=== PATIENT | female | born 1950 | race Caucasian/White ===

== ENCOUNTER 2017-07-18 14:25 | Inpatient (IN) | payer OTHER ==
--- NOTE | 2017-07-18 14:35 | PDOC ---
Rapid Medical Evaluation Chief Complaint: Hematuria Time Seen by Provider: 07/18/17 14:35 Medical Evaluation: Allergies Allergy/AdvReac Type Severity Reaction Status Date / Time Penicillins Allergy Verified 01/15/14 23:05 07/18/17 14:35 I have performed a brief in-person evaluation of this patient. The patient presents with a chief complaint of: persistent hematuria despite multiple abx. Sent in for admission for IV abx. is Dr Banegas. PMD is Dr Lugo. H/o DM, CAD, Alzheimer, NH lymphoma, s/p chemo 2012, s/p stent in L ureter 05/10, urinary incontinence Pertinent physical exam findings:stable I have ordered the following:labs The patient will proceed to the ED for further evaluation.
[2017-07-18 14:54] LABS: BASO % 0.5 % (0-2.0); EOS % 1.9 % (0-4.5); HEMATOCRIT 34.6 % (32.4-45.2); HEMOGLOBIN 11.7 GM/dL (10.7-15.3); LYMPH % 27.1 % (8-40); MCH 27.6 pg (25.7-33.7); MCHC 33.7 g/dl (32.0-36.0); MONO % 7.9 % (3.8-10.2); NEUT % 62.6 % (42.8-82.8); PLATELET COUNT 163 K/MM3 (134-434); RBC 4.22 M/mm3 (3.60-5.2); RDW 15.2 % (11.6-15.6); WHITE BLOOD COUNT 5.4 K/mm3 (4.0-10.0)
[2017-07-18 15:23] LABS: ALBUMIN 3.6 g/dl (3.4-5.0); ALK PHOS 99 U/L (45-117); ANION GAP 12 (8-16); BILIRUBIN,TOTAL 0.5 mg/dL (0.2-1.0); BLOOD UREA NITROGEN 16 mg/dL (7-18); CALCIUM 8.8 mg/dL (8.5-10.1); CHLORIDE 101 mmol/L (98-107); CO2 26 mmol/L (21-32); CREATININE 0.8 mg/dL (0.55-1.02); GLUCOSE,RANDOM 269 mg/dL (74-106); SGOT/AST 15 U/L (15-37); SGPT/ALT 19 U/L (12-78); SODIUM 139 mmol/L (136-145); TOT PROT 7.3 g/dl (6.4-8.2)
--- NOTE | 2017-07-18 16:58 | PDOC ---
History of Present Illness - General History Source: Family, Old Records Exam Limitations: Dementia - History of Present Illness Initial Comments: 07/18/17 18:06 The patient is a 67 year old female presenting with her family, with a significant past medical history of DM, CAD s/p cardiac stents, hyperlipidemia, HTN (on metoprolol), alzhimers, non-hodgkins lymphoma s/p chemo 2012, s/p stent in L ureter 05/10, urinary incontinence, who presents to the emergency department complaining of persistent hematuria despite multiple outpatient oral antibiotics (Cipro and Avelox). The patient was sent for admission and IV antibiotics. Family notes that the patient had a low grade fever at 99.9 degree F, dry cough, rash on her groin (evaluated by PMD and prescribed steroid cream) and boil on her vagina. Allergies: Penicillin Past surgical history: Kidney Stent placed Social History: No alcohol, tobacco or drug use reported PMD: Dr. Lugo. Urologist: Dr. Chilel <Michael Zafar - Last Filed: 07/18/17 18:06> <Genesis Foster - Last Filed: 07/18/17 19:50> - General Chief Complaint: Hematuria Stated Complaint: PCP SENT/HEMATURIA HAS BLADDER STENT Time Seen by Provider: 07/18/17 14:35 Past History <Michael Zafar - Last Filed: 07/18/17 18:06> - Past Medical History Cancer: Yes (NON-HODGKINS) COPD: No Diabetes: Yes Hypercholesterolemia: Yes Other medical history: Alzheimer's disease - Surgical History Abdominal Surgery: (Kidney stent) - Suicide/Smoking/Psychosocial Hx Smoking History: Never smoked Have you smoked in the past 12 months: No Number of Cigarettes Smoked Daily: 0 Information on smoking cessation initiated: No Hx Alcohol Use: No Drug/Substance Use Hx: No Substance Use Type: None <Genesis Foster - Last Filed: 07/18/17 19:50> - Past Medical History Allergies/Adverse Reactions: Allergies Allergy/AdvReac Type Severity Reaction Status Date / Time Penicillins Allergy Verified 07/18/17 14:39 Home Medications: Ambulatory Orders Donepezil HCl [Aricept -] 5 mg PO DAILY 12/31/13 Clopidogrel Bisulfate [Plavix -] 75 mg PO DAILY 01/15/14 Metformin HCl 850 mg PO DAILY 01/15/14 Metoprolol Tartrate [Lopressor -] 25 mg PO DAILY 01/15/14 Review of Systems - Review of Systems Able to Perform ROS?: No Comments:: 07/18/17 18:09 ROS unavailable due to patient medical condition. <Michael Zafar - Last Filed: 07/18/17 18:06> *Physical Exam - Vital Signs Last Vital Signs Temp Pulse Resp BP Pulse Ox 98.9 F 76 19 118/70 99 07/18/17 14:35 07/18/17 14:35 07/18/17 14:35 07/18/17 14:35 07/18/17 14:35 - Physical Exam Comments: 07/18/17 18:10 GENERAL: Awake, alert, and fully oriented, in no acute distress HEAD: No signs of trauma, normocephalic, atraumatic EYES: PERRLA, EOMI, sclera anicteric, conjunctiva clear ENT: Auricles normal inspection, hearing grossly normal, nares patent, oropharynx clear without exudates. Moist mucosa NECK: Normal ROM, supple, no lymphadenopathy, JVD, or masses LUNGS: No distress, speaks full sentences, clear to auscultation bilaterally HEART: Regular rate and rhythm, normal S1 and S2, no murmurs, rubs or gallops, peripheral pulses normal and equal bilaterally. ABDOMEN: Soft, nontender, normoactive bowel sounds. No guarding, no rebound. No masses EXTREMITIES : Normal inspection, Normal range of motion, no edema. No clubbing or cyanosis. NEUROLOGICAL: Cranial nerves II through XII grossly intact. Normal speech, normal gait, no focal sensorimotor deficits SKIN: Warm, Dry, normal turgor, no rashes or lesions noted <Michael Zafar - Last Filed: 07/18/17 18:06> - Vital Signs Last Vital Signs Temp Pulse Resp BP Pulse Ox 98.9 F 76 19 118/70 99 07/18/17 14:35 07/18/17 14:35 07/18/17 14:35 07/18/17 14:35 07/18/17 14:35 <Genesis Foster - Last Filed: 07/18/17 19:50> Heart Score/ECG Review - ECG Intrepretation Comment:: 07/18/17 19:27 sinus at 74, L axis, nl interval, t wave inversions avl, poor r wave progression <Genesis Foster - Last Filed: 07/18/17 19:50> ED Treatment Course - LABORATORY CBC & Chemistry Diagram: 07/18/17 14:45 07/18/17 14:45 - ADDITIONAL ORDERS Additional order review: Laboratory Results 07/18/17 14:45 Sodium 139 Potassium 4.0 Chloride 101 Carbon Dioxide 26 Anion Gap 12 BUN 16 Creatinine 0.8 Creat Clearance w eGFR > 60 Random Glucose 269 H Calcium 8.8 Total Bilirubin 0.5 AST 15 ALT 19 Alkaline Phosphatase 99 Total Protein 7.3 Albumin 3.6 07/18/17 14:45 RBC 4.22 MCV 82.0 MCHC 33.7 RDW 15.2 D MPV 8.0 Neutrophils % 62.6 Lymphocytes % 27.1 D Monocytes % 7.9 Eosinophils % 1.9 D Basophils % 0.5 <Michael Zafar - Last Filed: 07/18/17 18:06> - LABORATORY CBC & Chemistry Diagram: 07/18/17 14:45 07/18/17 14:45 - ADDITIONAL ORDERS Additional order review: Laboratory Results 07/18/17 14:45 Sodium 139 Potassium 4.0 Chloride 101 Carbon Dioxide 26 Anion Gap 12 BUN 16 Creatinine 0.8 Creat Clearance w eGFR > 60 Random Glucose 269 H Calcium 8.8 Total Bilirubin 0.5 AST 15 ALT 19 Alkaline Phosphatase 99 Total Protein 7.3 Albumin 3.6 07/18/17 14:45 RBC 4.22 MCV 82.0 MCHC 33.7 RDW 15.2 D MPV 8.0 Neutrophils % 62.6 Lymphocytes % 27.1 D Monocytes % 7.9 Eosinophils % 1.9 D Basophils % 0.5 <Genesis Foster - Last Filed: 07/18/17 19:50> Medical Decision Making - Medical Decision Making 07/18/17 17:41 a/p: 67yo pleasantly demented female presents to the ED with her family for eval of persistent hematuria/uti that has failed 2 outpt abx treatments -has been seen by DR. Reji Edwards - finished avelox on sunday -also with cough since last night -no fevers -will check labs, ua, ucx, ekg, cxr -sent by PMD for admission -Dr. Medrano is urology -will discuss with ID and Urology pending labs -has a stent to ureter -hematuria since again after stopping hematuria for a week while on avelox 07/18/17 19:34 pt with yeast infection to groin area has been treating with topical nystatin will give fluconazole 07/18/17 19:35 pt with UTI on labs has been on outpt abx x 2 will discuss with ID and UROLOGY will be admitted to [facility] for IV abx case discussed with Dr. Ortiz who accepts pt to service 07/18/17 19:[address] Coe who recommends Merrem therapy IV for the UTI <Genesis Foster - Last Filed: 07/18/17 19:50> *DC/Admit/Observation/Transfer - Attestations Scribe Attestion: 07/18/17 18:10 Documentation prepared by Michael Zafar, acting as medical receptionist assistant for Genesis Foster DO <Michael Zafar - Last Filed: 07/18/17 18:06> - Discharge Dispostion Admit: Yes - Attestations Physician Attestion: 07/18/17 19:28 I, Dr. Genesis Foster DO, attest that this document has been prepared under my direction and personally reviewed by me in its entirety. I further attest, that it accurately reflects all work, treatment, procedures and medical decision -making performed by me. <Genesis Foster - Last Filed: 07/18/17 19:50> Diagnosis at time of Disposition: UTI (urinary tract infection) - Discharge Dispostion Condition at time of disposition: Fair - Referrals Referrals: Sally Lugo [Primary Care Provider] - - Patient Instructions - Post Discharge Activity
[2017-07-18 18:31] LABS: URINE APPEARANCE TURBID; URINE BILIRUBIN NEGATIVE (<2.0 mg/dL); URINE BLOOD 3+ (NEGATIVE); URINE COLOR YELLOW; URINE GLUCOSE (UA) NEGATIVE (NEGATIVE); URINE KETONE NEGATIVE (NEGATIVE); URINE NITRITE POSITIVE (NEGATIVE); URINE UROBILINOGEN NEGATIVE mg/dL (0.2-1.0)
[2017-07-18 18:39] LABS: URINE LEUK ESTERASE 3+ (NEGATIVE); URINE PROTEIN 2+ (NEGATIVE)
[2017-07-18 18:40] LABS: EPI CELLS RARE /HPF (FEW); URINE BACTERIA FEW /hpf (NONE SEEN); URINE MUCUS RARE
[2017-07-18] MEDS ORDERED: FLUCONAZOLE 50 MG TABLET PO ONE (19:26)
--- NOTE | 2017-07-18 19:35 | PN ---
Teaching Attending Note Name of Resident: Cindy Mir ATTENDING PHYSICIAN STATEMENT I saw and evaluated the patient. I reviewed the resident's note and discussed the case with the resident. I agree with the resident's findings and plan as documented. SUBJECTIVE: 67 yo F with pmhx. of DM, CAD s/p stents, hld, htn (on Metoprolol), htn, Alzheimers, Non-Hodgkins Lymphoma (s/p chemo 13'), L. Ureteral stent 05/10, urinary incontinence, who presents with hematouria. Family states she was on Cipro/Moxi prior. Pt. is non-verbal at baseline. As per family she has a groin rash and boil on labia. OBJECTIVE: Physical: Vs: Vital Signs Period Temp Pulse Resp BP Sys/Lopez Pulse Ox Last 24 Hr 98.9 F 76 19 118/70 99 GEN: NAD, Resting in bed, AA0X0 HEENT: NCAT, PERRL, Throat without erythema or exudates CARD: RRR S1, S2 RESP: CTAB ABD: Bsx4, NTD to palpation EXT: - C/C/E : Groin with erythmatous rash, boil difficult to examine, due to positioning. CBCD WBC 5.4 K/mm3 (4.0-10.0) D 07/18/17 14:45 RBC 4.22 M/mm3 (3.60-5.2) 07/18/17 14:45 Hgb 11.7 GM/dL (10.7-15.3) 07/18/17 14:45 Hct 34.6 % (32.4-45.2) 07/18/17 14:45 MCV 82.0 fl (80-96) 07/18/17 14:45 MCHC 33.7 g/dl (32.0-36.0) 07/18/17 14:45 RDW 15.2 % (11.6-15.6) D 07/18/17 14:45 Plt Count 163 K/MM3 (134-434) 07/18/17 14:45 MPV 8.0 fl (7.5-11.1) 07/18/17 14:45 CMP Sodium 139 mmol/L (136-145) 07/18/17 14:45 Potassium 4.0 mmol/L (3.5-5.1) 07/18/17 14:45 Chloride 101 mmol/L (98-107) 07/18/17 14:45 Carbon Dioxide 26 mmol/L (21-32) 07/18/17 14:45 Anion Gap 12 (8-16) 07/18/17 14:45 BUN 16 mg/dL (7-18) 07/18/17 14:45 Creatinine 0.8 mg/dL (0.55-1.02) 07/18/17 14:45 Creat Clearance w eGFR > 60 (>60) 07/18/17 14:45 Random Glucose 269 mg/dL (74-106) H 07/18/17 14:45 Calcium 8.8 mg/dL (8.5-10.1) 07/18/17 14:45 Total Bilirubin 0.5 mg/dL (0.2-1.0) 07/18/17 14:45 AST 15 U/L (15-37) 07/18/17 14:45 ALT 19 U/L (12-78) 07/18/17 14:45 Alkaline Phosphatase 99 U/L (45-117) 07/18/17 14:45 Total Protein 7.3 g/dl (6.4-8.2) 07/18/17 14:45 Albumin 3.6 g/dl (3.4-5.0) 07/18/17 14:45 Urine Test Results Urine Color Yellow 07/18/17 18:20 Urine Appearance Turbid 07/18/17 18:20 Urine pH 5.0 (5.0-8.0) 07/18/17 18:20 Ur Specific [place] 1.011 (1.001-1.035) 07/18/17 18:20 Urine Protein 2+ (NEGATIVE) H 07/18/17 18:20 Urine Glucose (UA) Negative (NEGATIVE) 07/18/17 18:20 Urine Ketones Negative (NEGATIVE) 07/18/17 18:20 Urine Blood 3+ (NEGATIVE) H 07/18/17 18:20 Urine Nitrite Positive (NEGATIVE) 07/18/17 18:20 Urine Bilirubin Negative (<2.0 mg/dL) 07/18/17 18:20 Ur Leukocyte Esterase 3+ (NEGATIVE) H 07/18/17 18:20 Ur Epithelial Cells Rare /HPF (FEW) 03/28/18 18:20 Urine Bacteria Few /hpf (NONE SEEN) 07/18/17 18:20 Urine Mucus Rare 07/18/17 18:20 Ambulatory Orders Donepezil HCl [Aricept -] 5 mg PO DAILY 12/31/13 Clopidogrel Bisulfate [Plavix -] 75 mg PO DAILY 01/15/14 Metformin HCl 850 mg PO DAILY 01/15/14 Metoprolol Tartrate [Lopressor -] 25 mg PO DAILY 01/15/14 ASSESSMENT AND PLAN: 67 yo F with pmhx. of DM, CAD s/p stents, hld, htn (on Metoprolol), htn, Alzheimers, Non-Hodgkins Lymphoma (s/p chemo 13'), L. Ureteral stent 05/10, urinary incontinence, who presents with hematouria, being admitted for UTI, not responsing to abx. 1.) UTI - UCx - IVF gentle - ID consult - Aztreonam 2.) Rash- More[place]/boil - Monitor boil- if draining or worsens decal decorator - Nystatin powder 3.) L. Utretral stent - US - Gu Consult 3.) DM - FS - RAISS - Hold Metformin 4.) CAD s/p Stents - Hold Plavix if procedure tomorrow 5.) Dementia - C/W Aricept 6.) Dvt Ppx - Scds Place in Meds sx
[2017-07-18] MEDS ORDERED: MEROPENEM 1,000 MG in DEXTROSE 5%-WATER - 100 ML IVPB ONE (19:49)
[2017-07-18] MEDS ORDERED: ZOLPIDEM TARTRATE 5 MG TABLET PO PRN (20:35)
--- NOTE | 2017-07-18 20:45 | HP ---
CHIEF COMPLAINT: worsening hematuria x 1 week PCP: Dr. Bryant HISTORY OF PRESENT ILLNESS: 67 y/o F with PMH HTN, HLD, DM, CAD s/p stent, Alzheimer's dz, NHL s/p chemo ( 2012; currently on no agents), recent sepsis 2/2 blocked L ureteral stent ( [facility]), s/p L ureteral stent placement (04/2017), urinary incontinence, who presents to the ED c/o worsening hematuria over the past week. As per daughter, in April, pt had a L ureteral stent placed. It was supposed to be removed in May. Ever since its placement, pt has had intermittent hematuria. She saw her urologist, Dr. Medrano and was subsequently found to have a positive urine cx, and was placed on PO cipro (1 wk course), and moxi (3 wk course) by Dr. Coe (ID). However, pt's hematuria continued, with its frequency increasing to daily this wk. Pt also with vague abdominal discomfort during urination during this time, as well as groin rash ( over the past two weeks), and labial boil (over the past 3 days). She has also had a productive cough, low grade temp (99.8F Tmax), rigors, and 15 pound weight loss over the last three months. Daughter denies appetite changes, night sweats, [place], SOB, or changes in bowel function. Pt is taken care of at home by family members. She does not have a health aid. ER course was notable for: (1) Meropenem IVPB 1 g x 1 (2) Diflucan 150mg x 1 (3) UA 3+ leuk esterase, 2203 WBCs (4) BG 269 Recent Travel: none PAST MEDICAL HISTORY: as above PAST SURGICAL HISTORY: s/p L ureteral stent placement (04/2017), CAD s/p stent, lung bx (NHL went to lung), breast bx Social History: retired; lives at home with family. Used to work for [employer] , [employer] Smoking: started at age 12. smoked for 40-50 yrs, 1-1.5 ppd. stopped 1 yr ago Alcohol: socially in past Drugs: denies Family History: father- leukemia, lung CA- sister, brothers- DM, mother- stroke Allergies Penicillins Allergy (Verified 07/18/17 14:39) - rash, hives HOME MEDICATIONS: Home Medications Medication Instructions Recorded Donepezil HCl [Aricept -] 5 mg PO DAILY 12/31/13 Clopidogrel Bisulfate [Plavix -] 75 mg PO DAILY 01/15/14 Metformin HCl 850 mg PO DAILY 01/15/14 Metoprolol Tartrate [Lopressor -] 25 mg PO DAILY 01/15/14 Pravastatin Sodium 10 mg PO DAILY 07/18/17 Trazodone HCl DAILY 07/18/17 REVIEW OF SYSTEMS CONSTITUTIONAL: +weight change Absent: fever, chills, diaphoresis, generalized weakness, malaise, loss of appetite HEENT: Absent: rhinorrhea, nasal congestion, throat pain, throat swelling, difficulty swallowing, mouth swelling, ear pain, eye pain, visual changes CARDIOVASCULAR: Absent: chest pain, syncope, palpitations, irregular heart rate, lightheadedness , peripheral edema RESPIRATORY: Absent: cough, shortness of breath, dyspnea with exertion, orthopnea, wheezing, stridor, hemoptysis GASTROINTESTINAL: Absent: abdominal pain, abdominal distension, nausea, vomiting, diarrhea, constipation, melena, hematochezia GENITOURINARY: +hematuria Absent: dysuria, frequency, urgency, hesitancy, flank pain, genital pain MUSCULOSKELETAL: Absent: myalgia, arthralgia, joint swelling, back pain, neck pain SKIN: +groin rash Absent: itching, pallor HEMATOLOGIC/IMMUNOLOGIC: Absent: easy bleeding, easy bruising, lymphadenopathy, frequent infections ENDOCRINE: Absent: unexplained weight gain, unexplained weight loss, heat intolerance, cold intolerance NEUROLOGIC: +dementia, urinary incontinence Absent: headache, focal weakness or paresthesias, dizziness, unsteady gait, seizure, mental status changes, bladder or bowel incontinence PSYCHIATRIC: Absent: anxiety, depression, suicidal or homicidal ideation, hallucinations. PHYSICAL EXAMINATION Vital Signs 07/18/17 14:35 Temperature 98.9 F Pulse Rate 76 Respiratory 19 Rate Blood Pressure 118/70 O2 Sat by Pulse 99 Oximetry (%) GENERAL: Sitting comfortably. With dementia, mostly non-verbal. AAO x 0. Cries out, however in no acute distress. HEAD: Normal with no signs of trauma. EYES: Pupils equal, round and reactive to light, extraocular movements intact, sclera anicteric, conjunctiva clear. EARS, NOSE, THROAT: Ears normal, nares patent, oropharynx clear without exudates. Moist mucous membranes. NECK: Normal range of motion, supple LUNGS: Breath sounds equal. No accessory muscle use. Unable to adequately assess as pt with poor inspiratory effort, or response to commands HEART: Regular rate and rhythm, normal S1 and S2 without murmur, rub or gallop. ABDOMEN: Soft, +mild TTP suprapubic area, not distended, normoactive bowel sounds, no guarding, no rebound, no masses. LOWER EXTREMITIES: 2+ posterior tibial pulses, warm, well-perfused. No calf tenderness. No peripheral edema. NEUROLOGICAL: Cranial nerves II-XII appear to be grossly intact. Unable to adequately respond to commands PSYCHIATRIC: with dementia Laboratory Results - last 24 hr 07/18/17 07/18/17 07/18/17 14:45 14:45 18:20 WBC 5.4 D RBC 4.22 Hgb 11.7 Hct 34.6 MCV 82.0 MCH 27.6 D MCHC 33.7 RDW 15.2 D Plt Count 163 MPV 8.0 Neutrophils % 62.6 Lymphocytes % 27.1 D Monocytes % 7.9 Eosinophils % 1.9 D Basophils % 0.5 Sodium 139 Potassium 4.0 Chloride 101 Carbon Dioxide 26 Anion Gap 12 BUN 16 Creatinine 0.8 Creat Clearance w eGFR > 60 Random Glucose 269 H Calcium 8.8 Total Bilirubin 0.5 AST 15 ALT 19 Alkaline Phosphatase 99 Total Protein 7.3 Albumin 3.6 Urine Color Yellow Urine Appearance Turbid Urine pH 5.0 Ur Specific [place] 1.011 Urine Protein 2+ H Urine Glucose (UA) Negative Urine Ketones Negative Urine Blood 3+ H Urine Nitrite Positive Urine Bilirubin Negative Urine Urobilinogen Negative Ur Leukocyte Esterase 3+ H Urine WBC (Auto) 2203 Urine RBC (Auto) 734 Ur Epithelial Cells Rare Urine Bacteria Few Urine Mucus Rare TESTS MICRO: Ucx - pending EKG: NSR, L axis deviation, TWI avL, poor R wave progression. Qtc 463ms CXR: without infiltrates, no pleural effusion ASSESSMENT/PLAN: 67 y/o F with PMH HTN, HLD, DM, CAD s/p stent, Alzheimer's dz, NHL s/p chemo ( 2012; currently on no agents), recent sepsis 2/2 blocked L ureteral stent ( [facility]), s/p L ureteral stent placement (04/2017), urinary incontinence, who presents to the ED c/o worsening hematuria over the past week. Pt admitted to med-surg for resistant UTI. #Resistant UTI, failed oral abx -Without sepsis criteria in ED, afebrile, without white count. However low grade temps at home -pt immunocompromised - with NHL, DM. increased risk infection -UA: 3+ blood, +nitrite, 3+ leuk esterase, 2203 WBCs -Increased frequency hematuria -Received meropenem IVPB 1g x 1 in ED -Will start on Azactam 1g IVPB q8h tomorrow. Pen allergic-rash -ID consult-Dr. Humphreys -Urology consult- Dr. Banegas -gentle IVF -F/u blood cx, urine cx #Hx L ureteral stent -Uro consult- Dr. Banegas -F/u renal sono- assess stent placement. As per ED staff, pt agitated with renal sono #Yeast infection in groin area -Received diflucan 150mg x 1 in ED -Continue nystatin powder use daily #R labial boil -Recommend locomotive firer f/u if does not heal or abnormal d/c #Hx 15 lb weight loss -without B sx, however sig weight loss -15 lbs over last 3 months -Recommend outpatient f/u -Also has smoking hx -?r/o bladder malignancy #CAD s/p stent -Hold plavix 75mg PO qd in case of procedure #HTN- controlled -Continue metoprolol succinate 50mg qd #HLD -Continue pravastatin 10mg PO qHS #DM -will hold home metformin -ISS ACHS -BGM #Alzheimer's dz -Continue aricept 10mg PO HS #Insomnia -Continue ambien 5mg PO qHS PRN #Depression/pseudodementia -Will hold Trazodone 50 PO qd -Qtc 463ms borderline elevated -Continue to monitor #F/E/N -gentle fluids IV NS 75 cc/hr -Continue to monitor electrolytes -NPO until speech&swallow- avoid aspiration d/t dementia #PPX DVT: SCD's, will avoid a/c d/t hematuria GI: on protonix at home, will continue #Dispo Monitoring on med-surg Visit type - Emergency Visit Emergency Visit: Yes ED Registration Date: 07/18/17 Care time: The patient presented to the Emergency Department on the above date and was hospitalized for further evaluation of their emergent condition. - New Patient This patient is new to me today: Yes Date on this admission: 07/19/17 - Critical Care Critical Care patient: No Hospitalist Screening - Colonoscopy Questionnaire Colonoscopy Questionnaire: Colonoscopy Questionnaire - Patient: 50 - 75 years old and never had a screening colonoscopy: Unknown History of colon or rectal polyps, or CA: Unknown History of IBD, Crohn's disease or UC: Unknown History of abdominal radiation therapy as a child: Unknown - Relative: 1 with colon or rectal CA, or polyps at age 60 or younger: Unknown Colon or rectal CA diagnosed at age 45 or younger: Unknown Multiple relatives with colon or rectal CA: Unknown - Outcome: Screening Result: Negative Screen
[2017-07-18] MEDS ORDERED: FLUCONAZOLE 100 MG TABLET (UD) ONE (21:31)
[2017-07-18] MEDS ORDERED: DONEPEZIL HCL 5 MG TABLET (FP) ONE (21:32)
[2017-07-18] MEDS: SODIUM CHLORIDE 1,000 ML IV SCH (21:46)
[2017-07-18] MEDS: DONEPEZIL HCL 10 MG TABLET (FP) PO SCH (21:46)
[2017-07-18] MEDS: NYSTATIN POWDER 100,000 UNITS/GM - 15 GM TOPICAL POWDER TP SCH (21:47)
[2017-07-18] MEDS: AZTREONAM 1 GM in DEXTROSE 5%-WATER - 50 ML IVPB SCH (21:47)
[2017-07-18] MEDS: ATORVASTATIN CA 10 MG TABLET (FP) PO SCH (23:07)
[2017-07-18] MEDS ORDERED: ZOLPIDEM TARTRATE 5 MG TABLET ONE (23:08)
[2017-07-18] MEDS: INSULIN SLIDING SCALE (NOVOLOG) 1 VIAL SQ SCH (23:20)
[2017-07-19] MEDS ORDERED: ZOLPIDEM TARTRATE 5 MG TABLET PO STA (01:42)
[2017-07-19] MEDS ORDERED: ZOLPIDEM TARTRATE 5 MG TABLET ONE (01:44)
[2017-07-19] MEDS: AZTREONAM 1 GM in DEXTROSE 5%-WATER - 50 ML IVPB SCH ×2 (05:09→20:01)
[2017-07-19] MEDS: SODIUM CHLORIDE 1,000 ML IV SCH ×3 (08:41→21:59)
[2017-07-19] MEDS: INSULIN SLIDING SCALE (NOVOLOG) 1 VIAL SQ SCH ×4 (08:41→21:59)
[2017-07-19 08:45] LABS: BASO % 0.5 % (0-2.0); EOS % 1.2 % (0-4.5); HEMATOCRIT 33.2 % (32.4-45.2); HEMOGLOBIN 11.4 GM/dL (10.7-15.3); LYMPH % 20.5 % (8-40); MCH 27.8 pg (25.7-33.7); MCHC 34.3 g/dl (32.0-36.0); MEAN CELL VOLUME 80.9 fl (80-96); MEAN PLT VOLUME 8.4 fl (7.5-11.1); MONO % 7.9 % (3.8-10.2); NEUT % 69.9 % (42.8-82.8); PLATELET COUNT 158 K/MM3 (134-434); RBC 4.11 M/mm3 (3.60-5.2); RDW 15.3 % (11.6-15.6); WHITE BLOOD COUNT 7.6 K/mm3 (4.0-10.0)
[2017-07-19 09:09] LABS: ANION GAP 14 (8-16); BLOOD UREA NITROGEN 13 mg/dL (7-18); CALCIUM 8.1 mg/dL (8.5-10.1); CHLORIDE 99 mmol/L (98-107); CO2 25 mmol/L (21-32); CREATININE 0.7 mg/dL (0.55-1.02); GLUCOSE,RANDOM 144 mg/dL (74-106); MAGNESIUM 1.8 mg/dL (1.8-2.4); POTASSIUM 3.6 mmol/L (3.5-5.1); SODIUM 138 mmol/L (136-145)
--- NOTE | 2017-07-19 09:54 | CONSULT ---
Admitting History and Physical - Primary Care Physician PCP: Ratna Lim - Admission History of Present Illness: 67 yo F with pmhx. of DM, CAD s/p stents, hld, htn (on Metoprolol), htn, Alzheimers, Non-Hodgkins Lymphoma (s/p chemo 13'), L. Ureteral stent 05/10, urinary incontinence, who presents with hematouria. Family states she was on Cipro/Moxi prior. Pt. is mostly non-verbal at baseline. She speaks occasionally. Pt is on a cut up, regular diet and thin liquid without difficulty. History Source: Family Member, Medical Record Limitations to Obtaining History: Clinical Condition, Dementia - Past Medical History Cardiovascular: Yes: HTN, Hyperlipdemia Heme/Onc: Yes: Other (Non-hodgkins lymphoma s/p chemo last 06/2013) - Smoking History Smoking history: Never smoked Have you smoked in the past 12 months: No Aproximately how many cigarettes per day: 0 - Alcohol/Substance Use Hx Alcohol Use: No History of Substance Use: reports: None - Social History ADL: Independent History of Recent Travel: No History - Admission Reason For Visit: UTI - Diagnostics X-ray: Report Reviewed - General Mental Status: Awake and Alert, Flat Affect Attention: Distractible, Moderate Impairment Ability to Follow Directions: Poor Speech Evaluation - Communication Primary Language: BAHRAINI Secondary Language: CYPRIOT Communication: Yes: Simple Responses (rare verbalizations "hello") - Speech Production Able to Make Needs Known: Yes: Severely Impaired Intelligibility: Yes: WNL - Speech Characteristics Voice Loudness: Normal Voice Pitch: Yes: Normal Voice Phonatory-based Quality: Yes: Normal Speech Clarity: < 100% Nasal Resonance: Normal Articulation: Yes: Precise - Language/Auditory Comprehension Observation: Able to respond to yes/no queries: No - Language/Verbal Expression Able to Respond to Simple Queries: Yes: Severely Impaired Able to Communicate Wants and Needs: Yes: Severely Impaired Functional Communication Status: Yes: Severely Impaired - Memory/Perception nursing home Memory: Yes: Severely Impaired Short Term Memory: Yes: Severely Impaired - Swallow Evaluation/Bedside Assessment Current Nutritional Intake: NPO Oral Secretions: Yes: WFL Dentition: Yes: Dental Appliance Upper, Dental Appliance Lower Facial Symmetry at Rest: Facial Droop Left Facial Symmetry on Retraction: Symmetrical Lingual Movement: Symmetric Lingual Speed of Movement: Normal Laryngeal Movement: Able to Palpate Labial Seal: WFL Chewing: WFL Oral Prep Time: WFL A-P Transit: WFL Pocketing: None Timing of Swallow: WFL Coughing/Throat Clear: No Change in Voice: No Recommendations - Speech Evaluation, Impression/Plan Impression: Rare verbalizations with normal intelligibility. Profound cognitive deficits. Swallowing overtly intact. - Disposition Discharge to: Home with Assist - Dysphagia Impressions/Plan Swallowing Skills: WFL *Silent aspiration: cannot be R/O at bedside - Recommendations Diet Consistency: Regular (cut up by family) Liquids: Thin Liquids
--- NOTE | 2017-07-19 10:37 | CON.ID ---
Consult Consult Specialty:: Infectious Diseases Reason for Consultation:: Persistent UTI - History of Present Illness Chief Complaint: Hematuria History of Present Illness: Ms. Platt is a 67 y/o F with PMH HTN, HLD, DM, CAD s/p stent, Alzheimer's dz, NHL s/p chemo (2012; currently on no agents), recent sepsis 2/2 blocked L ureteral stent ([facility]), s/p L ureteral stent placement (04/2017), urinary incontinence, who presents to the ED c/o worsening hematuria over the past week. As per daughter, in April, pt had a L ureteral stent placed. It was supposed to be removed in May. Ever since its placement, pt has had intermittent hematuria. She saw her urologist, Dr. Medrano and was subsequently found to have a positive urine cx with pyuria (Beta Strep)and was placed on PO Cipro for a week. However, she had persistence of her UTI with (+) c/s and a longer course of Rx with Moxifloxacin was given. I had spoken to Dr. Banegas regarding postponement of stent removal in lieu of persistent UTI. A few days ago, her daughter, reported increased hematuria and upon speaking with her PMD, Dr. Dumont, the decision was made to admit her. She has been having intermittent fever or chills. 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 Cardio/Vascular: Yes: HTN, Hyperlipdemia - Alcohol/Substance Use Hx Alcohol Use: No History of Substance Use: reports: None - Smoking History Smoking history: Never smoked Have you smoked in the past 12 months: No Aproximately how many cigarettes per day: 0 - Social History Usual Living Arrangement: With Child ADL: Independent History of Recent Travel: No Home Medications - Allergies Allergies/Adverse Reactions: Allergies Allergy/AdvReac Type Severity Reaction Status Date / Time Penicillins Allergy Verified 07/18/17 14:39 - Home Medications Home Medications: Ambulatory Orders Donepezil HCl [Aricept -] 5 mg PO DAILY 12/31/13 Clopidogrel Bisulfate [Plavix -] 75 mg PO DAILY 01/15/14 Metformin HCl 850 mg PO DAILY 01/15/14 Metoprolol Tartrate [Lopressor -] 25 mg PO DAILY 01/15/14 Pravastatin Sodium 10 mg PO DAILY 07/18/17 Trazodone HCl DAILY 07/18/17 Review of Systems Unable to obtain ROS, reason: Dementia Physical Exam Vital Signs: Vital Signs Temperature 98.2 F 07/19/17 08:55 Pulse Rate 74 07/19/17 08:55 Respiratory Rate 18 07/19/17 09:00 Blood Pressure 149/79 07/19/17 08:55 O2 Sat by Pulse Oximetry (%) 96 07/19/17 09:00 Constitutional: Yes: Well Nourished Eyes: Yes: Conjunctiva Clear Neck: Yes: Supple Cardiovascular: Yes: Regular Rate and Rhythm Respiratory: Yes: Regular Gastrointestinal: Yes: Normal Bowel Sounds Neurological: Yes: Alert, Confusion Labs: CBC, BMP 07/19/17 07:50 07/19/17 07:50 Imaging - Results Chest X-ray: Report Reviewed Assessment/Plan Pt with Hematuria, UTI PCN Allergy. Await final cultures Allergy evaluation for PCN allergy Continue Azacatam 2 gr q 8 Add Clinda 600 mg q 8
--- NOTE | 2017-07-19 11:05 | PN ---
<Angel Aguayo - Last Filed: 07/19/17 16:13> Physical Exam: SUBJECTIVE: Patient seen and examined No acute events overnight. Patient nonverbal. OBJECTIVE: Vital Signs Period Temp Pulse Resp BP Sys/Lopez Pulse Ox Last 24 Hr 98.2 F-98.9 F 72-79 18-19 118-169/70-95 96-99 GENERAL: Sitting comfortably. Non-verbal. AAO x 0. Cries out, however in no acute distress. HEAD: Normal with no signs of trauma. EYES: Pupils equal, round and reactive to light, extraocular movements intact, sclera anicteric, conjunctiva clear. EARS, NOSE, THROAT: Oropharynx clear without exudates. Dry mucous membranes NECK: Normal range of motion, supple LUNGS: Breath sounds equal. No accessory muscle use. Unable to adequately assess as pt with poor inspiratory effort, or response to commands HEART: Regular rate and rhythm, normal S1 and S2 without murmur, rub or gallop. ABDOMEN: Soft, nontender, not distended, normoactive bowel sounds, no guarding, no rebound, no masses. LOWER EXTREMITIES: 2+ posterior tibial pulses, warm, well-perfused. No calf tenderness. No peripheral edema. NEUROLOGICAL: Unable to adequately respond to commands PSYCHIATRIC: with dementia Laboratory Results - last 24 hr 07/18/17 07/18/17 07/18/17 14:45 14:45 18:20 WBC 5.4 D RBC 4.22 Hgb 11.7 Hct 34.6 MCV 82.0 MCH 27.6 D MCHC 33.7 RDW 15.2 D Plt Count 163 MPV 8.0 Neutrophils % 62.6 Lymphocytes % 27.1 D Monocytes % 7.9 Eosinophils % 1.9 D Basophils % 0.5 Sodium 139 Potassium 4.0 Chloride 101 Carbon Dioxide 26 Anion Gap 12 BUN 16 Creatinine 0.8 Creat Clearance w eGFR > 60 POC Glucometer Random Glucose 269 H Calcium 8.8 Phosphorus Magnesium Total Bilirubin 0.5 AST 15 ALT 19 Alkaline Phosphatase 99 Total Protein 7.3 Albumin 3.6 Urine Color Yellow Urine Appearance Turbid Urine pH 5.0 Ur Specific [place] 1.011 Urine Protein 2+ H Urine Glucose (UA) Negative Urine Ketones Negative Urine Blood 3+ H Urine Nitrite Positive Urine Bilirubin Negative Urine Urobilinogen Negative Ur Leukocyte Esterase 3+ H Urine WBC (Auto) 2203 Urine RBC (Auto) 734 Ur Epithelial Cells Rare Urine Bacteria Few Urine Mucus Rare 07/18/17 07/19/17 07/19/17 23:15 07:50 07:50 WBC 7.6 D RBC 4.11 Hgb 11.4 Hct 33.2 MCV 80.9 MCH 27.8 MCHC 34.3 RDW 15.3 Plt Count 158 MPV 8.4 Neutrophils % 69.9 Lymphocytes % 20.5 D Monocytes % 7.9 Eosinophils % 1.2 Basophils % 0.5 Sodium 138 Potassium 3.6 Chloride 99 Carbon Dioxide 25 Anion Gap 14 BUN 13 Creatinine 0.7 Creat Clearance w eGFR POC Glucometer [phone] Random Glucose 144 H Calcium 8.1 L Phosphorus 3.0 Magnesium 1.8 Total Bilirubin AST ALT Alkaline Phosphatase Total Protein Albumin Urine Color Urine Appearance Urine pH Ur Specific [place] Urine Protein Urine Glucose (UA) Urine Ketones Urine Blood Urine Nitrite Urine Bilirubin Urine Urobilinogen Ur Leukocyte Esterase Urine WBC (Auto) Urine RBC (Auto) Ur Epithelial Cells Urine Bacteria Urine Mucus 07/19/17 08:37 WBC RBC Hgb Hct MCV MCH MCHC RDW Plt Count MPV Neutrophils % Lymphocytes % Monocytes % Eosinophils % Basophils % Sodium Potassium Chloride Carbon Dioxide Anion Gap BUN Creatinine Creat Clearance w eGFR POC Glucometer 156 Random Glucose Calcium Phosphorus Magnesium Total Bilirubin AST ALT Alkaline Phosphatase Total Protein Albumin Urine Color Urine Appearance Urine pH Ur Specific [place] Urine Protein Urine Glucose (UA) Urine Ketones Urine Blood Urine Nitrite Urine Bilirubin Urine Urobilinogen Ur Leukocyte Esterase Urine WBC (Auto) Urine RBC (Auto) Ur Epithelial Cells Urine Bacteria Urine Mucus Active Medications Generic Name Dose Route Start Last Admin Trade Name Olga PRN Reason Stop Dose Admin Atorvastatin Calcium 10 mg 07/18/17 22:00 07/18/17 23:07 Lipitor - PO 10 mg HS GEORGINA Administration Donepezil HCl 10 mg 07/18/17 20:30 07/18/17 21:46 Aricept - PO 10 mg DAILY GEORGINA Administration Sodium Chloride 1,000 mls @ 75 mls/hr 07/18/17 20:30 07/19/17 08:41 Normal Saline - IV 75 mls/hr ASDIR GEORGINA Administration Aztreonam 1 gm/ Dextrose 50 mls @ 100 mls/hr 07/18/17 20:30 IVPB Q8H GEORGINA Protocol Clindamycin Phosphate 600 mg in 50 mls @ 100 mls/hr 07/19/17 11:00 Cleocin 600 Mg Premix Ivpb - IVPB Q8H-IV GEORGINA Insulin Aspart 1 vial 07/18/17 22:00 07/19/17 08:41 Novolog Vial Sliding Scale - SQ Not Given ACHS GEORGINA Protocol Metoprolol Succinate 50 mg 07/18/17 20:45 07/18/17 21:46 Toprol Xl - PO 50 mg DAILY GEORGINA Administration Nystatin 1 applic 07/18/17 20:45 07/18/17 21:47 Nystop Powder - TP 1 applic DAILY GEORGINA Administration Pantoprazole Sodium 40 mg 07/19/17 10:00 Protonix Iv IVPUSH DAILY GEORGINA Zolpidem Tartrate 5 mg 07/18/17 20:35 07/18/17 23:19 Ambien - PO 5 mg HS PRN Administration INSOMNIA ASSESSMENT/PLAN: 67 y.o. F with pmh HTN, HLD, DM, CAD s/p stent, Alzheimer's dz, NHL s/p chemo ( 2012; currently on no agents), recent sepsis 2/2 blocked L ureteral stent ( [facility]), s/p L ureteral stent placement (04/2017), urinary incontinence, who presented with worsening hematuria and resistant UTI #Resistant UTI, failed oral abx with hx of l ureteral stent -UA: 3+ blood, +nitrite, 3+ leuk esterase, 2203 WBCs -Increased frequency hematuria -Received meropenem IVPB 1g x 1 in ED -Continue Azactam, started on clindamycin -ID consult-Dr. Humphreys -Urology consult- Dr. Banegas -gentle IVF -F/u blood cx, urine cx #Yeast infection in groin area -Received diflucan 150mg x 1 in ED -Continue nystatin powder use daily #Hx 15 lb weight loss -without B sx, however sig weight loss -15 lbs over last 3 months -Recommend outpatient f/u #CAD s/p stent -Hold plavix 75mg PO qd in case of procedure #HTN- controlled -Continue metoprolol succinate 50mg qd #HLD -Continue pravastatin 10mg PO qHS #DM -will hold home metformin -ISS ACHS -BGM #Alzheimer's dz -Continue aricept 10mg PO HS #Insomnia -Continue ambien 5mg PO qHS PRN #Depression/pseudodementia -Will hold Trazodone 50 PO qd -Qtc 463ms borderline elevated -Continue to monitor #F/E/N -gentle fluids IV NS 75 cc/hr -Continue to monitor electrolytes -Diabetic/sodium diet #PPX DVT: SCD's, GI: Protonix #Dispo M/S Visit type - Emergency Visit Emergency Visit: Yes ED Registration Date: 07/18/17 Care time: The patient presented to the Emergency Department on the above date and was hospitalized for further evaluation of their emergent condition. - New Patient This patient is new to me today: Yes Date on this admission: 07/19/17 - Critical Care Critical Care patient: No <BryannormanailynRatna - Last Filed: 07/19/17 18:36> Physical Exam: Patient has seen and examined. Patient has 5 yr hx of Alzhemeir's Dementia. As per Patient's daughter, she takes care of her at home. Patient had the stent placement 2 months ago but continued to have infection and was placed on mcfp po antibiotics. Admitted for acute UTI on IV Azactam and clindamycin since patient is allergic to PCN. Vital Signs Temperature 98.2 F 07/19/17 13:41 Pulse Rate 74 07/19/17 13:41 Respiratory Rate 18 07/19/17 13:41 Blood Pressure 149/79 07/19/17 13:41 O2 Sat by Pulse Oximetry (%) 96 07/19/17 14:24 CBCD WBC 7.6 K/mm3 (4.0-10.0) D 07/19/17 07:50 RBC 4.11 M/mm3 (3.60-5.2) 07/19/17 07:50 Hgb 11.4 GM/dL (10.7-15.3) 07/19/17 07:50 Hct 33.2 % (32.4-45.2) 07/19/17 07:50 MCV 80.9 fl (80-96) 07/19/17 07:50 MCHC 34.3 g/dl (32.0-36.0) 07/19/17 07:50 RDW 15.3 % (11.6-15.6) 07/19/17 07:50 Plt Count 158 K/MM3 (134-434) 07/19/17 07:50 MPV 8.4 fl (7.5-11.1) 07/19/17 07:50 CMP Sodium 138 mmol/L (136-145) 07/19/17 07:50 Potassium 3.6 mmol/L (3.5-5.1) 07/19/17 07:50 Chloride 99 mmol/L (98-107) 07/19/17 07:50 Carbon Dioxide 25 mmol/L (21-32) 07/19/17 07:50 Anion Gap 14 (8-16) 07/19/17 07:50 BUN 13 mg/dL (7-18) 07/19/17 07:50 Creatinine 0.7 mg/dL (0.55-1.02) 07/19/17 07:50 Creat Clearance w eGFR > 60 (>60) 07/18/17 14:45 Random Glucose 144 mg/dL (74-106) H 07/19/17 07:50 Calcium 8.1 mg/dL (8.5-10.1) L 07/19/17 07:50 Total Bilirubin 0.5 mg/dL (0.2-1.0) 07/18/17 14:45 AST 15 U/L (15-37) 07/18/17 14:45 ALT 19 U/L (12-78) 07/18/17 14:45 Alkaline Phosphatase 99 U/L (45-117) 07/18/17 14:45 Total Protein 7.3 g/dl (6.4-8.2) 07/18/17 14:45 Albumin 3.6 g/dl (3.4-5.0) 07/18/17 14:45 Current Medications Generic Name Dose Route Start Last Admin Trade Name Freq PRN Reason Stop Dose Admin Atorvastatin Calcium 10 mg 07/18/17 22:00 07/18/17 23:07 Lipitor - PO 10 mg HS GEORGINA Administration Donepezil HCl 10 mg 07/18/17 20:30 07/19/17 15:44 Aricept - PO Not Given DAILY GEORGINA Sodium Chloride 1,000 mls @ 75 mls/hr 07/18/17 20:30 07/19/17 08:41 Normal Saline - IV 75 mls/hr ASDIR GEORGINA Administration Aztreonam 1 gm/ Dextrose 50 mls @ 100 mls/hr 07/18/17 20:30 IVPB Q8H GEORGINA Protocol Clindamycin Phosphate 600 mg in 50 mls @ 100 mls/hr 07/19/17 11:00 07/19/17 12:37 Cleocin 600 Mg Premix Ivpb - IVPB 100 mls/hr Q8H-IV GEORGINA Administration Insulin Aspart 1 vial 07/18/17 22:00 07/19/17 12:20 Novolog Vial Sliding Scale - SQ Not Given ACHS GEORGINA Protocol Metoprolol Succinate 50 mg 07/18/17 20:45 07/19/17 15:45 Toprol Xl - PO Not Given DAILY GEORGINA Nystatin 1 applic 07/18/17 20:45 07/19/17 12:38 Nystop Powder - TP 1 applic DAILY GEORGINA Administration Pantoprazole Sodium 40 mg 07/19/17 10:00 07/19/17 12:37 Protonix Iv IVPUSH 40 mg DAILY GEORGINA Administration Zolpidem Tartrate 5 mg 07/18/17 20:35 07/18/17 23:19 Ambien - PO 5 mg HS PRN Administration INSOMNIA Home Medications Medication Instructions Recorded Metformin HCl 1,000 mg PO BIDAC 01/15/14 Metoprolol Tartrate [Lopressor -] 50 mg PO DAILY 01/15/14 Pravastatin Sodium 10 mg PO HS 07/18/17 Trazodone HCl 50 mg PO HS 07/18/17 Amlodipine Besylate [Norvasc -] 5 mg PO DAILY 07/19/17 Donepezil HCl 10 mg PO HS 07/19/17 Insulin Glargine,Hum.rec.anlog 35 unit SQ DAILY 07/19/17 [Lantus Solostar] Pantoprazole Sodium [Protonix] 40 mg PO DAILY 07/19/17 Zolpidem Tartrate [Ambien] 10 mg PO HS 07/19/17
--- NOTE | 2017-07-19 11:39 | EKG ---
Test Reason : Blood Pressure : / mmHG Vent. Rate : 074 BPM Atrial Rate : 074 BPM P-R Int : 172 ms QRS Dur : 088 ms QT Int : 418 ms P-R-T Axes : 062 -35 089 degrees QTc Int : 463 ms POOR DATA QUALITY, INTERPRETATION MAY BE ADVERSELY AFFECTED NORMAL SINUS RHYTHM LEFT AXIS DEVIATION MODERATE VOLTAGE CRITERIA FOR LVH, MAY BE NORMAL VARIANT ABNORMAL ECG WHEN COMPARED WITH ECG OF 16-JAN-2014 06:07, NO SIGNIFICANT CHANGE WAS FOUND Confirmed by OPAL MOHAN MD ([id number]) on 07/19/2017 11:38:47 AM Referred By: Confirmed By:OPAL MOHAN MD
[2017-07-19] MEDS: CLINDAMYCIN 600MG PREMIX IVPB 600 MG/50 ML BAG IVPB SCH ×2 (12:37→18:28)
[2017-07-19] MEDS: PANTOPRAZOLE SODIUM 40 MG VIAL IVPUSH SCH (12:37)
[2017-07-19] MEDS: NYSTATIN POWDER 100,000 UNITS/GM - 15 GM TOPICAL POWDER TP SCH (12:38)
[2017-07-19 13:56] VITALS: BMI 21.9
[2017-07-19] MEDS: DONEPEZIL HCL 10 MG TABLET (FP) PO SCH (15:44)
[2017-07-19] MEDS ORDERED: ZOLPIDEM TARTRATE 5 MG TABLET PO PRN (19:55)
[2017-07-19] MEDS ORDERED: INSULIN (NOVOLOG) ASPART 100 UNITS/ML 10ML VIAL ONE (21:57)
[2017-07-19] MEDS: ATORVASTATIN CA 10 MG TABLET (FP) PO SCH (21:59)
[2017-07-20] MEDS: ZOLPIDEM TARTRATE 5 MG TABLET PO PRN (01:12)
[2017-07-20] MEDS: CLINDAMYCIN 600MG PREMIX IVPB 600 MG/50 ML BAG IVPB SCH ×3 (01:34→17:23)
[2017-07-20] MEDS: INSULIN SLIDING SCALE (NOVOLOG) 1 VIAL SQ SCH ×4 (06:35→21:19)
[2017-07-20 07:32] LABS: BASO % 0.6 % (0-2.0); EOS % 2.1 % (0-4.5); HEMOGLOBIN 11.4 GM/dL (10.7-15.3); LYMPH % 23.9 % (8-40); MCH 27.7 pg (25.7-33.7); MCHC 34.6 g/dl (32.0-36.0); MEAN CELL VOLUME 80.2 fl (80-96); MEAN PLT VOLUME 8.6 fl (7.5-11.1); MONO % 9.3 % (3.8-10.2); NEUT % 64.1 % (42.8-82.8); PLATELET COUNT 164 K/MM3 (134-434); RBC 4.11 M/mm3 (3.60-5.2); RDW 15.5 % (11.6-15.6); WHITE BLOOD COUNT 5.1 K/mm3 (4.0-10.0)
[2017-07-20 08:31] LABS: ANION GAP 13 (8-16); BLOOD UREA NITROGEN 10 mg/dL (7-18); CALCIUM 8.4 mg/dL (8.5-10.1); CHLORIDE 104 mmol/L (98-107); CO2 23 mmol/L (21-32); GLUCOSE,RANDOM 180 mg/dL (74-106); POTASSIUM 3.5 mmol/L (3.5-5.1); SODIUM 140 mmol/L (136-145)
[2017-07-20 08:32] LABS: CREATININE 0.7 mg/dL (0.55-1.02)
[2017-07-20] MEDS: PANTOPRAZOLE SODIUM 40 MG VIAL IVPUSH SCH (10:35)
[2017-07-20] MEDS: DONEPEZIL HCL 10 MG TABLET (FP) PO SCH (10:35)
[2017-07-20] MEDS: NYSTATIN POWDER 100,000 UNITS/GM - 15 GM TOPICAL POWDER TP SCH (10:36)
--- NOTE | 2017-07-20 10:45 | PN ---
<Angel Aguayo - Last Filed: 07/20/17 13:48> Physical Exam: SUBJECTIVE: Patient seen and examined No acute events overnight. Patient sleeping comfortably this AM. OBJECTIVE: Vital Signs Period Temp Pulse Resp BP Sys/Lopez Pulse Ox Last 24 Hr 98.1 F-98.2 F 74-82 18-18 149-163/79-93 96-96 GENERAL: Comfortable. Non-verbal. AAO x 0. Cries out, however in no acute distress. HEAD: Normal with no signs of trauma. EYES: Pupils equal, round and reactive to light, extraocular movements intact, sclera anicteric, conjunctiva clear. EARS, NOSE, THROAT: Oropharynx clear without exudates. Dry mucous membranes NECK: Normal range of motion, supple LUNGS: Breath sounds equal. No accessory muscle use. Unable to adequately assess as pt with poor inspiratory effort, or response to commands HEART: Regular rate and rhythm, normal S1 and S2 without murmur, rub or gallop. ABDOMEN: Soft, nontender, not distended, normoactive bowel sounds, no guarding, no rebound, no masses. LOWER EXTREMITIES: 2+ posterior tibial pulses, warm, well-perfused. No calf tenderness. No peripheral edema. NEUROLOGICAL: Unable to adequately respond to commands PSYCHIATRIC: with dementia Laboratory Results - last 24 hr 07/19/17 07/19/17 07/19/17 11:29 17:55 21:48 WBC RBC Hgb Hct MCV MCH MCHC RDW Plt Count MPV Neutrophils % Lymphocytes % Monocytes % Eosinophils % Basophils % Sodium Potassium Chloride Carbon Dioxide Anion Gap BUN Creatinine POC Glucometer 179 229 285 Random Glucose Calcium 07/20/17 07/20/17 07/20/17 06:05 07:00 07:00 WBC 5.1 D RBC 4.11 Hgb 11.4 Hct 33.0 MCV 80.2 MCH 27.7 MCHC 34.6 RDW 15.5 Plt Count 164 MPV 8.6 Neutrophils % 64.1 Lymphocytes % 23.9 Monocytes % 9.3 Eosinophils % 2.1 Basophils % 0.6 Sodium 140 Potassium 3.5 Chloride 104 Carbon Dioxide 23 Anion Gap 13 BUN 10 Creatinine 0.7 POC Glucometer 191 Random Glucose 180 H Calcium 8.4 L Active Medications Generic Name Dose Route Start Last Admin Trade Name Freq PRN Reason Stop Dose Admin Atorvastatin Calcium 10 mg 07/18/17 22:00 07/19/17 21:59 Lipitor - PO 10 mg HS GEORGINA Administration Donepezil HCl 10 mg 07/18/17 20:30 07/20/17 10:35 Aricept - PO 10 mg DAILY GEORGINA Administration Sodium Chloride 1,000 mls @ 75 mls/hr 07/18/17 20:30 07/19/17 21:59 Normal Saline - IV 75 mls/hr ASDIR GEORGINA Administration Clindamycin Phosphate 600 mg in 50 mls @ 100 mls/hr 07/19/17 11:00 07/20/17 10:36 Cleocin 600 Mg Premix Ivpb - IVPB 100 mls/hr Q8H-IV GEORGINA Administration Insulin Aspart 1 vial 07/18/17 22:00 07/20/17 06:35 Novolog Vial Sliding Scale - SQ 2 units ACHS GEORGINA Administration Protocol Metoprolol Succinate 50 mg 07/18/17 20:45 07/20/17 10:35 Toprol Xl - PO 50 mg DAILY GEORGINA Administration Nystatin 1 applic 07/18/17 20:45 07/20/17 10:36 Nystop Powder - TP 1 applic DAILY GEORGINA Administration Pantoprazole Sodium 40 mg 07/19/17 10:00 07/20/17 10:35 Protonix Iv IVPUSH 40 mg DAILY GEORGINA Administration Zolpidem Tartrate 5 mg 07/19/17 20:09 07/20/17 01:12 Ambien - PO 5 mg HS PRN Administration INSOMNIA ASSESSMENT/PLAN: 67 y.o. F with pmh HTN, HLD, DM, CAD s/p stent, Alzheimer's dz, NHL s/p chemo ( 2012; currently on no agents), recent sepsis 2/2 blocked L ureteral stent ( [facility]), s/p L ureteral stent placement (04/2017), urinary incontinence, who presented with worsening hematuria and resistant UTI #Resistant UTI, failed oral abx with hx of l ureteral stent -UA: 3+ blood, +nitrite, 3+ leuk esterase, 2203 WBCs -Increased frequency hematuria -Received meropenem IVPB 1g x 1 in ED -Continue Azactam and clindamycin, Patient has penicillin allergy -ID consult-Dr. Humphreys -Urology consult- Dr. Banegas, will proceed with elective removal of stent after culture is negative -gentle IVF @ 75 cc/hr -F/u blood cx, urine cx #Yeast infection in groin area -Received diflucan 150mg x 1 in ED -Continue nystatin powder use daily #Hx 15 lb weight loss -without B sx, however sig weight loss -15 lbs over last 3 months -Recommend outpatient f/u #CAD s/p stent -Hold plavix 75mg PO qd in case of procedure #HTN- controlled -Continue metoprolol succinate 50mg qd #HLD -Continue pravastatin 10mg PO qHS #DM -will hold home metformin -ISS ACHS -BGM ACHS #Alzheimer's dz -Continue aricept 10mg PO HS #Insomnia -Continue ambien 5mg PO qHS PRN #Depression/pseudodementia -Will hold Trazodone 50 PO qd -Qtc 463ms borderline elevated -Continue to monitor #F/E/N -gentle fluids IV NS 75 cc/hr -Continue to monitor electrolytes -Diabetic/sodium diet #PPX DVT: SCD's GI: Protonix #Dispo M/S Visit type - Emergency Visit Emergency Visit: Yes ED Registration Date: 07/18/17 Care time: The patient presented to the Emergency Department on the above date and was hospitalized for further evaluation of their emergent condition. - New Patient This patient is new to me today: No - Critical Care Critical Care patient: No <Ratna Lim - Last Filed: 07/20/17 18:51> Physical Exam: Patient has no fever or chills, daughter at bedside. Continue IV antibiotic for now. Urology on Board and ID on board.
--- NOTE | 2017-07-20 13:04 | CON.GU ---
Consult Consult Specialty:: Referred by:: medicine Reason for Consultation:: left hydronephrosis - History of Present Illness Chief Complaint: left hydronephrosis History of Present Illness: 67 year old female with a history of a left UPJ obstruction and recurrent UTIs. She reportedly had urosepsis at [facility] last year and a ureteral stent was placed. Attempts at cystoscopy and removal of the stent have been thwarted due to presistently positive urine culture. She is admitted to 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 Cardio/Vascular: Yes: HTN, Hyperlipdemia Renal/: Yes: UTI, Other (UPJ obstruction) - Alcohol/Substance Use Hx Alcohol Use: No History of Substance Use: reports: None - Smoking History Smoking history: Former smoker Have you smoked in the past 12 months: Yes Aproximately how many cigarettes per day: 0 If you are a former smoker, when did you quit?: 6 months ago - Social History Usual Living Arrangement: With Child ADL: Independent History of Recent Travel: No Home Medications - Allergies Allergies/Adverse Reactions: Allergies Allergy/AdvReac Type Severity Reaction Status Date / Time Penicillins Allergy Verified 07/18/17 14:39 - Home Medications Home Medications: Ambulatory Orders Metformin HCl 1,000 mg PO BIDAC 01/15/14 Metoprolol Tartrate [Lopressor -] 50 mg PO DAILY 01/15/14 Pravastatin Sodium 10 mg PO HS 07/18/17 Trazodone HCl 50 mg PO HS 07/18/17 Amlodipine Besylate [Norvasc -] 5 mg PO DAILY 07/19/17 Donepezil HCl 10 mg PO HS 07/19/17 Insulin Glargine,Hum.rec.anlog [Lantus Solostar] 35 unit SQ DAILY 07/19/17 Pantoprazole Sodium [Protonix] 40 mg PO DAILY 07/19/17 Zolpidem Tartrate [Ambien] 10 mg PO HS 07/19/17 Review of Systems Unable to obtain ROS, reason: dementia. non verbal, alh Physical Exam- Vital Signs: Vital Signs Temperature 98.1 F 07/19/17 18:56 Pulse Rate 82 07/19/17 18:56 Respiratory Rate 18 03/29/18 21:00 Blood Pressure 163/93 07/19/17 18:56 O2 Sat by Pulse Oximetry (%) 96 07/19/17 21:00 Renal/: No: CVA Tenderness - Left, CVA Tenderness - Right Labs: CBC, BMP 07/20/17 07:00 07/20/17 07:00 Problem List - Problems (1) UPJ obstruction, congenital Assessment/Plan: once patient has a negative urine culture, can proceed with elective removal of stent. Code(s): Q62.11 - CONGENITAL OCCLUSION OF URETEROPELVIC JUNCTION (2) UTI (urinary tract infection) Code(s): N39.0 - URINARY TRACT INFECTION, SITE NOT SPECIFIED
[2017-07-20] MEDS: guaiFENesin 200 MG/10 ML 10 ML UNIT-DOSE CUPS PO PRN (17:21)
[2017-07-20] MEDS: ATORVASTATIN CA 10 MG TABLET (FP) PO SCH (21:19)
[2017-07-21] MEDS ORDERED: ZOLPIDEM TARTRATE 5 MG TABLET PO ONE (00:03)
[2017-07-21] MEDS: ZOLPIDEM TARTRATE 5 MG TABLET PO PRN ×2 (00:11→23:18)
[2017-07-21] MEDS: CLINDAMYCIN 600MG PREMIX IVPB 600 MG/50 ML BAG IVPB SCH ×3 (01:35→18:16)
[2017-07-21] MEDS: INSULIN SLIDING SCALE (NOVOLOG) 1 VIAL SQ SCH ×4 (06:41→21:34)
[2017-07-21] MEDS ORDERED: INSULIN (NOVOLOG) ASPART 100 UNITS/ML 10ML VIAL ONE (06:51)
[2017-07-21 08:31] LABS: BASO % 0.5 % (0-2.0); EOS % 3.3 % (0-4.5); HEMATOCRIT 33.4 % (32.4-45.2); HEMOGLOBIN 11.4 GM/dL (10.7-15.3); LYMPH % 21.3 % (8-40); MCH 27.4 pg (25.7-33.7); MEAN CELL VOLUME 80.5 fl (80-96); MEAN PLT VOLUME 7.9 fl (7.5-11.1); MONO % 8.5 % (3.8-10.2); NEUT % 66.4 % (42.8-82.8); PLATELET COUNT 154 K/MM3 (134-434); RBC 4.15 M/mm3 (3.60-5.2); RDW 15.4 % (11.6-15.6); WHITE BLOOD COUNT 5.4 K/mm3 (4.0-10.0)
[2017-07-21 09:02] LABS: CHLORIDE 103 mmol/L (98-107); POTASSIUM 3.4 mmol/L (3.5-5.1); SODIUM 139 mmol/L (136-145)
[2017-07-21 09:40] LABS: BLOOD UREA NITROGEN 12 mg/dL (7-18); GLUCOSE,RANDOM 209 mg/dL (74-106)
[2017-07-21 09:49] LABS: ANION GAP 15 (8-16); CALCIUM 8.3 mg/dL (8.5-10.1); CO2 21 mmol/L (21-32); CREATININE 0.9 mg/dL (0.55-1.02)
[2017-07-21] MEDS ORDERED: PT OWN MED DRAWER 7, Y5N ONE (10:58)
[2017-07-21] MEDS: DONEPEZIL HCL 10 MG TABLET (FP) PO SCH (11:00)
[2017-07-21] MEDS: NYSTATIN POWDER 100,000 UNITS/GM - 15 GM TOPICAL POWDER TP SCH (11:06)
[2017-07-21] MEDS: PANTOPRAZOLE SODIUM 40 MG VIAL IVPUSH SCH (11:10)
--- NOTE | 2017-07-21 12:05 | PN ---
Progress Note, Physician Chief Complaint: Fever History of Present Illness: Ms. Platt is a 67 y/o F with PMH HTN, HLD, DM, CAD s/p stent, Alzheimer's dz, NHL s/p chemo (2012; currently on no agents), recent sepsis 2/2 blocked L ureteral stent ([facility]), s/p L ureteral stent placement (04/2017), urinary incontinence, who presents to the ED c/o worsening hematuria over the past week. As per daughter, in April, pt had a L ureteral stent placed. It was supposed to be removed in May. Ever since its placement, pt has had intermittent hematuria. She saw her urologist, Dr. Medrano and was subsequently found to have a positive urine cx with pyuria (Beta Strep)and was placed on PO Cipro for a week. However, she had persistence of her UTI with (+) c/s and a longer course of Rx with Moxifloxacin was given. Hospital course significant for (+) Strep in the urine ( same organism isolated as outpatient ) - Current Medication List Current Medications: Active Medications Atorvastatin Calcium (Lipitor -) 10 mg PO HS [facility] Last Admin: 07/20/17 21:19 Dose: 10 mg Donepezil HCl (Aricept -) 10 mg PO DAILY GEORGINA Last Admin: 07/21/17 11:00 Dose: 10 mg Guaifenesin (Robitussin -) 10 ml PO Q8H PRN PRN Reason: COUGH Last Admin: 07/20/17 17:21 Dose: 10 ml Clindamycin Phosphate (Cleocin 600 Mg Premix Ivpb -) 600 mg in 50 mls @ 100 mls /hr IVPB Q8H-IV GEORGINA Last Admin: 07/21/17 11:01 Dose: 100 mls/hr Insulin Aspart (Novolog Vial Sliding Scale -) 1 vial SQ ACHS GEORGINA PRN Reason: Protocol Last Admin: 07/21/17 06:41 Dose: 4 units Metoprolol Succinate (Toprol Xl -) 50 mg PO DAILY [facility] Last Admin: 07/21/17 11:00 Dose: 50 mg Nystatin (Nystop Powder -) 1 applic TP DAILY [facility] Last Admin: 07/21/17 11:06 Dose: 1 applic Pantoprazole Sodium (Protonix Iv) 40 mg IVPUSH DAILY [facility] Last Admin: 07/21/17 11:10 Dose: 40 mg Zolpidem Tartrate (Ambien -) 5 mg PO HS PRN PRN Reason: INSOMNIA Last Admin: 07/21/17 00:11 Dose: 5 mg - Objective Vital Signs: Vital Signs Temperature 98.7 F 07/21/17 09:45 Pulse Rate 66 07/21/17 09:45 Respiratory Rate 18 07/21/17 09:45 Blood Pressure 134/75 07/21/17 09:45 O2 Sat by Pulse Oximetry (%) 98 07/20/17 21:00 Constitutional: Yes: Well Nourished, Calm Cardiovascular: Yes: Regular Rate and Rhythm Respiratory: Yes: CTA Bilaterally Gastrointestinal: Yes: Normal Bowel Sounds, Soft Labs: CBC, BMP 07/21/17 07:00 07/21/17 07:00 Assessment/Plan Pt with Hematuria, UTI PCN Allergy. Continue Clinda DC Azactam Repeat UA and c/s tomorrow
[2017-07-21] MEDS: guaiFENesin 200 MG/10 ML 10 ML UNIT-DOSE CUPS PO PRN (16:11)
--- NOTE | 2017-07-21 19:28 | PN ---
Physical Exam: SUBJECTIVE: Patient seen and examined Patient is comfortable with no acute distress. as per daughter patient is on Ambien 10mg po qhs. OBJECTIVE: Vital Signs Temperature 97.7 F 07/21/17 18:23 Pulse Rate 71 07/21/17 18:23 Respiratory Rate 20 07/21/17 18:23 Blood Pressure 158/87 07/21/17 18:23 O2 Sat by Pulse Oximetry (%) 98 07/20/17 21:00 GENERAL: The patient is awake, but does not communicate just stares at you. HEAD: Normal with no signs of trauma. EYES: PERRL, extraocular movements intact, sclera anicteric, conjunctiva clear. No ptosis. ENT: Ears normal, nares patent, oropharynx clear without exudates, moist mucous membranes. NECK: Trachea midline, full range of motion, supple. LUNGS: Breath sounds equal, clear to auscultation bilaterally, no wheezes, no crackles, no accessory muscle use. HEART: Regular rate and rhythm, S1, S2 without murmur, rub or gallop. ABDOMEN: Soft, nontender, nondistended, normoactive bowel sounds, no guarding, no rebound, no hepatosplenomegaly, no masses. EXTREMITIES: 2+ pulses, warm, well-perfused, no edema. NEUROLOGICAL: Cranial nerves II through XII grossly intact. gait is stable with the help of the daughter . SKIN: Warm, dry, normal turgor, no rashes or lesions noted CBCD WBC 5.4 K/mm3 (4.0-10.0) 07/21/17 07:00 RBC 4.15 M/mm3 (3.60-5.2) 07/21/17 07:00 Hgb 11.4 GM/dL (10.7-15.3) 07/21/17 07:00 Hct 33.4 % (32.4-45.2) 07/21/17 07:00 MCV 80.5 fl (80-96) 07/21/17 07:00 MCHC 34.0 g/dl (32.0-36.0) 07/21/17 07:00 RDW 15.4 % (11.6-15.6) 07/21/17 07:00 Plt Count 154 K/MM3 (134-434) 07/21/17 07:00 MPV 7.9 fl (7.5-11.1) 07/21/17 07:00 CMP Sodium 139 mmol/L (136-145) 07/21/17 07:00 Potassium 3.4 mmol/L (3.5-5.1) L 07/21/17 07:00 Chloride 103 mmol/L (98-107) 07/21/17 07:00 Carbon Dioxide 21 mmol/L (21-32) 07/21/17 07:00 Anion Gap 15 (8-16) 07/21/17 07:00 BUN 12 mg/dL (7-18) 07/21/17 07:00 Creatinine 0.9 mg/dL (0.55-1.02) 07/21/17 07:00 Creat Clearance w eGFR > 60 (>60) 07/18/17 14:45 Random Glucose 209 mg/dL (74-106) H 07/21/17 07:00 Calcium 8.3 mg/dL (8.5-10.1) L 07/21/17 07:00 Total Bilirubin 0.5 mg/dL (0.2-1.0) 07/18/17 14:45 AST 15 U/L (15-37) 07/18/17 14:45 ALT 19 U/L (12-78) 07/18/17 14:45 Alkaline Phosphatase 99 U/L (45-117) 07/18/17 14:45 Total Protein 7.3 g/dl (6.4-8.2) 07/18/17 14:45 Albumin 3.6 g/dl (3.4-5.0) 07/18/17 14:45 Current Medications Generic Name Dose Route Start Last Admin Trade Name Freq PRN Reason Stop Dose Admin Atorvastatin Calcium 10 mg 07/18/17 22:00 07/20/17 21:19 Lipitor - PO 10 mg HS GEORGINA Administration Donepezil HCl 10 mg 07/18/17 20:30 07/21/17 11:00 Aricept - PO 10 mg DAILY GEORGINA Administration Guaifenesin 10 ml 07/20/17 12:15 07/21/17 16:11 Robitussin - PO 10 ml Q8H PRN Administration COUGH Clindamycin Phosphate 600 mg in 50 mls @ 100 mls/hr 07/19/17 11:00 07/21/17 18:16 Cleocin 600 Mg Premix Ivpb - IVPB 100 mls/hr Q8H-IV GEORGINA Administration Insulin Aspart 1 vial 07/18/17 22:00 07/21/17 18:16 Novolog Vial Sliding Scale - SQ 8 units ACHS GEORGINA Administration Protocol Metoprolol Succinate 50 mg 07/18/17 20:45 07/21/17 11:00 Toprol Xl - PO 50 mg DAILY GEORGINA Administration Nystatin 1 applic 07/18/17 20:45 07/21/17 11:06 Nystop Powder - TP 1 applic DAILY GEORGINA Administration Pantoprazole Sodium 40 mg 07/19/17 10:00 07/21/17 11:10 Protonix Iv IVPUSH 40 mg DAILY GEORGINA Administration Zolpidem Tartrate 10 mg 07/21/17 19:27 Ambien - PO HS PRN INSOMNIA Home Medications Medication Instructions Recorded Metformin HCl 1,000 mg PO BIDAC 01/15/14 Metoprolol Tartrate [Lopressor -] 50 mg PO DAILY 01/15/14 Pravastatin Sodium 10 mg PO HS 07/18/17 Trazodone HCl 50 mg PO HS 07/18/17 Amlodipine Besylate [Norvasc -] 5 mg PO DAILY 07/19/17 Donepezil HCl 10 mg PO HS 07/19/17 Insulin Glargine,Hum.rec.anlog 35 unit SQ DAILY 07/19/17 [Lantus Solostar] Pantoprazole Sodium [Protonix] 40 mg PO DAILY 07/19/17 Zolpidem Tartrate [Ambien] 10 mg PO HS 07/19/17 ASSESSMENT/PLAN: 67 y.o. F with pmh HTN, HLD, DM, CAD s/p stent, Alzheimer's dz, NHL s/p chemo ( 2012; currently on no agents), recent sepsis 2/2 blocked L ureteral stent ( [facility]), s/p L ureteral stent placement (04/2017), urinary incontinence, who presented with worsening hematuria and resistant UTI #Resistant UTI, failed oral abx with hx of l ureteral stent, on IV antibiotic continue as per ID. -Urology consult- Dr. Banegas, will proceed with elective removal of stent after culture is negative #Yeast infection in groin area s/p Received diflucan 150mg x 1 in ED, on nystatin powder use daily #CAD s/p stent , plavix is on hold, once the culture is negative, uretral stent will be removed . #HTN- controlled Continue metoprolol succinate 50mg qd #HLD Continue pravastatin 10mg PO qHS #DM will hold home metformin; ISS ACHS; BGM ACHS #Alzheimer's dz Continue aricept 10mg PO HS #Insomnia Continue ambien 5mg PO qHS PRN #Depression/pseudodementia Will hold Trazodone 50 PO qd, Qt 463ms borderline elevated , Continue to monitor #PPX DVT: SCD's GI: Protonix Visit type - Emergency Visit Emergency Visit: Yes ED Registration Date: 07/18/17 Care time: The patient presented to the Emergency Department on the above date and was hospitalized for further evaluation of their emergent condition. - New Patient This patient is new to me today: No - Critical Care Critical Care patient: No - Discharge Referral Referred to [facility] No
[2017-07-21] MEDS: ATORVASTATIN CA 10 MG TABLET (FP) PO SCH (21:34)
[2017-07-22] MEDS: CLINDAMYCIN 600MG PREMIX IVPB 600 MG/50 ML BAG IVPB SCH ×3 (01:51→19:05)
[2017-07-22] MEDS: INSULIN SLIDING SCALE (NOVOLOG) 1 VIAL SQ SCH ×4 (06:29→22:02)
[2017-07-22] MEDS: DONEPEZIL HCL 10 MG TABLET (FP) PO SCH (11:11)
[2017-07-22] MEDS: PANTOPRAZOLE SODIUM 40 MG VIAL IVPUSH SCH (11:12)
[2017-07-22] MEDS: NYSTATIN POWDER 100,000 UNITS/GM - 15 GM TOPICAL POWDER TP SCH (11:12)
[2017-07-22] MEDS ORDERED: INSULIN (NOVOLOG) ASPART 100 UNITS/ML 10ML VIAL ONE (11:21)
[2017-07-22] MEDS: guaiFENesin 200 MG/10 ML 10 ML UNIT-DOSE CUPS PO PRN (12:41)
--- NOTE | 2017-07-22 17:33 | PN ---
<Diamond Malone - Last Filed: 07/22/17 17:34> Physical Exam: SUBJECTIVE: Patient seen and examined, family at bedside. No complaints; OBJECTIVE: Vital Signs Period Temp Pulse Resp BP Sys/Lopez Pulse Ox Last 24 Hr 97.4 F-98.0 F 66-73 14-20 137-184/70-95 93-95 GENERAL: baseline dementia; did not speak today; LUNGS: Breath sounds equal, clear to auscultation bilaterally, no wheezes, no crackles, no accessory muscle use. HEART: Regular rate and rhythm, S1, S2 without murmur, rub or gallop. ABDOMEN: Soft, nontender, nondistended, normoactive bowel sounds, no guarding, no rebound, no hepatosplenomegaly, no masses. EXTREMITIES: 2+ pulses, warm, well-perfused, no edema. Laboratory Results - last 24 hr 07/21/17 07/21/17 07/22/17 17:25 21:31 06:26 POC Glucometer 328 282 229 07/22/17 11:20 POC Glucometer 358 Active Medications Generic Name Dose Route Start Last Admin Trade Name Freq PRN Reason Stop Dose Admin Atorvastatin Calcium 10 mg 07/18/17 22:00 07/21/17 21:34 Lipitor - PO 10 mg HS GEORGINA Administration Donepezil HCl 10 mg 07/18/17 20:30 07/22/17 11:11 Aricept - PO 10 mg DAILY GEORGINA Administration Guaifenesin 10 ml 07/20/17 12:15 07/22/17 12:41 Robitussin - PO 10 ml Q8H PRN Administration COUGH Clindamycin Phosphate 600 mg in 50 mls @ 100 mls/hr 07/19/17 11:00 07/22/17 11:11 Cleocin 600 Mg Premix Ivpb - IVPB 100 mls/hr Q8H-IV GEORGINA Administration Insulin Aspart 1 vial 07/18/17 22:00 07/22/17 17:24 Novolog Vial Sliding Scale - SQ 8 units ACHS GEORGINA Administration Protocol Metoprolol Succinate 50 mg 07/18/17 20:45 07/22/17 11:12 Toprol Xl - PO 50 mg DAILY GEORGINA Administration Nystatin 1 applic 07/18/17 20:45 07/22/17 11:12 Nystop Powder - TP 1 applic DAILY GEORGINA Administration Pantoprazole Sodium 40 mg 07/19/17 10:00 07/22/17 11:12 Protonix Iv IVPUSH 40 mg DAILY GEORGINA Administration Zolpidem Tartrate 5 mg 07/21/17 19:27 07/21/17 23:18 Ambien - PO 5 mg HS PRN Administration INSOMNIA ASSESSMENT/PLAN: This is a 67 year old female with a medical history alzheimer's, NHL s/p chemo, DM, HTN, HLD, CAD s/p stents, hx recurrent UTIs s/p renal stent, who presents with repeat urinary tract infection and hematuria. #complicated resistant UTI with hematuria: -currently on IV clindamycin -urine cx + for strep ag. -will repeat ua and urine culture; if negative plan for stent removal -appreciate ID and urology #yeast infection groin - nystatin powder qd #Hx 15 lb weight loss -without B sx, however sig weight loss -15 lbs over last 3 months -Recommend outpatient f/u #CAD s/p stent -plavix currently held for potential procedure #HTN- controlled -metoprolol succinate 50mg qd #HLD -pravastatin 10mg PO qHS #DM -bgm ACHS; insulin ss #Alzheimer's dz -aricept 10mg PO HS #Depression/pseudodementia -hold Trazodone 50 PO qd due to qtc borderline Disposition: pending urine culture and stent removal Visit type - Emergency Visit Emergency Visit: Yes ED Registration Date: 07/18/17 Care time: The patient presented to the Emergency Department on the above date and was hospitalized for further evaluation of their emergent condition. - New Patient This patient is new to me today: Yes Date on this admission: 07/22/17 - Critical Care Critical Care patient: No <Ratna Lim - Last Filed: 07/22/17 19:33> Physical Exam: Agree with the above.
[2017-07-22] MEDS ORDERED: PT OWN MED DRAWER 7, Y5N ONE (18:57)
[2017-07-22] MEDS: ATORVASTATIN CA 10 MG TABLET (FP) PO SCH (22:02)
[2017-07-22] MEDS: ZOLPIDEM TARTRATE 5 MG TABLET PO PRN (23:14)
[2017-07-23] MEDS: CLINDAMYCIN 600MG PREMIX IVPB 600 MG/50 ML BAG IVPB SCH ×3 (01:57→17:49)
[2017-07-23] MEDS: INSULIN SLIDING SCALE (NOVOLOG) 1 VIAL SQ SCH ×4 (06:40→22:20)
[2017-07-23 08:07] LABS: BASO % 0.5 % (0-2.0); EOS % 2.8 % (0-4.5); LYMPH % 31.8 % (8-40); MCH 27.5 pg (25.7-33.7); MCHC 34.3 g/dl (32.0-36.0); MEAN CELL VOLUME 80.1 fl (80-96); MEAN PLT VOLUME 7.7 fl (7.5-11.1); MONO % 7.9 % (3.8-10.2); PLATELET COUNT 188 K/MM3 (134-434); RBC 3.99 M/mm3 (3.60-5.2); RDW 15.3 % (11.6-15.6); WHITE BLOOD COUNT 5.3 K/mm3 (4.0-10.0)
[2017-07-23] MEDS ORDERED: PT OWN MED DRAWER 7, Y5N ONE (09:59)
[2017-07-23 10:00] LABS: ANION GAP 9 (8-16); BLOOD UREA NITROGEN 16 mg/dL (7-18); CALCIUM 8.6 mg/dL (8.5-10.1); CHLORIDE 104 mmol/L (98-107); CO2 25 mmol/L (21-32); CREATININE 0.8 mg/dL (0.55-1.02); GLUCOSE,RANDOM 273 mg/dL (74-106); POTASSIUM 3.6 mmol/L (3.5-5.1); SODIUM 138 mmol/L (136-145)
[2017-07-23] MEDS: DONEPEZIL HCL 10 MG TABLET (FP) PO SCH (10:25)
[2017-07-23] MEDS: NYSTATIN POWDER 100,000 UNITS/GM - 15 GM TOPICAL POWDER TP SCH (10:25)
[2017-07-23] MEDS: PANTOPRAZOLE SODIUM 40 MG VIAL IVPUSH SCH (10:26)
[2017-07-23] MEDS ORDERED: INSULIN (NOVOLOG) ASPART 100 UNITS/ML 10ML VIAL ONE (12:05)
[2017-07-23] MEDS: POLYETHYLENE GLYCOL 3350 119 GM BTL PO SCH ×2 (14:41→22:20)
--- NOTE | 2017-07-23 15:27 | PN ---
<Angel Aguayo - Last Filed: 07/23/17 15:37> Physical Exam: SUBJECTIVE: Patient seen and examined No acute events overnight. Patient not speaking. Family stating she has mild cough that is new. OBJECTIVE: Vital Signs Period Temp Pulse Resp BP Sys/Lopez Pulse Ox Last 24 Hr 97.7 F-98.2 F 63-68 15-18 146-184/78-98 GENERAL: baseline dementia; did not speak today; LUNGS: Breath sounds equal, clear to auscultation bilaterally, no wheezes, no crackles, no accessory muscle use. HEART: Regular rate and rhythm, S1, S2 without murmur, rub or gallop. ABDOMEN: Soft, nontender, nondistended, normoactive bowel sounds, no guarding, no rebound, no hepatosplenomegaly, no masses. EXTREMITIES: 2+ pulses, warm, well-perfused, no edema. Laboratory Results - last 24 hr 07/22/17 07/22/17 07/23/17 17:23 21:07 06:13 WBC RBC Hgb Hct MCV MCH MCHC RDW Plt Count MPV Neutrophils % Lymphocytes % Monocytes % Eosinophils % Basophils % Sodium Potassium Chloride Carbon Dioxide Anion Gap BUN Creatinine POC Glucometer 318 370 297 Random Glucose Calcium 07/23/17 07/23/17 07/23/17 07:46 07:46 11:55 WBC 5.3 RBC 3.99 Hgb 11.0 Hct 32.0 L MCV 80.1 MCH 27.5 MCHC 34.3 RDW 15.3 Plt Count 188 D MPV 7.7 Neutrophils % 57.0 Lymphocytes % 31.8 D Monocytes % 7.9 Eosinophils % 2.8 Basophils % 0.5 Sodium 138 Potassium 3.6 Chloride 104 Carbon Dioxide 25 Anion Gap 9 BUN 16 Creatinine 0.8 POC Glucometer 401 Random Glucose 273 H Calcium 8.6 Active Medications Generic Name Dose Route Start Last Admin Trade Name Freq PRN Reason Stop Dose Admin Atorvastatin Calcium 10 mg 07/18/17 22:00 07/22/17 22:02 Lipitor - PO 10 mg HS GEORGINA Administration Donepezil HCl 10 mg 07/18/17 20:30 07/23/17 10:25 Aricept - PO 10 mg DAILY GEORGINA Administration Guaifenesin 10 ml 07/20/17 12:15 07/22/17 12:41 Robitussin - PO 10 ml Q8H PRN Administration COUGH Clindamycin Phosphate 600 mg in 50 mls @ 100 mls/hr 07/19/17 11:00 07/23/17 10:25 Cleocin 600 Mg Premix Ivpb - IVPB 100 mls/hr Q8H-IV GEORGINA Administration Insulin Aspart 1 vial 07/18/17 22:00 07/23/17 12:28 Novolog Vial Sliding Scale - SQ 10 units ACHS GEORGINA Administration Protocol Insulin Detemir 20 units 07/23/17 22:00 Levemir Vial SQ HS GEORGINA Metoprolol Succinate 50 mg 07/18/17 20:45 07/23/17 10:25 Toprol Xl - PO 50 mg DAILY GEORGINA Administration Nystatin 1 applic 07/18/17 20:45 07/23/17 10:25 Nystop Powder - TP 1 applic DAILY GEORGINA Administration Pantoprazole Sodium 40 mg 07/19/17 10:00 07/23/17 10:26 Protonix Iv IVPUSH 40 mg DAILY GEORGINA Administration Polyethylene Glycol 17 gm 07/23/17 13:45 07/23/17 14:41 Miralax (For Daily Use) - PO Not Given BID GEORGINA Zolpidem Tartrate 5 mg 07/21/17 19:27 07/22/17 23:14 Ambien - PO 5 mg HS PRN Administration INSOMNIA ASSESSMENT/PLAN: This is a 67 year old female with a medical history alzheimer's, NHL s/p chemo, DM, HTN, HLD, CAD s/p stents, hx recurrent UTIs s/p renal stent, who presents with repeat urinary tract infection and hematuria. #complicated resistant UTI with hematuria: -currently on IV clindamycin 600 mg q8h -urine cx + for strep ag. -will repeat UCX +, call placed to urology regarding stent removal.. awaiting call back -appreciate ID and urology #New cough -CXR pending, will continue to monitor #yeast infection groin, improving - nystatin powder qd #Hx 15 lb weight loss -without B sx -15 lbs over last 3 months -Recommend outpatient f/u #CAD s/p stent -plavix currently held for potential procedure #HTN- controlled -metoprolol succinate 50mg qd #HLD -pravastatin 10mg PO qHS #DM -bgm ACHS; insulin ss #Alzheimer's dz -aricept 10mg PO HS #Depression/pseudodementia -hold Trazodone 50 PO qd due to qtc borderline Disposition: pending stent removal Visit type - Emergency Visit Emergency Visit: Yes ED Registration Date: 07/18/17 Care time: The patient presented to the Emergency Department on the above date and was hospitalized for further evaluation of their emergent condition. - New Patient This patient is new to me today: No - Critical Care Critical Care patient: No <Ratna Lim - Last Filed: 07/23/17 16:57> Physical Exam: Patient is comfortable, patient's family stating that the patient is coughing. No cough noted, will get CXr to r/o any infiltrate. Continue antibiotic as per iD, urology on the case . urinary stent removal in am/cysto. BP is elevated will add Norvasc 5mg to her regimen . Vital Signs Temperature 97.7 F 07/23/17 15:20 Pulse Rate 63 07/23/17 15:20 Respiratory Rate 18 07/23/17 15:20 Blood Pressure 184/83 07/23/17 15:20 O2 Sat by Pulse Oximetry (%) 93 L 07/22/17 09:00 CBCD WBC 5.3 K/mm3 (4.0-10.0) 07/23/17 07:46 RBC 3.99 M/mm3 (3.60-5.2) 07/23/17 07:46 Hgb 11.0 GM/dL (10.7-15.3) 07/23/17 07:46 Hct 32.0 % (32.4-45.2) L 07/23/17 07:46 MCV 80.1 fl (80-96) 07/23/17 07:46 MCHC 34.3 g/dl (32.0-36.0) 07/23/17 07:46 RDW 15.3 % (11.6-15.6) 07/23/17 07:46 Plt Count 188 K/MM3 (134-434) D 07/23/17 07:46 MPV 7.7 fl (7.5-11.1) 07/23/17 07:46 CMP Sodium 138 mmol/L (136-145) 07/23/17 07:46 Potassium 3.6 mmol/L (3.5-5.1) 07/23/17 07:46 Chloride 104 mmol/L (98-107) 07/23/17 07:46 Carbon Dioxide 25 mmol/L (21-32) 07/23/17 07:46 Anion Gap 9 (8-16) 07/23/17 07:46 BUN 16 mg/dL (7-18) 07/23/17 07:46 Creatinine 0.8 mg/dL (0.55-1.02) 07/23/17 07:46 Creat Clearance w eGFR > 60 (>60) 07/18/17 14:45 Random Glucose 273 mg/dL (74-106) H 07/23/17 07:46 Calcium 8.6 mg/dL (8.5-10.1) 07/23/17 07:46 Total Bilirubin 0.5 mg/dL (0.2-1.0) 07/18/17 14:45 AST 15 U/L (15-37) 07/18/17 14:45 ALT 19 U/L (12-78) 07/18/17 14:45 Alkaline Phosphatase 99 U/L (45-117) 07/18/17 14:45 Total Protein 7.3 g/dl (6.4-8.2) 07/18/17 14:45 Albumin 3.6 g/dl (3.4-5.0) 07/18/17 14:45 Current Medications Generic Name Dose Route Start Last Admin Trade Name Freq PRN Reason Stop Dose Admin Atorvastatin Calcium 10 mg 07/18/17 22:00 07/22/17 22:02 Lipitor - PO 10 mg HS GEORGINA Administration Donepezil HCl 10 mg 07/18/17 20:30 07/23/17 10:25 Aricept - PO 10 mg DAILY GEORGINA Administration Guaifenesin 10 ml 07/20/17 12:15 07/22/17 12:41 Robitussin - PO 10 ml Q8H PRN Administration COUGH Clindamycin Phosphate 600 mg in 50 mls @ 100 mls/hr 07/19/17 11:00 07/23/17 10:25 Cleocin 600 Mg Premix Ivpb - IVPB 100 mls/hr Q8H-IV GEORGINA Administration Insulin Aspart 1 vial 07/18/17 22:00 07/23/17 12:28 Novolog Vial Sliding Scale - SQ 10 units ACHS GEORGINA Administration Protocol Insulin Detemir 20 units 07/23/17 22:00 Levemir Vial SQ HS [facility] Metoprolol Succinate 50 mg 07/18/17 20:45 07/23/17 10:25 Toprol Xl - PO 50 mg DAILY GEORGINA Administration Nystatin 1 applic 07/18/17 20:45 07/23/17 10:25 Nystop Powder - TP 1 applic DAILY GEORGINA Administration Pantoprazole Sodium 40 mg 07/19/17 10:00 07/23/17 10:26 Protonix Iv IVPUSH 40 mg DAILY GEORGINA Administration Polyethylene Glycol 17 gm 07/23/17 13:45 07/23/17 14:41 Miralax (For Daily Use) - PO Not Given BID GEORGINA Zolpidem Tartrate 5 mg 07/21/17 19:27 07/22/17 23:14 Ambien - PO 5 mg HS PRN Administration INSOMNIA Home Medications Medication Instructions Recorded Metformin HCl 1,000 mg PO BIDAC 01/15/14 Metoprolol Tartrate [Lopressor -] 50 mg PO DAILY 01/15/14 Pravastatin Sodium 10 mg PO HS 07/18/17 Trazodone HCl 50 mg PO HS 07/18/17 Amlodipine Besylate [Norvasc -] 5 mg PO DAILY 07/19/17 Donepezil HCl 10 mg PO HS 07/19/17 Insulin Glargine,Hum.rec.anlog 35 unit SQ DAILY 07/19/17 [Lantus Solostar] Pantoprazole Sodium [Protonix] 40 mg PO DAILY 07/19/17 Zolpidem Tartrate [Ambien] 10 mg PO HS 07/19/17
--- NOTE | 2017-07-23 15:51 | PN ---
Progress Note (short form) - Note Progress Note: afebrile on abx for uti will plan for cysto/stent removal in am
[2017-07-23] MEDS ORDERED: amLODIPine BESYLATE 5 MG TABLET (FP) PO SCH (17:00)
--- NOTE | 2017-07-23 18:16 | PN ---
Progress Note, Physician History of Present Illness: Ms. Platt is a 67 y/o F with PMH HTN, HLD, DM, CAD s/p stent, Alzheimer's dz, NHL s/p chemo (2012; currently on no agents), recent sepsis 2/2 blocked L ureteral stent ([facility]), s/p L ureteral stent placement (04/2017), urinary incontinence, who presents to the ED c/o worsening hematuria over the past week. As per daughter, in April, pt had a L ureteral stent placed. It was supposed to be removed in May. Ever since its placement, pt has had intermittent hematuria. She saw her urologist, Dr. Medrano and was subsequently found to have a positive urine cx with pyuria (Beta Strep)and was placed on PO Cipro for a week. However, she had persistence of her UTI with (+) c/s and a longer course of Rx with Moxifloxacin was given. Hospital course significant for (+) Strep in the urine ( same organism isolated as outpatient ) . Repeat C/S - CoNS. - Current Medication List Current Medications: Active Medications Amlodipine Besylate (Norvasc -) 5 mg PO DAILY [facility] Last Admin: 07/23/17 17:49 Dose: 5 mg Atorvastatin Calcium (Lipitor -) 10 mg PO HS [facility] Last Admin: 07/22/17 22:02 Dose: 10 mg Donepezil HCl (Aricept -) 10 mg PO DAILY [facility] Last Admin: 07/23/17 10:25 Dose: 10 mg Guaifenesin (Robitussin -) 10 ml PO Q8H PRN PRN Reason: COUGH Last Admin: 07/22/17 12:41 Dose: 10 ml Clindamycin Phosphate (Cleocin 600 Mg Premix Ivpb -) 600 mg in 50 mls @ 100 mls /hr IVPB Q8H-IV GEORGINA Last Admin: 07/23/17 17:49 Dose: 100 mls/hr Insulin Aspart (Novolog Vial Sliding Scale -) 1 vial SQ ACHS [facility] PRN Reason: Protocol Last Admin: 07/23/17 17:49 Dose: 10 units Insulin Detemir (Levemir Vial) 20 units SQ HS [facility] Metoprolol Succinate (Toprol Xl -) 50 mg PO DAILY [facility] Last Admin: 07/23/17 10:25 Dose: 50 mg Nystatin (Nystop Powder -) 1 applic TP DAILY [facility] Last Admin: 07/23/17 10:25 Dose: 1 applic Pantoprazole Sodium (Protonix Iv) 40 mg IVPUSH DAILY [facility] Last Admin: 07/23/17 10:26 Dose: 40 mg Polyethylene Glycol (Miralax (For Daily Use) -) 17 gm PO BID [facility] Last Admin: 07/23/17 14:41 Dose: Not Given Zolpidem Tartrate (Ambien -) 5 mg PO HS PRN PRN Reason: INSOMNIA Last Admin: 07/22/17 23:14 Dose: 5 mg - Objective Vital Signs: Vital Signs Temperature 97.7 F 07/23/17 15:20 Pulse Rate 63 07/23/17 15:20 Respiratory Rate 18 07/23/17 15:20 Blood Pressure 184/83 07/23/17 15:20 O2 Sat by Pulse Oximetry (%) 94 L 07/23/17 09:00 Constitutional: Yes: No Distress Cardiovascular: Yes: Regular Rate and Rhythm Respiratory: Yes: CTA Bilaterally Gastrointestinal: Yes: Normal Bowel Sounds, Soft. No: Tenderness Labs: CBC, BMP 07/23/17 07:46 07/23/17 07:46 Assessment/Plan Pt with Hematuria, UTI PCN Allergy. Continue Clinda Repeat Urine c/s noted - CoNS likely contamination. Appears Strep has been cleared. OK for stent removal.
[2017-07-23] MEDS ORDERED: METOPROLOL TARTRATE 25 MG TABLET (FP) PO ONE (21:19)
[2017-07-23] MEDS ORDERED: INSULIN DETEMIR 100 UNITS/ML MDV SQ SCH (22:00)
[2017-07-23] MEDS: ATORVASTATIN CA 10 MG TABLET (FP) PO SCH (22:19)
[2017-07-23] MEDS: ZOLPIDEM TARTRATE 5 MG TABLET PO PRN (23:16)
[2017-07-24] MEDS: CLINDAMYCIN 600MG PREMIX IVPB 600 MG/50 ML BAG IVPB SCH ×3 (01:58→17:40)
[2017-07-24] MEDS: INSULIN SLIDING SCALE (NOVOLOG) 1 VIAL SQ SCH ×4 (06:47→21:29)
[2017-07-24] MEDS ORDERED: PROPOFOL 20 ML ONE (07:34)
[2017-07-24] MEDS ORDERED: MIDAZOLAM HCL 2 MG/2 ML SINGLE DOSE VIAL ONE (07:34)
[2017-07-24 07:45] LABS: BASO % 0.4 % (0-2.0); EOS % 2.1 % (0-4.5); HEMATOCRIT 33.8 % (32.4-45.2); HEMOGLOBIN 11.7 GM/dL (10.7-15.3); LYMPH % 26.4 % (8-40); MCH 27.4 pg (25.7-33.7); MCHC 34.5 g/dl (32.0-36.0); MEAN CELL VOLUME 79.4 fl (80-96); MEAN PLT VOLUME 7.6 fl (7.5-11.1); MONO % 7.8 % (3.8-10.2); NEUT % 63.3 % (42.8-82.8); PLATELET COUNT 208 K/MM3 (134-434); RBC 4.26 M/mm3 (3.60-5.2); RDW 15.3 % (11.6-15.6); WHITE BLOOD COUNT 7.1 K/mm3 (4.0-10.0)
[2017-07-24] MEDS ORDERED: LIDOCAINE HCL/PF 2% SDV 5ML VIAL ONE (07:55)
--- NOTE | 2017-07-24 08:08 | OP ---
Operative Note - Note: Operative Date: 07/24/17 Pre-Operative Diagnosis: left upj obstruction Operation: cysto/stent removal Post-Operative Diagnosis: Same as Pre-op Surgeon: Tong Banegas Anesthesia: General Specimens Removed: stent Estimated Blood Loss (mls): 0 Operative Report Dictated: Yes
[2017-07-24 08:14] LABS: ANION GAP 9 (8-16); BLOOD UREA NITROGEN 14 mg/dL (7-18); CHLORIDE 106 mmol/L (98-107); CO2 25 mmol/L (21-32); GLUCOSE,RANDOM 169 mg/dL (74-106); POTASSIUM 3.5 mmol/L (3.5-5.1); SODIUM 140 mmol/L (136-145)
[2017-07-24 08:19] LABS: CALCIUM 8.4 mg/dL (8.5-10.1); CREATININE 0.8 mg/dL (0.55-1.02)
[2017-07-24] MEDS ORDERED: ONDANSETRON 4 MG/2 ML VIAL IVPUSH PRN (08:22)
[2017-07-24] MEDS ORDERED: guaiFENesin 200 MG/10 ML 10 ML UNIT-DOSE CUPS PO PRN (08:28)
--- NOTE | 2017-07-24 09:11 | PN ---
Physical Exam: SUBJECTIVE: Patient seen and examined Patient to the OR today for stent removal. OBJECTIVE: Vital Signs Period Temp Pulse Resp BP Sys/Lopez Pulse Ox Last 24 Hr 97.0 F-97.7 F 62-76 14-18 115-184/58-91 95-98 GENERAL: baseline dementia; did not speak today; LUNGS: Breath sounds equal, clear to auscultation bilaterally, no wheezes, no crackles, no accessory muscle use. HEART: Regular rate and rhythm, S1, S2 without murmur, rub or gallop. ABDOMEN: Soft, nontender, nondistended, normoactive bowel sounds, no guarding, no rebound, no hepatosplenomegaly, no masses. EXTREMITIES: 2+ pulses, warm, well-perfused, no edema. Laboratory Results - last 24 hr 07/23/17 07/23/17 07/23/17 07:46 11:55 17:07 WBC RBC Hgb Hct MCV MCH MCHC RDW Plt Count MPV Neutrophils % Lymphocytes % Monocytes % Eosinophils % Basophils % Sodium 138 Potassium 3.6 Chloride 104 Carbon Dioxide 25 Anion Gap 9 BUN 16 Creatinine 0.8 POC Glucometer 401 373 Random Glucose 273 H Calcium 8.6 07/23/17 07/24/17 07/24/17 22:18 06:20 06:20 WBC 7.1 D RBC 4.26 Hgb 11.7 Hct 33.8 MCV 79.4 L MCH 27.4 MCHC 34.5 RDW 15.3 Plt Count 208 MPV 7.6 Neutrophils % 63.3 Lymphocytes % 26.4 Monocytes % 7.8 Eosinophils % 2.1 Basophils % 0.4 Sodium 140 Potassium 3.5 Chloride 106 Carbon Dioxide 25 Anion Gap 9 BUN 14 Creatinine 0.8 POC Glucometer 387 Random Glucose 169 H Calcium 8.4 L 07/24/17 06:47 WBC RBC Hgb Hct MCV MCH MCHC RDW Plt Count MPV Neutrophils % Lymphocytes % Monocytes % Eosinophils % Basophils % Sodium Potassium Chloride Carbon Dioxide Anion Gap BUN Creatinine POC Glucometer 172 Random Glucose Calcium Active Medications Generic Name Dose Route Start Last Admin Trade Name Freq PRN Reason Stop Dose Admin Amlodipine Besylate 5 mg 07/24/17 10:00 Norvasc - PO DAILY [facility]A Atorvastatin Calcium 10 mg 07/24/17 22:00 Lipitor - PO HS [facility]A Donepezil HCl 10 mg 07/24/17 10:00 Aricept - PO DAILY [facility] Guaifenesin 10 ml 07/24/17 08:28 Robitussin - PO Q8H PRN COUGH Lactated Ringer's 1,000 mls @ 75 mls/hr 07/24/17 08:30 Lactated Ringers Solution IV ASDIR [facility] Clindamycin Phosphate 600 mg in 50 mls @ 100 mls/hr 07/24/17 10:00 Cleocin 600 Mg Premix Ivpb - IVPB Q8H-IV [facility]GINA Insulin Aspart 1 vial 07/24/17 11:00 Novolog Vial Sliding Scale - SQ ACHS [facility]A Protocol Insulin Detemir 20 units 07/24/17 22:00 Levemir Vial SQ HS [facility] Metoprolol Succinate 50 mg 07/24/17 10:00 Toprol Xl - PO DAILY [facility] Nystatin 1 applic 07/24/17 10:00 Nystop Powder - TP DAILY [facility] Ondansetron HCl 4 mg 07/24/17 08:22 Zofran Injection IVPUSH Q6H PRN NAUSEA AND/OR VOMITING Pantoprazole Sodium 40 mg 07/24/17 10:00 Protonix Iv IVPUSH DAILY [facility] Polyethylene Glycol 17 gm 07/24/17 10:00 Miralax (For Daily Use) - PO BID [facility] Zolpidem Tartrate 5 mg 07/24/17 08:28 Ambien - PO HS PRN INSOMNIA ASSESSMENT/PLAN: This is a 67 year old female with a medical history alzheimer's, NHL s/p chemo, DM, HTN, HLD, CAD s/p stents, hx recurrent UTIs s/p renal stent, who presents with repeat urinary tract infection and hematuria. #complicated resistant UTI with hematuria: -currently on IV clindamycin 600 mg q8h -urine cx + for strep ag. -Stent removed today -appreciate ID and urology #yeast infection groin, improving - nystatin powder qd #Hx 15 lb weight loss -without B sx -15 lbs over last 3 months -Recommend outpatient f/u #CAD s/p stent -plavix on hold, will discuss restarting with urology #HTN- controlled -metoprolol succinate 50mg qd #HLD -pravastatin 10mg PO qHS #DM -bgm ACHS; insulin ss #Alzheimer's dz -aricept 10mg PO HS #Depression/pseudodementia -hold Trazodone 50 PO qd due to qtc borderline Visit type - Emergency Visit Emergency Visit: Yes ED Registration Date: 07/18/17 Care time: The patient presented to the Emergency Department on the above date and was hospitalized for further evaluation of their emergent condition. - New Patient This patient is new to me today: No - Critical Care Critical Care patient: No
--- NOTE | 2017-07-24 09:11 | OP ---
DATE OF OPERATION: 07/24/2017 PREOPERATIVE DIAGNOSIS: Left ureteropelvic junction obstruction. POSTOPERATIVE DIAGNOSIS: Left ureteropelvic junction obstruction. PROCEDURE: Cystoscopy, left ureteral stent removal. SURGEON: Snow Gallegos MD INDICATION: Patient is a 67-year-old female with a history of left UPJ obstruction status post ureteroscopy and dilation and stent placement in the past, had been scheduled for stent removal, but it was thwarted by persistent positive urine culture. She is now admitted for IV antibiotics and, during hospitalization, plan to remove stent. DESCRIPTION OF PROCEDURE: After informed consent was obtained from the , patient was brought to the OR and placed supine on the operating table. After cardiac monitoring administered, IV sedation was then given. The vagina was prepped and draped in standard surgical fashion. The rigid cystoscope was inserted into the urethra without difficulty. The bladder was visually normal. The stent was seen emanating from the left ureteral orifice. This was grasped with a grasper and taken out in its entirety and sent to Pathology for analysis. Patient was awoke from anesthesia and transferred to the recovery room in stable condition. There were no complications. Estimated blood loss was zero. SNOW GALLEGOS M.D. [id number]
[2017-07-24] MEDS: amLODIPine BESYLATE 5 MG TABLET (FP) PO SCH (09:44)
[2017-07-24] MEDS ORDERED: PT OWN MED DRAWER 7, Y5N ONE (10:15)
[2017-07-24] MEDS: POLYETHYLENE GLYCOL 3350 119 GM BTL PO SCH ×2 (10:26→21:34)
[2017-07-24] MEDS: LACTATED RINGERS SOLUTION 1,000 ML IV SCH ×2 (10:27→15:04)
[2017-07-24] MEDS: DONEPEZIL HCL 10 MG TABLET (FP) PO SCH (10:29)
[2017-07-24] MEDS: NYSTATIN POWDER 100,000 UNITS/GM - 15 GM TOPICAL POWDER TP SCH (11:34)
[2017-07-24] MEDS: PANTOPRAZOLE SODIUM 40 MG VIAL IVPUSH SCH (11:34)
[2017-07-24] MEDS ORDERED: INSULIN (NOVOLOG) ASPART 100 UNITS/ML 10ML VIAL ONE (11:36)
--- NOTE | 2017-07-24 11:39 | PN ---
Progress Note, DOCKING [employer]OT - Note Progress Note: Selected Entries 07/23/17 07/23/17 07/23/17 11:00 15:20 18:46 Breakfast 75% Lunch 50% Supper 75% Temperature 07/24/17 07/24/17 07/24/17 02:00 06:00 08:07 Breakfast Lunch Supper Temperature 97.0 F L 97.5 F L 97.6 F 07/24/17 09:05 Breakfast Lunch Supper Temperature 98.3 F Laboratory Tests 07/24/17 06:20 WBC 7.1 D CXR (-) Tolerating diet.
--- NOTE | 2017-07-24 12:07 | PN ---
Teaching Attending Note Name of Resident: Angel Aguayo ATTENDING PHYSICIAN STATEMENT I saw and evaluated the patient. I reviewed the resident's note and discussed the case with the resident. I agree with the resident's findings and plan as documented. SUBJECTIVE: Patient is comfortable s/p urethral stent removal. OBJECTIVE: Vital Signs Temperature 98.3 F 07/24/17 09:20 Pulse Rate 86 07/24/17 09:20 Respiratory Rate 18 07/24/17 09:20 Blood Pressure 160/80 07/24/17 09:20 O2 Sat by Pulse Oximetry (%) 96 07/24/17 09:05 GENERAL: The patient is awake, but does not communicate just stares at you. HEAD: Normal with no signs of trauma. EYES: PERRL, extraocular movements intact, sclera anicteric, conjunctiva clear. No ptosis. ENT: Ears normal, nares patent, oropharynx clear without exudates, moist mucous membranes. NECK: Trachea midline, full range of motion, supple. LUNGS: Breath sounds equal, clear to auscultation bilaterally, no wheezes, no crackles, no accessory muscle use. HEART: Regular rate and rhythm, S1, S2 without murmur, rub or gallop. ABDOMEN: Soft, nontender, nondistended, normoactive bowel sounds, no guarding, no rebound, no hepatosplenomegaly, no masses. EXTREMITIES: 2+ pulses, warm, well-perfused, no edema. NEUROLOGICAL: Cranial nerves II through XII grossly intact. gait is stable with the help of the daughter . SKIN: Warm, dry, normal turgor, no rashes or lesions noted CBCD WBC 7.1 K/mm3 (4.0-10.0) D 07/24/17 06:20 RBC 4.26 M/mm3 (3.60-5.2) 07/24/17 06:20 Hgb 11.7 GM/dL (10.7-15.3) 07/24/17 06:20 Hct 33.8 % (32.4-45.2) 07/24/17 06:20 MCV 79.4 fl (80-96) L 07/24/17 06:20 MCHC 34.5 g/dl (32.0-36.0) 07/24/17 06:20 RDW 15.3 % (11.6-15.6) 07/24/17 06:20 Plt Count 208 K/MM3 (134-434) 07/24/17 06:20 MPV 7.6 fl (7.5-11.1) 07/24/17 06:20 CMP Sodium 140 mmol/L (136-145) 07/24/17 06:20 Potassium 3.5 mmol/L (3.5-5.1) 07/24/17 06:20 Chloride 106 mmol/L (98-107) 07/24/17 06:20 Carbon Dioxide 25 mmol/L (21-32) 07/24/17 06:20 Anion Gap 9 (8-16) 07/24/17 06:20 BUN 14 mg/dL (7-18) 07/24/17 06:20 Creatinine 0.8 mg/dL (0.55-1.02) 07/24/17 06:20 Creat Clearance w eGFR > 60 (>60) 07/18/17 14:45 Random Glucose 169 mg/dL (74-106) H 07/24/17 06:20 Calcium 8.4 mg/dL (8.5-10.1) L 07/24/17 06:20 Total Bilirubin 0.5 mg/dL (0.2-1.0) 07/18/17 14:45 AST 15 U/L (15-37) 07/18/17 14:45 ALT 19 U/L (12-78) 07/18/17 14:45 Alkaline Phosphatase 99 U/L (45-117) 07/18/17 14:45 Total Protein 7.3 g/dl (6.4-8.2) 07/18/17 14:45 Albumin 3.6 g/dl (3.4-5.0) 07/18/17 14:45 Current Medications Generic Name Dose Route Start Last Admin Trade Name Freq PRN Reason Stop Dose Admin Amlodipine Besylate 5 mg 07/24/17 10:00 07/24/17 09:44 Norvasc - PO 5 mg DAILY [facility] Administration Atorvastatin Calcium 10 mg 07/24/17 22:00 Lipitor - PO HS [facility]A Donepezil HCl 10 mg 07/24/17 10:00 07/24/17 10:29 Aricept - PO 10 mg DAILY [facility] Administration Guaifenesin 10 ml 07/24/17 08:28 Robitussin - PO Q8H PRN COUGH Lactated Ringer's 1,000 mls @ 75 mls/hr 07/24/17 08:30 07/24/17 10:27 Lactated Ringers Solution IV Not Given ASDIR [facility] Clindamycin Phosphate 600 mg in 50 mls @ 100 mls/hr 07/24/17 10:00 07/24/17 09:44 Cleocin 600 Mg Premix Ivpb - IVPB 100 mls/hr Q8H-IV [facility] Administration Insulin Aspart 1 vial 07/24/17 11:00 07/24/17 11:37 Novolog Vial Sliding Scale - SQ 8 units ACHS [facility] Administration Protocol Insulin Detemir 20 units 07/24/17 22:00 Levemir Vial SQ HS [facility] Metoprolol Succinate 50 mg 07/24/17 10:00 07/24/17 09:44 Toprol Xl - PO 50 mg DAILY [facility] Administration Nystatin 1 applic 07/24/17 10:00 07/24/17 11:34 Nystop Powder - TP 1 applic DAILY [facility] Administration Ondansetron HCl 4 mg 07/24/17 08:22 Zofran Injection IVPUSH Q6H PRN NAUSEA AND/OR VOMITING Pantoprazole Sodium 40 mg 07/24/17 10:00 07/24/17 11:34 Protonix Iv IVPUSH 40 mg DAILY [facility] Administration Polyethylene Glycol 17 gm 07/24/17 10:00 07/24/17 10:26 Miralax (For Daily Use) - PO 17 gm BID [facility] Administration Zolpidem Tartrate 5 mg 07/24/17 08:28 Ambien - PO HS PRN INSOMNIA Home Medications Medication Instructions Recorded Metformin HCl 1,000 mg PO BIDAC 01/15/14 Metoprolol Tartrate [Lopressor -] 50 mg PO DAILY 01/15/14 Pravastatin Sodium 10 mg PO HS 07/18/17 Trazodone HCl 50 mg PO HS 07/18/17 Amlodipine Besylate [Norvasc -] 5 mg PO DAILY 07/19/17 Donepezil HCl 10 mg PO HS 07/19/17 Insulin Glargine,Hum.rec.anlog 35 unit SQ DAILY 07/19/17 [Lantus Solostar] Pantoprazole Sodium [Protonix] 40 mg PO DAILY 07/19/17 Zolpidem Tartrate [Ambien] 10 mg PO HS 07/19/17 Microbiology 07/18/17 09:25 Blood - Peripheral Venous Blood Culture - Final NO GROWTH AFTER 5 DAYS INCUBATION 07/18/17 09:25 Blood - Peripheral Venous Blood Culture - Final NO GROWTH AFTER 5 DAYS INCUBATION 07/22/17 12:30 Urine - Urine Clean Catch Urine Culture - Preliminary Staphylococcus Coagulase Neg ( Only 50-60K) 07/18/17 18:20 Urine - Urine Clean Catch Urine Culture - Final Strep Agalactiae Group B ASSESSMENT AND PLAN: 67 y.o. F with pmh HTN, HLD, DM, CAD s/p stent, Alzheimer's dz, NHL s/p chemo ( 2012; currently on no agents), recent sepsis 2/2 blocked L ureteral stent ( [facility]), s/p L ureteral stent placement (04/2017), urinary incontinence, who presented with worsening hematuria and resistant UTI # POD #0 urethral stent removal. on IV antibiotic continue as per ID # Strep Agalactiae Group B with hx of Resistant UTI, failed outpatient oral abx on IV antibiotic Clindamycin as per ID. Patient went to OR today (07/24/2017 ) for stent removal by Dr. Banegas. ID on the case. #Yeast infection in groin area continue nystatin powder use daily #CAD s/p stent , plavix is on hold, once the culture is negative, urethral stent will be removed , can start Plavix in am. #HTN- controlled Continue metoprolol succinate 50mg qd #HLD Continue pravastatin 10mg PO qHS #DM will hold home metformin; ISS ACHS; BGM ACHS #Alzheimer's dz Continue aricept 10mg PO HS #Insomnia Continue ambien 5mg PO qHS PRN #Depression/pseudodementia Will hold Trazodone 50 PO qd, Qt 463ms borderline elevated , Continue to monitor
[2017-07-24] MEDS ORDERED: ACETAMINOPHEN 325 MG TABLET (FP) PO PRN (15:19)
[2017-07-24] MEDS: INSULIN DETEMIR 100 UNITS/ML MDV SQ SCH (21:26)
[2017-07-24] MEDS: ATORVASTATIN CA 10 MG TABLET (FP) PO SCH (21:27)
[2017-07-24] MEDS: ZOLPIDEM TARTRATE 5 MG TABLET PO PRN (21:27)
[2017-07-25] MEDS: CLINDAMYCIN 600MG PREMIX IVPB 600 MG/50 ML BAG IVPB SCH ×3 (02:25→17:48)
[2017-07-25] MEDS: INSULIN SLIDING SCALE (NOVOLOG) 1 VIAL SQ SCH ×4 (06:29→21:22)
[2017-07-25 07:19] LABS: HEMATOCRIT 31.5 % (32.4-45.2); MCH 27.7 pg (25.7-33.7); MEAN CELL VOLUME 79.2 fl (80-96); RBC 3.98 M/mm3 (3.60-5.2); RDW 15.2 % (11.6-15.6); WHITE BLOOD COUNT 6.7 K/mm3 (4.0-10.0)
[2017-07-25 07:20] LABS: BASO % 0.5 % (0-2.0); EOS % 1.7 % (0-4.5); LYMPH % 27.3 % (8-40); MEAN PLT VOLUME 7.7 fl (7.5-11.1); NEUT % 63.5 % (42.8-82.8); PLATELET COUNT 196 K/MM3 (134-434)
[2017-07-25 07:34] LABS: ANION GAP 12 (8-16); BLOOD UREA NITROGEN 24 mg/dL (7-18); CALCIUM 8.7 mg/dL (8.5-10.1); CHLORIDE 99 mmol/L (98-107); CO2 27 mmol/L (21-32); CREATININE 1.2 mg/dL (0.55-1.02); GLUCOSE,RANDOM 198 mg/dL (74-106); POTASSIUM 3.7 mmol/L (3.5-5.1); SODIUM 138 mmol/L (136-145)
[2017-07-25] MEDS: NYSTATIN POWDER 100,000 UNITS/GM - 15 GM TOPICAL POWDER TP SCH (11:11)
[2017-07-25] MEDS ORDERED: INSULIN (NOVOLOG) ASPART 100 UNITS/ML 10ML VIAL ONE ×2 (11:19→21:07)
[2017-07-25] MEDS: POLYETHYLENE GLYCOL 3350 119 GM BTL PO SCH ×2 (11:34→21:12)
[2017-07-25] MEDS: DONEPEZIL HCL 10 MG TABLET (FP) PO SCH (11:37)
--- NOTE | 2017-07-25 12:08 | PN ---
Progress Note, NETWORKING [employer] - Note Progress Note: Selected Entries 07/24/17 07/24/17 07/24/17 02:00 06:00 08:07 Temperature 97.0 F L 97.5 F L 97.6 F 07/24/17 07/24/17 07/24/17 09:05 09:20 14:10 Temperature 98.3 F 98.3 F 97.4 F L 07/24/17 07/24/17 07/25/17 18:00 22:00 02:00 Temperature 97.6 F 98.5 F 98.7 F 07/25/17 06:00 Temperature 98.3 F Laboratory Tests 07/25/17 07:00 WBC 6.7 Meals are cut up and fed by family; d/w daughter- pt is eating well without difficulty Tolerating 50-100 % meals, No further f/u indicated at this time.
--- NOTE | 2017-07-25 12:27 | PATH ---
Surgical Pathology Report Patient Name: VICKEY FREY Med. Rec. #: [id number] /Age/Gender: 1950 (Age: 67) / F Account: [id number] Location: [address] [place] [address]/[facility] Taken: 07/24/2017 Received: 07/24/2017 Reported: 07/25/2017 Physicians: Tong Banegas M.D. Specimen(s) Received LEFT STENT Clinical History UTI Final Diagnosis [employer], LEFT URETER, REMOVAL: URETERAL STENT (GROSS ONLY). Electronically Signed Francisco Davis M.D. Gross Description Received fresh labeled "left stent," is a 38 cm in length yellow-green, coiled portion of tubing, consistent with a ureteral stent. No soft tissue is present. No sections are submitted, gross only. /07/24/201707/24/2017
[2017-07-25] MEDS: SODIUM CHLORIDE 1,000 ML IV SCH (12:33)
[2017-07-25] MEDS: amLODIPine BESYLATE 5 MG TABLET (FP) PO SCH (12:36)
--- NOTE | 2017-07-25 13:28 | PN ---
Physical Exam: SUBJECTIVE: Patient seen and examined No acute events overnight. Patient pod#1 from stent removal OBJECTIVE: Vital Signs Period Temp Pulse Resp BP Sys/Lopez Pulse Ox Last 24 Hr 97.3 F-98.7 F 54-85 18-22 126-168/52-87 98 GENERAL: baseline dementia; did not speak today; LUNGS: Breath sounds equal, clear to auscultation bilaterally, no wheezes, no crackles, no accessory muscle use. HEART: Regular rate and rhythm, S1, S2 without murmur, rub or gallop. ABDOMEN: Soft, nontender, nondistended, normoactive bowel sounds, no guarding, no rebound, no hepatosplenomegaly, no masses. EXTREMITIES: 2+ pulses, warm, well-perfused, no edema. Laboratory Results - last 24 hr 07/24/17 07/24/17 07/25/17 16:35 21:26 06:28 WBC RBC Hgb Hct MCV MCH MCHC RDW Plt Count MPV Neutrophils % Lymphocytes % Monocytes % Eosinophils % Basophils % Sodium Potassium Chloride Carbon Dioxide Anion Gap BUN Creatinine POC Glucometer 375 281 199 Random Glucose Calcium 07/25/17 07/25/17 07/25/17 07:00 07:00 11:28 WBC 6.7 RBC 3.98 Hgb 11.0 Hct 31.5 L MCV 79.2 L MCH 27.7 MCHC 35.0 RDW 15.2 Plt Count 196 MPV 7.7 Neutrophils % 63.5 Lymphocytes % 27.3 Monocytes % 7.0 Eosinophils % 1.7 Basophils % 0.5 Sodium 138 Potassium 3.7 Chloride 99 Carbon Dioxide 27 Anion Gap 12 BUN 24 H Creatinine 1.2 H POC Glucometer 113 Random Glucose 198 H Calcium 8.7 Active Medications Generic Name Dose Route Start Last Admin Trade Name Freq PRN Reason Stop Dose Admin Acetaminophen 650 mg 07/24/17 15:19 Tylenol - PO Q4H PRN PAIN Amlodipine Besylate 5 mg 07/24/17 10:00 07/25/17 12:36 Norvasc - PO 5 mg DAILY [facility] Administration Atorvastatin Calcium 10 mg 07/24/17 22:00 07/24/17 21:27 Lipitor - PO 10 mg HS [facility] Administration Donepezil HCl 10 mg 07/24/17 10:00 07/25/17 11:37 Aricept - PO 10 mg DAILY [facility] Administration Guaifenesin 10 ml 07/24/17 08:28 07/24/17 21:28 Robitussin - PO 10 ml Q8H PRN Administration COUGH Clindamycin Phosphate 600 mg in 50 mls @ 100 mls/hr 07/24/17 10:00 07/25/17 11:07 Cleocin 600 Mg Premix Ivpb - IVPB 100 mls/hr Q8H-IV [facility] Administration Sodium Chloride 1,000 mls @ 75 mls/hr 07/25/17 10:30 07/25/17 12:33 Normal Saline - IV 75 mls/hr ASDIR [facility]A Administration Insulin Aspart 1 vial 07/24/17 11:00 07/25/17 11:40 Novolog Vial Sliding Scale - SQ Not Given ACHS GE[facility]GINA Protocol Insulin Detemir 20 units 07/24/17 22:00 07/24/17 21:26 Levemir Vial SQ 20 units HS [facility] Administration Metoprolol Succinate 50 mg 07/24/17 10:00 07/25/17 12:36 Toprol Xl - PO 50 mg DAILY [facility] Administration Nystatin 1 applic 07/24/17 10:00 07/25/17 11:11 Nystop Powder - TP 1 applic DAILY [facility] Administration Ondansetron HCl 4 mg 07/24/17 08:22 Zofran Injection IVPUSH Q6H PRN NAUSEA AND/OR VOMITING Pantoprazole Sodium 40 mg 07/24/17 10:00 07/24/17 11:34 Protonix Iv IVPUSH 40 mg DAILY [facility] Administration Polyethylene Glycol 17 gm 07/24/17 10:00 07/25/17 11:34 Miralax (For Daily Use) - PO 17 gm BID [facility]A Administration Zolpidem Tartrate 5 mg 07/24/17 08:28 07/24/17 21:27 Ambien - PO 5 mg HS PRN Administration INSOMNIA ASSESSMENT/PLAN: This is a 67 year old female with a medical history alzheimer's, NHL s/p chemo, DM, HTN, HLD, CAD s/p stents, hx recurrent UTIs s/p renal stent, who presents with repeat urinary tract infection and hematuria. #POD 1 s/p stent removal -on IV clindamycin 600 mg q8h #complicated resistant UTI with hematuria: -currently on IV clindamycin 600 mg q8h , will determine length of abx per ID -urine cx + for strep ag. -Stent removed -appreciate ID and urology #yeast infection groin, improving - nystatin powder QD #Hx 15 lb weight loss -without B sx -15 lbs over last 3 months -Recommend outpatient f/u #CAD s/p stent -Will restart plavix #HTN- controlled -metoprolol succinate 50mg qd #HLD -pravastatin 10mg PO qHS #DM -bgm ACHS; insulin ss #Alzheimer's dz -aricept 10mg PO HS #Depression/pseudodementia -hold Trazodone 50 PO qd due to qtc borderline Visit type - Emergency Visit Emergency Visit: Yes ED Registration Date: 07/18/17 Care time: The patient presented to the Emergency Department on the above date and was hospitalized for further evaluation of their emergent condition. - New Patient This patient is new to me today: No - Critical Care Critical Care patient: No
[2017-07-25] MEDS: PANTOPRAZOLE SODIUM 40 MG VIAL IVPUSH SCH (13:39)
--- NOTE | 2017-07-25 13:50 | PN ---
Teaching Attending Note Name of Resident: Angel Aguayo ATTENDING PHYSICIAN STATEMENT I saw and evaluated the patient. I reviewed the resident's note and discussed the case with the resident. I agree with the resident's findings and plan as documented. SUBJECTIVE: Patient appears comfortable. OBJECTIVE: Vital Signs Period Temp Pulse Resp BP Sys/Lopez Pulse Ox Last 24 Hr 97.3 F-98.7 F 54-85 18-22 126-168/52-87 98 HEART: S1S2, RRR LUNGS: Clear ABDOMEN: Soft, non-distended, normal BS EXTREMITIES: No edema Laboratory Results - last 24 hr 07/24/17 07/24/17 07/25/17 16:35 21:26 06:28 WBC RBC Hgb Hct MCV MCH MCHC RDW Plt Count MPV Neutrophils % Lymphocytes % Monocytes % Eosinophils % Basophils % Sodium Potassium Chloride Carbon Dioxide Anion Gap BUN Creatinine POC Glucometer 375 281 199 Random Glucose Calcium 07/25/17 07/25/17 07/25/17 07:00 07:00 11:28 WBC 6.7 RBC 3.98 Hgb 11.0 Hct 31.5 L MCV 79.2 L MCH 27.7 MCHC 35.0 RDW 15.2 Plt Count 196 MPV 7.7 Neutrophils % 63.5 Lymphocytes % 27.3 Monocytes % 7.0 Eosinophils % 1.7 Basophils % 0.5 Sodium 138 Potassium 3.7 Chloride 99 Carbon Dioxide 27 Anion Gap 12 BUN 24 H Creatinine 1.2 H POC Glucometer 113 Random Glucose 198 H Calcium 8.7 Current Medications Generic Name Dose Route Start Last Admin Trade Name Freq PRN Reason Stop Dose Admin Acetaminophen 650 mg 07/24/17 15:19 Tylenol - PO Q4H PRN PAIN Amlodipine Besylate 5 mg 07/24/17 10:00 07/25/17 12:36 Norvasc - PO 5 mg DAILY [facility]A Administration Atorvastatin Calcium 10 mg 07/24/17 22:00 07/24/17 21:27 Lipitor - PO 10 mg HS [facility] Administration Donepezil HCl 10 mg 07/24/17 10:00 07/25/17 11:37 Aricept - PO 10 mg DAILY [facility] Administration Guaifenesin 10 ml 07/24/17 08:28 07/24/17 21:28 Robitussin - PO 10 ml Q8H PRN Administration COUGH Clindamycin Phosphate 600 mg in 50 mls @ 100 mls/hr 07/24/17 10:00 07/25/17 11:07 Cleocin 600 Mg Premix Ivpb - IVPB 100 mls/hr Q8H-IV [facility] Administration Sodium Chloride 1,000 mls @ 75 mls/hr 07/25/17 10:30 07/25/17 12:33 Normal Saline - IV 75 mls/hr ASDIR [facility] Administration Insulin Aspart 1 vial 07/24/17 11:00 07/25/17 11:40 Novolog Vial Sliding Scale - SQ Not Given ACHS [facility]A Protocol Insulin Detemir 20 units 07/24/17 22:00 07/24/17 21:26 Levemir Vial SQ 20 units HS [facility] Administration Metoprolol Succinate 50 mg 07/24/17 10:00 07/25/17 12:36 Toprol Xl - PO 50 mg DAILY [facility] Administration Nystatin 1 applic 07/24/17 10:00 07/25/17 11:11 Nystop Powder - TP 1 applic DAILY [facility] Administration Ondansetron HCl 4 mg 07/24/17 08:22 Zofran Injection IVPUSH Q6H PRN NAUSEA AND/OR VOMITING Pantoprazole Sodium 40 mg 07/24/17 10:00 07/25/17 13:39 Protonix Iv IVPUSH 40 mg DAILY [facility] Administration Polyethylene Glycol 17 gm 07/24/17 10:00 07/25/17 11:34 Miralax (For Daily Use) - PO 17 gm BID [facility] Administration Zolpidem Tartrate 5 mg 07/24/17 08:28 07/24/17 21:27 Ambien - PO 5 mg HS PRN Administration INSOMNIA ASSESSMENT AND PLAN: This is a 67 year old woman with a history of HTN, hyperlipidemia, type 2 DM, CAD, history of stent, Alzheimer dementia, NHL who presented to the ED with hematuria. 1. Left UPJ obstruction - s/p stent removal 07/24 2. Group B Strep UTI - Continue Clindamycin 3. CAD, history of stent - Continue Toprol XL, Lipitor - Plavix held for procedure - will restart 4. HTN - Continue Norvasc, Toprol XL 5. Hyperlipidemia - Continue Lipitor 6. Type 2 DM - Continue Levemir, Novolog sliding scale - Metformin held 7. Alzheimer dementia - Continue Aricept - Trazodone held secondary to borderline QTc
--- NOTE | 2017-07-25 14:01 | PN ---
Progress Note, Physician Chief Complaint: s/p removal ureteral stents, general anesthesia History of Present Illness: post op day one - Current Medication List Current Medications: Active Medications Acetaminophen (Tylenol -) 650 mg PO Q4H PRN PRN Reason: PAIN Amlodipine Besylate (Norvasc -) 5 mg PO DAILY [facility] Last Admin: 07/25/17 12:36 Dose: 5 mg Atorvastatin Calcium (Lipitor -) 10 mg PO HS [facility] Last Admin: 07/24/17 21:27 Dose: 10 mg Donepezil HCl (Aricept -) 10 mg PO DAILY [facility] Last Admin: 07/25/17 11:37 Dose: 10 mg Guaifenesin (Robitussin -) 10 ml PO Q8H PRN PRN Reason: COUGH Last Admin: 07/24/17 21:28 Dose: 10 ml Clindamycin Phosphate (Cleocin 600 Mg Premix Ivpb -) 600 mg in 50 mls @ 100 mls /hr IVPB Q8H-IV [facility] Last Admin: 07/25/17 11:07 Dose: 100 mls/hr Sodium Chloride (Normal Saline -) 1,000 mls @ 75 mls/hr IV ASDIR [facility] Last Admin: 07/25/17 12:33 Dose: 75 mls/hr Insulin Aspart (Novolog Vial Sliding Scale -) 1 vial SQ ACHS [facility] PRN Reason: Protocol Last Admin: 07/25/17 11:40 Dose: Not Given Insulin Detemir (Levemir Vial) 20 units SQ HS [facility] Last Admin: 07/24/17 21:26 Dose: 20 units Metoprolol Succinate (Toprol Xl -) 50 mg PO DAILY [facility] Last Admin: 07/25/17 12:36 Dose: 50 mg Nystatin (Nystop Powder -) 1 applic TP DAILY [facility] Last Admin: 07/25/17 11:11 Dose: 1 applic Ondansetron HCl (Zofran Injection) 4 mg IVPUSH Q6H PRN PRN Reason: NAUSEA AND/OR VOMITING Pantoprazole Sodium (Protonix Iv) 40 mg IVPUSH DAILY [facility] Last Admin: 07/25/17 13:39 Dose: 40 mg Polyethylene Glycol (Miralax (For Daily Use) -) 17 gm PO BID [facility] Last Admin: 07/25/17 11:34 Dose: 17 gm Zolpidem Tartrate (Ambien -) 5 mg PO HS PRN PRN Reason: INSOMNIA Last Admin: 07/24/17 21:27 Dose: 5 mg - Objective Vital Signs: Vital Signs Temperature 97.3 F L 07/25/17 10:00 Pulse Rate 72 07/25/17 12:44 Respiratory Rate 18 07/25/17 12:44 Blood Pressure 159/73 07/25/17 12:44 O2 Sat by Pulse Oximetry (%) 98 07/24/17 21:00 Constitutional: Yes: Well Nourished Cardiovascular: Yes: WNL Respiratory: Yes: WNL Gastrointestinal: Yes: WNL Labs: CBC, BMP 07/25/17 07:00 07/25/17 07:00 Assessment/Plan patient non verbal, no apparent complaint, no nausea or vomiting overnight. Dept of anesthesia will sign off care at this time
--- NOTE | 2017-07-25 15:17 | PN ---
Progress Note, Physician History of Present Illness: Admittyed with hematuria and persistent UTI - Streptococcus. She was started on IV Clindamycin with resultant clearing od Strep in the urine. The CoNS isolated is a contaminant. Her stents were successfully removed yesterday. - Current Medication List Current Medications: Active Medications Acetaminophen (Tylenol -) 650 mg PO Q4H PRN PRN Reason: PAIN Amlodipine Besylate (Norvasc -) 5 mg PO DAILY [facility] Last Admin: 07/25/17 12:36 Dose: 5 mg Atorvastatin Calcium (Lipitor -) 10 mg PO HS [facility] Last Admin: 07/24/17 21:27 Dose: 10 mg Donepezil HCl (Aricept -) 10 mg PO DAILY [facility] Last Admin: 07/25/17 11:37 Dose: 10 mg Guaifenesin (Robitussin -) 10 ml PO Q8H PRN PRN Reason: COUGH Last Admin: 07/24/17 21:28 Dose: 10 ml Clindamycin Phosphate (Cleocin 600 Mg Premix Ivpb -) 600 mg in 50 mls @ 100 mls /hr IVPB Q8H-IV [facility] Last Admin: 07/25/17 11:07 Dose: 100 mls/hr Sodium Chloride (Normal Saline -) 1,000 mls @ 75 mls/hr IV ASDIR [facility] Last Admin: 07/25/17 12:33 Dose: 75 mls/hr Insulin Aspart (Novolog Vial Sliding Scale -) 1 vial SQ ACHS [facility] PRN Reason: Protocol Last Admin: 07/25/17 11:40 Dose: Not Given Insulin Detemir (Levemir Vial) 20 units SQ HS [facility] Last Admin: 07/24/17 21:26 Dose: 20 units Metoprolol Succinate (Toprol Xl -) 50 mg PO DAILY [facility] Last Admin: 07/25/17 12:36 Dose: 50 mg Nystatin (Nystop Powder -) 1 applic TP DAILY [facility] Last Admin: 07/25/17 11:11 Dose: 1 applic Ondansetron HCl (Zofran Injection) 4 mg IVPUSH Q6H PRN PRN Reason: NAUSEA AND/OR VOMITING Pantoprazole Sodium (Protonix Iv) 40 mg IVPUSH DAILY [facility] Last Admin: 07/25/17 13:39 Dose: 40 mg Polyethylene Glycol (Miralax (For Daily Use) -) 17 gm PO BID [facility] Last Admin: 07/25/17 11:34 Dose: 17 gm Zolpidem Tartrate (Ambien -) 5 mg PO HS PRN PRN Reason: INSOMNIA Last Admin: 07/24/17 21:27 Dose: 5 mg - Objective Vital Signs: Vital Signs Temperature 97.3 F L 07/25/17 10:00 Pulse Rate 72 07/25/17 12:44 Respiratory Rate 18 07/25/17 12:44 Blood Pressure 159/73 07/25/17 12:44 O2 Sat by Pulse Oximetry (%) 98 07/25/17 09:00 Constitutional: Yes: Well Nourished Neck: Yes: Supple Cardiovascular: Yes: Regular Rate and Rhythm Respiratory: Yes: Regular, CTA Bilaterally Gastrointestinal: Yes: Normal Bowel Sounds, Soft. No: Tenderness Labs: CBC, BMP 07/25/17 07:00 07/25/17 07:00 Assessment/Plan Pt with Hematuria, UTI PCN Allergy. Can DC Clinda in AM. Repeat UA and c/s in one week.
[2017-07-25] MEDS: LACTATED RINGERS SOLUTION 1,000 ML IV SCH (17:49)
[2017-07-25] MEDS: INSULIN DETEMIR 100 UNITS/ML MDV SQ SCH (21:21)
[2017-07-25] MEDS: ATORVASTATIN CA 10 MG TABLET (FP) PO SCH (21:23)
[2017-07-25] MEDS: ZOLPIDEM TARTRATE 5 MG TABLET PO PRN (23:27)
[2017-07-26] MEDS: CLINDAMYCIN 600MG PREMIX IVPB 600 MG/50 ML BAG IVPB SCH (01:32)
[2017-07-26] MEDS: SODIUM CHLORIDE 1,000 ML IV SCH ×2 (01:32→11:22)
[2017-07-26] MEDS: INSULIN SLIDING SCALE (NOVOLOG) 1 VIAL SQ SCH ×2 (06:03→11:22)
[2017-07-26] MEDS: DONEPEZIL HCL 10 MG TABLET (FP) PO SCH (09:41)
[2017-07-26] MEDS: amLODIPine BESYLATE 5 MG TABLET (FP) PO SCH (09:41)
[2017-07-26] MEDS: NYSTATIN POWDER 100,000 UNITS/GM - 15 GM TOPICAL POWDER TP SCH (09:42)
[2017-07-26] MEDS: POLYETHYLENE GLYCOL 3350 119 GM BTL PO SCH (09:44)
[2017-07-26] MEDS: PANTOPRAZOLE SODIUM 40 MG VIAL IVPUSH SCH (09:45)
[2017-07-26 09:52] VITALS: BP 163/88; PULSE 70; TEMP 97.8
[2017-07-26 09:54] LABS: CHLORIDE 103 mmol/L (98-107); POTASSIUM 3.8 mmol/L (3.5-5.1); SODIUM 142 mmol/L (136-145)
[2017-07-26 10:07] LABS: ANION GAP 13 (8-16); BLOOD UREA NITROGEN 17 mg/dL (7-18); CALCIUM 8.4 mg/dL (8.5-10.1); CO2 26 mmol/L (21-32); CREATININE 0.9 mg/dL (0.55-1.02); GLUCOSE,RANDOM 121 mg/dL (74-106)
[2017-07-26] MEDS ORDERED: INSULIN (NOVOLOG) ASPART 100 UNITS/ML 10ML VIAL ONE (11:16)
--- NOTE | 2017-07-26 11:56 | DS ---
Physical Exam: Microbiology 07/18/17 09:25 Blood - Peripheral Venous Blood Culture - Preliminary NO GROWTH OBTAINED AFTER 96 HOURS, INCUBATION TO CONTINUE FOR 1 DAYS. Selected Entries 07/25/17 07/26/17 21:00 09:00 Temperature 97.8 F Pulse Rate 70 Respiratory 18 Rate Blood Pressure 163/88 O2 Sat by Pulse 98 Oximetry (%) Oxygen Delivery Room Air Method Laboratory Tests 07/18/17 07/24/17 07/25/17 18:20 06:20 07:00 WBC 6.7 Hgb 11.0 Hct 31.5 L Plt Count 196 Sodium Potassium Chloride Carbon Dioxide Anion Gap BUN 14 Creatinine 0.8 Random Glucose Urine Color Yellow Urine Appearance Turbid Urine pH 5.0 Ur Specific [place] 1.011 Urine Protein 2+ H Urine Glucose (UA) Negative Urine Ketones Negative Urine Blood 3+ H Urine Nitrite Positive Urine Bilirubin Negative Urine Urobilinogen Negative Ur Leukocyte Esterase 3+ H Urine WBC (Auto) 2203 Urine RBC (Auto) 734 Ur Epithelial Cells Rare Urine Bacteria Few Urine Mucus Rare 07/25/17 07/26/17 07:00 08:00 WBC Hgb Hct Plt Count Sodium 142 Potassium 3.8 Chloride 103 Carbon Dioxide 26 Anion Gap 13 BUN 24 H 17 Creatinine 1.2 H 0.9 Random Glucose 121 H Urine Color Urine Appearance Urine pH Ur Specific [place] Urine Protein Urine Glucose (UA) Urine Ketones Urine Blood Urine Nitrite Urine Bilirubin Urine Urobilinogen Ur Leukocyte Esterase Urine WBC (Auto) Urine RBC (Auto) Ur Epithelial Cells Urine Bacteria Urine Mucus Microbiology 07/22/17 12:30 Urine - Urine Clean Catch Urine Culture - Final Staphylococcus Coagulase Neg 07/18/17 18:20 Urine - Urine Clean Catch Urine Culture - Final Strep Agalactiae Group B 07/18/17 09:25 Blood - Peripheral Venous Blood Culture - Final NO GROWTH AFTER 5 DAYS INCUBATION 07/18/17 09:25 Blood - Peripheral Venous Blood Culture - Final NO GROWTH AFTER 5 DAYS INCUBATION CXR--no evidence of infiltrate/effusion Renal U/s- Mild left hydro, stent in place CXR-- no acute pathology HOSPITAL COURSE: Date of Admission:07/18/17 Date of Discharge: 07/26/17 67 y/o F with PMH HTN, HLD, DM, CAD s/p stent, Alzheimer's dz, NHL s/p chemo ( 2012; currently on no agents), recent sepsis 2/2 blocked L ureteral stent ( [facility]), s/p L ureteral stent placement (04/2017), urinary incontinence, who presented to the ED c/o worsening hematuria x 1 week. She had outpatient positive urine cx, and was placed on PO cipro (1 wk course), and moxi (3 wk course) by Dr. Coe (ID). However, pt's hematuria continued, with its frequency increased. Patient found to have GBS urine culture in patient. Patient treated with IV clindamycin x 1 week. Repeat bcx negative. Patient's trazadone held 2/2 to prolonged qtc. Will hold on d/c. Patient will be sent home with close f/u with urology and pcp. PATIENT WILL NEED REPEAT UA AND C/S IN 1 WEEK. Minutes to complete discharge: 45 Discharge Summary Reason For Visit: UTI Current Active Problems KRYS (acute kidney injury) (Acute) UPJ obstruction, congenital (Acute) UTI (urinary tract infection) (Acute) Yeast infection of the vagina (Acute) Alzheimer disease (Chronic) CAD (coronary artery disease) (Chronic) Diabetes mellitus (Chronic) HLD (hyperlipidemia) (Chronic) HTN (hypertension) (Chronic) Condition: Stable - Instructions Diet, Activity, Other Instructions: You were in the hospital for a urinary tract infection. You were treated with IV antibiotics and completed the course. You also had your stent removed. Please follow up with your primary care doctor and your urologist within 1 week. Continue your home medications. Do not take the trazadone. Call your neurologist and ask them about other options. If you have chest pain, shortness of breath, or any new/worsening symptoms please come back to the hospital immediately. Referrals: Sally Lugo [Primary Care Provider] - Tong Banegas MD [Staff Physician] - Disposition: VNS/HOME HEALTH CARE - Home Medications Comprehensive Discharge Medication List: Ambulatory Orders Metformin HCl 1,000 mg PO BIDAC 01/15/14 Metoprolol Tartrate [Lopressor -] 50 mg PO DAILY 01/15/14 Pravastatin Sodium 10 mg PO HS 07/18/17 Amlodipine Besylate [Norvasc -] 5 mg PO DAILY 07/19/17 Donepezil HCl 10 mg PO HS 07/19/17 Insulin Glargine,Hum.rec.anlog [Lantus Solostar] 35 unit SQ DAILY 07/19/17 Pantoprazole Sodium [Protonix] 40 mg PO DAILY 07/19/17 Zolpidem Tartrate [Ambien] 10 mg PO HS 07/19/17 This patient is new to me today: No Emergency Visit: Yes ED Registration Date: 07/18/17 Care time: The patient presented to the Emergency Department on the above date and was hospitalized for further evaluation of their emergent condition. Critical Care patient: No - Discharge Referral Referred to [facility] Med P.C.: No
--- NOTE | 2017-07-26 12:23 | PN ---
Teaching Attending Note Name of Resident: Angel Aguayo ATTENDING PHYSICIAN STATEMENT I saw and evaluated the patient. I reviewed the resident's note and discussed the case with the resident. I agree with the resident's findings and plan as documented. SUBJECTIVE: Patient appears comfortable. She is awake and alert but non-verbal. OBJECTIVE: Vital Signs Period Temp Pulse Resp BP Sys/Lopez Pulse Ox Last 24 Hr 97.1 F-97.9 F 54-79 18-20 112-163/55-88 98 HEART: S1S2, RRR LUNGS: Clear ABDOMEN: Soft, non-distended, normal BS EXTREMITIES: No edema Laboratory Results - last 24 hr 07/25/17 07/25/17 07/26/17 16:16 21:19 06:00 Sodium Potassium Chloride Carbon Dioxide Anion Gap BUN Creatinine POC Glucometer 336 357 169 Random Glucose Calcium 07/26/17 07/26/17 08:00 10:56 Sodium 142 Potassium 3.8 Chloride 103 Carbon Dioxide 26 Anion Gap 13 BUN 17 Creatinine 0.9 POC Glucometer 218 Random Glucose 121 H Calcium 8.4 L Current Medications Generic Name Dose Route Start Last Admin Trade Name Freq PRN Reason Stop Dose Admin Acetaminophen 650 mg 07/24/17 15:19 07/26/17 00:53 Tylenol - PO 650 mg Q4H PRN Administration PAIN Amlodipine Besylate 5 mg 07/24/17 10:00 07/26/17 09:41 Norvasc - PO 5 mg DAILY GEORGINA Administration Atorvastatin Calcium 10 mg 07/24/17 22:00 07/25/17 21:23 Lipitor - PO 10 mg HS GEORGINA Administration Donepezil HCl 10 mg 07/24/17 10:00 07/26/17 09:41 Aricept - PO 10 mg DAILY GEORGINA Administration Guaifenesin 10 ml 07/24/17 08:28 07/24/17 21:28 Robitussin - PO 10 ml Q8H PRN Administration COUGH Sodium Chloride 1,000 mls @ 75 mls/hr 07/25/17 10:30 07/26/17 11:22 Normal Saline - IV Not Given ASDIR GEORGINA Insulin Aspart 1 vial 07/24/17 11:00 07/26/17 11:22 Novolog Vial Sliding Scale - SQ 4 units ACHS GEORGINA Administration Protocol Insulin Detemir 20 units 07/24/17 22:00 07/25/17 21:21 Levemir Vial SQ 20 units HS GEORGINA Administration Metoprolol Succinate 50 mg 07/24/17 10:00 07/26/17 09:41 Toprol Xl - PO 50 mg DAILY GEORGINA Administration Nystatin 1 applic 07/24/17 10:00 07/26/17 09:42 Nystop Powder - TP 1 applic DAILY GEORGINA Administration Ondansetron HCl 4 mg 07/24/17 08:22 Zofran Injection IVPUSH Q6H PRN NAUSEA AND/OR VOMITING Pantoprazole Sodium 40 mg 07/24/17 10:00 07/26/17 09:45 Protonix Iv IVPUSH Not Given DAILY GEORGINA Polyethylene Glycol 17 gm 07/24/17 10:00 07/26/17 09:44 Miralax (For Daily Use) - PO Not Given BID GEORGINA Zolpidem Tartrate 5 mg 07/24/17 08:28 07/25/17 23:27 Ambien - PO 5 mg HS PRN Administration INSOMNIA ASSESSMENT AND PLAN: This is a 67 year old woman with a history of HTN, hyperlipidemia, type 2 DM, CAD, history of stent, Alzheimer dementia, NHL who presented to the ED with hematuria. 1. Left UPJ obstruction - s/p stent removal 07/24 2. Group B Strep UTI - Completed course of Clindamycin 3. Acute kidney injury - Improved with IV fluid 4. CAD, history of stent - Continue Toprol XL, Lipitor - Patient was no longer taking Plavix 5. HTN - Continue Norvasc, Toprol XL 6. Hyperlipidemia - Continue Lipitor 7. Type 2 DM - Continue Levemir, Novolog sliding scale - Metformin held 8. Alzheimer dementia - Continue Aricept - Trazodone held secondary to borderline QTc 9. Disposition - Discharge home today
--- NOTE | 2017-07-26 13:23 | EKG ---
Test Reason : Blood Pressure : / mmHG Vent. Rate : 065 BPM Atrial Rate : 065 BPM P-R Int : 182 ms QRS Dur : 090 ms QT Int : 472 ms P-R-T Axes : 047 -49 094 degrees QTc Int : 490 ms NORMAL SINUS RHYTHM LEFT AXIS DEVIATION MODERATE VOLTAGE CRITERIA FOR LVH, MAY BE NORMAL VARIANT CANNOT RULE OUT SEPTAL INFARCT , AGE UNDETERMINED T WAVE ABNORMALITY, CONSIDER LATERAL ISCHEMIA ABNORMAL ECG WHEN COMPARED WITH ECG OF 18-JUL-2017 19:18, MINIMAL CRITERIA FOR SEPTAL INFARCT ARE NOW PRESENT T WAVE INVERSION MORE EVIDENT IN LATERAL LEADS Confirmed by OPAL MOHAN MD ([id number]) on 07/26/2017 1:23:09 PM Referred By: Confirmed By:OPAL MOHAN MD
== END 2017-07-26 13:40 | disposition home health service (06) | DRG 690 ==
LOC: JER 14:25 → JERBED 19:34 → J5S 07-19 08:42
PROVIDERS: ADMIT Internal Medicine; ATTEND Internal Medicine
PROC: 0TP98DZ Removal of Intraluminal Device from Ureter, Via Natural or Artificial Opening Endoscopic (ICD-10-PCS; principal; 2017-07-24 07:30)
DX: N39.0 Urinary tract infection, site not specified (principal); Q62.11 Congenital occlusion of ureteropelvic junction; N17.9 Acute kidney failure, unspecified; N13.5 Crossing vessel and stricture of ureter without hydronephrosis; I25.10 Atherosclerotic heart disease of native coronary artery without angina pectoris; G30.9 Alzheimer's disease, unspecified; F02.80 Dementia in other diseases classified elsewhere, unspecified severity, without behavioral disturbance, psychotic disturbance, mood disturbance, and anxiety; E11.9 Type 2 diabetes mellitus without complications; E78.5 Hyperlipidemia, unspecified; B95.1 Streptococcus, group B, as the cause of diseases classified elsewhere; R21 Rash and other nonspecific skin eruption; F32.9 Major depressive disorder, single episode, unspecified; E86.0 Dehydration; I10 Essential (primary) hypertension; L02.224 Furuncle of groin; G47.00 Insomnia, unspecified; R63.4 Abnormal weight loss; Z68.21 Body mass index [BMI] 21.0-21.9, adult; Z88.0 Allergy status to penicillin; Z85.72 Personal history of non-Hodgkin lymphomas; Z95.5 Presence of coronary angioplasty implant and graft; Z87.891 Personal history of nicotine dependence
CPT/HCPCS: 36415; 71045-TC-FY; 76775-TC; 80048; 80053; 81003; 81015; 82962; 83735; 84100; 85025; 87040; 87086; 87186; 88300-TC; 93005; 93010; 94760; 97116-GP; 97161-GP; 99283-25; J7030

== ENCOUNTER 2017-08-19 18:28 | Inpatient (IN) | payer OTHER ==
[2017-08-19] MEDS ORDERED: SODIUM CHLORIDE 1,000 ML IV STA (19:05)
[2017-08-19 19:14] LABS: BASO % 0.3 % (0-2.0); HEMATOCRIT 34.4 % (32.4-45.2); LYMPH % 6.6 % (8-40); MCH 28.3 pg (25.7-33.7); MEAN CELL VOLUME 80.9 fl (80-96); MEAN PLT VOLUME 8.2 fl (7.5-11.1); MONO % 6.3 % (3.8-10.2); NEUT % 86.8 % (42.8-82.8); PLATELET COUNT 169 K/MM3 (134-434); RBC 4.25 M/mm3 (3.60-5.2); WHITE BLOOD COUNT 17.3 K/mm3 (4.0-10.0)
--- NOTE | 2017-08-19 19:14 | PDOC ---
History of Present Illness - General History Source: Family Exam Limitations: Dementia <Lois Modi - Last Filed: 08/19/17 19:11> - History of Present Illness Initial Comments: 08/19/17 19:17 67 y/o F with PMH HTN, HLD, DM, CAD s/p stent, Alzheimer's dz, NHL s/p chemo ( 2012; currently on no agents), recent sepsis 2/2 blocked L ureteral stent ( [facility]), s/p L ureteral stent placement (04/2017), urinary incontinence who presents today for possible sepsis. Patients daughter states that she took her mothers temp rectally today with a temp of 103.6. She states that the last time her mother had a high temperature in , she was admitted for sepsis. Her urologist prescribed patient Bactrim since Sunday (2x/day) since something in her urine came back positive. Patients brother in law was admitted yesterday with Influenza A. History was provided by patients son/ daughter. Patient is nonverbal at baseline. No nausea, vomit, no complaints of pain Urologist: Dr. Chilel <Bety De Luna - Last Filed: 08/19/17 19:17> <Nathalie Alanis - Last Filed: 08/20/17 04:21> - General Chief Complaint: SIRS, Suspected/Possible Stated Complaint: HIGH BLOOD SUGAR,ALTERED MENTAL STATUS Past History - Past Medical History Cancer: Yes (NON-HODGKINS) COPD: No Dementia: Yes Diabetes: Yes Hypercholesterolemia: Yes - Surgical History Abdominal Surgery: Yes (Kidney stent) - Suicide/Smoking/Psychosocial Hx Smoking History: Former smoker Have you smoked in the past 12 months: Yes Number of Cigarettes Smoked Daily: 0 If you are a former smoker, when did you quit?: 6 months ago Information on smoking cessation initiated: No 'Breaking Loose' booklet given: 07/19/17 Hx Alcohol Use: No Drug/Substance Use Hx: No Substance Use Type: None <Lois Modi - Last Filed: 08/19/17 19:11> <Bety De Luna - Last Filed: 08/19/17 19:17> <Nathalie Alanis - Last Filed: 08/20/17 04:21> - Past Medical History Allergies/Adverse Reactions: Allergies Allergy/AdvReac Type Severity Reaction Status Date / Time Penicillins Allergy Verified 08/19/17 18:50 Home Medications: Ambulatory Orders Metformin HCl 1,000 mg PO BIDAC 01/15/14 Metoprolol Tartrate [Lopressor -] 50 mg PO DAILY 01/15/14 Pravastatin Sodium 10 mg PO HS 07/18/17 Amlodipine Besylate [Norvasc -] 5 mg PO DAILY 07/19/17 Donepezil HCl 10 mg PO HS 07/19/17 Insulin Glargine,Hum.rec.anlog [Lantus Solostar] 35 unit SQ DAILY 07/19/17 Pantoprazole Sodium [Protonix] 40 mg PO DAILY 07/19/17 Zolpidem Tartrate [Ambien] 10 mg PO HS 07/19/17 Review of Systems - Review of Systems Able to Perform ROS?: No (advanced Alzheimer's) <Bety De Luna - Last Filed: 08/19/17 19:17> *Physical Exam - Vital Signs Last Vital Signs Temp Pulse Resp BP Pulse Ox 103.6 F H 113 H 14 180/79 97 08/19/17 18:30 08/19/17 18:30 08/19/17 18:30 08/19/17 18:30 08/19/17 18:30 <Lois Modi - Last Filed: 08/19/17 19:11> - Vital Signs Last Vital Signs Temp Pulse Resp BP Pulse Ox 103.6 F H 113 H 14 180/79 97 08/19/17 18:30 08/19/17 18:30 08/19/17 18:30 08/19/17 18:30 08/19/17 18:30 <Bety De Luna - Last Filed: 08/19/17 19:17> - Vital Signs Last Vital Signs Temp Pulse Resp BP Pulse Ox 101.1 F H 88 18 128/58 96 08/20/17 03:11 08/20/17 03:11 08/20/17 03:11 08/20/17 03:11 08/20/17 03:00 <Nathalie Alanis - Last Filed: 08/20/17 04:21> ED Treatment Course - LABORATORY CBC & Chemistry Diagram: 08/19/17 19:00 08/19/17 19:00 - RADIOLOGY Radiology Studies Ordered: Category Date Time Status CHEST X-RAY PORTABLE* [RAD] Stat Radiology 08/19/17 19:05 Ordered <Lois Modi - Last Filed: 08/19/17 19:11> - LABORATORY CBC & Chemistry Diagram: 08/19/17 19:00 08/19/17 19:00 - ADDITIONAL ORDERS Additional order review: 08/19/17 19:00 RBC 4.25 MCV 80.9 MCHC 35.0 RDW 16.0 H MPV 8.2 Neutrophils % 86.8 H D Lymphocytes % 6.6 L D Monocytes % 6.3 Eosinophils % 0.0 D Basophils % 0.3 <AnnamarieBety - Last Filed: 08/19/17 19:17> - LABORATORY CBC & Chemistry Diagram: 08/19/17 19:00 08/19/17 19:00 - ADDITIONAL ORDERS Additional order review: Laboratory Results 08/19/17 08/19/17 08/19/17 21:42 19:15 19:00 PT with INR INR PTT (Actin FS) Sodium 132 L Potassium 4.3 Chloride 102 Carbon Dioxide 21 Anion Gap 9 BUN 26 H Creatinine 0.9 Creat Clearance w eGFR > 60 Random Glucose 282 H Lactic Acid 1.7 Calcium 8.6 Total Bilirubin 0.6 AST 18 ALT 19 Alkaline Phosphatase 80 Troponin I Total Protein 7.3 Albumin 3.6 Urine Color Ltyellow Urine Appearance Slcloudy Urine pH 5.0 Ur Specific [place] 1.014 Urine Protein 2+ H Urine Glucose (UA) 3+ H Urine Ketones Trace H Urine Blood Negative Urine Nitrite Negative Urine Bilirubin Negative Urine Urobilinogen Negative Ur Leukocyte Esterase Negative Urine WBC (Auto) 10 Urine RBC (Auto) 1 Ur Epithelial Cells Rare Urine Bacteria Moderate Hyaline Casts 10 Urine Mucus Rare 08/19/17 08/19/17 08/19/17 19:00 19:00 19:00 PT with INR 11.40 INR 1.01 PTT (Actin FS) 30.1 Sodium Potassium Chloride Carbon Dioxide Anion Gap BUN Creatinine Creat Clearance w eGFR Random Glucose Lactic Acid 1.9 Calcium Total Bilirubin AST ALT Alkaline Phosphatase Troponin I < 0.02 Total Protein Albumin Urine Color Urine Appearance Urine pH Ur Specific [place] Urine Protein Urine Glucose (UA) Urine Ketones Urine Blood Urine Nitrite Urine Bilirubin Urine Urobilinogen Ur Leukocyte Esterase Urine WBC (Auto) Urine RBC (Auto) Ur Epithelial Cells Urine Bacteria Hyaline Casts Urine Mucus 08/19/17 19:00 PT with INR INR PTT (Actin FS) Sodium Cancelled Potassium Cancelled Chloride Cancelled Carbon Dioxide Cancelled Anion Gap Cancelled BUN Cancelled Creatinine Cancelled Creat Clearance w eGFR Cancelled Random Glucose Cancelled Lactic Acid Calcium Cancelled Total Bilirubin Cancelled AST Cancelled ALT Cancelled Alkaline Phosphatase Cancelled Troponin I Total Protein Cancelled Albumin Cancelled Urine Color Urine Appearance Urine pH Ur Specific [place] Urine Protein Urine Glucose (UA) Urine Ketones Urine Blood Urine Nitrite Urine Bilirubin Urine Urobilinogen Ur Leukocyte Esterase Urine WBC (Auto) Urine RBC (Auto) Ur Epithelial Cells Urine Bacteria Hyaline Casts Urine Mucus 08/19/17 19:00 RBC 4.25 MCV 80.9 MCHC 35.0 RDW 16.0 H MPV 8.2 Neutrophils % 86.8 H D Lymphocytes % 6.6 L D Monocytes % 6.3 Eosinophils % 0.0 D Basophils % 0.3 - Medications Given in the ED: ED Medications Discontinued Medications Generic Name Dose Route Start Last Admin Trade Name Freq PRN Reason Stop Dose Admin Acetaminophen 1,000 mg 08/20/17 01:22 08/20/17 01:31 Ofirmev Injection - IVPB 08/20/17 01:23 1,000 mg ONCE ONE Administration Sodium Chloride 1,000 mls @ 1,000 mls/hr 08/19/17 19:05 08/19/17 19:26 Normal Saline - IV 08/19/17 20:04 1,000 mls/hr ASDIR STA Administration Gentamicin Sulfate 80 mg/ 252 mls @ 250 mls/hr 08/19/17 21:30 08/19/17 21:41 Dextrose IVPB 250 mls/hr ONCE GEORGINA Administration Vancomycin HCl 1 mg/ Dextrose 250 mls @ 166.667 mls/hr 08/19/17 22:45 22:55 IVPB 08/20/17 00:14 166.667 mls/hr ONCE ONE Administration Gentamicin Sulfate 80 mg/ 252 mls @ 250 mls/hr 08/19/17 22:29 08/19/17 23:44 Dextrose IVPB 08/19/17 22:30 Not Given ONCE ONE Trazodone HCl 50 mg 08/20/17 01:21 08/20/17 01:31 Desyrel - PO 08/20/17 01:22 50 mg ONCE ONE Administration <Nathalie Alanis - Last Filed: 08/20/17 04:21> Medical Decision Making - Medical Decision Making 08/19/17 19:11 67 yo F with h/o dementia ( advanced alhzheimers nonverbal) ureteral stent forobstruction ( removed ) , sepsis, cad htn dm here with family for fever and shaking. started today 103. no n/v. no change to urine no change to stool. history provided by family at bedside. brother in law admitted with influenza B. differential sepsis from uti, flu, pna, other intrabdominal infection. plan labs ua sepsis workup. flu swab. <Lois Modi - Last Filed: 08/19/17 19:11> - Medical Decision Making 08/20/17 04:19 Pt seen by the PA. Pt worked up, influenza negative; fever; lactic acid normal. She will be admitted for fever and UTI, despite cureent TMP-SMX therapy.. Admit to medicine obs for IV gentamycin and eval by urology and ID. <Nathalie Alanis - Last Filed: 08/20/17 04:21> *DC/Admit/Observation/Transfer <Lois Modi - Last Filed: 08/19/17 19:11> <Bety De Luna - Last Filed: 08/19/17 19:17> <Nathalie Alanis - Last Filed: 08/20/17 04:21> Diagnosis at time of Disposition: Systemic inflammatory response syndrome (SIRS), UTI (urinary tract infection)
[2017-08-19] MEDS ORDERED: ACETAMINOPHEN INJECTION 100 ML IVPB ONE (19:16)
[2017-08-19 19:20] LABS: VENOUS PC02 35.4 mmHg (38-52); VENOUS PH 7.41 (7.32-7.42); VENOUS PO2 20.7 mmHg (28-48)
[2017-08-19 19:40] LABS: INR 1.01 (0.82-1.09); PROTHROMBIN TIME (PATIENT) 11.4 SEC (9.7-13.0)
[2017-08-19 19:42] LABS: ACTIVATED PTT 30.1 SECONDS (26.9-34.4)
--- NOTE | 2017-08-19 19:54 | PDOC ---
History of Present Illness - General Stated Complaint: HIGH BLOOD SUGAR,ALTERED MENTAL STATUS Time Seen by Provider: 08/19/17 19:12 History Source: Family Exam Limitations: Dementia - History of Present Illness Initial Comments: 08/19/17 19:54 Patient is a 67 year old female with PMHx HTN, HLD, DM, CAD s/p stent, Alzheimer 's dz, NHL s/p chemo (2012; currently on no agents), recent sepsis 2/2 blocked L ureteral stent ([facility]), s/p L ureteral stent placement (04/2017), urinary incontinence brought by daughter for symptoms of possible sepsis. Patient's daughter states that mother was shaking and unable to stand, she took her temp rectally and was 103.6. She was concerned because the last time her mother had a high temperature in , she was admitted for sepsis. Her urologist prescribed patient Bactrim since Sunday (2x/day) since something in her urine came back positive. Incidentally, brother in law was admitted yesterday with Influenza A and mother was exposed to him. History was provided by patients son/daughter. Patient is nonverbal at baseline. No nausea, vomit, no complaints of pain PMD: Dr. Lugo Urologist: Dr. Chilel ROS limited due to health status GENERAL/CONSTITUTIONAL: (+)fever or chills. (+) weakness. No weight change.] HEAD, EYES, EARS, NOSE AND THROAT: [No change in vision. No ear pain or discharge. No sore throat.] CARDIOVASCULAR: (-) shortness of breath.] RESPIRATORY: [No cough, wheezing, or hemoptysis.] GASTROINTESTINAL: [No nausea, vomiting, diarrhea or constipation. No rectal bleeding.] GENITOURINARY: (+) UTI MUSCULOSKELETAL: [No joint or muscle swelling or pain. No neck or back pain.] SKIN AND BREASTS: (+) rash (-) easy bruising.] NEUROLOGIC: (+) dementia PSYCHIATRIC: [No depression or anxiety.] ENDOCRINE: [No increased thirst. No abnormal weight change.] HEMATOLOGIC/LYMPHATIC: [No anemia, easy bleeding, or history of blood clots.] ALLERGIC/IMMUNOLOGIC: [No hives or skin allergy. No latex allergy.] GENERAL: [The patient is awake, alert, oriented x1, in no acute distress.] HEAD: [Normal with no signs of trauma.] EYES: [Pupils equal, round and reactive to light, extraocular movements intact, sclera anicteric, conjunctiva clear.] ENT: [Ears normal, nares patent, Moist mucous membranes.] NECK: [Normal range of motion, supple without lymphadenopathy, JVD, or masses.] LUNGS: [Breath sounds equal, clear to auscultation bilaterally. No wheezes, and no crackles.] HEART: [Regular rate and rhythm, normal S1 and S2 without murmur, rub.] ABDOMEN: [Soft, nontender, normoactive bowel sounds. No guarding, no rebound. No masses.] EXTREMITIES: [Normal range of motion, no edema. No clubbing or cyanosis. No cords, erythema, or tenderness.] NEUROLOGICAL: [Cranial nerves II through XII grossly intact. nonverbal, gait not tested.] PSYCH: [Normal mood, normal affect.] SKIN: (+) Warmth, Dry, normal turgor, (+) macular irregular shaped rashes under left breast, Past History - Past Medical History Allergies/Adverse Reactions: Allergies Allergy/AdvReac Type Severity Reaction Status Date / Time Penicillins Allergy Verified 08/19/17 18:50 Home Medications: Ambulatory Orders Metformin HCl 1,000 mg PO BIDAC 01/15/14 Metoprolol Tartrate [Lopressor -] 50 mg PO DAILY 01/15/14 Pravastatin Sodium 10 mg PO HS 07/18/17 Amlodipine Besylate [Norvasc -] 5 mg PO DAILY 07/19/17 Donepezil HCl 10 mg PO HS 07/19/17 Insulin Glargine,Hum.rec.anlog [Lantus Solostar] 35 unit SQ DAILY 07/19/17 Pantoprazole Sodium [Protonix] 40 mg PO DAILY 07/19/17 Zolpidem Tartrate [Ambien] 10 mg PO HS 07/19/17 Cancer: Yes (NON-HODGKINS) COPD: No Dementia: Yes Diabetes: Yes Hypercholesterolemia: Yes - Surgical History Abdominal Surgery: Yes (Kidney stent) - Suicide/Smoking/Psychosocial Hx Smoking History: Former smoker Have you smoked in the past 12 months: Yes Number of Cigarettes Smoked Daily: 0 If you are a former smoker, when did you quit?: 6 months ago Information on smoking cessation initiated: No 'Breaking Loose' booklet given: 07/19/17 Hx Alcohol Use: No Drug/Substance Use Hx: No Substance Use Type: None *Physical Exam - Vital Signs Last Vital Signs Temp Pulse Resp BP Pulse Ox 103.6 F H 113 H 14 180/79 97 08/19/17 18:30 08/19/17 18:30 08/19/17 18:30 08/19/17 18:30 08/19/17 18:30 ED Treatment Course - LABORATORY CBC & Chemistry Diagram: 08/19/17 19:00 08/19/17 19:00 - ADDITIONAL ORDERS Additional order review: Laboratory Results 08/19/17 08/19/17 Unknown 19:00 VBG pH 7.41 POC VBG pCO2 35.4 L POC VBG pO2 20.7 L Mixed VBG HCO3 21.8 Sodium Cancelled Potassium Cancelled Chloride Cancelled Carbon Dioxide Cancelled Anion Gap Cancelled BUN Cancelled Creatinine Cancelled Creat Clearance w eGFR Cancelled Random Glucose Cancelled Calcium Cancelled Total Bilirubin Cancelled AST Cancelled ALT Cancelled Alkaline Phosphatase Cancelled Total Protein Cancelled Albumin Cancelled 08/19/17 19:00 RBC 4.25 MCV 80.9 MCHC 35.0 RDW 16.0 H MPV 8.2 Neutrophils % 86.8 H D Lymphocytes % 6.6 L D Monocytes % 6.3 Eosinophils % 0.0 D Basophils % 0.3 Medical Decision Making - Medical Decision Making 08/19/17 19:26 Patient is a 67 year old female with PMHx HTN, HLD, DM, CAD s/p stent, Alzheimer 's dz, NHL s/p chemo (2012; currently on no agents), recent sepsis 2/2 blocked L ureteral stent ([facility]), s/p L ureteral stent placement (04/2017), urinary incontinence brought by daughter for symptoms of possible sepsis. Sepsis workup initiated, labs, cultures and IVF Patient has received Tylenol for fever 08/19/17 20:27 Labs reviewed noted to have a wbc 17 but lactic 1.9 08/19/17 20:31 EKG: Sinus tach 118, LAD, left ant fascicular block, LVH. Chest x-ray: A rotated unable to comment on the left costophrenic angle, otherwise no acute infiltrate. 08/19/17 20:36 Selected Entries 08/19/17 20:25 Pulse Rate [ 95 H Apical] Blood Pressure 140/86 [Left Arm] 08/19/17 21:32 UA cloudy with wbc 10 Will give Gentamycin 80mg IV D/W dr. Ortiz will admit to OBS consult placed to Dr Serrano (ID), Dr. Banegas (Uro) *DC/Admit/Observation/Transfer Diagnosis at time of Disposition: Systemic inflammatory response syndrome (SIRS) UTI (urinary tract infection) Qualifiers: Urinary tract infection type: site unspecified Hematuria presence: without hematuria Qualified Code(s): N39.0 - Urinary tract infection, site not specified - Discharge Dispostion Admit: Yes - Referrals - Patient Instructions - Post Discharge Activity
[2017-08-19 19:57] LABS: ALBUMIN 3.6 g/dl (3.4-5.0); ALK PHOS 80 U/L (45-117); ANION GAP 9 (8-16); BILIRUBIN,TOTAL 0.6 mg/dL (0.2-1.0); BLOOD UREA NITROGEN 26 mg/dL (7-18); CALCIUM 8.6 mg/dL (8.5-10.1); CHLORIDE 102 mmol/L (98-107); CO2 21 mmol/L (21-32); CREATININE 0.9 mg/dL (0.55-1.02); GLUCOSE,RANDOM 282 mg/dL (74-106); SGPT/ALT 19 U/L (12-78); SODIUM 132 mmol/L (136-145); TOT PROT 7.3 g/dl (6.4-8.2)
[2017-08-19 20:00] LABS: POTASSIUM 4.3 mmol/L (3.5-5.1); SGOT/AST 18 U/L (15-37)
[2017-08-19 20:16] LABS: URINE APPEARANCE SLCLOUDY; URINE BILIRUBIN NEGATIVE (<2.0 mg/dL); URINE COLOR LTYELLOW; URINE GLUCOSE (UA) 3+ (NEGATIVE); URINE KETONE TRACE (NEGATIVE); URINE LEUK ESTERASE NEGATIVE (NEGATIVE); URINE NITRITE NEGATIVE (NEGATIVE); URINE UROBILINOGEN NEGATIVE mg/dL (0.2-1.0)
[2017-08-19 20:20] LABS: URINE PROTEIN 2+ (NEGATIVE)
[2017-08-19 20:21] LABS: EPI CELLS RARE /HPF (FEW); URINE BACTERIA MODERATE /hpf (NONE SEEN); URINE HYALINE CAST 10 /lpf; URINE MUCUS RARE
[2017-08-19] MEDS ORDERED: GENTAMICIN INJECTION 80 MG in DEXTROSE 5%-WATER - 250 ML IVPB SCH (21:30)
[2017-08-19] MEDS ORDERED: GENTAMICIN 80 MG PREMIXED IVPB 80 MG/100 ML BAG IVPB ONE (21:34)
--- NOTE | 2017-08-19 21:43 | PN ---
Teaching Attending Note Name of Resident: Garfield Rojas ATTENDING PHYSICIAN STATEMENT I saw and evaluated the patient. I reviewed the resident's note and discussed the case with the resident. I agree with the resident's findings and plan as documented. SUBJECTIVE: 67 F with pmhx. of HTN, HLD, DM, CAD s/p Stent, Alzheimer's dz, NHL s/p chemo, prior Sepsis due to blocked L. ureteral stent (05/10), urinary incontinance. Brought in by her daughter who took her temperature and noticed it was 103.6. States she was recently rx'd Bactrim by her urologist. Also, notes recent exposure to flu. Pt. is non-verbal at baseline, but family members have noticed decreased po intake and fevers. No N,V,D. No cough, chest pain or pressure. No shortness of breath OBJECTIVE: Physical: VS: Vital Signs Period Temp Pulse Resp BP Sys/Lopez Pulse Ox Last 24 Hr 101.1 F-103.6 F 95-113 14 140-180/79-86 97 GEN: NAD, Resting in bed, AA0x3 HEENT: NCAT, PERRL, Throat without exudates CARD: RRR S1, S2 RESP: CTAB ABD: BSx4, NTD to palpation EXT: - C/C/E CBCD WBC 17.3 K/mm3 (4.0-10.0) H D 08/19/17 19:00 RBC 4.25 M/mm3 (3.60-5.2) 08/19/17 19:00 Hgb 12.0 GM/dL (10.7-15.3) 08/19/17 19:00 Hct 34.4 % (32.4-45.2) 08/19/17 19:00 MCV 80.9 fl (80-96) 08/19/17 19:00 MCHC 35.0 g/dl (32.0-36.0) 08/19/17 19:00 RDW 16.0 % (11.6-15.6) H 08/19/17 19:00 Plt Count 169 K/MM3 (134-434) 08/19/17 19:00 MPV 8.2 fl (7.5-11.1) 08/19/17 19:00 CMP Sodium 132 mmol/L (136-145) L 08/19/17 19:00 Potassium 4.3 mmol/L (3.5-5.1) 08/19/17 19:00 Chloride 102 mmol/L (98-107) 08/19/17 19:00 Carbon Dioxide 21 mmol/L (21-32) 08/19/17 19:00 Anion Gap 9 (8-16) 08/19/17 19:00 BUN 26 mg/dL (7-18) H 08/19/17 19:00 Creatinine 0.9 mg/dL (0.55-1.02) 08/19/17 19:00 Creat Clearance w eGFR > 60 (>60) 08/19/17 19:00 Random Glucose 282 mg/dL (74-106) H 08/19/17 19:00 Calcium 8.6 mg/dL (8.5-10.1) 08/19/17 19:00 Total Bilirubin 0.6 mg/dL (0.2-1.0) 08/19/17 19:00 AST 18 U/L (15-37) 08/19/17 19:00 ALT 19 U/L (12-78) 08/19/17 19:00 Alkaline Phosphatase 80 U/L (45-117) 08/19/17 19:00 Total Protein 7.3 g/dl (6.4-8.2) 08/19/17 19:00 Albumin 3.6 g/dl (3.4-5.0) 08/19/17 19:00 CARDIAC ENZYMES Troponin I < 0.02 ng/ml (0.00-0.05) 08/19/17 19:00 Urine Test Results Urine Color Ltyellow 08/19/17 19:15 Urine Appearance Slcloudy 08/19/17 19:15 Urine pH 5.0 (5.0-8.0) 08/19/17 19:15 Ur Specific [place] 1.014 (1.001-1.035) 08/19/17 19:15 Urine Protein 2+ (NEGATIVE) H 08/19/17 19:15 Urine Glucose (UA) 3+ (NEGATIVE) H 08/19/17 19:15 Urine Ketones Trace (NEGATIVE) H 08/19/17 19:15 Urine Blood Negative (NEGATIVE) 08/19/17 19:15 Urine Nitrite Negative (NEGATIVE) 08/19/17 19:15 Urine Bilirubin Negative (<2.0 mg/dL) 08/19/17 19:15 Ur Leukocyte Esterase Negative (NEGATIVE) 08/19/17 19:15 Ur Epithelial Cells Rare /HPF (FEW) 08/19/17 19:15 Urine Bacteria Moderate /hpf (NONE SEEN) 08/19/17 19:15 Urine Mucus Rare 08/19/17 19:15 CXR: No acute proces- pre-tomlinson read, ? left base, but rotated EKG: NSR, QtC 465 Home Medications Medication Instructions Recorded Metformin HCl 1,000 mg PO BIDAC 01/15/14 Metoprolol Tartrate [Lopressor -] 50 mg PO DAILY 01/15/14 Pravastatin Sodium 10 mg PO HS 07/18/17 Amlodipine Besylate [Norvasc -] 5 mg PO DAILY 07/19/17 Donepezil HCl 10 mg PO HS 07/19/17 Insulin Glargine,Hum.rec.anlog 35 unit SQ DAILY 07/19/17 [Lantus Solostar] Pantoprazole Sodium [Protonix] 40 mg PO DAILY 07/19/17 Zolpidem Tartrate [Ambien] 10 mg PO HS 07/19/17 ASSESSMENT AND PLAN: 67 F with pmhx. of HTN, HLD, DM, CAD s/p Stent, Alzheimer's dz, NHL s/p chemo, who presents with sepsis 1.) Sepsis - ? Flu Vs. UTI - Taya-Flu - Flu PCR - U Cx, Blood Cx - Repeat LA - IVF - S/P Gentamycin in ED, wuld add Vanc - ID consult, very mild UTI here 2.) DM - FS - RAISS - DM Diet - Levemir- Poor Po intake, hold dose 3.) CAD - Lopressor - Unknown Why pt. is not on ASA, Restart - Statin - Restart BONI/ARB in am 4.) HLD - C/W Statin 5.) Alzheimer's Dementia - C/W Donezpil 5.) Dvt PPx - Heparin 5000 q8 Med-Sx
[2017-08-19] MEDS ORDERED: GENTAMICIN INJECTION 80 MG in DEXTROSE 5%-WATER - 250 ML IVPB ONE (22:29)
[2017-08-19] MEDS ORDERED: VANCOMYCIN 1 MG in DEXTROSE 5%-WATER - 250 ML IVPB ONE (22:45)
[2017-08-19] MEDS ORDERED: VANCOMYCIN 1 GRAM (PRE-DOCKED) 1,000 MG/250 ML BAG IVPB ONE (22:46)
--- NOTE | 2017-08-19 22:51 | HP ---
CHIEF COMPLAINT: Fevers PCP: Dr Bryant HISTORY OF PRESENT ILLNESS: 67yo F with PMHx of recurrent UTIs, Incontinence (urine/stool), Alzheimers Dementia (nonverbal) presented to the ER with fevers and chills today. Daughter checked rectal temp, noted high temp. Brought to ER due to complicated UTI hx. Of note, she also had direct contact w/ family member w/ +Influenza A, though rapid flu in ER was negative. Has complicated hx recurrent UTIs. Treated at [facility] 4 months ago for urosepsis, found to have significant L ureteral dilation, stent was placed. Subsequent routine UCx remained + for GBS, failing PO regimens such as cipro and moxi. She was recently admitted in [facility] in June, continued to have +GBS in urine. she was treated w/ IV Azactam/Clinda and L ureteral stent was removed. Ucx at discharge showed clearance of GBS, minor contaminant Coag neg Staph. A week ago, daughter received call saying her routine outpatient urine check revealed +UCx with different organism (?name). Dr Banegas sent prescription for Bactrim BID, she is currently on day 6 when the fevers/chills started. In the ER, she was febrile Tm 103.6, tachy to 110s. Sepsis protocol was initiated, patient has significant WBC without LA. She was given Gentamicin and IV Tylenol which brought down her fever and HR. UA showed moderate bacteria w/o LE, nitrite. UCx sent. Recent Travel: Denies PAST MEDICAL HISTORY: HTN, HLD, IDDM, CAD (s/p cardiac stent), Alzheimer's Dementia, NHL (s/p chemo in 2012, currently in remission) PAST SURGICAL HISTORY: L ureteral stent placement and removal, cardiac stent, lung biopsy, breast biopsy Social History: Smoking: Past +50 pack year smoker, not current Alcohol: Denies Drugs: Denies Allergies: Penicillins Allergy (Verified 08/19/17 18:50) HOME MEDICATIONS: Home Medications Medication Instructions Recorded Metformin HCl 1,000 mg PO BIDAC 01/15/14 Metoprolol Tartrate [Lopressor -] 50 mg PO DAILY 01/15/14 Pravastatin Sodium 10 mg PO HS 07/18/17 Amlodipine Besylate [Norvasc -] 5 mg PO DAILY 07/19/17 Donepezil HCl 10 mg PO HS 07/19/17 Insulin Glargine,Hum.rec.anlog 35 unit SQ DAILY 07/19/17 [Lantus Solostar] Pantoprazole Sodium [Protonix] 40 mg PO DAILY 07/19/17 Zolpidem Tartrate [Ambien] 10 mg PO HS 07/19/17 REVIEW OF SYSTEMS Unable to obtain 2/2 dementia PHYSICAL EXAMINATION Vital Signs Period Temp Pulse Resp BP Sys/Lopez Pulse Ox Last 24 Hr 101.1 F-103.6 F 95-113 14 140-180/79-86 97 GEN: Awake, alert, nonverbal HEENT: PERRLA, extraoccular motions are symmetric, no JVD CV: S1, S2, RRR LUNG: Grossly clear, difficult to obtain due to patient cooperation ABD: Soft, NT, ND MSK: No edema, no erythema, no flank tenderness NEURO: Difficult to perform. Movements are symmetric, no facial droop ASSESSMENT/PLAN: 67yo F with PMHx of recurrent UTIs, Incontinence (urine/stool), Alzheimers Dementia (nonverbal) presented to the ER with fevers and chills today, found to be septic. # Sepsis -- Likely secondary to UTI in light of history. Await UCx. BCx. Received a dose of Gent/Vanco. Discussed w/ night attending, will hold off on scheduled abx for now. ID and Uro consult for abx reccs. Cannot r/o flu even w/ negative flu swab since patient had direct exposure, will empirically treat w/ Tamiflu 75BID x 5 days. PRN tylenol. # Alzheimers Dementia -- Continue Aricept and Trazodone # IDDM -- Resume Lantus tmrw due to poor PO intake today. BGM and ISS ACHS. Diabetic soft diet. 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 - New Patient This patient is new to me today: Yes Date on this admission: 08/20/17 - Critical Care Critical Care patient: No Hospitalist Screening - Colonoscopy Questionnaire Colonoscopy Questionnaire: Colonoscopy Questionnaire - Patient: 50 - 75 years old and never had a screening colonoscopy: Unknown History of colon or rectal polyps, or CA: Unknown History of IBD, Crohn's disease or UC: Unknown History of abdominal radiation therapy as a child: Unknown - Relative: 1 with colon or rectal CA, or polyps at age 60 or younger: Unknown Colon or rectal CA diagnosed at age 45 or younger: Unknown Multiple relatives with colon or rectal CA: Unknown - Outcome: Screening Result: Negative Screen
[2017-08-19] MEDS: OSELTAMIVIR PHOSPHATE 75 MG CAPSULE PO SCH (22:55)
[2017-08-19] MEDS ORDERED: ACETAMINOPHEN 325 MG TABLET (FP) PO PRN (23:15)
[2017-08-19] MEDS ORDERED: SODIUM CHLORIDE IVPB ONE (23:30)
[2017-08-19] MEDS ORDERED: GENTAMICIN IVPB ONE (23:30)
[2017-08-20] MEDS ORDERED: traZODone HCL 50 MG TABLET (FP) PO ONE (01:21)
[2017-08-20] MEDS ORDERED: ACETAMINOPHEN 1000 MG/100 ML VIAL (NON FORMULARY) IVPB ONE (01:22)
[2017-08-20] MEDS ORDERED: ACETAMINOPHEN INJECTION 100 ML IVPB ONE (01:24)
[2017-08-20 03:22] VITALS: BMI 23.7
[2017-08-20] MEDS: INSULIN SLIDING SCALE (NOVOLOG) 1 VIAL SQ SCH ×4 (06:11→22:08)
[2017-08-20] MEDS: HEPARIN NA (PORCINE) 5,000 UNITS/ML 1ML VIAL SQ SCH ×3 (06:12→22:03)
[2017-08-20 07:55] LABS: BASO % 0.2 % (0-2.0); EOS % 0.1 % (0-4.5); HEMATOCRIT 33.8 % (32.4-45.2); HEMOGLOBIN 11.4 GM/dL (10.7-15.3); LYMPH % 8.4 % (8-40); MCH 27.3 pg (25.7-33.7); MCHC 33.6 g/dl (32.0-36.0); MEAN CELL VOLUME 81.2 fl (80-96); MONO % 6.8 % (3.8-10.2); NEUT % 84.5 % (42.8-82.8); PLATELET COUNT 147 K/MM3 (134-434); RBC 4.17 M/mm3 (3.60-5.2); RDW 16.3 % (11.6-15.6); WHITE BLOOD COUNT 12.9 K/mm3 (4.0-10.0)
[2017-08-20 08:09] LABS: ALBUMIN 3.2 g/dl (3.4-5.0); ANION GAP 8 (8-16); BILIRUBIN,TOTAL 0.9 mg/dL (0.2-1.0); BLOOD UREA NITROGEN 16 mg/dL (7-18); CALCIUM 8.7 mg/dL (8.5-10.1); CHLORIDE 105 mmol/L (98-107); CO2 24 mmol/L (21-32); CREATININE 0.8 mg/dL (0.55-1.02); GLUCOSE,RANDOM 268 mg/dL (74-106); SGOT/AST 9 U/L (15-37); SGPT/ALT 17 U/L (12-78); SODIUM 137 mmol/L (136-145)
[2017-08-20 08:11] LABS: ALK PHOS 73 U/L (45-117); TOT PROT 6.5 g/dl (6.4-8.2)
[2017-08-20] MEDS ORDERED: SODIUM CHLORIDE IVPB SCH (10:00)
[2017-08-20] MEDS ORDERED: ASPIRIN 81 MG CHEWABLE TABLETS PO SCH (10:00)
[2017-08-20] MEDS ORDERED: GENTAMICIN IVPB SCH (10:00)
[2017-08-20] MEDS: OSELTAMIVIR PHOSPHATE 75 MG CAPSULE PO SCH (10:28)
[2017-08-20] MEDS: PANTOPRAZOLE 40 MG TABLET (FP) PO SCH (10:29)
[2017-08-20] MEDS: METOPROLOL TARTRATE 50 MG TABLET (FP) PO SCH (10:29)
[2017-08-20] MEDS: amLODIPine BESYLATE 5 MG TABLET (FP) PO SCH (10:29)
[2017-08-20] MEDS ORDERED: VANCOMYCIN 1 GM PREMIX - 1 GM/200 ML BAG IVPB ONE (11:00)
[2017-08-20] MEDS: ACETAMINOPHEN 325 MG TABLET (FP) PO PRN ×2 (11:01→20:27)
--- NOTE | 2017-08-20 12:22 | EKG ---
Test Reason : Blood Pressure : / mmHG Vent. Rate : 118 BPM Atrial Rate : 118 BPM P-R Int : 166 ms QRS Dur : 100 ms QT Int : 332 ms P-R-T Axes : 072 -50 085 degrees QTc Int : 465 ms SINUS TACHYCARDIA POSSIBLE LEFT ATRIAL ENLARGEMENT LEFT ANTERIOR FASCICULAR BLOCK LEFT VENTRICULAR HYPERTROPHY WITH REPOLARIZATION ABNORMALITY ABNORMAL ECG WHEN COMPARED WITH ECG OF 26-JUL-2017 11:25, VENT. RATE HAS INCREASED BY 53 BPM MINIMAL CRITERIA FOR SEPTAL INFARCT ARE NO LONGER PRESENT T WAVE INVERSION LESS EVIDENT IN LATERAL LEADS Confirmed by JACINTA OTT MD ([id number]) on 08/20/2017 12:22:20 PM Referred By: Confirmed By:JACINTA OTT MD
--- NOTE | 2017-08-20 12:41 | PN ---
Physical Exam: SUBJECTIVE: Patient seen and examined at bedside. Several adult children present , patient being fed by her son. OBJECTIVE: Vital Signs Period Temp Pulse Resp BP Sys/Lopez Pulse Ox Last 24 Hr 98.3 F-103.6 F 74-113 14-20 115-180/58-93 96-97 GENERAL: The patient is awake, alert, non-verbal at baseline. Makes eye contact. LUNGS: Breath sounds equal, clear to auscultation bilaterally HEART: Regular rate and rhythm, S1, S2 ABDOMEN: Soft, nontender, nondistended, normoactive bowel sounds EXTREMITIES: 2+ pulses, warm, well-perfused, no edema. Laboratory Results - last 24 hr 08/19/17 08/19/17 08/19/17 19:00 19:00 19:00 WBC 17.3 H D RBC 4.25 Hgb 12.0 Hct 34.4 MCV 80.9 MCH 28.3 MCHC 35.0 RDW 16.0 H Plt Count 169 MPV 8.2 Neutrophils % 86.8 H D Lymphocytes % 6.6 L D Monocytes % 6.3 Eosinophils % 0.0 D Basophils % 0.3 PT with INR 11.40 INR 1.01 PTT (Actin FS) 30.1 VBG pH POC VBG pCO2 POC VBG pO2 Mixed VBG HCO3 Sodium Cancelled Potassium Cancelled Chloride Cancelled Carbon Dioxide Cancelled Anion Gap Cancelled BUN Cancelled Creatinine Cancelled Creat Clearance w eGFR Cancelled POC Glucometer Random Glucose Cancelled Hemoglobin A1c % Lactic Acid Calcium Cancelled Total Bilirubin Cancelled AST Cancelled ALT Cancelled Alkaline Phosphatase Cancelled Troponin I Total Protein Cancelled Albumin Cancelled Urine Color Urine Appearance Urine pH Ur Specific [place] Urine Protein Urine Glucose (UA) Urine Ketones Urine Blood Urine Nitrite Urine Bilirubin Urine Urobilinogen Ur Leukocyte Esterase Urine WBC (Auto) Urine RBC (Auto) Ur Epithelial Cells Urine Bacteria Hyaline Casts Urine Mucus 08/19/17 08/19/17 08/19/17 19:00 19:00 19:00 WBC RBC Hgb Hct MCV MCH MCHC RDW Plt Count MPV Neutrophils % Lymphocytes % Monocytes % Eosinophils % Basophils % PT with INR INR PTT (Actin FS) VBG pH POC VBG pCO2 POC VBG pO2 Mixed VBG HCO3 Sodium 132 L Potassium 4.3 Chloride 102 Carbon Dioxide 21 Anion Gap 9 BUN 26 H Creatinine 0.9 Creat Clearance w eGFR > 60 POC Glucometer Random Glucose 282 H Hemoglobin A1c % Lactic Acid 1.9 Calcium 8.6 Total Bilirubin 0.6 AST 18 ALT 19 Alkaline Phosphatase 80 Troponin I < 0.02 Total Protein 7.3 Albumin 3.6 Urine Color Urine Appearance Urine pH Ur Specific [place] Urine Protein Urine Glucose (UA) Urine Ketones Urine Blood Urine Nitrite Urine Bilirubin Urine Urobilinogen Ur Leukocyte Esterase Urine WBC (Auto) Urine RBC (Auto) Ur Epithelial Cells Urine Bacteria Hyaline Casts Urine Mucus 08/19/17 08/19/17 08/19/17 19:15 21:42 23:06 WBC RBC Hgb Hct MCV MCH MCHC RDW Plt Count MPV Neutrophils % Lymphocytes % Monocytes % Eosinophils % Basophils % PT with INR INR PTT (Actin FS) VBG pH POC VBG pCO2 POC VBG pO2 Mixed VBG HCO3 Sodium Potassium Chloride Carbon Dioxide Anion Gap BUN Creatinine Creat Clearance w eGFR POC Glucometer 132.11202 Random Glucose Hemoglobin A1c % Lactic Acid 1.7 Calcium Total Bilirubin AST ALT Alkaline Phosphatase Troponin I Total Protein Albumin Urine Color Ltyellow Urine Appearance Slcloudy Urine pH 5.0 Ur Specific [place] 1.014 Urine Protein 2+ H Urine Glucose (UA) 3+ H Urine Ketones Trace H Urine Blood Negative Urine Nitrite Negative Urine Bilirubin Negative Urine Urobilinogen Negative Ur Leukocyte Esterase Negative Urine WBC (Auto) 10 Urine RBC (Auto) 1 Ur Epithelial Cells Rare Urine Bacteria Moderate Hyaline Casts 10 Urine Mucus Rare 08/19/17 08/20/17 08/20/17 Unknown 06:10 06:35 WBC 12.9 H RBC 4.17 Hgb 11.4 Hct 33.8 MCV 81.2 MCH 27.3 MCHC 33.6 RDW 16.3 H Plt Count 147 MPV 8.0 Neutrophils % 84.5 H Lymphocytes % 8.4 D Monocytes % 6.8 Eosinophils % 0.1 D Basophils % 0.2 PT with INR INR PTT (Actin FS) VBG pH 7.41 POC VBG pCO2 35.4 L POC VBG pO2 20.7 L Mixed VBG HCO3 21.8 Sodium Potassium Chloride Carbon Dioxide Anion Gap BUN Creatinine Creat Clearance w eGFR POC Glucometer 264 Random Glucose Hemoglobin A1c % Lactic Acid Calcium Total Bilirubin AST ALT Alkaline Phosphatase Troponin I Total Protein Albumin Urine Color Urine Appearance Urine pH Ur Specific [place] Urine Protein Urine Glucose (UA) Urine Ketones Urine Blood Urine Nitrite Urine Bilirubin Urine Urobilinogen Ur Leukocyte Esterase Urine WBC (Auto) Urine RBC (Auto) Ur Epithelial Cells Urine Bacteria Hyaline Casts Urine Mucus 08/20/17 08/20/17 06:35 06:35 WBC RBC Hgb Hct MCV MCH MCHC RDW Plt Count MPV Neutrophils % Lymphocytes % Monocytes % Eosinophils % Basophils % PT with INR INR PTT (Actin FS) VBG pH POC VBG pCO2 POC VBG pO2 Mixed VBG HCO3 Sodium 137 Potassium 4.0 Chloride 105 Carbon Dioxide 24 Anion Gap 8 BUN 16 Creatinine 0.8 Creat Clearance w eGFR > 60 POC Glucometer Random Glucose 268 H Hemoglobin A1c % 8.9 H Lactic Acid Calcium 8.7 Total Bilirubin 0.9 D AST 9 L ALT 17 Alkaline Phosphatase 73 Troponin I Total Protein 6.5 Albumin 3.2 L Urine Color Urine Appearance Urine pH Ur Specific [place] Urine Protein Urine Glucose (UA) Urine Ketones Urine Blood Urine Nitrite Urine Bilirubin Urine Urobilinogen Ur Leukocyte Esterase Urine WBC (Auto) Urine RBC (Auto) Ur Epithelial Cells Urine Bacteria Hyaline Casts Urine Mucus Active Medications Generic Name Dose Route Start Last Admin Trade Name Freq PRN Reason Stop Dose Admin Acetaminophen 650 mg 08/20/17 03:37 08/20/17 11:01 Tylenol - PO 650 mg Q4H PRN Administration FEVER Amlodipine Besylate 5 mg 08/20/17 10:00 08/20/17 10:29 Norvasc - PO 5 mg DAILY GEORGINA Administration Atorvastatin Calcium 10 mg 08/20/17 22:00 Lipitor - PO HS GEORGINA Donepezil HCl 10 mg 08/20/17 22:00 Aricept - PO HS ON LICENSE OF [facility] Heparin Sodium (Porcine) 5,000 unit 08/20/17 06:00 08/20/17 06:12 Heparin - SQ 5,000 unit TID GEORGINA Administration Vancomycin HCl 1 gm in 200 mls @ 133.333 mls/hr 08/20/17 23:00 Vancomycin 1 Gm Premix - IVPB Q12H ON LICENSE OF [facility] Protocol Insulin Aspart 1 vial 08/20/17 07:00 08/20/17 12:29 Novolog Vial Sliding Scale - SQ 10 units ACHS ON LICENSE OF [facility] Administration Protocol Insulin Detemir 35 units 08/20/17 22:00 Levemir Vial SQ HS ON LICENSE OF [facility] Metoprolol Tartrate 50 mg 08/20/17 10:00 08/20/17 10:29 Lopressor - PO 50 mg DAILY GEORGINA Administration Oseltamivir Phosphate 75 mg 08/19/17 23:00 08/20/17 10:28 Tamiflu - PO 08/24/17 22:59 75 mg BID GEORGINA Administration Pantoprazole Sodium 40 mg 08/20/17 10:00 08/20/17 10:29 Protonix - PO 40 mg DAILY GEORGINA Administration Trazodone HCl 50 mg 08/20/17 22:00 Desyrel - PO HS ON LICENSE OF [facility] ASSESSMENT/PLAN 67 year-old female with a PMH of HTN, HLD, CAD s/p stent, non-Hodgkins lymphoma (2011 in remission), dementia (nonverbal), left UPJ obstruction s/p stent and stent removal, with recurrent UTIs on Bactrim for the past week. Sepsis secondary to UTI --T 103.6, p 113, WBC 17.3 on admission with pyuria --recent urine cultures on 07/18 and 07/22 grew Strep B and Staph coag neg --start Vanc --Dr. oCe following for ID Left UPJ obstruction s/p stent placement 2016 (Rishi) s/p stent removal (MARTHA) --US kidneys, ureters, bladder pending Influenza exposure --close relative hospitalized for influenza A --treat with full course Tamiflu Hypertension --BP stable --continue metoprolol, amlodipine Hyperlipidemia --continue Lipitor Coronary artery disease --continue lopressor, amlodipine, Lipitor Non-Hodgkins lymphoma --stable Dementia --at baseline per family FEN Fluids: NS @ 83mL/hr Electrolytes: replete as indicated Nutrition: soft, diabetic diet DVT prophylaxis: subq heparin Physical therapy Dispo: continues to require inpatient care. Full code. Visit type - Emergency Visit Emergency Visit: Yes ED Registration Date: 08/19/17 Care time: The patient presented to the Emergency Department on the above date and was hospitalized for further evaluation of their emergent condition. - New Patient This patient is new to me today: Yes Date on this admission: 08/20/17 - Critical Care Critical Care patient: No
[2017-08-20] MEDS: SODIUM CHLORIDE 1,000 ML IV SCH (20:10)
--- NOTE | 2017-08-20 20:55 | CON.ID ---
Consult Consult Specialty:: Infectious Diseases Reason for Consultation:: Fever - History of Present Illness Chief Complaint: Fever History of Present Illness: The patient is a 67 yr old female with Hx dementia who was found to have fever yesterday. Her daughter noted intermittent chills and took her T which was 103.0 She was brought doni the ED, where w/up (+) leukocytosis. She received VAnco, Gent and was empirically started on Tamiflu. - History Source History Provided By: Family Member Limitations to Obtaining History: Dementia - Past Medical History MANAGER ENGAGEMENT: Yes: Dementia Cardio/Vascular: Yes: HTN, Hyperlipdemia Renal/: Yes: UTI, Other (UPJ obstruction) - Alcohol/Substance Use Hx Alcohol Use: No History of Substance Use: reports: None - Smoking History Smoking history: Former smoker Have you smoked in the past 12 months: Yes Aproximately how many cigarettes per day: 0 If you are a former smoker, when did you quit?: 6 months ago - Social History Usual Living Arrangement: With Child ADL: Independent History of Recent Travel: No Home Medications - Allergies Allergies/Adverse Reactions: Allergies Allergy/AdvReac Type Severity Reaction Status Date / Time Penicillins Allergy Verified 08/19/17 18:50 - Home Medications Home Medications: Ambulatory Orders Metformin HCl 1,000 mg PO BIDAC 01/15/14 Metoprolol Tartrate [Lopressor -] 50 mg PO DAILY 01/15/14 Pravastatin Sodium 10 mg PO HS 07/18/17 Amlodipine Besylate [Norvasc -] 5 mg PO DAILY 07/19/17 Donepezil HCl 10 mg PO HS 07/19/17 Insulin Glargine,Hum.rec.anlog [Lantus Solostar] 35 unit SQ DAILY 07/19/17 Pantoprazole Sodium [Protonix] 40 mg PO DAILY 07/19/17 Zolpidem Tartrate [Ambien] 10 mg PO HS 07/19/17 Family Disease History - Family Disease History Family History: Unable to Obtain Review of Systems - Review of Systems Constitutional: reports: Chills, Fever HENT: denies: Nasal Congestion Cardiovascular: denies: Chest Pain Respiratory: denies: Cough Gastrointestinal: reports: No Symptoms Physical Exam Vital Signs: Vital Signs Temperature 103 F H 08/20/17 20:38 Pulse Rate 98 H 08/20/17 09:00 Respiratory Rate 18 08/20/17 13:30 Blood Pressure 118/51 08/20/17 13:30 O2 Sat by Pulse Oximetry (%) 96 08/20/17 09:00 Constitutional: Yes: Well Nourished, No Distress, Calm Eyes: Yes: Conjunctiva Clear Neck: Yes: Trachea Midline Cardiovascular: Yes: Regular Rate and Rhythm Respiratory: Yes: CTA Bilaterally Gastrointestinal: Yes: Normal Bowel Sounds, Soft. No: Tenderness, Epigastrium, Tenderness, Rebound Labs: CBC, BMP 08/20/17 06:35 08/20/17 06:35 Imaging - Results Chest X-ray: Report Reviewed, Image Reviewed Assessment/Plan Patient with fever, leukocytosis Hx Strep UTI, infected stent. [place] c/s DC TAmiflu - No URI symptoms Add Aztreonam 1 gr q 8 Await c/s IF fevers persist, consider CT C/A/P
[2017-08-20] MEDS: AZTREONAM 1 GM in DEXTROSE 5%-WATER - 50 ML IVPB SCH (21:53)
[2017-08-20] MEDS: DONEPEZIL HCL 10 MG TABLET (FP) PO SCH (22:03)
[2017-08-20] MEDS: ATORVASTATIN CA 10 MG TABLET (FP) PO SCH (22:03)
[2017-08-20] MEDS: traZODone HCL 50 MG TABLET (FP) PO SCH (22:03)
[2017-08-20] MEDS: INSULIN (LEVEMIR) 100 UNITS/ML UNITS SQ SCH (22:04)
[2017-08-21] MEDS: AZTREONAM 1 GM in DEXTROSE 5%-WATER - 50 ML IVPB SCH ×3 (01:32→17:29)
[2017-08-21] MEDS: INSULIN SLIDING SCALE (NOVOLOG) 1 VIAL SQ SCH ×4 (06:27→21:20)
[2017-08-21] MEDS: HEPARIN NA (PORCINE) 5,000 UNITS/ML 1ML VIAL SQ SCH ×3 (06:27→21:20)
[2017-08-21] MEDS ORDERED: PT OWN MED DRAWER 7, Y5N ONE ×2 (07:57→17:15)
[2017-08-21] MEDS ORDERED: INSULIN (NOVOLOG) ASPART 100 UNITS/ML 10ML VIAL ONE ×2 (07:58→20:49)
[2017-08-21] MEDS ORDERED: INSULIN (LEVEMIR) 100 UNITS/ML UNITS SQ ONE (07:58)
--- NOTE | 2017-08-21 07:58 | PN ---
Physical Exam: SUBJECTIVE: Patient seen and examined in sunroom. Ambulating with two adult children and physical therapist. OBJECTIVE: Vital Signs Period Temp Pulse Resp BP Sys/Lopez Pulse Ox Last 24 Hr 98.9 F-103 F 83-98 18-18 118-147/51-75 96-96 GENERAL: The patient is awake, non-verbal at baseline. Withdraws from physical exam, does not like to be touched, holds on to children. LUNGS: Breath sounds CTA HEART: Regular rate and rhythm, S1, S2 EXTREMITIES: 2+ pulses, warm, well-perfused, no edema. NEUROLOGICAL: Cranial nerves II through XII grossly intact Laboratory Results - last 24 hr 08/20/17 08/20/17 08/20/17 06:35 06:35 06:35 WBC 12.9 H RBC 4.17 Hgb 11.4 Hct 33.8 MCV 81.2 MCH 27.3 MCHC 33.6 RDW 16.3 H Plt Count 147 MPV 8.0 Neutrophils % 84.5 H Lymphocytes % 8.4 D Monocytes % 6.8 Eosinophils % 0.1 D Basophils % 0.2 Sodium 137 Potassium 4.0 Chloride 105 Carbon Dioxide 24 Anion Gap 8 BUN 16 Creatinine 0.8 Creat Clearance w eGFR > 60 POC Glucometer Random Glucose 268 H Hemoglobin A1c % 8.9 H Calcium 8.7 Total Bilirubin 0.9 D AST 9 L ALT 17 Alkaline Phosphatase 73 Total Protein 6.5 Albumin 3.2 L 08/20/17 08/20/17 08/20/17 12:28 17:18 22:08 WBC RBC Hgb Hct MCV MCH MCHC RDW Plt Count MPV Neutrophils % Lymphocytes % Monocytes % Eosinophils % Basophils % Sodium Potassium Chloride Carbon Dioxide Anion Gap BUN Creatinine Creat Clearance w eGFR POC Glucometer 376 187 305 Random Glucose Hemoglobin A1c % Calcium Total Bilirubin AST ALT Alkaline Phosphatase Total Protein Albumin 08/21/17 05:45 WBC RBC Hgb Hct MCV MCH MCHC RDW Plt Count MPV Neutrophils % Lymphocytes % Monocytes % Eosinophils % Basophils % Sodium Potassium Chloride Carbon Dioxide Anion Gap BUN Creatinine Creat Clearance w eGFR POC Glucometer 105 Random Glucose Hemoglobin A1c % Calcium Total Bilirubin AST ALT Alkaline Phosphatase Total Protein Albumin Active Medications Generic Name Dose Route Start Last Admin Trade Name Freq PRN Reason Stop Dose Admin Acetaminophen 650 mg 08/20/17 03:37 08/20/17 20:27 Tylenol - PO 650 mg Q4H PRN Administration FEVER Amlodipine Besylate 5 mg 08/20/17 10:00 08/20/17 10:29 Norvasc - PO 5 mg DAILY [facility]GINA Administration Atorvastatin Calcium 10 mg 08/20/17 22:00 08/20/17 22:03 Lipitor - PO 10 mg HS GE[facility]GINA Administration Donepezil HCl 10 mg 08/20/17 22:00 08/20/17 22:03 Aricept - PO 10 mg HS GE[facility]GINA Administration Heparin Sodium (Porcine) 5,000 unit 08/20/17 06:00 08/21/17 06:27 Heparin - SQ 5,000 unit TID GE[facility]GINA Administration Vancomycin HCl 1 gm in 200 mls @ 133.333 mls/hr 08/20/17 23:00 Vancomycin 1 Gm Premix - IVPB Q12H [facility] Protocol Sodium Chloride 1,000 mls @ 83 mls/hr 08/20/17 18:30 08/20/17 20:10 Normal Saline - IV 83 mls/hr ASDIR [facility] Administration Aztreonam 1 gm/ Dextrose 50 mls @ 100 mls/hr 08/20/17 21:00 08/21/17 01:32 IVPB 08/21/17 23:59 100 mls/hr Q8H-IV GE[facility]GIN[facility] Administration Protocol Insulin Aspart 1 vial 08/20/17 07:00 08/21/17 06:27 Novolog Vial Sliding Scale - SQ Not Given ACHS [facility] Protocol Insulin Detemir 35 units 08/20/17 22:00 08/20/17 22:04 Levemir Vial SQ 35 unit HS [facility]GINA Administration Metoprolol Tartrate 50 mg 08/20/17 10:00 08/20/17 10:29 Lopressor - PO 50 mg DAILY [facility]GIN[facility] Administration Pantoprazole Sodium 40 mg 08/20/17 10:00 08/20/17 10:29 Protonix - PO 40 mg DAILY GE[facility]GIN[facility] Administration Trazodone HCl 50 mg 08/20/17 22:00 08/20/17 22:03 Desyrel - PO 50 mg HS GE[facility]GINA Administration ASSESSMENT/PLAN 67 year-old female with a PMH of HTN, HLD, CAD s/p stent, non-Hodgkins lymphoma (2012 in remission), dementia (nonverbal), left UPJ obstruction s/p stent and stent removal, with recurrent UTIs on Bactrim for the past week. Sepsis secondary to LFGNB UTI --Tm 103 Tc 98.9, WBC trending down --08/19 Urine culture: LFGNB --urine cultures on 07/18 and 07/22 grew Strep B and Staph coag neg --continue aztreonam (day #2) and Vanc (day #2) --ID Dr. Coe following Left UPJ obstruction s/p stent placement 2016 (Rishi) s/p stent removal (MARTHA) --08/20 kidneys, bladder: interval removal of left stent, interval resolution of left hydro, no right hydro Influenza exposure --no upper respiratory symptoms --stop Tamiflu per ID Hypertension --BP stable --continue metoprolol, amlodipine Hyperlipidemia --continue Lipitor Coronary artery disease --continue lopressor, amlodipine, Lipitor Non-Hodgkins lymphoma --stable Dementia --at baseline per family FEN Fluids: NS@83mL/hr Electrolytes: replete as indicated Nutrition: soft, diabetic diet DVT prophylaxis: subq heparin Physical therapy Dispo: continues to require inpatient care. Full code. Visit type - Emergency Visit Emergency Visit: Yes ED Registration Date: 08/19/17 Care time: The patient presented to the Emergency Department on the above date and was hospitalized for further evaluation of their emergent condition. - New Patient This patient is new to me today: No - Critical Care Critical Care patient: No
[2017-08-21 09:37] LABS: HEMATOCRIT 32.7 % (32.4-45.2); HEMOGLOBIN 11.2 GM/dL (10.7-15.3); MCH 27.5 pg (25.7-33.7); MCHC 34.2 g/dl (32.0-36.0); MEAN CELL VOLUME 80.5 fl (80-96); MEAN PLT VOLUME 8.1 fl (7.5-11.1); RBC 4.06 M/mm3 (3.60-5.2); RDW 16.4 % (11.6-15.6)
[2017-08-21 09:40] LABS: WHITE BLOOD COUNT 11.3 K/mm3 (4.0-10.0)
[2017-08-21 09:59] LABS: ALBUMIN 2.7 g/dl (3.4-5.0); ANION GAP 5 (8-16); BILIRUBIN,TOTAL 0.5 mg/dL (0.2-1.0); BLOOD UREA NITROGEN 9 mg/dL (7-18); CHLORIDE 111 mmol/L (98-107); CO2 25 mmol/L (21-32); CREATININE 0.6 mg/dL (0.55-1.02); GLUCOSE,RANDOM 71 mg/dL (74-106); MAGNESIUM 1.7 mg/dL (1.8-2.4); POTASSIUM 3.3 mmol/L (3.5-5.1); SGOT/AST 12 U/L (15-37); SGPT/ALT 15 U/L (12-78); SODIUM 141 mmol/L (136-145); TOT PROT 6.2 g/dl (6.4-8.2)
[2017-08-21 10:00] LABS: ALK PHOS 68 U/L (45-117)
[2017-08-21] MEDS: METOPROLOL TARTRATE 50 MG TABLET (FP) PO SCH (10:12)
[2017-08-21] MEDS: PANTOPRAZOLE 40 MG TABLET (FP) PO SCH (10:12)
[2017-08-21] MEDS: amLODIPine BESYLATE 5 MG TABLET (FP) PO SCH (10:13)
[2017-08-21] MEDS ORDERED: VANCOMYCIN 1 GM PREMIX - 1 GM/200 ML BAG IVPB SCH (12:00)
[2017-08-21 12:23] LABS: PLATELET ESTIMATE ADEQUATE
[2017-08-21] MEDS: POTASSIUM CHLORIDE TABS 20 MEQ TABLET.ER (FP) PO SCH ×2 (12:58→17:30)
[2017-08-21] MEDS: MAGNESIUM 1GM/D5W 100ML - 100 ML IVPB IVPB SCH ×2 (12:58→14:29)
[2017-08-21] MEDS: SODIUM CHLORIDE 1,000 ML IV SCH (13:21)
[2017-08-21] MEDS: VANCOMYCIN 1 GM PREMIX - 1 GM/200 ML BAG IVPB SCH (17:46)
--- NOTE | 2017-08-21 18:38 | CON.GU ---
Consult - History of Present Illness History of Present Illness: 67 yo female with recurrent uti. Had cysto/stent placement for left upj obstruction. stent removed a few weeks ago. Recent urine culture pos for Klebsiella and placed on Bactrim. now admitted with fever, confusion. renal sono with resolution of left hydronephrosis, urine culture prelim positive - Past Medical History [employer]: Yes: Dementia Cardio/Vascular: Yes: HTN, Hyperlipdemia Renal/: Yes: UTI, Other (UPJ obstruction) - Alcohol/Substance Use Hx Alcohol Use: No History of Substance Use: reports: None - Smoking History Smoking history: Former smoker Have you smoked in the past 12 months: Yes Aproximately how many cigarettes per day: 0 If you are a former smoker, when did you quit?: 6 months ago - Social History Usual Living Arrangement: With Child ADL: Independent History of Recent Travel: No Home Medications - Allergies Allergies/Adverse Reactions: Allergies Allergy/AdvReac Type Severity Reaction Status Date / Time Penicillins Allergy Verified 08/19/17 18:50 - Home Medications Home Medications: Ambulatory Orders Metformin HCl 1,000 mg PO BIDAC 01/15/14 Metoprolol Tartrate [Lopressor -] 50 mg PO DAILY 01/15/14 Pravastatin Sodium 10 mg PO HS 07/18/17 Amlodipine Besylate [Norvasc -] 5 mg PO DAILY 07/19/17 Donepezil HCl 10 mg PO HS 07/19/17 Insulin Glargine,Hum.rec.anlog [Lantus Solostar] 35 unit SQ DAILY 07/19/17 Pantoprazole Sodium [Protonix] 40 mg PO DAILY 07/19/17 Zolpidem Tartrate [Ambien] 10 mg PO HS 07/19/17 Physical Exam- Vital Signs: Vital Signs Temperature 97.4 F L 08/21/17 18:00 Pulse Rate 80 08/21/17 18:00 Respiratory Rate 19 08/21/17 18:00 Blood Pressure 150/88 08/21/17 18:00 O2 Sat by Pulse Oximetry (%) 96 08/21/17 09:00 Labs: CBC, BMP 08/21/17 09:20 08/21/17 09:20 Problem List - Problems (1) UTI (urinary tract infection) Assessment/Plan: antibiotics per ID, will obtain CT Code(s): N39.0 - URINARY TRACT INFECTION, SITE NOT SPECIFIED Qualifiers: Urinary tract infection type: site unspecified Hematuria presence: without hematuria Qualified Code(s): N39.0 - Urinary tract infection, site not specified
[2017-08-21] MEDS: INSULIN (LEVEMIR) 100 UNITS/ML UNITS SQ SCH (21:20)
[2017-08-21] MEDS: traZODone HCL 50 MG TABLET (FP) PO SCH (21:20)
[2017-08-21] MEDS: ATORVASTATIN CA 10 MG TABLET (FP) PO SCH (21:20)
[2017-08-21] MEDS: DONEPEZIL HCL 10 MG TABLET (FP) PO SCH (21:20)
[2017-08-22] MEDS: VANCOMYCIN 1 GM PREMIX - 1 GM/200 ML BAG IVPB SCH (05:08)
[2017-08-22] MEDS: HEPARIN NA (PORCINE) 5,000 UNITS/ML 1ML VIAL SQ SCH ×3 (06:53→21:17)
[2017-08-22] MEDS: INSULIN SLIDING SCALE (NOVOLOG) 1 VIAL SQ SCH ×4 (06:53→21:16)
[2017-08-22] MEDS: PANTOPRAZOLE 40 MG TABLET (FP) PO SCH (09:48)
[2017-08-22] MEDS: METOPROLOL TARTRATE 50 MG TABLET (FP) PO SCH (09:48)
[2017-08-22] MEDS: amLODIPine BESYLATE 5 MG TABLET (FP) PO SCH (09:48)
[2017-08-22] MEDS: SODIUM CHLORIDE 1,000 ML IV SCH (09:48)
--- NOTE | 2017-08-22 11:47 | PN ---
Progress Note, Physician History of Present Illness: The patient is a 67 yr old female with Hx dementia who was found to have fever yesterday. Her daughter noted intermittent chills and took her T which was 103.0 She was brought doni the ED, where w/up (+) leukocytosis. She received VAnco, Gent and was empirically started on Tamiflu. Hospital course significant for Dx UTI, C/S (+) GNR to be identified. Her CT Scan hsows perinephric stranding suggestive of pyelonephritis. - Current Medication List Current Medications: Active Medications Acetaminophen (Tylenol -) 650 mg PO Q4H PRN PRN Reason: FEVER Last Admin: 08/20/17 20:27 Dose: 650 mg Amlodipine Besylate (Norvasc -) 5 mg PO DAILY [facility] Last Admin: 08/22/17 09:48 Dose: 5 mg Atorvastatin Calcium (Lipitor -) 10 mg PO HS [facility] Last Admin: 08/21/17 21:20 Dose: 10 mg Donepezil HCl (Aricept -) 10 mg PO HS [facility] Last Admin: 08/21/17 21:20 Dose: 10 mg Heparin Sodium (Porcine) (Heparin -) 5,000 unit SQ TID [facility] Last Admin: 08/22/17 06:53 Dose: 5,000 unit Sodium Chloride (Normal Saline -) 1,000 mls @ 83 mls/hr IV ASDIR [facility] Last Admin: 08/22/17 09:48 Dose: Not Given Aztreonam 1 gm/ Dextrose 50 mls @ 100 mls/hr IVPB Q8H-IV [facility] PRN Reason: Protocol Stop: 08/28/17 23:59 Insulin Aspart (Novolog Vial Sliding Scale -) 1 vial SQ ACHS [facility] PRN Reason: Protocol Last Admin: 08/22/17 06:53 Dose: Not Given Insulin Detemir (Levemir Vial) 35 units SQ HS [facility] Last Admin: 08/21/17 21:20 Dose: 35 unit Metoprolol Tartrate (Lopressor -) 50 mg PO DAILY [facility] Last Admin: 08/22/17 09:48 Dose: 50 mg Pantoprazole Sodium (Protonix -) 40 mg PO DAILY [facility] Last Admin: 08/22/17 09:48 Dose: 40 mg Trazodone HCl (Desyrel -) 50 mg PO HS [facility] Last Admin: 08/21/17 21:20 Dose: 50 mg - Objective Vital Signs: Vital Signs Temperature 98.9 F 08/22/17 09:00 Pulse Rate 83 08/22/17 09:00 Respiratory Rate 16 08/22/17 09:00 Blood Pressure 164/80 08/22/17 09:00 O2 Sat by Pulse Oximetry (%) 98 08/22/17 09:00 Constitutional: Yes: Well Nourished Cardiovascular: Yes: Regular Rate and Rhythm Respiratory: Yes: CTA Bilaterally Gastrointestinal: Yes: Normal Bowel Sounds, Soft Labs: CBC, BMP 08/21/17 09:20 08/21/17 09:20 INR, PTT INR 1.01 (0.82-1.09) 08/19/17 19:00 Assessment/Plan Patient with fever, leukocytosis Hx Strep UTI, infected stent. GNR UTI, Pyelonephritis Rx Azactam SURI Vanco Await final ID organism
--- NOTE | 2017-08-22 12:39 | PN ---
Physical Exam: SUBJECTIVE: Patient seen and examined oob to chair. Son and daughter present. Patient cries when examined but did allow exam. OBJECTIVE: Vital Signs Period Temp Pulse Resp BP Sys/Lopez Pulse Ox Last 24 Hr 97.4 F-101.0 F 72-83 16-20 125-164/64-88 96-98 GENERAL: The patient is awake, non-verbal at baseline. LUNGS: Breath sounds CTA HEART: Regular rate and rhythm, S1, S2 EXTREMITIES: 2+ pulses, warm, well-perfused, no edema. NEUROLOGICAL: Cranial nerves II through XII grossly intact CBCD WBC 11.3 K/mm3 (4.0-10.0) H 08/21/17 09:20 RBC 4.06 M/mm3 (3.60-5.2) 08/21/17 09:20 Hgb 11.2 GM/dL (10.7-15.3) 08/21/17 09:20 Hct 32.7 % (32.4-45.2) 08/21/17 09:20 MCV 80.5 fl (80-96) 08/21/17 09:20 MCHC 34.2 g/dl (32.0-36.0) 08/21/17 09:20 RDW 16.4 % (11.6-15.6) H 08/21/17 09:20 Plt Count Family Services Specialist 08/21/17 09:20 MPV 8.1 fl (7.5-11.1) 08/21/17 09:20 CMP Sodium 141 mmol/L (136-145) 08/21/17 09:20 Potassium 3.3 mmol/L (3.5-5.1) L 08/21/17 09:20 Chloride 111 mmol/L (98-107) H 08/21/17 09:20 Carbon Dioxide 25 mmol/L (21-32) 08/21/17 09:20 Anion Gap 5 (8-16) L 08/21/17 09:20 BUN 9 mg/dL (7-18) 08/21/17 09:20 Creatinine 0.6 mg/dL (0.55-1.02) 08/21/17 09:20 Creat Clearance w eGFR > 60 (>60) 08/21/17 09:20 Calcium 8.0 mg/dL (8.5-10.1) L 08/21/17 09:20 Total Bilirubin 0.5 mg/dL (0.2-1.0) D 08/21/17 09:20 AST 12 U/L (15-37) L 08/21/17 09:20 ALT 15 U/L (12-78) 08/21/17 09:20 Alkaline Phosphatase 68 U/L (45-117) 08/21/17 09:20 Total Protein 6.2 g/dl (6.4-8.2) L 08/21/17 09:20 Albumin 2.7 g/dl (3.4-5.0) L 08/21/17 09:20 Active Medications Generic Name Dose Route Start Last Admin Trade Name Freq PRN Reason Stop Dose Admin Acetaminophen 650 mg 08/20/17 03:37 08/20/17 20:27 Tylenol - PO 650 mg Q4H PRN Administration FEVER Amlodipine Besylate 5 mg 08/20/17 10:00 08/22/17 09:48 Norvasc - PO 5 mg DAILY [facility] Administration Atorvastatin Calcium 10 mg 08/20/17 22:00 08/21/17 21:20 Lipitor - PO 10 mg HS [facility] Administration Donepezil HCl 10 mg 08/20/17 22:00 08/21/17 21:20 Aricept - PO 10 mg HS [facility] Administration Heparin Sodium (Porcine) 5,000 unit 08/20/17 06:00 08/22/17 06:53 Heparin - SQ 5,000 unit TID [facility] Administration Sodium Chloride 1,000 mls @ 83 mls/hr 08/20/17 18:30 08/22/17 09:48 Normal Saline - IV Not Given ASDIR [facility] Aztreonam 1 gm/ Dextrose 50 mls @ 100 mls/hr 08/22/17 14:00 IVPB 08/28/17 23:59 Q8H-IV [facility] Protocol Insulin Aspart 1 vial 08/20/17 07:00 08/22/17 06:53 Novolog Vial Sliding Scale - SQ Not Given ACHS [facility] Protocol Insulin Detemir 35 units 08/20/17 22:00 08/21/17 21:20 Levemir Vial SQ 35 unit HS [facility] Administration Metoprolol Tartrate 50 mg 08/20/17 10:00 08/22/17 09:48 Lopressor - PO 50 mg DAILY [facility] Administration Pantoprazole Sodium 40 mg 08/20/17 10:00 08/22/17 09:48 Protonix - PO 40 mg DAILY [facility] Administration Trazodone HCl 50 mg 08/20/17 22:00 08/21/17 21:20 Desyrel - PO 50 mg HS [facility]A Administration ASSESSMENT/PLAN 67 year-old female with a PMH of HTN, HLD, CAD s/p stent, non-Hodgkins lymphoma (2011 in remission), dementia (nonverbal), 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 Sepsis secondary to Klebsiella ESBL UTI --Tm 101 Tc 98.9, WBC trending down --08/19 Urine culture: Klebsiella ESBL --start ertapenem (day #1); d/c aztreonam, Vanc --ID Dr. Coe following Left UPJ obstruction s/p stent placement 2016 (Rishi) s/p stent removal ([facility]) --08/20 kidneys, bladder: interval removal of left stent, interval resolution of left hydro, no right hydro Influenza exposure --no upper respiratory symptoms --d/c'd Tamiflu per ID Hypertension --BP stable --continue metoprolol, amlodipine Hyperlipidemia --continue Lipitor Coronary artery disease --continue lopressor, amlodipine, Lipitor Non-Hodgkins lymphoma --stable Dementia --at baseline per family FEN Fluids: PO intake adequate Electrolytes: replete as indicated Nutrition: soft, diabetic diet DVT prophylaxis: subq heparin Physical therapy Dispo: continues to require inpatient care. Full code. Visit type - Emergency Visit Emergency Visit: Yes ED Registration Date: 08/19/17 Care time: The patient presented to the Emergency Department on the above date and was hospitalized for further evaluation of their emergent condition. - New Patient This patient is new to me today: No - Critical Care Critical Care patient: No
[2017-08-22] MEDS ORDERED: AZTREONAM 1 GM in DEXTROSE 5%-WATER - 50 ML IVPB SCH (14:00)
[2017-08-22] MEDS: ERTAPENEM SODIUM 1 GM in SODIUM CHLORIDE 50 ML IVPB SCH (14:13)
[2017-08-22] MEDS: INSULIN (LEVEMIR) 100 UNITS/ML UNITS SQ SCH (21:16)
[2017-08-22] MEDS: DONEPEZIL HCL 10 MG TABLET (FP) PO SCH (21:17)
[2017-08-22] MEDS: traZODone HCL 50 MG TABLET (FP) PO SCH (21:17)
[2017-08-22] MEDS: ATORVASTATIN CA 10 MG TABLET (FP) PO SCH (21:17)
[2017-08-23] MEDS: INSULIN SLIDING SCALE (NOVOLOG) 1 VIAL SQ SCH ×4 (06:00→22:34)
[2017-08-23] MEDS: HEPARIN NA (PORCINE) 5,000 UNITS/ML 1ML VIAL SQ SCH ×3 (06:00→21:48)
[2017-08-23] MEDS: ACETAMINOPHEN 325 MG TABLET (FP) PO PRN (06:55)
--- NOTE | 2017-08-23 08:29 | PN ---
Physical Exam: SUBJECTIVE: Patient seen and examined. Arousable, no issues overnight. Low grade fever this morning. Son a bedside. OBJECTIVE: Vital Signs Period Temp Pulse Resp BP Sys/Lopez Pulse Ox Last 24 Hr 98.1 F-100.4 F 72-99 16-18 124-164/70-80 98-98 PE Neuro: nad, cn 2-12intact HEENT: poor dentition Pulm: CTA anteriorly CV: s1 s2 rrr no mrg Abd: s nt nd + bs Ext: warm, no le edema Laboratory Results - last 24 hr 08/22/17 08/22/17 08/22/17 12:03 17:40 21:06 POC Glucometer 292 254 276 08/23/17 05:53 POC Glucometer 105 Active Medications Generic Name Dose Route Start Last Admin Trade Name Freq PRN Reason Stop Dose Admin Acetaminophen 650 mg 08/20/17 03:37 08/23/17 06:55 Tylenol - PO 650 mg Q4H PRN Administration FEVER Amlodipine Besylate 5 mg 08/20/17 10:00 08/22/17 09:48 Norvasc - PO 5 mg DAILY [facility] Administration Atorvastatin Calcium 10 mg 08/20/17 22:00 08/22/17 21:17 Lipitor - PO 10 mg HS [facility] Administration Donepezil HCl 10 mg 08/20/17 22:00 08/22/17 21:17 Aricept - PO 10 mg HS [facility] Administration Heparin Sodium (Porcine) 5,000 unit 08/20/17 06:00 08/23/17 06:00 Heparin - SQ 5,000 unit TID [facility] Administration Ertapenem 1 gm/ Sodium 50 mls @ 100 mls/hr 08/22/17 13:00 08/22/17 14:13 Chloride IVPB 100 mls/hr DAILY [facility] Administration Protocol Insulin Aspart 1 vial 08/20/17 07:00 08/23/17 06:00 Novolog Vial Sliding Scale - SQ Not Given ACHS [facility] Protocol Insulin Detemir 35 units 08/20/17 22:00 08/22/17 21:16 Levemir Vial SQ 35 unit HS [facility] Administration Metoprolol Tartrate 50 mg 08/20/17 10:00 08/22/17 09:48 Lopressor - PO 50 mg DAILY [facility] Administration Pantoprazole Sodium 40 mg 08/20/17 10:00 08/22/17 09:48 Protonix - PO 40 mg DAILY [facility] Administration Trazodone HCl 50 mg 08/20/17 22:00 08/22/17 21:17 Desyrel - PO 50 mg HS [facility] Administration Microbiology 08/19/17 19:00 Blood - Peripheral Venous Blood Culture - Preliminary NO GROWTH OBTAINED AFTER 72 HOURS, INCUBATION TO CONTINUE FOR 2 DAYS. 08/19/17 19:00 Blood - Peripheral Venous Blood Culture - Preliminary NO GROWTH OBTAINED AFTER 72 HOURS, INCUBATION TO CONTINUE FOR 2 DAYS. 08/19/17 19:15 Urine - Urine Clean Catch Urine Culture - Final Klebsiella Pneumoniae - Esbl 08/19/17 Unknown Nasopharyngeal Swab Influenza Types A,B Antigen ([facility]O) - Final 08/19/17 Unknown Nasopharyngeal Swab - Final Assessment: 67 year old female with a PMH of HTN, HLD, CAD s/p stent, non- Hodgkins lymphoma (2011 in remission), dementia (nonverbal), 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 Plan: 1. Sepsis secondary to Klebsiella ESBL UTI - Continue Ertapenem (day 2) - ID seeing 2. Left UPJ obstruction s/p stent placement 2016 (Rishi) s/p stent removal 07/24/17 ([facility]) - 08/20 US kidneys, bladder: interval removal of left stent, interval resolution of left hydro, no right hydro 3. Influenza exposure - Flu negative, tamiflu stopped 4. HTN - Continue metoprolol, amlodipine 5. HLD - Continue Lipitor 6. CAD - Continue lopressor, Lipitor - Unclear why pt is not on ASA, will d/w son 7. Non-Hodgkins lymphoma - Stable 8. Dementia - At baseline per family 9. Electrolytes Hypomagnesemia: re check am level Hypokalemia: check bmp 10. DVT prophylaxis: subq heparin Dispo: - Pending resolution of fevers, place picc line for total of 10 day abx course with dc home and infusion center Visit type - Emergency Visit Emergency Visit: Yes ED Registration Date: 08/19/17 Care time: The patient presented to the Emergency Department on the above date and was hospitalized for further evaluation of their emergent condition. - New Patient This patient is new to me today: Yes Date on this admission: 09/07/17 - Critical Care Critical Care patient: No
--- NOTE | 2017-08-23 09:46 | PN ---
Progress Note, Physician History of Present Illness: The patient is a 67 yr old female with Hx dementia who was found to have fever yesterday. Her daughter noted intermittent chills and took her T which was 103.0 She was brought doni the ED, where w/up (+) leukocytosis. She received VAnco, Gent and was empirically started on Tamiflu. Hospital course significant for Dx UTI/Pyelonephritis. Her CT Scan hsows perinephric stranding suggestive of pyelonephritis. Urine c/s (+) ESBL Klebsiella. Now on Invanz. - Current Medication List Current Medications: Active Medications Acetaminophen (Tylenol -) 650 mg PO Q4H PRN PRN Reason: FEVER Last Admin: 08/23/17 06:55 Dose: 650 mg Amlodipine Besylate (Norvasc -) 5 mg PO DAILY [facility] Last Admin: 08/22/17 09:48 Dose: 5 mg Atorvastatin Calcium (Lipitor -) 10 mg PO HS [facility] Last Admin: 08/22/17 21:17 Dose: 10 mg Donepezil HCl (Aricept -) 10 mg PO HS [facility] Last Admin: 08/22/17 21:17 Dose: 10 mg Heparin Sodium (Porcine) (Heparin -) 5,000 unit SQ TID [facility] Last Admin: 08/23/17 06:00 Dose: 5,000 unit Ertapenem 1 gm/ Sodium (Chloride) 50 mls @ 100 mls/hr IVPB DAILY [facility] PRN Reason: Protocol Last Admin: 08/22/17 14:13 Dose: 100 mls/hr Insulin Aspart (Novolog Vial Sliding Scale -) 1 vial SQ ACHS [facility] PRN Reason: Protocol Last Admin: 08/23/17 06:00 Dose: Not Given Insulin Detemir (Levemir Vial) 35 units SQ HS [facility] Last Admin: 08/22/17 21:16 Dose: 35 unit Metoprolol Tartrate (Lopressor -) 50 mg PO DAILY [facility] Last Admin: 08/22/17 09:48 Dose: 50 mg Pantoprazole Sodium (Protonix -) 40 mg PO DAILY [facility] Last Admin: 08/22/17 09:48 Dose: 40 mg Trazodone HCl (Desyrel -) 50 mg PO HS [facility] Last Admin: 08/22/17 21:17 Dose: 50 mg - Objective Vital Signs: Vital Signs Temperature 100.4 F H 08/23/17 06:00 Pulse Rate 79 08/23/17 06:00 Respiratory Rate 18 08/23/17 06:00 Blood Pressure 154/77 08/23/17 06:00 O2 Sat by Pulse Oximetry (%) 98 08/22/17 21:00 Constitutional: Yes: Calm Cardiovascular: Yes: Regular Rate and Rhythm Respiratory: Yes: CTA Bilaterally Gastrointestinal: Yes: Normal Bowel Sounds Labs: INR, PTT INR 1.01 (0.82-1.09) 08/19/17 19:00 Assessment/Plan Patient with fever, leukocytosis Hx Strep UTI, infected stent. UTI, Pyelonephritis with Klebsiella ESBL (+) Agree Invanz 1 gr q 24 Would need at least 3 weeks Rx for Pyelonephritis. Contact Isolation.
[2017-08-23 09:52] LABS: BASO % 0.6 % (0-2.0); EOS % 0.8 % (0-4.5); HEMATOCRIT 30.5 % (32.4-45.2); HEMOGLOBIN 10.5 GM/dL (10.7-15.3); LYMPH % 22.6 % (8-40); MCH 27.5 pg (25.7-33.7); MCHC 34.3 g/dl (32.0-36.0); MEAN CELL VOLUME 80.2 fl (80-96); MEAN PLT VOLUME 7.8 fl (7.5-11.1); MONO % 6.9 % (3.8-10.2); NEUT % 69.1 % (42.8-82.8); PLATELET COUNT 207 K/MM3 (134-434); RBC 3.81 M/mm3 (3.60-5.2); RDW 15.9 % (11.6-15.6); WHITE BLOOD COUNT 5.1 K/mm3 (4.0-10.0)
[2017-08-23 10:05] LABS: ANION GAP 7 (8-16); BLOOD UREA NITROGEN 11 mg/dL (7-18); CHLORIDE 110 mmol/L (98-107); CO2 25 mmol/L (21-32); CREATININE 0.6 mg/dL (0.55-1.02); GLUCOSE,RANDOM 84 mg/dL (74-106); POTASSIUM 3.9 mmol/L (3.5-5.1); SODIUM 142 mmol/L (136-145)
[2017-08-23] MEDS: METOPROLOL TARTRATE 50 MG TABLET (FP) PO SCH (11:11)
[2017-08-23] MEDS: amLODIPine BESYLATE 5 MG TABLET (FP) PO SCH (11:11)
[2017-08-23] MEDS: PANTOPRAZOLE 40 MG TABLET (FP) PO SCH (11:11)
[2017-08-23] MEDS: ERTAPENEM SODIUM 1 GM in SODIUM CHLORIDE 50 ML IVPB SCH (11:11)
--- NOTE | 2017-08-23 19:08 | PN ---
Progress Note (short form) - Note Progress Note: fever curve improving CT with left pyelonephritis abx management as per ID Problem List - Problems (1) UTI (urinary tract infection) Code(s): N39.0 - URINARY TRACT INFECTION, SITE NOT SPECIFIED Qualifiers: Urinary tract infection type: site unspecified Hematuria presence: without hematuria Qualified Code(s): N39.0 - Urinary tract infection, site not specified
[2017-08-23] MEDS: traZODone HCL 50 MG TABLET (FP) PO SCH (21:48)
[2017-08-23] MEDS: ATORVASTATIN CA 10 MG TABLET (FP) PO SCH (21:48)
[2017-08-23] MEDS: DONEPEZIL HCL 10 MG TABLET (FP) PO SCH (21:49)
[2017-08-23] MEDS: INSULIN (LEVEMIR) 100 UNITS/ML UNITS SQ SCH (22:34)
[2017-08-24] MEDS: HEPARIN NA (PORCINE) 5,000 UNITS/ML 1ML VIAL SQ SCH ×2 (06:26→14:22)
[2017-08-24] MEDS: INSULIN SLIDING SCALE (NOVOLOG) 1 VIAL SQ SCH ×3 (06:26→17:48)
[2017-08-24 07:25] LABS: BASO % 0.6 % (0-2.0); EOS % 1.1 % (0-4.5); HEMATOCRIT 30.8 % (32.4-45.2); HEMOGLOBIN 10.6 GM/dL (10.7-15.3); LYMPH % 26.9 % (8-40); MCH 27.6 pg (25.7-33.7); MCHC 34.5 g/dl (32.0-36.0); MEAN CELL VOLUME 79.9 fl (80-96); MEAN PLT VOLUME 7.9 fl (7.5-11.1); MONO % 8.8 % (3.8-10.2); NEUT % 62.6 % (42.8-82.8); PLATELET COUNT 229 K/MM3 (134-434); RBC 3.86 M/mm3 (3.60-5.2); RDW 16.1 % (11.6-15.6); WHITE BLOOD COUNT 5.7 K/mm3 (4.0-10.0)
[2017-08-24 07:39] LABS: CHLORIDE 107 mmol/L (98-107); POTASSIUM 3.9 mmol/L (3.5-5.1); SODIUM 141 mmol/L (136-145)
[2017-08-24 07:47] LABS: ANION GAP 10 (8-16); BLOOD UREA NITROGEN 14 mg/dL (7-18); CALCIUM 8.5 mg/dL (8.5-10.1); CO2 24 mmol/L (21-32); CREATININE 0.7 mg/dL (0.55-1.02); GLUCOSE,RANDOM 133 mg/dL (74-106); MAGNESIUM 2.1 mg/dL (1.8-2.4)
[2017-08-24] MEDS ORDERED: PT OWN MED DRAWER 7, Y5N ONE ×2 (09:43→16:47)
[2017-08-24] MEDS: ERTAPENEM SODIUM 1 GM in SODIUM CHLORIDE 50 ML IVPB SCH (09:52)
[2017-08-24] MEDS: amLODIPine BESYLATE 5 MG TABLET (FP) PO SCH (10:48)
[2017-08-24] MEDS: METOPROLOL TARTRATE 50 MG TABLET (FP) PO SCH (10:48)
[2017-08-24] MEDS: PANTOPRAZOLE 40 MG TABLET (FP) PO SCH (10:48)
[2017-08-24] MEDS ORDERED: PICC LINE 8 ML FLUSH PROTOCOL IVPUSH PRN (12:30)
--- NOTE | 2017-08-24 12:30 | DS ---
Physical Exam: SUBJECTIVE: Patient seen and examined at the bedside. and daughter asking that patient be premedicated prior to PICC line. OBJECTIVE: For discharge today for initiation of home services Ertapenem 1gram x 3 weeks Vital Signs Period Temp Pulse Resp BP Sys/Lopez Pulse Ox Last 24 Hr 97.2 F-98.2 F 61-78 18-20 137-154/69-90 98 PHYSICAL EXAM GENERAL: The patient is awake, alert, and fully oriented, in no acute distress. HEAD: Normal with no signs of trauma. EYES: PERRL, extraocular movements intact, sclera anicteric, conjunctiva clear. ENT: Ears normal, nares patent, oropharynx clear without exudates, moist mucous membranes. NECK: Trachea midline, full range of motion, supple. LUNGS: Breath sounds equal, clear to auscultation bilaterally, no wheezes, no crackles, no accessory muscle use. HEART: Regular rate and rhythm, S1, S2 without murmur, rub or gallop. ABDOMEN: Soft, nontender, nondistended, normoactive bowel sounds, no guarding, no rebound, no hepatosplenomegaly, no masses. EXTREMITIES: 2+ pulses, warm, well-perfused, no edema. NEUROLOGICAL: Cranial nerves II through XII grossly intact. Normal speech, gait not observed. PSYCH: Normal mood, normal affect. SKIN: Warm, dry, normal turgor, no rashes or lesions noted. LABS Laboratory Results - last 24 hr 08/23/17 08/23/17 08/23/17 12:20 17:31 22:32 WBC RBC Hgb Hct MCV MCH MCHC RDW Plt Count MPV Neutrophils % Lymphocytes % Monocytes % Eosinophils % Basophils % Sodium Potassium Chloride Carbon Dioxide Anion Gap BUN Creatinine POC Glucometer 230 280 270 Random Glucose Calcium Magnesium 08/24/17 08/24/17 08/24/17 05:35 05:35 06:20 WBC 5.7 RBC 3.86 Hgb 10.6 L Hct 30.8 L MCV 79.9 L MCH 27.6 MCHC 34.5 RDW 16.1 H Plt Count 229 MPV 7.9 Neutrophils % 62.6 Lymphocytes % 26.9 Monocytes % 8.8 Eosinophils % 1.1 Basophils % 0.6 Sodium 141 Potassium 3.9 Chloride 107 Carbon Dioxide 24 Anion Gap 10 BUN 14 Creatinine 0.7 POC Glucometer 139 Random Glucose 133 H Calcium 8.5 Magnesium 2.1 08/24/17 12:03 WBC RBC Hgb Hct MCV MCH MCHC RDW Plt Count MPV Neutrophils % Lymphocytes % Monocytes % Eosinophils % Basophils % Sodium Potassium Chloride Carbon Dioxide Anion Gap BUN Creatinine POC Glucometer 252 Random Glucose Calcium Magnesium HOSPITAL COURSE: Date of Admission:08/19/17 Date of Discharge: 08/24/17 Patient is a 67 year old female with a significant past medical history of hypertension, hyperlipidemia, CAD s/p stent, non-Hodgkins lymphoma (remission), alzheimers dementia, 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 ID: Sepsis secondary Pyelonephritis with Klebsiella ESBL (+), continue outpatient IV antibiotics x 3 weeks Fever and Leukocytosis resolved Strep UTI, infected stent. As per ID, patient is to continue 3 more weeks of Ertapenem 1 gram via PICC line Patient to receive home services Monitor CBC, CMP, ESR, CRP weekly and results should be sent to Dr. Coe Negative for flu, tamiflu discontinued Urology: Left UPJ obstruction s/p stent placement 2016 ([facility]) s/p stent removal ([facility]) 08/20 kidneys, bladder: interval removal of left stent, interval resolution of left hydro, no right hydro Card: Hypertension, chronic On Metoprolol, Amlodipine HLD, chronic On Lipitor CAD s/p stents On Lopressor, Lipitor Neuro: Alzheimers dementia At baseline per family Non verbal Electrolytes Hypomagnesemia, resolved Hypokalemia, resolved Disposition: Discharge home with home care services. Patient is to received Ertapenem 1 gram via PICC line daily for 3 weeks as per ID . Minutes to complete discharge: 60 Discharge Summary Reason For Visit: SIRS,UTI Current Active Problems Systemic inflammatory response syndrome (SIRS) (Acute) UTI (urinary tract infection) (Acute) Condition: Stable - Instructions Diet, Activity, Other Instructions: Discharge home with continuation of Ertapenem 1 gram via PICC line for 3 more weeks. Care at home to be resumed by Kevyn. Please call me with any questions you may have GABRIELLA Crowder @ [facility] [phone] Referrals: Sally Lugo [Primary Care Provider] - Disposition: VNS/HOME HEALTH CARE - Home Medications Comprehensive Discharge Medication List: Ambulatory Orders Metformin HCl 1,000 mg PO BIDAC 01/15/14 Metoprolol Tartrate [Lopressor -] 50 mg PO DAILY 01/15/14 Pravastatin Sodium 10 mg PO HS 07/18/17 Amlodipine Besylate [Norvasc -] 5 mg PO DAILY 07/19/17 Donepezil HCl 10 mg PO HS 07/19/17 Insulin Glargine,Hum.rec.anlog [Lantus Solostar] 35 unit SQ DAILY 07/19/17 Pantoprazole Sodium [Protonix] 40 mg PO DAILY 07/19/17 Zolpidem Tartrate [Ambien] 10 mg PO HS 07/19/17 This patient is new to me today: Yes Date on this admission: 08/24/17 Emergency Visit: No Critical Care patient: No - Discharge Referral Referred to [facility] Med [facility].: No
[2017-08-24 16:27] VITALS: BP 158/86; PULSE 76; TEMP 97.9
== END 2017-08-24 18:09 | disposition home health service (06) | DRG 872 ==
LOC: JER 18:28 → JERBED 21:35 → OBSVTOIN 22:24 → J8W 08-20 02:29
PROVIDERS: ADMIT Internal Medicine; ATTEND Nurse Practitioner Family
PROC: 05HM33Z Insertion of Infusion Device into Right Internal Jugular Vein, Percutaneous Approach (ICD-10-PCS; principal; 2017-08-24)
PROC: B513ZZA Fluoroscopy of Right Jugular Veins, Guidance (ICD-10-PCS; 2017-08-24)
DX: A41.9 Sepsis, unspecified organism (principal); N10 Acute pyelonephritis; N39.0 Urinary tract infection, site not specified; E11.9 Type 2 diabetes mellitus without complications; I10 Essential (primary) hypertension; I25.10 Atherosclerotic heart disease of native coronary artery without angina pectoris; Z95.5 Presence of coronary angioplasty implant and graft; E78.5 Hyperlipidemia, unspecified; G30.9 Alzheimer's disease, unspecified; F02.80 Dementia in other diseases classified elsewhere, unspecified severity, without behavioral disturbance, psychotic disturbance, mood disturbance, and anxiety; Z85.72 Personal history of non-Hodgkin lymphomas; R32 Unspecified urinary incontinence; Z87.891 Personal history of nicotine dependence; Z79.84 Long term (current) use of oral hypoglycemic drugs; Z79.4 Long term (current) use of insulin; I44.4 Left anterior fascicular block; B96.1 Klebsiella pneumoniae [K. pneumoniae] as the cause of diseases classified elsewhere; Z16.12 Extended spectrum beta lactamase (ESBL) resistance; E83.42 Hypomagnesemia; E87.6 Hypokalemia
CPT/HCPCS: 36415; 36569; 71045-TC-FY; 74178-TC; 76775-TC; 76856-TC; 77001-TC-FY; 80048; 80053; 81003; 81015; 82803; 82962; 83036; 83605; 83735; 84484; 85025; 85610; 85730; 87040; 87086; 87186; 87804; 93005; 93010; 97116-GP; 99284-25; C1751; G0378; J0131; J1644; J7030

== ENCOUNTER 2017-10-18 19:17 | Inpatient (IN) | payer OTHER ==
[2017-10-18] MEDS ORDERED: SODIUM CHLORIDE 0.9% 1000 ML INFUS.BAG IV STA (20:12)
[2017-10-18 20:36] LABS: BASO % 0.3 % (0-2.0); EOS % 0.4 % (0-4.5); HEMATOCRIT 37.1 % (32.4-45.2); HEMOGLOBIN 12.3 GM/dL (10.7-15.3); MCH 27.1 pg (25.7-33.7); MCHC 33.1 g/dl (32.0-36.0); MEAN CELL VOLUME 81.8 fl (80-96); MEAN PLT VOLUME 8.7 fl (7.5-11.1); MONO % 5.8 % (3.8-10.2); NEUT % 85.5 % (42.8-82.8); PLATELET COUNT 216 K/MM3 (134-434); RBC 4.53 M/mm3 (3.60-5.2); RDW 14.8 % (11.6-15.6); WHITE BLOOD COUNT 13.9 K/mm3 (4.0-10.0)
--- NOTE | 2017-10-18 20:42 | PDOC ---
History of Present Illness - General Stated Complaint: POSSIBLE SEIZURE Time Seen by Provider: 10/18/17 19:37 History Source: Family Exam Limitations: Dementia - History of Present Illness Initial Comments: 10/18/17 20:31 This is a 67 YOF with h/o recently diagnosed C. difficile diarrhea concurrent with Klebsiella UTI (dx within the past couple of weeks and now on PO vancomycin and Bactrim), seizures in the setting of infection (started on Keppra 2 wks ago after seizure x2), severe dementia (nonverbal at baseline), IDDM, CAD, HLD, and HTN who p/w increased tremors/rigors, malaise, and fever up to 100.7 at home. She additionally has been holding her lower abdomen and crouching forward throughout the day, seeming to be in pain. The family note that the patient continues to take all her medications as prescribed, and the last time she saw one of her providers was at the end of last week. She is followed by Drs. Lugo, Ashely, and Saravanan. Past History - Past Medical History Allergies/Adverse Reactions: Allergies Allergy/AdvReac Type Severity Reaction Status Date / Time Penicillins Allergy Verified 08/19/17 18:50 Home Medications: Ambulatory Orders Metformin HCl 1,000 mg PO BIDAC 01/15/14 Metoprolol Tartrate [Lopressor -] 50 mg PO DAILY 01/15/14 Pravastatin Sodium 10 mg PO HS 07/18/17 Amlodipine Besylate [Norvasc -] 5 mg PO DAILY 07/19/17 Donepezil HCl 10 mg PO HS 07/19/17 Insulin Glargine,Hum.rec.anlog [Lantus Solostar] 35 unit SQ DAILY 07/19/17 Pantoprazole Sodium [Protonix] 40 mg PO DAILY 07/19/17 Zolpidem Tartrate [Ambien] 10 mg PO HS 07/19/17 Ertapenem Sodium - 1 Gram [Invanz (Pre-Docked)] 1 gm IVPB ONCE #21 bag 08/24/17 Picc Line Flush [Picc Line Flush -] 8 ml IVPUSH PRN PRN ml 08/24/17 traZODone HCL [Desyrel -] 50 mg PO HS tablet 08/24/17 Cancer: Yes (NON-HODGKINS) Cardiac Disorders: Yes (CAD) Dementia: Yes Diabetes: Yes HTN: Yes Hypercholesterolemia: Yes - Surgical History Abdominal Surgery: Yes (Kidney stent) - Suicide/Smoking/Psychosocial Hx Smoking History: Never smoked Have you smoked in the past 12 months: No Number of Cigarettes Smoked Daily: 0 If you are a former smoker, when did you quit?: 6 months ago Information on smoking cessation initiated: No 'Breaking Loose' booklet given: 07/19/17 Hx Alcohol Use: No Drug/Substance Use Hx: No Substance Use Type: None Review of Systems - Review of Systems Able to Perform ROS?: No (dementia) *Physical Exam - Vital Signs Last Vital Signs Temp Pulse Resp BP Pulse Ox 102.0 F H 81 18 150/73 100 10/18/17 20:00 10/18/17 20:00 10/18/17 20:00 10/18/17 20:00 10/18/17 20:00 - Physical Exam General Appearance: Yes: Nourished, Appropriately Dressed, Mild Distress ( intermittent mild distress), Other HEENT: positive: EOMI, Normal Voice, Hearing Grossly Normal. negative: Scleral Icterus (R), Scleral Icterus (L), Nasal Congestion Neck: positive: Trachea midline, Supple. negative: Tender, Rigid Respiratory/Chest: positive: Lungs Clear, Normal Breath Sounds. negative: Respiratory Distress, Crackles, Rhonchi, Stridor, Wheezing Cardiovascular: positive: Regular Rhythm, Regular Rate, S1, S2. negative: Edema , JVD, Murmur Gastrointestinal/Abdominal: positive: Normal Bowel Sounds, Soft. negative: Tender, Organomegaly, Pulsatile Mass, Guarding Musculoskeletal: positive: Normal Inspection. negative: Decreased Range of Motion, Vertebral Tenderness Extremity: positive: Normal Capillary Refill, Normal Inspection, Normal Range of Motion. negative: Tender, Cyanosis Integumentary: positive: Normal Color, Dry, Warm. 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 intact, Fully Oriented, Alert, Normal Mood/ Affect, Normal Response, Motor Strength 5/5 Heart Score/ECG Review #1 10/18/17 21:47 NSR rate 82 with left axis deviation, QTc-462, no ischemic changes ED Treatment Course - LABORATORY CBC & Chemistry Diagram: 10/18/17 20:23 10/18/17 20:23 - RADIOLOGY Radiology Studies Ordered: Category Date Time Status CHEST X-RAY PORTABLE* [RAD] Stat Radiology 10/18/17 20:12 Ordered - Medications Given in the ED: ED Medications Discontinued Medications Generic Name Dose Route Start Last Admin Trade Name Freq PRN Reason Stop Dose Admin Sodium Chloride 2,000 ml 10/18/17 20:12 10/18/17 20:19 Normal Saline - IV 10/18/17 20:13 2,000 ml ONCE STA Administration Medical Decision Making - Medical Decision Making 10/18/17 21:48 Older adult female Pt currently being tx for C. diff diarrhea and Klebsiella UTI p/w sepsis. Initial Vital Signs Temp Pulse Resp BP Pulse Ox 102.0 F H 81 18 150/73 100 10/18/17 20:00 10/18/17 20:00 10/18/17 20:00 10/18/17 20:00 10/18/17 20:00 Exam: nonverbal but makes eye contact and somewhat interactive, laughs inappropriately per baseline, occasionally grabbing lower abdomen and wincing in pain, but normal heart and lung exams, no ttp abdomen. DDX IBNLT: pseudomembranous colitis, UTI/Pyelonephritis, SBO (complete vs/ partial) W/U ordered: Septic order set. TX ordered: IVF, Ofirmev, PO Vancomycin, IV Flagyl, IV Zosyn after IV Benadryl ( abx per ID recs). EKG: Reviewed; results as noted in ECG Review section. CXR: NADP. CT A/P W/ IV and PO: No e/o colitis or diverticulitis, hydroureteronephrosis with possible tiny obstructing stone, para-aortic lymphadenopathy. Laboratory Tests 10/18/17 10/18/17 10/18/17 20:12 20:12 20:23 WBC 13.9 H RBC 4.53 Hgb 12.3 Hct 37.1 D MCV 81.8 MCH 27.1 MCHC 33.1 RDW 14.8 Plt Count 216 MPV 8.7 D Absolute Neuts (auto) 11.8 Neutrophils % 85.5 H D Lymphocytes % 8.0 D Monocytes % 5.8 Eosinophils % 0.4 Basophils % 0.3 Nucleated RBC % 0 PT with INR INR PTT (Actin FS) VBG pH 7.42 POC VBG pCO2 29.7 L POC VBG pO2 168.0 H* D Mixed VBG HCO3 18.8 L Sodium Potassium Chloride Carbon Dioxide Anion Gap BUN Creatinine Creat Clearance w eGFR Random Glucose Lactic Acid 3.0 H* Calcium Total Bilirubin AST ALT Alkaline Phosphatase Creatine Kinase CK-MB (CK-2) Troponin I Total Protein Albumin Blood Type Antibody Screen 10/18/17 10/18/17 10/18/17 20:23 20:23 20:23 WBC RBC Hgb Hct MCV MCH MCHC RDW Plt Count MPV Absolute Neuts (auto) Neutrophils % Lymphocytes % Monocytes % Eosinophils % Basophils % Nucleated RBC % PT with INR 10.80 INR 0.96 PTT (Actin FS) 26.4 VBG pH POC VBG pCO2 POC VBG pO2 Mixed VBG HCO3 Sodium 134 L Potassium 4.8 Chloride 100 Carbon Dioxide 23 Anion Gap 11 BUN 24 H Creatinine 0.9 Creat Clearance w eGFR > 60 Random Glucose 147 H Lactic Acid Calcium 8.9 Total Bilirubin 0.3 AST 14 L ALT 28 Alkaline Phosphatase 105 Creatine Kinase 62 CK-MB (CK-2) 1.92 Troponin I Total Protein 7.9 Albumin 3.9 Blood Type Cancelled Antibody Screen Cancelled 10/18/17 20:23 WBC RBC Hgb Hct MCV MCH MCHC RDW Plt Count MPV Absolute Neuts (auto) Neutrophils % Lymphocytes % Monocytes % Eosinophils % Basophils % Nucleated RBC % PT with INR INR PTT (Actin FS) VBG pH POC VBG pCO2 POC VBG pO2 Mixed VBG HCO3 Sodium Potassium Chloride Carbon Dioxide Anion Gap BUN Creatinine Creat Clearance w eGFR Random Glucose Lactic Acid Calcium Total Bilirubin AST ALT Alkaline Phosphatase Creatine Kinase CK-MB (CK-2) Troponin I < 0.02 Total Protein Albumin Blood Type Antibody Screen ADMIT The Pt is unsafe for discharge at this time. They require further hospital observation, workup, and treatment. Consult order placed to Dr. Lynn. Microblog sent to [facility] for admission. Spoke with [place], in agreement Pt to be admitted to IP Med/Surg. Decision to Admit order placed to covering attending Dr. Ashraf. *DC/Admit/Observation/Transfer Diagnosis at time of Disposition: C. difficile diarrhea, Hydroureteronephrosis UTI (urinary tract infection) Qualifiers: Urinary tract infection type: site unspecified Hematuria presence: without hematuria Qualified Code(s): N39.0 - Urinary tract infection, site not specified Sepsis Qualifiers: Sepsis type: sepsis due to unspecified organism Qualified Code(s): A41.9 - Sepsis, unspecified organism - Discharge Dispostion Condition at time of disposition: Guarded Decision to Admit order: Yes - Referrals - Patient Instructions - Post Discharge Activity
--- NOTE | 2017-10-18 20:44 | PDOC ---
Attending Attestation - HPI HPI: 10/18/17 21:55 The patient is a 67 year old female, with a significant PMH of recently diagnosed C. Difficile concurrent with Klebsiella UTI (on prescribed PO Vancomycin and Bactrim), seizures in the setting of recent infection (started on Keppra 2 weeks ago), severe dementia (non verbal at baseline), IDDM, coronary artery disease, hyperlipidemia, and hypertension who presents to the emergency department with increased tremors, generalized malaise and measured fever of 100.7 earlier today. As per patients family at bedside, the patient has been taking all of her medications as prescribed. Allergies: penicillins - Physicial Exam PE: 10/18/17 21:56 GENERAL: (+) Mild distress. (+) Febrile. Well-appearing, well-nourished. HEENT: Normocephalic, atraumatic. PERRL, EOM intact. CARDIOVASCULAR: Normal S1, S2. Regular rate and rhythm. No JVD, edema, murmur. PULMONARY: Clear to auscultation bilaterally. No rales, rhonchi, stridor, wheezing. ABDOMEN: Soft, non-distended, non-tender. No rebound or guarding. EXTREMITIES: Normal ROM in all four extremities. No gross deformities. SKIN: Warm, dry. No rash NEUROLOGICAL: No focal neurological deficits. <Maldonado Mcfarlane - Last Filed: 10/18/17 21:55> - Resident Resident Name: AvtarMariel - ED Attending Attestation I have performed the following: I have examined & evaluated the patient, The case was reviewed & discussed with the resident, I agree w/resident's findings & plan, Exceptions are as noted - Medical Decision Making 10/22/17 19:59 Pt admitted [address] [facility] <Michael Murdock - Last Filed: 10/22/17 20:00> Attestations - Attestations 10/18/17 21:59 Documentation prepared by Maldonado Mcfarlane, acting as medical support assistant for Michael Murdock DO. <Maldonado Mcfarlane - Last Filed: 10/18/17 21:55>
[2017-10-18 20:55] LABS: VENOUS PH 7.42 (7.32-7.42)
[2017-10-18 20:57] LABS: VENOUS PC02 29.7 mmHg (38-52)
[2017-10-18 20:59] LABS: INR 0.96 (0.82-1.09); PROTHROMBIN TIME (PATIENT) 10.8 SEC (9.7-13.0)
[2017-10-18 21:01] LABS: ACTIVATED PTT 26.4 SECONDS (25.2-36.5)
[2017-10-18] MEDS ORDERED: PIPERACILLIN/TAZOB 4.5 GM 4.5 GM in DEXTROSE 5%-WATER 100 ML IVPB ONE (21:36)
[2017-10-18] MEDS ORDERED: ACETAMINOPHEN 1000 MG/100 ML VIAL (NON FORMULARY) IVPB ONE (21:40)
[2017-10-18 21:45] LABS: ALBUMIN 3.9 g/dl (3.4-5.0); ANION GAP 11 (8-16); BILIRUBIN,TOTAL 0.3 mg/dL (0.2-1.0); BLOOD UREA NITROGEN 24 mg/dL (7-18); CALCIUM 8.9 mg/dL (8.5-10.1); CHLORIDE 100 mmol/L (98-107); CO2 23 mmol/L (21-32); CREATININE 0.9 mg/dL (0.55-1.02); GLUCOSE,RANDOM 147 mg/dL (74-106); POTASSIUM 4.8 mmol/L (3.5-5.1); SGOT/AST 14 U/L (15-37); SGPT/ALT 28 U/L (12-78); SODIUM 134 mmol/L (136-145); TOT PROT 7.9 g/dl (6.4-8.2)
[2017-10-18 21:48] LABS: ALK PHOS 105 U/L (45-117)
[2017-10-18] MEDS ORDERED: PIPERACILLIN/TAZOB 4.5 GM 4.5 GM/100 ML BAG IVPB ONE (22:19)
[2017-10-18] MEDS ORDERED: ACETAMINOPHEN INJECTION 100 ML IVPB ONE (22:19)
[2017-10-18 23:05] LABS: URINE APPEARANCE CLEAR; URINE BILIRUBIN NEGATIVE (<2.0 mg/dL); URINE COLOR STRAW; URINE GLUCOSE (UA) NEGATIVE (NEGATIVE); URINE KETONE NEGATIVE (NEGATIVE); URINE NITRITE NEGATIVE (NEGATIVE); URINE PROTEIN NEGATIVE (NEGATIVE); URINE UROBILINOGEN NEGATIVE mg/dL (0.2-1.0)
[2017-10-18 23:06] LABS: URINE LEUK ESTERASE 1+ (NEGATIVE)
[2017-10-18 23:07] LABS: EPI CELLS RARE /HPF (FEW); URINE BACTERIA RARE /hpf (NONE SEEN); URINE MUCUS RARE
[2017-10-19] MEDS: VANCOMYCIN 250 MG/5 ML ORAL SOLUTION PO SCH ×4 (01:17→18:10)
[2017-10-19] MEDS ORDERED: diphenhydrAMINE HCL 25 MG CAPSULE (FP) PO PRN (03:29)
--- NOTE | 2017-10-19 03:31 | HP ---
CHIEF COMPLAINT: tremors and fever PCP: Dr. Lugo HISTORY OF PRESENT ILLNESS: 67F w/ hx of severe dementia (non-verbal at baseline), recurrent UTIs, C.diff, IDDM, CAD, HLD, HTN, and NHL s/p chemo (2012) presenting with full body tremors and fever since last night. Per pt's son, pt was recently hospitalized for c.diff and UTI about 5 weeks ago. Pt was discharged with a PICC line and received another 2 weeks of IV abx. Son states that the C. diff "did not clear" and so the pt was started on po vancomycin and bactrim which she has been taking for past 10 days or so. At dinner last night, he and his sister noticed that the pt began demonstrating full body tremors, a sign that in the past has always been a sign of her infections. They took pt's temp, and it was 100.7. Son denies sick contacts, recent travel, SOB, chest pain, nausea, and emesis. Pt always has loose stools now, and there hasn't been a change in consistency recently. ER course was notable for: (1) fever, leukocytosis, lactic acidosis (2) UA (3) CT findings Recent Travel: denies PAST MEDICAL HISTORY: as stated above PAST SURGICAL HISTORY: cardiac stent left ureteral stent and removal Social History: Smokin+ pack years, quit years ago Alcohol: denies Drugs: denies Pt lives in home in [place] with and son. Family History: mother- stroke, parkinson's father- unsure Allergies Penicillins Allergy (Verified 08/19/17 18:50) HOME MEDICATIONS: Home Medications Medication Instructions Recorded Metformin HCl 1,000 mg PO BIDAC 01/15/14 Metoprolol Tartrate [Lopressor -] 50 mg PO DAILY 01/15/14 Pravastatin Sodium 10 mg PO HS 07/18/17 Amlodipine Besylate [Norvasc -] 5 mg PO DAILY 07/19/17 Donepezil HCl 10 mg PO HS 07/19/17 Insulin Glargine,Hum.rec.anlog 35 unit SQ DAILY 07/19/17 [Lantus Solostar] Pantoprazole Sodium [Protonix] 40 mg PO DAILY 07/19/17 Zolpidem Tartrate [Ambien] 10 mg PO HS 07/19/17 Ertapenem Sodium - 1 Gram [Invanz 1 gm IVPB ONCE #21 bag 08/24/17 (Pre-Docked)] Picc Line Flush [Picc Line Flush -] 8 ml IVPUSH PRN PRN ml 08/24/17 traZODone HCL [Desyrel -] 50 mg PO HS tablet 08/24/17 REVIEW OF SYSTEMS CONSTITUTIONAL: Absent: loss of appetite, weight change present: fevers, full body tremors HEENT: Absent: rhinorrhea, nasal congestion, throat pain, throat swelling, difficulty swallowing, mouth swelling, ear pain, eye pain, visual changes CARDIOVASCULAR: Absent: chest pain, syncope, palpitations, irregular heart rate, lightheadedness , peripheral edema RESPIRATORY: Absent: cough, shortness of breath, dyspnea with exertion, orthopnea, wheezing, stridor, hemoptysis GASTROINTESTINAL: Absent: abdominal pain, abdominal distension, nausea, vomiting, constipation, melena, hematochezia present: diarrhea GENITOURINARY: Absent: dysuria, frequency, urgency, hesitancy, hematuria, flank pain, genital pain MUSCULOSKELETAL: Absent: myalgia, arthralgia, joint swelling, back pain, neck pain SKIN: Absent: rash, itching, pallor HEMATOLOGIC/IMMUNOLOGIC: Absent: easy bleeding, easy bruising, lymphadenopathy, frequent infections ENDOCRINE: Absent: unexplained weight gain, unexplained weight loss, heat intolerance, cold intolerance NEUROLOGIC: Absent: headache, focal weakness or paresthesias, dizziness, unsteady gait, seizure, mental status changes, bladder or bowel incontinence PSYCHIATRIC: Absent: anxiety, depression, suicidal or homicidal ideation, hallucinations. PHYSICAL EXAMINATION Vital Signs - 24 hr 10/18/17 20:00 Temperature 102.0 F H Pulse Rate 81 Respiratory 18 Rate Blood Pressure 150/73 O2 Sat by Pulse 100 Oximetry (%) GENERAL: elderly female, awake, alert, non-verbal, does not follow commands HEENT: NC, AT LUNGS: Breath sounds equal, clear to auscultation bilaterally. No wheezes, and no crackles. No accessory muscle use. HEART: Regular rate and rhythm, normal S1 and S2 without murmur, rub or gallop. ABDOMEN: soft, ND, normoactive BS MSK: no peripheral edema. NEUROLOGICAL: unable to assess due to dementia Laboratory Results - last 24 hr 10/18/17 10/18/17 10/18/17 20:12 20:12 20:23 WBC 13.9 H RBC 4.53 Hgb 12.3 Hct 37.1 D MCV 81.8 MCH 27.1 MCHC 33.1 RDW 14.8 Plt Count 216 MPV 8.7 D Absolute Neuts (auto) 11.8 Neutrophils % 85.5 H D Lymphocytes % 8.0 D Monocytes % 5.8 Eosinophils % 0.4 Basophils % 0.3 Nucleated RBC % 0 PT with INR INR PTT (Actin FS) VBG pH 7.42 POC VBG pCO2 29.7 L POC VBG pO2 168.0 H* D Mixed VBG HCO3 18.8 L Sodium Potassium Chloride Carbon Dioxide Anion Gap BUN Creatinine Creat Clearance w eGFR Random Glucose Lactic Acid 3.0 H* Calcium Total Bilirubin AST ALT Alkaline Phosphatase Creatine Kinase CK-MB (CK-2) Troponin I Total Protein Albumin Urine Color Urine Appearance Urine pH Ur Specific [place] Urine Protein Urine Glucose (UA) Urine Ketones Urine Blood Urine Nitrite Urine Bilirubin Urine Urobilinogen Ur Leukocyte Esterase Urine WBC (Auto) Urine RBC (Auto) Ur Epithelial Cells Urine Bacteria Urine Mucus Blood Type Antibody Screen 10/18/17 10/18/17 10/18/17 20:23 20:23 20:23 WBC RBC Hgb Hct MCV MCH MCHC RDW Plt Count MPV Absolute Neuts (auto) Neutrophils % Lymphocytes % Monocytes % Eosinophils % Basophils % Nucleated RBC % PT with INR 10.80 INR 0.96 PTT (Actin FS) 26.4 VBG pH POC VBG pCO2 POC VBG pO2 Mixed VBG HCO3 Sodium 134 L Potassium 4.8 Chloride 100 Carbon Dioxide 23 Anion Gap 11 BUN 24 H Creatinine 0.9 Creat Clearance w eGFR > 60 Random Glucose 147 H Lactic Acid Calcium 8.9 Total Bilirubin 0.3 AST 14 L ALT 28 Alkaline Phosphatase 105 Creatine Kinase 62 CK-MB (CK-2) 1.92 Troponin I Total Protein 7.9 Albumin 3.9 Urine Color Urine Appearance Urine pH Ur Specific [place] Urine Protein Urine Glucose (UA) Urine Ketones Urine Blood Urine Nitrite Urine Bilirubin Urine Urobilinogen Ur Leukocyte Esterase Urine WBC (Auto) Urine RBC (Auto) Ur Epithelial Cells Urine Bacteria Urine Mucus Blood Type Cancelled Antibody Screen Cancelled 10/18/17 10/18/17 20:23 22:46 WBC RBC Hgb Hct MCV MCH MCHC RDW Plt Count MPV Absolute Neuts (auto) Neutrophils % Lymphocytes % Monocytes % Eosinophils % Basophils % Nucleated RBC % PT with INR INR PTT (Actin FS) VBG pH POC VBG pCO2 POC VBG pO2 Mixed VBG HCO3 Sodium Potassium Chloride Carbon Dioxide Anion Gap BUN Creatinine Creat Clearance w eGFR Random Glucose Lactic Acid Calcium Total Bilirubin AST ALT Alkaline Phosphatase Creatine Kinase CK-MB (CK-2) Troponin I < 0.02 Total Protein Albumin Urine Color Straw Urine Appearance Clear Urine pH 5.0 Ur Specific [place] 1.009 Urine Protein Negative Urine Glucose (UA) Negative Urine Ketones Negative Urine Blood Negative Urine Nitrite Negative Urine Bilirubin Negative Urine Urobilinogen Negative Ur Leukocyte Esterase 1+ H Urine WBC (Auto) 13 Urine RBC (Auto) 1 Ur Epithelial Cells Rare Urine Bacteria Rare Urine Mucus Rare Blood Type Antibody Screen CXR: negative for any acute pathology CTAP: mild left hydronephrosis and graham-nephric edema, possible small calculi in distal left ureter. EKG: NSR, QTc of 462 ASSESSMENT/PLAN: 67F w/ hx of severe dementia (non-verbal at baseline), recurrent UTIs, C.diff, IDDM, CAD, HLD, HTN, and NHL s/p chemo (2012) presenting with full body tremors and fever since last night. #severe sepsis -fever, leukocytosis, lactic acidosis -likely 2/2 c. diff vs. UTI (UA with 1+ LE and 13 wbc) -ID on board, Dr. Lynn, f/u recs -zosyn 4.5 q8h, IV flagyl 500 q8h, and oral vanc 125 q6h -f/u Bcx and Ucx -APAP for fever -NS @ 75cc/hr -trend lactic acid -CTAP: mild left hydronephrosis and graham-nephric edema, possible small calculi in distal left ureter. -urology consulted, Dr. Escalona, f/u recs -Confirm all meds #seizure -2/2 infection during last hospitalization? unclear -per son, pt has been on keppra since then. does not know dose -started pt on keppra 750 BID -f/u keppra levels #IDDM -home metformin held -BGM and ISS ACHS #HLD -continue home pravastatin #HTN -continue home lopressor and norvasc #dementia -continue home donepezil #GERD -continue home protonix #Insomnia -trazodone PRN #FEN/ppx -NS @ 70cc/hr -hyponatremia -sodium/diabetic diet -protonix -heparin SQ #dispo -admit to med/surg Case discussed with attending, Dr. Ashraf. -Ion House MD PGY1 Visit type - Emergency Visit Emergency Visit: Yes Care time: The patient presented to the Emergency Department on the above date and was hospitalized for further evaluation of their emergent condition. - New Patient This patient is new to me today: Yes Date on this admission: 10/19/17 - Critical Care Critical Care patient: No Hospitalist Screening - Colonoscopy Questionnaire Colonoscopy Questionnaire: Colonoscopy Questionnaire - Patient: 50 - 75 years old and never had a screening colonoscopy: Unknown History of colon or rectal polyps, or CA: Unknown History of IBD, Crohn's disease or UC: Unknown History of abdominal radiation therapy as a child: Unknown - Relative: 1 with colon or rectal CA, or polyps at age 60 or younger: Unknown Colon or rectal CA diagnosed at age 45 or younger: Unknown Multiple relatives with colon or rectal CA: Unknown - Outcome: Screening Result: Negative Screen
[2017-10-19] MEDS: SODIUM CHLORIDE 1,000 ML IV SCH ×2 (03:32→21:58)
--- NOTE | 2017-10-19 03:49 | PN ---
Teaching Attending Note Name of Resident: Ion House ATTENDING PHYSICIAN STATEMENT I saw and evaluated the patient. I reviewed the resident's note and discussed the case with the resident. I agree with the resident's findings and plan as documented. SUBJECTIVE: Patient is a 67 year old female, with a significant PMH of recently diagnosed C. Difficile concurrent with Klebsiella UTI (on prescribed PO Vancomycin and Bactrim), seizures in the setting of recent infection (started on Keppra 2 weeks ago), severe dementia (non verbal at baseline), IDDM, treated non Hodgkin' s lymphoma, coronary artery disease, hyperlipidemia, and hypertension who presents to the ER with increased tremors, generalized malaise and measured fever of 100.7 earlier today. As per patients family at bedside, the patient has been taking all of her medications as prescribed. However, they dont have the list of her medications and the son does not know the doses of her medications. OBJECTIVE: Alert, but unable to follow commands. Lying quietly in bed. Vital Signs Period Temp Pulse Resp BP Sys/Lopez Pulse Ox Last 24 Hr 102.0 F 81 18 150/73 100 HEENT: No Jaundice, eye redness or discharge, PERRLA. Normocephalic, atraumatic. External ears are normal. No nasal discharge. Neck: Supple, nontender. No palpable adenopathy or thyromegaly. No JVD Chest: Good effort. Clear to auscultation and percussion. Heart: Regular. No S3, rub or murmur Abdomen: Not distended, soft, mild periumblical tenderness and no HSM. No rebound or guarding. Normoactive bowel sounds. Ext: Peripheral pulses intact. No leg edema. Skin: Warm and dry. No petechiae, rash or ecchymosis. Neuro: Alert. Dementia. Unable to follow commands. Nonverbal. Moves all limbs. Current Medications Generic Name Dose Route Start Last Admin Trade Name Freq PRN Reason Stop Dose Admin Acetaminophen 650 mg 10/19/17 03:21 Tylenol - PO Q4H PRN FEVER Amlodipine Besylate 5 mg 10/19/17 10:00 Norvasc - PO DAILY GEORGINA Diphenhydramine HCl 50 mg 10/19/17 03:29 Benadryl - PO ONCE PRN pruritis/rash Donepezil HCl 10 mg 10/19/17 22:00 Aricept - PO HS GEORGINA Heparin Sodium (Porcine) 5,000 unit 10/19/17 10:00 Heparin - SQ Q8H-IV GEORGINA Metronidazole 500 mg in 100 mls @ 100 mls/hr 10/18/17 21:45 10/19/17 02:03 Flagyl 500mg Premixed Ivpb - IVPB 100 mls/hr Q8H-IV GEORGINA Administration Sodium Chloride 1,000 mls @ 75 mls/hr 10/19/17 03:30 10/19/17 03:32 Normal Saline - IV 75 mls/hr ASDIR GEORGINA Administration Piperacillin Sod/Tazobactam 100 mls @ 200 mls/hr 10/19/17 06:00 Sod 4.5 gm/ Dextrose IVPB Q8H-IV GEORGINA Protocol Insulin Aspart 0 vial 10/19/17 07:00 Novolog Vial Sliding Scale - SQ ACHS [facility] Protocol Levetiracetam 750 mg 10/19/17 10:00 Keppra - PO BID GEORGINA Metoprolol Tartrate 50 mg 10/19/17 10:00 Lopressor - PO DAILY [facility] Non-Formulary Medication 10 mg 10/19/17 22:00 Pravastatin Sodium [Pravastatin Sodium] PO HS GEORGINA Pantoprazole Sodium 40 mg 10/19/17 10:00 Protonix - PO DAILY GEORGINA Trazodone HCl 50 mg 10/19/17 03:25 Desyrel - PO HS PRN INSOMNIA Vancomycin HCl 125 mg 10/19/17 00:00 10/19/17 01:17 Vancomycin Oral Solution PO 1 amp Q6HPO GEORGINA Administration Home Medications Medication Instructions Recorded Metformin HCl 1,000 mg PO BIDAC 01/15/14 Metoprolol Tartrate [Lopressor -] 50 mg PO DAILY 01/15/14 Pravastatin Sodium 10 mg PO HS 07/18/17 Amlodipine Besylate [Norvasc -] 5 mg PO DAILY 07/19/17 Donepezil HCl 10 mg PO HS 07/19/17 Insulin Glargine,Hum.rec.anlog 35 unit SQ DAILY 07/19/17 [Lantus Solostar] Pantoprazole Sodium [Protonix] 40 mg PO DAILY 07/19/17 Zolpidem Tartrate [Ambien] 10 mg PO HS 07/19/17 Ertapenem Sodium - 1 Gram [Invanz 1 gm IVPB ONCE #21 bag 08/24/17 (Pre-Docked)] Picc Line Flush [Picc Line Flush -] 8 ml IVPUSH PRN PRN ml 08/24/17 traZODone HCL [Desyrel -] 50 mg PO HS tablet 08/24/17 Abnormal Lab Results 10/18/17 10/18/17 10/18/17 20:12 20:12 20:23 WBC 13.9 H Neutrophils % 85.5 H D POC VBG pCO2 29.7 L POC VBG pO2 168.0 H* D Mixed VBG HCO3 18.8 L Sodium BUN Random Glucose Lactic Acid 3.0 H* AST Ur Leukocyte Esterase 10/18/17 10/18/17 20:23 22:46 WBC Neutrophils % POC VBG pCO2 POC VBG pO2 Mixed VBG HCO3 Sodium 134 L BUN 24 H Random Glucose 147 H Lactic Acid AST 14 L Ur Leukocyte Esterase 1+ H ASSESSMENT AND PLAN: 1. Sepsis due to incompletely treated C. Diff colitis - The CT of the abdomen does not show colitis or diverticulitis, but her adherence to the antibiotics regimen at home is uncertain. She has only 13 WBCs in the urine, lactic acidosis and left hydronephrosis and perinephriic edema on CT scan. A tiny calculus was also noted. Blood and urine cultures have been sent and treatment started with Oral vancomycin 125 mg q 6 hours; IV flagyl 500 m q 8h and zosyn 4.5 gm q 8 hours as per ID consult. Will continue IV NS after her fluid bolus and trend her lactic acid level. Consult urology for mild left hydronephrosis. 2. Seizure disorder - Will check keppra level and continue keppra at 750 mg bid - until family confirms her usual dose. 3. DM - For now, we will hold her usual diabetes drugs and implement sliding scale insulin regimen. Provide comprehensive diabetes care with patient/family teaching and counseling about the importance of euglycemia, eye care and foot care. 4. Dementia - Continue comprehensive care, frequent repositioning and fall precautions. 5. DVT prophylaxis - Heparin 5000u sq tid. 6. Advance directives - Full code
[2017-10-19] MEDS: ACETAMINOPHEN 325 MG TABLET (FP) PO PRN ×2 (04:40→06:30)
[2017-10-19] MEDS ORDERED: PIPERACILLIN/TAZOB 4.5 GM 4.5 GM in DEXTROSE 5%-WATER 100 ML IVPB SCH ×3 (06:00→18:00)
[2017-10-19] MEDS: HEPARIN NA (PORCINE) 5,000 UNITS/ML 1ML VIAL SQ SCH ×4 (06:17→21:37)
[2017-10-19] MEDS ORDERED: ACETAMINOPHEN 325 MG TABLET (FP) ONE (06:50)
[2017-10-19 06:55] LABS: BASO % 0.3 % (0-2.0); EOS % 0.1 % (0-4.5); HEMATOCRIT 36.7 % (32.4-45.2); HEMOGLOBIN 12.4 GM/dL (10.7-15.3); LYMPH % 5.7 % (8-40); MCH 27.6 pg (25.7-33.7); MCHC 33.9 g/dl (32.0-36.0); MEAN CELL VOLUME 81.3 fl (80-96); MEAN PLT VOLUME 7.9 fl (7.5-11.1); MONO % 3.4 % (3.8-10.2); NEUT % 90.5 % (42.8-82.8); PLATELET COUNT 168 K/MM3 (134-434); RBC 4.51 M/mm3 (3.60-5.2); RDW 14.8 % (11.6-15.6)
[2017-10-19] MEDS ORDERED: PIPERACILLIN/TAZOB 4.5 GM 4.5 GM/100 ML BAG IVPB ONE (06:58)
[2017-10-19 07:25] LABS: ALBUMIN 3.2 g/dl (3.4-5.0); ANION GAP 10 (8-16); BLOOD UREA NITROGEN 13 mg/dL (7-18); CALCIUM 8.2 mg/dL (8.5-10.1); CHLORIDE 105 mmol/L (98-107); CO2 24 mmol/L (21-32); GLUCOSE,RANDOM 162 mg/dL (74-106); POTASSIUM 4.3 mmol/L (3.5-5.1); SODIUM 139 mmol/L (136-145)
[2017-10-19 07:28] LABS: ALK PHOS 81 U/L (45-117); BILIRUBIN,TOTAL 0.6 mg/dL (0.2-1.0); CREATININE 0.9 mg/dL (0.55-1.02); SGOT/AST 15 U/L (15-37); SGPT/ALT 25 U/L (12-78); TOT PROT 6.8 g/dl (6.4-8.2)
[2017-10-19] MEDS: INSULIN SLIDING SCALE (NOVOLOG) 1 VIAL SQ SCH ×3 (07:50→21:54)
[2017-10-19] MEDS ORDERED: INSULIN (NOVOLOG) ASPART 100 UNITS/ML 10ML VIAL ONE ×4 (07:52→21:53)
--- NOTE | 2017-10-19 09:12 | EKG ---
Test Reason : Blood Pressure : / mmHG Vent. Rate : 082 BPM Atrial Rate : 082 BPM P-R Int : 176 ms QRS Dur : 092 ms QT Int : 396 ms P-R-T Axes : 046 -46 071 degrees QTc Int : 462 ms POOR DATA QUALITY, INTERPRETATION MAY BE ADVERSELY AFFECTED NORMAL SINUS RHYTHM LEFT AXIS DEVIATION INCOMPLETE RIGHT BUNDLE BRANCH BLOCK MODERATE VOLTAGE CRITERIA FOR LVH, MAY BE NORMAL VARIANT CANNOT RULE OUT SEPTAL INFARCT , AGE UNDETERMINED ABNORMAL ECG Confirmed by HI MA MD ([id number]) on 10/19/2017 9:11:50 AM Referred By: Confirmed By:HI MA MD
[2017-10-19] MEDS ORDERED: levETIRAcetam 250 MG TABLET (FP) PO SCH (10:00)
[2017-10-19] MEDS ORDERED: amLODIPine BESYLATE 5 MG TABLET (FP) PO SCH (10:00)
[2017-10-19] MEDS: METOPROLOL TARTRATE 50 MG TABLET (FP) PO SCH (10:08)
[2017-10-19] MEDS: PANTOPRAZOLE 40 MG TABLET (FP) PO SCH (10:08)
[2017-10-19] MEDS ORDERED: levETIRAcetam 500 MG TABLET (FP) PO ONE (10:31)
--- NOTE | 2017-10-19 12:50 | CON.GU ---
Consult Consult Specialty:: Referred by:: ED Reason for Consultation:: hydronephrosis, UTI - History of Present Illness Chief Complaint: hydronephrosis, UTI History of Present Illness: 67 year old woman with recurrent UTIs and C Diff colitis, comes to the ER with high fevers and abdominal pain. SHe recently had a ureteral stent removed. Renal scan shows no obstruction. On this admission. CT shows minimal left sided dilation without stone. Urine appears clean on UA. 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 Cardio/Vascular: Yes: HTN, Hyperlipdemia Renal/: Yes: UTI, Other (UPJ obstruction) - Alcohol/Substance Use Hx Alcohol Use: No History of Substance Use: reports: None - Smoking History Smoking history: Never smoked Have you smoked in the past 12 months: No Aproximately how many cigarettes per day: 0 If you are a former smoker, when did you quit?: 6 months ago - Social History Usual Living Arrangement: With Child ADL: Independent History of Recent Travel: No Home Medications - Allergies Allergies/Adverse Reactions: Allergies Allergy/AdvReac Type Severity Reaction Status Date / Time Penicillins Allergy Verified 10/19/17 08:31 - Home Medications Home Medications: Ambulatory Orders Metformin HCl 1,000 mg PO BIDAC 01/15/14 Metoprolol Tartrate [Lopressor -] 50 mg PO DAILY 01/15/14 Pravastatin Sodium 10 mg PO HS 07/18/17 Amlodipine Besylate [Norvasc -] 5 mg PO DAILY 07/19/17 Donepezil HCl 10 mg PO HS 07/19/17 Insulin Glargine,Hum.rec.anlog [Lantus Solostar] 35 unit SQ DAILY 07/19/17 Pantoprazole Sodium [Protonix] 40 mg PO DAILY 07/19/17 Zolpidem Tartrate [Ambien] 10 mg PO HS 07/19/17 traZODone HCL [Desyrel -] 50 mg PO HS tablet 08/24/17 Review of Systems - Review of Systems Genitourinary: reports: No Symptoms Physical Exam- Vital Signs: Vital Signs Temperature 100.2 F H 10/19/17 08:30 Pulse Rate 75 10/19/17 08:30 Respiratory Rate 18 10/19/17 08:30 Blood Pressure 131/63 10/19/17 08:30 O2 Sat by Pulse Oximetry (%) 95 10/19/17 08:30 Renal/: No: Bladder Distention, CVA Tenderness - Left, CVA Tenderness - Right , Ferrera Present, Hematuria Labs: CBC, BMP 10/19/17 06:30 10/19/17 06:30 Imaging - Results Cat Scan: Report Reviewed Problem List - Problems (1) Hydroureteronephrosis Assessment/Plan: only mild dilation without stones. Renal scan earlier this week confirms no functional obstruction. UA appears clean, follow urine culture, however this clinical picture not likely a UTI or urosepsis. Code(s): N13.30 - UNSPECIFIED HYDRONEPHROSIS
--- NOTE | 2017-10-19 12:56 | PN ---
Teaching Attending Note Name of Resident: Tong Franklin ATTENDING PHYSICIAN STATEMENT I saw and evaluated the patient. I reviewed the resident's note and discussed the case with the resident. I agree with the resident's findings and plan as documented. SUBJECTIVE: unabel to obtain hx form pt. had fever this am . per daughter, pt hd fever , adn looked lethargic. her diarrhea that was watery improved after starting po vanco 10 days ago as ou tpt . now pasty not watery. reports seziures ( 2 ) as out pt after finishing her invanz treatment , and was started on Kepra as out patient by her neurologist. she was started on po abx abut a week ago for recurrence in her UTI as outpt . OBJECTIVE: NAD , awake, non verbal, not cooperative .. round equal reactive pupils slightly dry MM. no JVD CV: RRR, no MRG lungs: CTAB Ext: no edema Abd: soft, TTP in RLQ. nl BS . no guarding . No decub ulcers on sacrum ASSESSMENT AND PLAN: 67 y/o lady with h/o dementia , non verbal, treated Non Hodgkin's lymphhoma , DM , HTN, recent hospitalization for ESBL klebsiella UTI, recent seizures who presented with fever . 1- Sepsis : source is unclear but could be due to partially treated UTI ( on po abx x 1 week as out pt ). CT did not show colitis , and actually her diarrhea has improved on Po vanco as out pt . has Nl cxray and no crackles on exam. No slin lesions or decubs - dc Zosyn and start ertapenem givenher h/o - cont po vanco for recent c diff - hold off flagyl for now - UA not impressive but was on abx as out patient. follwo urine cx - follow blood cx - ID consult pending - No indication for obstructionor need for urological procedure per uro - cont IVF. lactic normalized 2- DM : cont SSI now .. will confirm her Lantus dose and probably start lower dose in am 3- H/o recent seizures. Cont keppra . will confirm dose 4- HTN: hold norvasc and cont BB in setting of sepsis . if stable can add 5- DVT PX : heparin sq d/w daughter at bed sides. Meds to be confirmed
--- NOTE | 2017-10-19 15:10 | PN ---
Progress Note (short form) - Note Progress Note: spoke with --he will see the patient
[2017-10-19] MEDS ORDERED: INSULIN SLIDING SCALE (NOVOLOG) 1 VIAL SQ SCH (16:30)
--- NOTE | 2017-10-19 20:27 | CON.ID ---
Consult Consult Specialty:: Infectious Diseases Reason for Consultation:: R/O sepsis - History of Present Illness Chief Complaint: fever History of Present Illness: Patient is a 67 yr old female admitted with fever and chills last night. She has long Hx of recurrent UTI's in the past. Hx Strep Bacteremia/UTI late lsat year, s/p stent placement and eventual removal. Hospital a few months ago for MDR Klebsiella UTI. Has had prolonged courses of Abx, thus, subsequent CDiff Colitis - currently on PO Vanco. Last night, noted to be more lethargic and had fever and chills. She was sent to the ED, where w/up done and admitted. Started on Invanz. 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 Cardio/Vascular: Yes: HTN, Hyperlipdemia Renal/: Yes: UTI, Other (UPJ obstruction) - Alcohol/Substance Use Hx Alcohol Use: No History of Substance Use: reports: None - Smoking History Smoking history: Never smoked Have you smoked in the past 12 months: No Aproximately how many cigarettes per day: 0 If you are a former smoker, when did you quit?: 6 months ago - Social History Usual Living Arrangement: With Child ADL: Independent History of Recent Travel: No Home Medications - Allergies Allergies/Adverse Reactions: Allergies Allergy/AdvReac Type Severity Reaction Status Date / Time Penicillins Allergy Verified 10/19/17 08:31 - Home Medications Home Medications: Ambulatory Orders Metformin HCl 1,000 mg PO BIDAC 01/15/14 Metoprolol Tartrate [Lopressor -] 50 mg PO DAILY 01/15/14 Pravastatin Sodium 10 mg PO HS 07/18/17 Amlodipine Besylate [Norvasc -] 5 mg PO DAILY 07/19/17 Donepezil HCl 10 mg PO HS 07/19/17 Insulin Glargine,Hum.rec.anlog [Lantus Solostar] 30 unit SQ DAILY 07/19/17 Pantoprazole Sodium [Protonix] 40 mg PO DAILY 07/19/17 traZODone HCL [Desyrel -] 50 mg PO HS tablet 08/24/17 Aspirin [ASA -] 325 mg PO Q48H 10/19/17 Zolpidem Tartrate [Ambien] 5 mg PO HS 10/19/17 levETIRAcetam [Keppra -] 500 mg PO BID 10/19/17 Family Disease History - Family Disease History Family History: Unable to Obtain Physical Exam Vital Signs: Vital Signs Temperature 99.1 F 10/19/17 19:18 Pulse Rate 84 10/19/17 19:18 Respiratory Rate 24 10/19/17 19:18 Blood Pressure 175/75 10/19/17 19:18 O2 Sat by Pulse Oximetry (%) 99 10/19/17 20:04 Constitutional: Yes: Well Nourished Eyes: Yes: EOM Intact, PERRL HENT: Yes: Normocephalic Neck: Yes: Supple Cardiovascular: Yes: Regular Rate and Rhythm Respiratory: Yes: CTA Bilaterally Gastrointestinal: Yes: Normal Bowel Sounds, Soft. No: Tenderness ...Rectal Exam: Yes: Deferred Renal/: No: CVA Tenderness - Left, CVA Tenderness - Right Labs: CBC, BMP 10/19/17 06:30 10/19/17 06:30 Imaging - Results Cat Scan: Report Reviewed Problem List - Problems (1) C. difficile diarrhea Code(s): A04.72 - ENTEROCOLITIS D/T CLOSTRIDIUM DIFFICILE, NOT SPCF RECUR (2) UTI (urinary tract infection) Code(s): N39.0 - URINARY TRACT INFECTION, SITE NOT SPECIFIED Qualifiers: Urinary tract infection type: site unspecified Hematuria presence: without hematuria Qualified Code(s): N39.0 - Urinary tract infection, site not specified Assessment/Plan Pt with fever, Hx CDI, UTI RFeviewed UA - no significant pyuria DC Invanz and observe Cont PO VAnco [place] c/s for T> 102.0
--- NOTE | 2017-10-19 21:30 | PN ---
Physical Exam: SUBJECTIVE: Briefly, 67yo F who presented with rigors with concern of continued C.Diff infection since August and new UTI 2/2 to nephrolithiasis. According to family at bedside, baseline is nonverbal, severely demented, and does not listen to commands. OBJECTIVE: Vital Signs Period Temp Pulse Resp BP Sys/Lopez Pulse Ox Last 24 Hr 98.9 F-103.1 F 59-93 18-24 124-175/63-91 95-99 GENERAL: Mild discomfort, awake, nonverbal, noncooperating with commands HEENT: NC/AT, JAZIEL, dry-moist mucosa NECK: Soft, no lymphadenopathy, no jvd LUNGS: Poor inspiratory effort, no overt wheezes, no crackles, no accessory muscle use. HEART: RRR, S1, S2 without murmur, rub or gallop. ABDOMEN: Soft, nondistended, hyperactive BS, no facial grimmacing with palpation , no guarding. EXTREMITIES: 2+ pulses, warm, well-perfused, no edema. SKIN: Warm, dry, no rashes or lesions noted Laboratory Results - last 24 hr 10/18/17 10/18/17 10/18/17 20:12 20:23 22:46 WBC RBC Hgb Hct MCV MCH MCHC RDW Plt Count MPV Absolute Neuts (auto) Neutrophils % Lymphocytes % Monocytes % Eosinophils % Basophils % Nucleated RBC % VBG pH 7.42 POC VBG pCO2 29.7 L POC VBG pO2 168.0 H* D Mixed VBG HCO3 18.8 L Sodium 134 L Potassium 4.8 Chloride 100 Carbon Dioxide 23 Anion Gap 11 BUN 24 H Creatinine 0.9 Creat Clearance w eGFR > 60 POC Glucometer Random Glucose 147 H Lactic Acid Calcium 8.9 Total Bilirubin 0.3 AST 14 L ALT 28 Alkaline Phosphatase 105 Creatine Kinase 62 CK-MB (CK-2) 1.92 Total Protein 7.9 Albumin 3.9 Urine Color Straw Urine Appearance Clear Urine pH 5.0 Ur Specific [place] 1.009 Urine Protein Negative Urine Glucose (UA) Negative Urine Ketones Negative Urine Blood Negative Urine Nitrite Negative Urine Bilirubin Negative Urine Urobilinogen Negative Ur Leukocyte Esterase 1+ H Urine WBC (Auto) 13 Urine RBC (Auto) 1 Ur Epithelial Cells Rare Urine Bacteria Rare Urine Mucus Rare 10/19/17 10/19/17 10/19/17 04:01 06:30 06:30 WBC 10.0 RBC 4.51 Hgb 12.4 Hct 36.7 MCV 81.3 MCH 27.6 MCHC 33.9 RDW 14.8 Plt Count 168 D MPV 7.9 Absolute Neuts (auto) 9.1 Neutrophils % 90.5 H Lymphocytes % 5.7 L D Monocytes % 3.4 L Eosinophils % 0.1 Basophils % 0.3 Nucleated RBC % 0 VBG pH POC VBG pCO2 POC VBG pO2 Mixed VBG HCO3 Sodium 139 Potassium 4.3 Chloride 105 Carbon Dioxide 24 Anion Gap 10 BUN 13 Creatinine 0.9 Creat Clearance w eGFR > 60 POC Glucometer Random Glucose 162 H Lactic Acid 1.9 Calcium 8.2 L Total Bilirubin 0.6 AST 15 ALT 25 Alkaline Phosphatase 81 D Creatine Kinase CK-MB (CK-2) Total Protein 6.8 Albumin 3.2 L Urine Color Urine Appearance Urine pH Ur Specific [place] Urine Protein Urine Glucose (UA) Urine Ketones Urine Blood Urine Nitrite Urine Bilirubin Urine Urobilinogen Ur Leukocyte Esterase Urine WBC (Auto) Urine RBC (Auto) Ur Epithelial Cells Urine Bacteria Urine Mucus 10/19/17 10/19/17 10/19/17 07:45 12:02 16:56 WBC RBC Hgb Hct MCV MCH MCHC RDW Plt Count MPV Absolute Neuts (auto) Neutrophils % Lymphocytes % Monocytes % Eosinophils % Basophils % Nucleated RBC % VBG pH POC VBG pCO2 POC VBG pO2 Mixed VBG HCO3 Sodium Potassium Chloride Carbon Dioxide Anion Gap BUN Creatinine Creat Clearance w eGFR POC Glucometer [phone] 258.56406 Random Glucose Lactic Acid Calcium Total Bilirubin AST ALT Alkaline Phosphatase Creatine Kinase CK-MB (CK-2) Total Protein Albumin Urine Color Urine Appearance Urine pH Ur Specific [place] Urine Protein Urine Glucose (UA) Urine Ketones Urine Blood Urine Nitrite Urine Bilirubin Urine Urobilinogen Ur Leukocyte Esterase Urine WBC (Auto) Urine RBC (Auto) Ur Epithelial Cells Urine Bacteria Urine Mucus Active Medications Generic Name Dose Route Start Last Admin Trade Name Freq PRN Reason Stop Dose Admin Acetaminophen 650 mg 10/19/17 03:21 10/19/17 06:30 Tylenol - PO 650 mg Q4H PRN Administration FEVER Aspirin 325 mg 10/20/17 10:00 Asa - PO Q48H GEORGINA Atorvastatin Calcium 10 mg 10/19/17 22:00 Lipitor - PO HS [facility] Diphenhydramine HCl 50 mg 10/19/17 03:29 Benadryl - PO ONCE PRN pruritis/rash Donepezil HCl 10 mg 10/19/17 22:00 Aricept - PO HS GEORGINA Heparin Sodium (Porcine) 5,000 unit 10/19/17 14:00 10/19/17 14:14 Heparin - SQ Not Given TID GEORGINA Sodium Chloride 1,000 mls @ 75 mls/hr 10/19/17 03:30 10/19/17 03:32 Normal Saline - IV 75 mls/hr ASDIR GEORGINA Administration Ertapenem 1 gm/ Sodium 50 mls @ 100 mls/hr 10/20/17 10:00 Chloride IVPB DAILY GEORGINA Protocol Insulin Aspart 1 vial 10/19/17 16:30 10/19/17 17:01 Novolog Vial Sliding Scale - SQ 4 unit TIDAC GEORGINA Administration Protocol Levetiracetam 500 mg 10/19/17 22:00 Keppra - PO BID GEORGINA Metoprolol Tartrate 50 mg 10/19/17 10:00 10/19/17 10:08 Lopressor - PO 50 mg DAILY GEORGINA Administration Pantoprazole Sodium 40 mg 10/19/17 10:00 10/19/17 10:08 Protonix - PO 40 mg DAILY GEORGINA Administration Trazodone HCl 50 mg 10/19/17 03:25 Desyrel - PO HS PRN INSOMNIA Vancomycin HCl 125 mg 10/19/17 00:00 10/19/17 18:10 Vancomycin Oral Solution PO 125 amp Q6HPO GEORGINA Administration Zolpidem Tartrate 5 mg 10/19/17 16:07 Ambien - PO HS PRN INSOMNIA ASSESSMENT/PLAN: 1) Severe sepsis 2/2 to unclear source --Most likely either UTI 2/2 to nephrolithiasis vs. Continued C. Diff infection --CT w/o notable colitis at this point --Discontinue Zosyn --Start ertepenem given previous ESBL UTI sensitive to Zosyn --ID consulted --Urology consulted --No indication for intervention due to nonobstructing stones --Continue NS @75cc/hr 2) DM --BGM --Pt on Lantus 30U AM at home --Will start 15U in morning due to NPO right now --ISS 3) History of seizures --Home dose confirmed with Keppra 500mg BID --Continue 4) HTN --Take Norvasc 5mg and Lopressor 50mg daily at home --Holding Norvasc at this time due to possibility of becoming unstable in sepsis; can add later --Continue Lopressor FEN: NS@75cc/hr none currently NPO PPX: DVT - Heparin SQ Dispo: continue M/S Case discussed with Dr. Norton and pt's son and daughter Tong Franklin, DO - IM PGY-1 Visit type - Emergency Visit Emergency Visit: No - New Patient This patient is new to me today: Yes Date on this admission: 10/19/17 - Critical Care Critical Care patient: No
[2017-10-19] MEDS: DONEPEZIL HCL 10 MG TABLET (FP) PO SCH (21:37)
[2017-10-19] MEDS: levETIRAcetam 500 MG TABLET (FP) PO SCH (21:37)
[2017-10-19] MEDS: ATORVASTATIN CA 10 MG TABLET (FP) PO SCH (21:37)
[2017-10-19] MEDS ORDERED: PT OWN MED DRAWER 7, Y5N ONE (21:41)
[2017-10-19] MEDS: ZOLPIDEM TARTRATE 5 MG TABLET PO PRN (21:44)
[2017-10-20] MEDS: VANCOMYCIN 250 MG/5 ML ORAL SOLUTION PO SCH ×4 (00:12→17:41)
[2017-10-20] MEDS: SODIUM CHLORIDE 1,000 ML IV SCH ×2 (05:50→11:30)
[2017-10-20] MEDS: HEPARIN NA (PORCINE) 5,000 UNITS/ML 1ML VIAL SQ SCH ×3 (06:02→22:53)
[2017-10-20] MEDS: INSULIN SLIDING SCALE (NOVOLOG) 1 VIAL SQ SCH ×4 (06:06→23:00)
[2017-10-20] MEDS ORDERED: INSULIN (LEVEMIR) 100 UNITS/ML UNITS SQ SCH (07:00)
[2017-10-20 08:11] LABS: HEMATOCRIT 32.1 % (32.4-45.2); MCH 27.9 pg (25.7-33.7); MCHC 34.4 g/dl (32.0-36.0); MEAN CELL VOLUME 80.9 fl (80-96); MEAN PLT VOLUME 8.2 fl (7.5-11.1); PLATELET COUNT 155 K/MM3 (134-434); RBC 3.96 M/mm3 (3.60-5.2); WHITE BLOOD COUNT 6.5 K/mm3 (4.0-10.0)
[2017-10-20 08:41] LABS: ALBUMIN 2.8 g/dl (3.4-5.0); ANION GAP 7 (8-16); BLOOD UREA NITROGEN 11 mg/dL (7-18); CALCIUM 7.8 mg/dL (8.5-10.1); CHLORIDE 105 mmol/L (98-107); CO2 25 mmol/L (21-32); CREATININE 0.7 mg/dL (0.55-1.02); GLUCOSE,RANDOM 237 mg/dL (74-106); MAGNESIUM 1.8 mg/dL (1.8-2.4); SGOT/AST 11 U/L (15-37); SGPT/ALT 20 U/L (12-78); SODIUM 137 mmol/L (136-145)
[2017-10-20 08:42] LABS: ALK PHOS 68 U/L (45-117); BILIRUBIN,TOTAL 0.4 mg/dL (0.2-1.0); TOT PROT 6.1 g/dl (6.4-8.2)
[2017-10-20] MEDS: PANTOPRAZOLE 40 MG TABLET (FP) PO SCH (09:17)
[2017-10-20] MEDS: METOPROLOL TARTRATE 50 MG TABLET (FP) PO SCH (09:17)
[2017-10-20] MEDS: levETIRAcetam 500 MG TABLET (FP) PO SCH ×2 (09:17→22:53)
[2017-10-20] MEDS: ASPIRIN 325 MG TABLET PO SCH (09:17)
[2017-10-20] MEDS ORDERED: ERTAPENEM SODIUM 1 GM in SODIUM CHLORIDE 50 ML IVPB SCH (10:00)
[2017-10-20] MEDS ORDERED: INSULIN (NOVOLOG) ASPART 100 UNITS/ML 10ML VIAL ONE (11:06)
[2017-10-20] MEDS ORDERED: ERTAPENEM SODIUM 1 GM/50 ML PRE-DOCKED IVPB SCH (12:15)
[2017-10-20] MEDS: ACETAMINOPHEN 325 MG TABLET (FP) PO PRN (12:31)
[2017-10-20] MEDS ORDERED: diphenhydrAMINE HCL 25 MG CAPSULE (FP) PO ONE (13:54)
--- NOTE | 2017-10-20 14:28 | PN ---
Teaching Attending Note Name of Resident: Geoffrey Berry ATTENDING PHYSICIAN STATEMENT I saw and evaluated the patient. I reviewed the resident's note and discussed the case with the resident. I agree with the resident's findings and plan as documented. SUBJECTIVE: No events . unable to obtain hx OBJECTIVE: NAD , non verbal slightly dry MM. no JVD CV: RRR, no MRG lungs: CTAB Ext: no edema Abd: soft, NT nl BS . ASSESSMENT AND PLAN: 67 y/o lady with h/o dementia , non verbal, treated Non Hodgkin's lymphhoma , DM , HTN, recent hospitalization for ESBL klebsiella UTI, recent seizures who presented with fever . 1- Sepsis due to UTI: was on po abx as out pt ,, minimal pyuria but U cx grew lactose fermenting GNR - resume ertapenem given her h/o ESBL klebsiella - cont IVF - follow blood cx and final urine cx - no mechanical obstruction , and no intervention 2- DM : cont SSI and increase levemir to 25 units q HS 3- H/o recent seizures. Cont keppra . 4- HTN: cont BB , can resume Norvasc if needed 5- DVT PX: heparin sq d/w Son at bed side
[2017-10-20] MEDS: ERTAPENEM SODIUM 1 GM in SODIUM CHLORIDE 50 ML IVPB SCH (14:59)
[2017-10-20] MEDS: amLODIPine BESYLATE 5 MG TABLET (FP) PO SCH (18:13)
--- NOTE | 2017-10-20 22:22 | PN ---
Physical Exam: SUBJECTIVE: Patient seen and examined at bedside. Pt not communicative. No acute events overnight. OBJECTIVE: Vital Signs Temperature 98.0 F 10/20/17 17:49 Pulse Rate 69 10/20/17 17:50 Respiratory Rate 18 10/20/17 17:50 Blood Pressure 184/86 10/20/17 17:50 O2 Sat by Pulse Oximetry (%) 97 10/20/17 09:00 GENERAL: Mild discomfort, awake, nonverbal, noncooperating with commands HEENT: NC/AT, JAZIEL, dry-moist mucosa NECK: Soft, no lymphadenopathy, no jvd LUNGS: Poor inspiratory effort, no overt wheezes, no crackles, no accessory muscle use. HEART: RRR, S1, S2 without murmur, rub or gallop. ABDOMEN: Soft, nondistended, hyperactive BS, no facial grimmacing with palpation , no guarding. EXTREMITIES: 2+ pulses, warm, well-perfused, no edema. SKIN: Warm, dry, no rashes or lesions noted Laboratory Results - last 24 hr 10/20/17 10/20/17 10/20/17 06:03 07:00 07:00 WBC 6.5 RBC 3.96 Hgb 11.0 Hct 32.1 L MCV 80.9 MCH 27.9 MCHC 34.4 RDW 15.0 Plt Count 155 MPV 8.2 Sodium 137 Potassium 4.0 Chloride 105 Carbon Dioxide 25 Anion Gap 7 L BUN 11 Creatinine 0.7 Creat Clearance w eGFR > 60 POC Glucometer 274 Random Glucose 237 H Calcium 7.8 L Phosphorus 3.0 Magnesium 1.8 Total Bilirubin 0.4 AST 11 L ALT 20 Alkaline Phosphatase 68 D Total Protein 6.1 L Albumin 2.8 L 10/20/17 10/20/17 11:15 17:40 WBC RBC Hgb Hct MCV MCH MCHC RDW Plt Count MPV Sodium Potassium Chloride Carbon Dioxide Anion Gap BUN Creatinine Creat Clearance w eGFR POC Glucometer 263 230 Random Glucose Calcium Phosphorus Magnesium Total Bilirubin AST ALT Alkaline Phosphatase Total Protein Albumin Active Medications Acetaminophen (Tylenol -) 650 mg PO Q4H PRN PRN Reason: FEVER Last Admin: 10/20/17 12:31 Dose: 650 mg Amlodipine Besylate (Norvasc -) 5 mg PO DAILY [facility] Last Admin: 10/20/17 18:13 Dose: 5 mg Aspirin (Asa -) 325 mg PO Q48H [facility] Last Admin: 10/20/17 09:17 Dose: 325 mg Atorvastatin Calcium (Lipitor -) 10 mg PO HS [facility] Last Admin: 10/19/17 21:37 Dose: 10 mg Donepezil HCl (Aricept -) 10 mg PO HS [facility] Last Admin: 10/19/17 21:37 Dose: 10 mg Heparin Sodium (Porcine) (Heparin -) 5,000 unit SQ TID [facility] Last Admin: 10/20/17 14:23 Dose: 5,000 unit Sodium Chloride (Normal Saline -) 1,000 mls @ 75 mls/hr IV ASDIR [facility] Last Admin: 10/20/17 11:30 Dose: 75 mls/hr Ertapenem 1 gm/ Sodium (Chloride) 50 mls @ 100 mls/hr IVPB DAILY [facility] Last Admin: 10/20/17 14:59 Dose: 100 mls/hr Insulin Aspart (Novolog Vial Sliding Scale -) 1 vial SQ ACHS [facility]; Protocol Last Admin: 10/20/17 17:41 Dose: 2 units Insulin Detemir (Levemir Vial) 25 units SQ AM [facility] Lactobacillus Acidophilus (Bacid -) 1 tab PO DAILY [facility] Levetiracetam (Keppra -) 500 mg PO BID [facility] Last Admin: 10/20/17 09:17 Dose: 500 mg Metoprolol Tartrate (Lopressor -) 50 mg PO DAILY [facility] Last Admin: 10/20/17 09:17 Dose: 50 mg Pantoprazole Sodium (Protonix -) 40 mg PO DAILY [facility] Last Admin: 10/20/17 09:17 Dose: 40 mg Trazodone HCl (Desyrel -) 50 mg PO HS PRN PRN Reason: INSOMNIA Vancomycin HCl (Vancomycin Oral Solution) 125 mg PO Q6HPO [facility] Last Admin: 10/20/17 17:41 Dose: 125 mg Zolpidem Tartrate (Ambien -) 5 mg PO HS PRN PRN Reason: INSOMNIA Last Admin: 10/19/17 21:44 Dose: 5 mg ASSESSMENT/PLAN: 67 y/o F w/PMH of dementia, non-verbal, treated NHL, DM, HTN admitted for sepsis -Sepsis secondary to likely UTI -improving clinically -UCx showing lactose fermenting gram neg bacilli -will restart ertapenem (pen allergy is hives); has hx of ESBL klebsiella -f/u BCx, UCx. BCx negative so far x 48 hrs -DM -levemir increased to 25 units qhs -ISS, BGMs ACHS -Recurrent C. Diff -oral vanco 125 mg po q6h -Hx of seizures -c/w keppra -HTN -Norvasc 5 mg resumed -c/w lopressor 50 mg po qd -DVT ppx -heparin sq 5000 units q8h -FEN -NS @ 75 ml/hr -monitor electrolytes -Sodium controlled/diabetic diet -Dispo: continue M/S Visit type - Emergency Visit Emergency Visit: Yes ED Registration Date: 10/19/17 Care time: The patient presented to the Emergency Department on the above date and was hospitalized for further evaluation of their emergent condition. - New Patient This patient is new to me today: Yes Date on this admission: 10/20/17 - Critical Care Critical Care patient: No
[2017-10-20] MEDS: DONEPEZIL HCL 10 MG TABLET (FP) PO SCH (22:53)
[2017-10-20] MEDS: ZOLPIDEM TARTRATE 5 MG TABLET PO PRN (22:53)
[2017-10-20] MEDS: ATORVASTATIN CA 10 MG TABLET (FP) PO SCH (22:53)
[2017-10-21] MEDS: VANCOMYCIN 250 MG/5 ML ORAL SOLUTION PO SCH ×4 (01:38→17:23)
[2017-10-21] MEDS: SODIUM CHLORIDE 1,000 ML IV SCH ×3 (01:38→16:13)
[2017-10-21] MEDS: HEPARIN NA (PORCINE) 5,000 UNITS/ML 1ML VIAL SQ SCH ×3 (05:24→21:39)
[2017-10-21] MEDS: INSULIN SLIDING SCALE (NOVOLOG) 1 VIAL SQ SCH ×4 (07:05→21:37)
[2017-10-21] MEDS: INSULIN (LEVEMIR) 100 UNITS/ML UNITS SQ SCH (07:07)
[2017-10-21 08:42] LABS: HEMATOCRIT 35.5 % (32.4-45.2); HEMOGLOBIN 12.1 GM/dL (10.7-15.3); MCH 27.7 pg (25.7-33.7); MEAN CELL VOLUME 81.4 fl (80-96); MEAN PLT VOLUME 8.5 fl (7.5-11.1); PLATELET COUNT 160 K/MM3 (134-434); RBC 4.36 M/mm3 (3.60-5.2); RDW 14.6 % (11.6-15.6); WHITE BLOOD COUNT 5.3 K/mm3 (4.0-10.0)
[2017-10-21 09:04] LABS: CHLORIDE 108 mmol/L (98-107); POTASSIUM 3.8 mmol/L (3.5-5.1); SODIUM 142 mmol/L (136-145)
[2017-10-21 09:34] LABS: ALBUMIN 2.8 g/dl (3.4-5.0); ANION GAP 10 (8-16); BLOOD UREA NITROGEN 11 mg/dL (7-18); CALCIUM 7.9 mg/dL (8.5-10.1); CO2 24 mmol/L (21-32); CREATININE 0.6 mg/dL (0.55-1.02); GLUCOSE,RANDOM 176 mg/dL (74-106); SGOT/AST 16 U/L (15-37); SGPT/ALT 24 U/L (12-78)
[2017-10-21 09:36] LABS: ALK PHOS 67 U/L (45-117); BILIRUBIN,TOTAL 0.3 mg/dL (0.2-1.0); TOT PROT 6.3 g/dl (6.4-8.2)
[2017-10-21] MEDS ORDERED: PT OWN MED DRAWER 7, Y5N ONE (09:43)
[2017-10-21] MEDS: PANTOPRAZOLE 40 MG TABLET (FP) PO SCH (09:53)
[2017-10-21] MEDS: amLODIPine BESYLATE 5 MG TABLET (FP) PO SCH (09:54)
[2017-10-21] MEDS: levETIRAcetam 500 MG TABLET (FP) PO SCH ×2 (09:54→21:39)
[2017-10-21] MEDS: METOPROLOL TARTRATE 50 MG TABLET (FP) PO SCH (09:54)
[2017-10-21] MEDS: LACTOBACILLUS ACIDOPHILUS 1 TABLET PO SCH (09:54)
[2017-10-21] MEDS: ERTAPENEM SODIUM 1 GM in SODIUM CHLORIDE 50 ML IVPB SCH (10:28)
[2017-10-21] MEDS ORDERED: INSULIN (NOVOLOG) ASPART 100 UNITS/ML 10ML VIAL ONE (11:05)
[2017-10-21] MEDS ORDERED: amLODIPine BESYLATE 5 MG TABLET (FP) PO ONE (15:31)
[2017-10-21] MEDS ORDERED: PICC LINE 8 ML FLUSH PROTOCOL IVPUSH PRN (16:26)
--- NOTE | 2017-10-21 16:30 | PN ---
Teaching Attending Note Name of Resident: Tong Orozco ATTENDING PHYSICIAN STATEMENT I saw and evaluated the patient. I reviewed the resident's note and discussed the case with the resident. I agree with the resident's findings and plan as documented. SUBJECTIVE: No events over night , no diarrhea OBJECTIVE: NAD , non verbal MMM CV: RRR, no MRG lungs: CTAB Ext: no edema ASSESSMENT AND PLAN: 67 y/o lady with h/o dementia , non verbal, treated Non Hodgkin's lymphhoma , DM , HTN, recent hospitalization for ESBL klebsiella UTI, recent seizures who presented with fever . 1- Sepsis due to UTI: cx with Klebsiella ESBL. - Cont ertapenam day 2 - will d/w Id about duration and PICC line placement. - Dc IVF - no mechanical obstruction , and no intervention 2- DM : cont SSI and Levemir to 25 units q HS 3- H/o recent seizures. Cont keppra . 4- HTN: cont BB and norvasc . ca adjust dose if needed 5- DVT PX: heparin sq possible dc tomorrow. d/w son at bed side , interested in home with IV abx
--- NOTE | 2017-10-21 18:12 | PN ---
Progress Note, Physician History of Present Illness: Patient is a 67 yr old female admitted with fever and chills last night. She has long Hx of recurrent UTI's in the past. Hx Strep Bacteremia/UTI late lsat year, s/p stent placement and eventual removal. Hospital a few months ago for MDR Klebsiella UTI. Has had prolonged courses of Abx, thus, subsequent CDiff Colitis - currently on PO Vanco. Last night, noted to be more lethargic and had fever and chills. She was sent to the ED, where w/up done and admitted. Started on Invanz. - Current Medication List Current Medications: Active Medications Acetaminophen (Tylenol -) 650 mg PO Q4H PRN PRN Reason: FEVER Last Admin: 10/20/17 12:31 Dose: 650 mg Amlodipine Besylate (Norvasc -) 5 mg PO DAILY [facility] Last Admin: 10/21/17 09:54 Dose: 5 mg Aspirin (Asa -) 325 mg PO Q48H [facility] Last Admin: 10/20/17 09:17 Dose: 325 mg Atorvastatin Calcium (Lipitor -) 10 mg PO HS [facility] Last Admin: 10/20/17 22:53 Dose: 10 mg Donepezil HCl (Aricept -) 10 mg PO HS [facility] Last Admin: 10/20/17 22:53 Dose: 10 mg Heparin Sodium (Porcine) (Heparin -) 5,000 unit SQ TID [facility] Last Admin: 10/21/17 14:19 Dose: 5,000 unit IV Flush (Picc Line Flush) 8 ml IVPUSH PRN PRN PRN Reason: Protocol Ertapenem 1 gm/ Sodium (Chloride) 50 mls @ 100 mls/hr IVPB DAILY [facility] Last Admin: 10/21/17 10:28 Dose: 100 mls/hr Insulin Aspart (Novolog Vial Sliding Scale -) 1 vial SQ ACHS [facility]; Protocol Last Admin: 10/21/17 17:24 Dose: 2 units Insulin Detemir (Levemir Vial) 25 units SQ AM [facility] Last Admin: 10/21/17 07:07 Dose: 25 unit Lactobacillus Acidophilus (Bacid -) 1 tab PO DAILY [facility] Last Admin: 10/21/17 09:54 Dose: 1 tab Levetiracetam (Keppra -) 500 mg PO BID [facility] Last Admin: 10/21/17 09:54 Dose: 500 mg Metoprolol Tartrate (Lopressor -) 50 mg PO DAILY [facility] Last Admin: 10/21/17 09:54 Dose: 50 mg Pantoprazole Sodium (Protonix -) 40 mg PO DAILY [facility] Last Admin: 10/21/17 09:53 Dose: 40 mg Trazodone HCl (Desyrel -) 50 mg PO HS PRN PRN Reason: INSOMNIA Vancomycin HCl (Vancomycin Oral Solution) 125 mg PO Q6HPO [facility] Last Admin: 10/21/17 17:23 Dose: 125 mg Zolpidem Tartrate (Ambien -) 5 mg PO HS PRN PRN Reason: INSOMNIA Last Admin: 10/20/17 22:53 Dose: 5 mg - Objective Vital Signs: Vital Signs Temperature 97.5 F L 10/21/17 17:41 Pulse Rate 71 10/21/17 17:41 Respiratory Rate 18 10/21/17 17:41 Blood Pressure 129/84 10/21/17 17:41 O2 Sat by Pulse Oximetry (%) 96 10/21/17 09:00 Constitutional: Yes: Well Nourished Eyes: Yes: PERRL Neck: Yes: Supple Cardiovascular: Yes: Regular Rate and Rhythm Respiratory: Yes: CTA Bilaterally Gastrointestinal: Yes: Normal Bowel Sounds, Soft. No: Tenderness Genitourinary: No: CVA Tenderness - Left, CVA Tenderness - Right Labs: CBC, BMP 10/21/17 07:30 10/21/17 07:30 INR, PTT INR 0.96 (0.82-1.09) 10/18/17 20:23 Problem List - Problems (1) C. difficile diarrhea Code(s): A04.72 - ENTEROCOLITIS D/T CLOSTRIDIUM DIFFICILE, NOT SPCF RECUR (2) UTI (urinary tract infection) Code(s): N39.0 - URINARY TRACT INFECTION, SITE NOT SPECIFIED Qualifiers: Urinary tract infection type: site unspecified Hematuria presence: without hematuria Qualified Code(s): N39.0 - Urinary tract infection, site not specified Assessment/Plan Pt with fever, Hx CDI, UTI Consider RX PO Levaquin 500 mg qd Total 10-14 days Check stool for CDI
--- NOTE | 2017-10-21 18:29 | PN ---
Addendum entered and electronically signed by Tong Orozco, RESIDENT 10/21 18:45: Urine Grew ESBL Klebsiella. Original Note: Physical Exam: SUBJECTIVE: Patient seen and examined OBJECTIVE: Vital Signs Period Temp Pulse Resp BP Sys/Lopez Pulse Ox Last 24 Hr 96.7 F-98.1 F 69-84 16-18 129-184/80-94 96-97 GENERAL: The patient is awake, alert, and fully oriented, in no acute distress. HEAD: Normal with no signs of trauma. EYES: PERRL, extraocular movements intact, sclera anicteric, conjunctiva clear. No ptosis. ENT: Ears normal, nares patent, oropharynx clear without exudates, moist mucous membranes. NECK: Trachea midline, full range of motion, supple. LUNGS: Breath sounds equal, clear to auscultation bilaterally, no wheezes, no crackles, no accessory muscle use. HEART: Regular rate and rhythm, S1, S2 without murmur, rub or gallop. ABDOMEN: Soft, nontender, nondistended, normoactive bowel sounds, no guarding, no rebound, no hepatosplenomegaly, no masses. EXTREMITIES: 2+ pulses, warm, well-perfused, no edema. NEUROLOGICAL: Cranial nerves II through XII grossly intact. Normal speech, gait not observed. PSYCH: Normal mood, normal affect. SKIN: Warm, dry, normal turgor, no rashes or lesions noted Laboratory Results - last 24 hr 10/20/17 10/21/17 10/21/17 22:57 05:21 07:30 WBC 5.3 RBC 4.36 Hgb 12.1 Hct 35.5 MCV 81.4 MCH 27.7 MCHC 34.0 RDW 14.6 Plt Count 160 MPV 8.5 Sodium Potassium Chloride Carbon Dioxide Anion Gap BUN Creatinine Creat Clearance w eGFR POC Glucometer 254 178 Random Glucose Calcium Total Bilirubin AST ALT Alkaline Phosphatase Total Protein Albumin 10/21/17 10/21/17 10/21/17 07:30 11:39 17:21 WBC RBC Hgb Hct MCV MCH MCHC RDW Plt Count MPV Sodium 142 Potassium 3.8 Chloride 108 H Carbon Dioxide 24 Anion Gap 10 BUN 11 Creatinine 0.6 Creat Clearance w eGFR > 60 POC Glucometer 261 248 Random Glucose 176 H Calcium 7.9 L Total Bilirubin 0.3 AST 16 ALT 24 Alkaline Phosphatase 67 Total Protein 6.3 L Albumin 2.8 L Active Medications Generic Name Dose Route Start Last Admin Trade Name Freq PRN Reason Stop Dose Admin Acetaminophen 650 mg 10/19/17 03:21 10/20/17 12:31 Tylenol - PO 650 mg Q4H PRN Administration FEVER Amlodipine Besylate 5 mg 10/20/17 18:15 10/21/17 09:54 Norvasc - PO 5 mg DAILY [facility] Administration Aspirin 325 mg 10/20/17 10:00 10/20/17 09:17 Asa - PO 325 mg Q48H [facility] Administration Atorvastatin Calcium 10 mg 10/19/17 22:00 10/20/17 22:53 Lipitor - PO 10 mg HS [facility] Administration Donepezil HCl 10 mg 10/19/17 22:00 10/20/17 22:53 Aricept - PO 10 mg HS [facility] Administration Heparin Sodium (Porcine) 5,000 unit 10/19/17 14:00 10/21/17 14:19 Heparin - SQ 5,000 unit TID [facility] Administration IV Flush 8 ml 10/21/17 16:26 Picc Line Flush IVPUSH PRN PRN Protocol Ertapenem 1 gm/ Sodium 50 mls @ 100 mls/hr 10/20/17 13:15 10/21/17 10:28 Chloride IVPB 100 mls/hr DAILY [facility] Administration Insulin Aspart 1 vial 10/19/17 22:00 10/21/17 17:24 Novolog Vial Sliding Scale - SQ 2 units ACHS [facility] Administration Protocol Insulin Detemir 25 units 10/20/17 11:00 10/21/17 07:07 Levemir Vial SQ 25 unit AM [facility] Administration Lactobacillus Acidophilus 1 tab 10/21/17 10:00 10/21/17 09:54 Bacid - PO 1 tab DAILY [facility] Administration Levetiracetam 500 mg 10/19/17 22:00 10/21/17 09:54 Keppra - PO 500 mg BID [facility] Administration Metoprolol Tartrate 50 mg 10/19/17 10:00 10/21/17 09:54 Lopressor - PO 50 mg DAILY [facility] Administration Pantoprazole Sodium 40 mg 10/19/17 10:00 10/21/17 09:53 Protonix - PO 40 mg DAILY [facility] Administration Trazodone HCl 50 mg 10/19/17 03:25 Desyrel - PO HS PRN INSOMNIA Vancomycin HCl 125 mg 10/19/17 00:00 10/21/17 17:23 Vancomycin Oral Solution PO 125 mg Q6HPO [facility] Administration Zolpidem Tartrate 5 mg 10/19/17 16:07 10/20/17 22:53 Ambien - PO 5 mg HS PRN Administration INSOMNIA ASSESSMENT/PLAN: 67 y/o F w/PMH of dementia, non-verbal, treated NHL, DM, HTN admitted for sepsis 2/2 UTI #Sepsis 2/2 UTI: improving clinically -UCx showing lactose fermenting gram neg bacilli -on ertapenem day 2 -will likely D/C tomorrow on PO levaquin 500mg for 14 days -will check stool for c diff #Diabetes: stable -continue levemir 25 AM -ISS, BGMs ACHS #Recurrent C. Diff: no BM today -continue oral vanco 125 mg po q6h -will check cdiff toxin/antigen #Seizure Disorder: stable -keppra 500 PO BID #Hypertension: mildly hypertensive toady at 170/80 -continue norvasc 5mg -will add another norvasc 5mg -continue lopressor 50 mg po qd #Prophylaxis -heparin sq 5000 units q8h #FEN -no standing fluids -monitor electrolytes -Sodium controlled/diabetic diet #Dispo: -continue to monitor on med surg Visit type - Emergency Visit Emergency Visit: No - New Patient This patient is new to me today: Yes Date on this admission: 10/21/17 - Critical Care Critical Care patient: No
[2017-10-21] MEDS: ATORVASTATIN CA 10 MG TABLET (FP) PO SCH (21:39)
[2017-10-21] MEDS: traZODone HCL 50 MG TABLET (FP) PO PRN (21:39)
[2017-10-21] MEDS: DONEPEZIL HCL 10 MG TABLET (FP) PO SCH (21:40)
[2017-10-22] MEDS: VANCOMYCIN 250 MG/5 ML ORAL SOLUTION PO SCH ×4 (00:50→17:32)
[2017-10-22] MEDS: INSULIN (LEVEMIR) 100 UNITS/ML UNITS SQ SCH (06:43)
[2017-10-22] MEDS: HEPARIN NA (PORCINE) 5,000 UNITS/ML 1ML VIAL SQ SCH ×3 (06:43→21:37)
[2017-10-22] MEDS: INSULIN SLIDING SCALE (NOVOLOG) 1 VIAL SQ SCH ×4 (06:47→21:37)
[2017-10-22] MEDS ORDERED: amLODIPine BESYLATE 10 MG TABLET (FP) PO SCH (08:01)
[2017-10-22] MEDS: ERTAPENEM SODIUM 1 GM in SODIUM CHLORIDE 50 ML IVPB SCH (10:36)
[2017-10-22] MEDS: PANTOPRAZOLE 40 MG TABLET (FP) PO SCH (10:37)
[2017-10-22] MEDS: ASPIRIN 325 MG TABLET PO SCH (10:37)
[2017-10-22] MEDS: LACTOBACILLUS ACIDOPHILUS 1 TABLET PO SCH (10:37)
[2017-10-22] MEDS: levETIRAcetam 500 MG TABLET (FP) PO SCH ×2 (10:37→21:36)
[2017-10-22] MEDS: amLODIPine BESYLATE 10 MG TABLET (FP) PO SCH (10:37)
[2017-10-22] MEDS: METOPROLOL TARTRATE 50 MG TABLET (FP) PO SCH (10:37)
[2017-10-22] MEDS ORDERED: INSULIN (NOVOLOG) ASPART 100 UNITS/ML 10ML VIAL ONE (11:29)
--- NOTE | 2017-10-22 14:29 | PN ---
Progress Note (short form) - Note Progress Note: renal scan with no evidence of obstruction no surgical intervention needed
--- NOTE | 2017-10-22 15:33 | PN ---
Teaching Attending Note Name of Resident: Tong Orozco ATTENDING PHYSICIAN STATEMENT I saw and evaluated the patient. I reviewed the resident's note and discussed the case with the resident. I agree with the resident's findings and plan as documented. SUBJECTIVE: No events over night OBJECTIVE: NAD , non verbal MMM CV: RRR, no MRG lungs: CTAB Ext: no edema ASSESSMENT AND PLAN: 67 y/o lady with h/o dementia , non verbal, treated Non Hodgkin's lymphhoma , DM , HTN, recent hospitalization for ESBL klebsiella UTI, recent seizures who presented with fever . 1- Sepsis due to UTI: cx with Klebsiella ESBL. - Cont ertapenam day / -d/w ID - no mechanical obstruction , and no intervention 2- DM : cont SSI and increase levemir 3- H/o recent seizures. Cont keppra . 4- HTN: cont BB and increase norvasc to 10. 5- DVT PX: heparin sq Dc is pending arrangements for home IV bx and PICC line
--- NOTE | 2017-10-22 17:33 | PN ---
Physical Exam: SUBJECTIVE: Patient is a 67 y/o female with c. diff, klebsiella UTI, dementia, DM, CAD, HLD , HTN and NHL s/p chemo who is admitted for sepsis. Patient did not have any fever over night. Patient had no acute events overnight, patients son stayed the night and said it there were no events. OBJECTIVE: Vital Signs Period Temp Pulse Resp BP Sys/Lopez Pulse Ox Last 24 Hr 96 F-98.6 F 65-83 16-20 129-162/74-97 96 GENERAL: The patient is awake, alert, patient is non verbal at baseline HEAD: Normal with no signs of trauma. LUNGS: Breath sounds equal, clear to auscultation bilaterally HEART: Regular rate and rhythm ABDOMEN: Soft, nontender, nondistended Laboratory Results - last 24 hr 10/19/17 10/21/17 10/21/17 04:01 17:21 21:35 POC Glucometer 248 370 Levetiracetam 4.9 L 10/22/17 10/22/17 06:41 11:34 POC Glucometer 150 369 Levetiracetam Active Medications Generic Name Dose Route Start Last Admin Trade Name Freq PRN Reason Stop Dose Admin Acetaminophen 650 mg 10/19/17 03:21 10/20/17 12:31 Tylenol - PO 650 mg Q4H PRN Administration FEVER Amlodipine Besylate 10 mg 10/22/17 10:00 10/22/17 10:37 Norvasc - PO 10 mg DAILY [facility] Administration Aspirin 325 mg 10/20/17 10:00 10/22/17 10:37 Asa - PO 325 mg Q48H [facility] Administration Atorvastatin Calcium 10 mg 10/19/17 22:00 10/21/17 21:39 Lipitor - PO 10 mg HS [facility] Administration Donepezil HCl 10 mg 10/19/17 22:00 10/21/17 21:40 Aricept - PO 10 mg HS [facility] Administration Heparin Sodium (Porcine) 5,000 unit 10/19/17 14:00 10/22/17 14:46 Heparin - SQ 5,000 unit TID [facility] Administration IV Flush 8 ml 10/21/17 16:26 Picc Line Flush IVPUSH PRN PRN Protocol Ertapenem 1 gm/ Sodium 50 mls @ 100 mls/hr 10/20/17 13:15 10/22/17 10:36 Chloride IVPB 100 mls/hr DAILY [facility] Administration Insulin Aspart 1 vial 10/19/17 22:00 10/22/17 11:36 Novolog Vial Sliding Scale - SQ 8 units ACHS [facility] Administration Protocol Insulin Detemir 25 units 10/20/17 11:00 10/22/17 06:43 Levemir Vial SQ 25 unit AM [facility] Administration Lactobacillus Acidophilus 1 tab 10/21/17 10:00 10/22/17 10:37 Bacid - PO 1 tab DAILY [facility] Administration Levetiracetam 500 mg 10/19/17 22:00 10/22/17 10:37 Keppra - PO 500 mg BID [facility] Administration Metoprolol Tartrate 50 mg 10/19/17 10:00 10/22/17 10:37 Lopressor - PO 50 mg DAILY [facility] Administration Pantoprazole Sodium 40 mg 10/19/17 10:00 10/22/17 10:37 Protonix - PO 40 mg DAILY [facility] Administration Trazodone HCl 50 mg 10/19/17 03:25 10/21/17 21:39 Desyrel - PO 50 mg HS PRN Administration INSOMNIA Vancomycin HCl 125 mg 10/19/17 00:00 10/22/17 11:36 Vancomycin Oral Solution PO 125 mg Q6HPO [facility] Administration Zolpidem Tartrate 5 mg 10/19/17 16:07 10/20/17 22:53 Ambien - PO 5 mg HS PRN Administration INSOMNIA ASSESSMENT/PLAN: #Sepsis -Ucx found to have lactose fermenting gram negative bacilli -Ertapenem day 3 ( of 7 days) -patient afebrile #C.diff -Continue PO Vanco for C. diff treatment #DM -Continue levemir and SSI #Seizure -Continue home medications #DVT PPX: -Continue Heparin Dispo: PICC line for outpaitnet Ertapenem ( 7 days in total), & more days of PO Vanco for C. diff Visit type - Emergency Visit Emergency Visit: No - New Patient This patient is new to me today: Yes Date on this admission: 10/22/17 - Critical Care Critical Care patient: No
[2017-10-22] MEDS ORDERED: INSULIN (LEVEMIR) 100 UNITS/ML UNITS SQ ONE (21:20)
[2017-10-22] MEDS: ATORVASTATIN CA 10 MG TABLET (FP) PO SCH (21:36)
[2017-10-22] MEDS: DONEPEZIL HCL 10 MG TABLET (FP) PO SCH (21:36)
[2017-10-22] MEDS ORDERED: PT OWN MED DRAWER 7, Y5N ONE (22:09)
[2017-10-23] MEDS ORDERED: PT OWN MED DRAWER 7, Y5N ONE ×2 (01:03→01:22)
[2017-10-23] MEDS: VANCOMYCIN 250 MG/5 ML ORAL SOLUTION PO SCH ×5 (01:13→23:07)
[2017-10-23] MEDS: HEPARIN NA (PORCINE) 5,000 UNITS/ML 1ML VIAL SQ SCH ×3 (05:48→22:59)
[2017-10-23] MEDS: INSULIN SLIDING SCALE (NOVOLOG) 1 VIAL SQ SCH ×4 (06:59→23:00)
[2017-10-23] MEDS: INSULIN (LEVEMIR) 100 UNITS/ML UNITS SQ SCH (07:00)
--- NOTE | 2017-10-23 07:01 | PN ---
Physical Exam: SUBJECTIVE: Patient is a 67 y/o female with c. diff, klebsiella UTI, dementia, DM, CAD, HLD , HTN and NHL s/p chemo who is admitted for sepsis. Patient had no acute events overnight. Patients son reports she did not sleep much over night. Nurse reported she was able to walk to the bathroom with assistance. OBJECTIVE: Vital Signs Period Temp Pulse Resp BP Sys/Lopez Pulse Ox Last 24 Hr 96 F-98.6 F 65-83 16-20 130-171/74-85 96-96 GENERAL: The patient is awake, alert, patient is non verbal at baseline HEAD: Normal with no signs of trauma. LUNGS: Breath sounds equal, clear to auscultation bilaterally HEART: Regular rate and rhythm ABDOMEN: Soft, nontender, nondistended Laboratory Results - last 24 hr 10/22/17 10/22/17 10/22/17 06:41 11:34 17:29 POC Glucometer 150 369 207 10/22/17 10/23/17 20:35 05:41 POC Glucometer 178 169 Active Medications Generic Name Dose Route Start Last Admin Trade Name Freq PRN Reason Stop Dose Admin Acetaminophen 650 mg 10/19/17 03:21 10/20/17 12:31 Tylenol - PO 650 mg Q4H PRN Administration FEVER Amlodipine Besylate 10 mg 10/22/17 10:00 10/22/17 10:37 Norvasc - PO 10 mg DAILY [facility] Administration Aspirin 325 mg 10/20/17 10:00 10/22/17 10:37 Asa - PO 325 mg Q48H [facility] Administration Atorvastatin Calcium 10 mg 10/19/17 22:00 10/22/17 21:36 Lipitor - PO 10 mg HS [facility] Administration Donepezil HCl 10 mg 10/19/17 22:00 10/22/17 21:36 Aricept - PO 10 mg HS [facility] Administration Heparin Sodium (Porcine) 5,000 unit 10/19/17 14:00 10/23/17 05:48 Heparin - SQ 5,000 unit TID [facility] Administration IV Flush 8 ml 10/21/17 16:26 Picc Line Flush IVPUSH PRN PRN Protocol Ertapenem 1 gm/ Sodium 50 mls @ 100 mls/hr 10/20/17 13:15 10/22/17 10:36 Chloride IVPB 100 mls/hr DAILY [facility] Administration Insulin Aspart 1 vial 10/19/17 22:00 10/22/17 21:37 Novolog Vial Sliding Scale - SQ Not Given ACHS [facility] Protocol Insulin Detemir 27 units 10/22/17 17:59 Levemir Vial SQ AM [facility] Lactobacillus Acidophilus 1 tab 10/21/17 10:00 10/22/17 10:37 Bacid - PO 1 tab DAILY [facility] Administration Levetiracetam 500 mg 10/19/17 22:00 10/22/17 21:36 Keppra - PO 500 mg BID [facility] Administration Metoprolol Succinate 50 mg 10/23/17 10:00 Toprol Xl - PO DAILY [facility] Pantoprazole Sodium 40 mg 10/19/17 10:00 10/22/17 10:37 Protonix - PO 40 mg DAILY [facility] Administration Trazodone HCl 50 mg 10/19/17 03:25 10/21/17 21:39 Desyrel - PO 50 mg HS PRN Administration INSOMNIA Vancomycin HCl 125 mg 10/19/17 00:00 10/23/17 05:48 Vancomycin Oral Solution PO 125 mg Q6HPO [facility] Administration Zolpidem Tartrate 5 mg 10/19/17 16:07 10/20/17 22:53 Ambien - PO 5 mg HS PRN Administration INSOMNIA ASSESSMENT/PLAN: Patient is a 67 y/o female with c. diff and klebsiella UTI who is admitted for sepsis 2/2 to UTI of lactose fermenting gram negative bacilli. #Sepsis -Ucx found to have lactose fermenting gram negative bacilli -Ertapenem day (4 of 7 days) -patient afebrile -f/u ID and nephrology outpatient #C.diff -Continue PO Vanco for C. diff treatment (day 11/03) #DM -Continue levemir and SSI #Seizure -Continue home medications #DVT PPX: -Continue Heparin Dispo: Discuss peripheral line vs PICC for outpatient Ertapenem ( 7 days in total), discuss home nurse to administer medication Visit type - Emergency Visit Emergency Visit: No - New Patient This patient is new to me today: No - Critical Care Critical Care patient: No
[2017-10-23] MEDS ORDERED: INSULIN (NOVOLOG) ASPART 100 UNITS/ML 10ML VIAL ONE (07:07)
[2017-10-23] MEDS ORDERED: INSULIN (LEVEMIR) 100 UNITS/ML UNITS SQ ONE (07:08)
[2017-10-23] MEDS ORDERED: PICC LINE 8 ML FLUSH PROTOCOL IVPUSH PRN (10:13)
[2017-10-23] MEDS: LACTOBACILLUS ACIDOPHILUS 1 TABLET PO SCH (11:02)
[2017-10-23] MEDS: levETIRAcetam 500 MG TABLET (FP) PO SCH ×2 (11:03→23:01)
[2017-10-23] MEDS: PANTOPRAZOLE 40 MG TABLET (FP) PO SCH (11:03)
[2017-10-23] MEDS: ERTAPENEM SODIUM 1 GM in SODIUM CHLORIDE 50 ML IVPB SCH (11:03)
[2017-10-23] MEDS: amLODIPine BESYLATE 10 MG TABLET (FP) PO SCH (11:03)
--- NOTE | 2017-10-23 15:35 | PN ---
Teaching Attending Note Name of Resident: Sally Dorado ATTENDING PHYSICIAN STATEMENT I saw and evaluated the patient. I reviewed the resident's note and discussed the case with the resident. I agree with the resident's findings and plan as documented. SUBJECTIVE: No events overnight . loose stool OBJECTIVE: NAD , non verbal MMM CV: RRR, no MRG lungs: CTAB Ext: no edema Abd: sfot, NT, ND , NL BS ASSESSMENT AND PLAN: 67 y/o lady with h/o dementia , non verbal, treated Non Hodgkin's lymphhoma , DM , HTN, recent hospitalization for ESBL klebsiella UTI, recent seizures who presented with fever . 1- Sepsis due to UTI: cx with Klebsiella ESBL. - Cont ertapenam day / - no mechanical obstruction , and no intervention - f/u with ID nad urology as out pt 2- DM: cont SSI and levemir 3- H/o recent seizures. Cont keppra. 4- HTN: cont BB and increased norvasc Dc pending arrangements for Home Abx
[2017-10-23] MEDS ORDERED: ZINC OXIDE/PANTHENOL/VITAMIN E 56 GM TUBE TP PRN (18:31)
--- NOTE | 2017-10-23 18:36 | PN ---
Progress Note, Physician History of Present Illness: Patient is a 67 yr old female admitted with fever and chills last night. She has long Hx of recurrent UTI's in the past. Hx Strep Bacteremia/UTI late lsat year, s/p stent placement and eventual removal. Hospital a few months ago for MDR Klebsiella UTI. Has had prolonged courses of Abx, thus, subsequent CDiff Colitis - currently on PO Vanco. Last night, noted to be more lethargic and had fever and chills. She was sent to the ED, where w/up done and admitted. Started on Invanz.(day 6) - Current Medication List Current Medications: Active Medications Acetaminophen (Tylenol -) 650 mg PO Q4H PRN PRN Reason: FEVER Last Admin: 10/20/17 12:31 Dose: 650 mg Amlodipine Besylate (Norvasc -) 10 mg PO DAILY [facility] Last Admin: 10/23/17 11:03 Dose: 10 mg Aspirin (Asa -) 325 mg PO Q48H [facility] Last Admin: 10/22/17 10:37 Dose: 325 mg Atorvastatin Calcium (Lipitor -) 10 mg PO HS [facility] Last Admin: 10/22/17 21:36 Dose: 10 mg Donepezil HCl (Aricept -) 10 mg PO HS [facility] Last Admin: 10/22/17 21:36 Dose: 10 mg Heparin Sodium (Porcine) (Heparin -) 5,000 unit SQ TID [facility] Last Admin: 10/23/17 15:19 Dose: Not Given IV Flush (Picc Line Flush) 8 ml IVPUSH PRN PRN PRN Reason: Protocol IV Flush (Picc Line Flush) 8 ml IVPUSH PRN PRN PRN Reason: Protocol Ertapenem 1 gm/ Sodium (Chloride) 50 mls @ 100 mls/hr IVPB DAILY [facility] Last Admin: 10/23/17 11:03 Dose: 100 mls/hr Insulin Aspart (Novolog Vial Sliding Scale -) 1 vial SQ ACHS [facility]; Protocol Last Admin: 10/23/17 18:08 Dose: 10 units Insulin Detemir (Levemir Vial) 27 units SQ AM [facility] Last Admin: 10/23/17 07:00 Dose: 27 units Lactobacillus Acidophilus (Bacid -) 1 tab PO DAILY [facility] Last Admin: 10/23/17 11:02 Dose: 1 tab Levetiracetam (Keppra -) 500 mg PO BID [facility] Last Admin: 10/23/17 11:03 Dose: 500 mg Metoprolol Succinate (Toprol Xl -) 50 mg PO DAILY [facility] Last Admin: 10/23/17 11:04 Dose: 50 mg Pantoprazole Sodium (Protonix -) 40 mg PO DAILY [facility] Last Admin: 10/23/17 11:03 Dose: 40 mg Trazodone HCl (Desyrel -) 50 mg PO HS PRN PRN Reason: INSOMNIA Last Admin: 10/21/17 21:39 Dose: 50 mg Vancomycin HCl (Vancomycin Oral Solution) 125 mg PO Q6HPO [facility] Last Admin: 10/23/17 18:08 Dose: 125 mg - Objective Vital Signs: Vital Signs Temperature 98.2 F 10/23/17 14:32 Pulse Rate 78 10/23/17 14:32 Respiratory Rate 16 10/23/17 14:32 Blood Pressure 130/80 10/23/17 14:32 O2 Sat by Pulse Oximetry (%) 96 10/22/17 21:00 Constitutional: Yes: No Distress Eyes: Yes: PERRL Cardiovascular: Yes: Regular Rate and Rhythm Respiratory: Yes: CTA Bilaterally Gastrointestinal: Yes: Normal Bowel Sounds Labs: CBC, BMP 10/21/17 07:30 10/21/17 07:30 INR, PTT INR 0.96 (0.82-1.09) 10/18/17 20:23 Problem List - Problems (1) C. difficile diarrhea Code(s): A04.72 - ENTEROCOLITIS D/T CLOSTRIDIUM DIFFICILE, NOT SPCF RECUR (2) UTI (urinary tract infection) Code(s): N39.0 - URINARY TRACT INFECTION, SITE NOT SPECIFIED Qualifiers: Urinary tract infection type: site unspecified Hematuria presence: without hematuria Qualified Code(s): N39.0 - Urinary tract infection, site not specified Assessment/Plan Pt with fever, Hx CDI, UTI Completing Invanz (day 09/30)
[2017-10-23] MEDS: ACETAMINOPHEN 325 MG TABLET (FP) PO PRN (20:04)
[2017-10-23] MEDS ORDERED: ZOLPIDEM TARTRATE 5 MG TABLET PO ONE (23:00)
[2017-10-23] MEDS: DONEPEZIL HCL 10 MG TABLET (FP) PO SCH (23:01)
[2017-10-23] MEDS: traZODone HCL 50 MG TABLET (FP) PO PRN (23:01)
[2017-10-23] MEDS: ATORVASTATIN CA 10 MG TABLET (FP) PO SCH (23:01)
[2017-10-23] MEDS: NYSTATIN POWDER 100,000 UNITS/GM - 15 GM TOPICAL POWDER TP PRN (23:08)
[2017-10-24] MEDS: INSULIN (LEVEMIR) 100 UNITS/ML UNITS SQ SCH (06:20)
[2017-10-24] MEDS: INSULIN SLIDING SCALE (NOVOLOG) 1 VIAL SQ SCH ×4 (06:21→22:55)
[2017-10-24] MEDS: HEPARIN NA (PORCINE) 5,000 UNITS/ML 1ML VIAL SQ SCH ×3 (06:21→22:53)
[2017-10-24] MEDS: VANCOMYCIN 250 MG/5 ML ORAL SOLUTION PO SCH ×4 (06:21→23:43)
--- NOTE | 2017-10-24 10:24 | PN ---
Teaching Attending Note Name of Resident: Sally Dorado ATTENDING PHYSICIAN STATEMENT I saw and evaluated the patient. I reviewed the resident's note and discussed the case with the resident. I agree with the resident's findings and plan as documented. SUBJECTIVE: OBJECTIVE: Vital Signs Temperature 97.7 F 10/24/17 06:00 Pulse Rate 66 10/24/17 06:00 Respiratory Rate 18 10/24/17 06:00 Blood Pressure 130/81 10/24/17 06:00 O2 Sat by Pulse Oximetry (%) 98 10/23/17 21:00 CBCD WBC 5.3 K/mm3 (4.0-10.0) 10/21/17 07:30 RBC 4.36 M/mm3 (3.60-5.2) 10/21/17 07:30 Hgb 12.1 GM/dL (10.7-15.3) 10/21/17 07:30 Hct 35.5 % (32.4-45.2) 10/21/17 07:30 MCV 81.4 fl (80-96) 10/21/17 07:30 MCHC 34.0 g/dl (32.0-36.0) 10/21/17 07:30 RDW 14.6 % (11.6-15.6) 10/21/17 07:30 Plt Count 160 K/MM3 (134-434) 10/21/17 07:30 MPV 8.5 fl (7.5-11.1) 10/21/17 07:30 CMP Sodium 142 mmol/L (136-145) 10/21/17 07:30 Potassium 3.8 mmol/L (3.5-5.1) 10/21/17 07:30 Chloride 108 mmol/L (98-107) H 10/21/17 07:30 Carbon Dioxide 24 mmol/L (21-32) 10/21/17 07:30 Anion Gap 10 (8-16) 10/21/17 07:30 BUN 11 mg/dL (7-18) 10/21/17 07:30 Creatinine 0.6 mg/dL (0.55-1.02) 10/21/17 07:30 Creat Clearance w eGFR > 60 (>60) 10/21/17 07:30 Random Glucose 176 mg/dL (74-106) H 10/21/17 07:30 Calcium 7.9 mg/dL (8.5-10.1) L 10/21/17 07:30 Total Bilirubin 0.3 mg/dL (0.2-1.0) 10/21/17 07:30 AST 16 U/L (15-37) 10/21/17 07:30 ALT 24 U/L (12-78) 10/21/17 07:30 Alkaline Phosphatase 67 U/L (45-117) 10/21/17 07:30 Total Protein 6.3 g/dl (6.4-8.2) L 10/21/17 07:30 Albumin 2.8 g/dl (3.4-5.0) L 10/21/17 07:30 CARDIAC ENZYMES Creatine Kinase 62 IU/L (26-192) 10/18/17 20:23 Troponin I < 0.02 ng/ml (0.00-0.05) 10/18/17 20:23 Current Medications Generic Name Dose Route Start Last Admin Trade Name Freq PRN Reason Stop Dose Admin Acetaminophen 650 mg 10/19/17 03:21 10/23/17 20:04 Tylenol - PO 650 mg Q4H PRN Administration FEVER Amlodipine Besylate 10 mg 10/22/17 10:00 10/23/17 11:03 Norvasc - PO 10 mg DAILY [facility] Administration Aspirin 325 mg 10/20/17 10:00 10/22/17 10:37 Asa - PO 325 mg Q48H [facility] Administration Atorvastatin Calcium 10 mg 10/19/17 22:00 10/23/17 23:01 Lipitor - PO 10 mg HS [facility] Administration Donepezil HCl 10 mg 10/19/17 22:00 10/23/17 23:01 Aricept - PO 10 mg HS [facility] Administration Heparin Sodium (Porcine) 5,000 unit 10/19/17 14:00 10/24/17 06:21 Heparin - SQ 5,000 unit TID [facility] Administration IV Flush 8 ml 10/21/17 16:26 Picc Line Flush IVPUSH PRN PRN Protocol IV Flush 8 ml 10/23/17 10:13 Picc Line Flush IVPUSH PRN PRN Protocol Ertapenem 1 gm/ Sodium 50 mls @ 100 mls/hr 10/20/17 13:15 10/23/17 11:03 Chloride IVPB 100 mls/hr DAILY [facility] Administration Insulin Aspart 1 vial 10/19/17 22:00 10/24/17 06:21 Novolog Vial Sliding Scale - SQ Not Given ACHS [facility] Protocol Insulin Detemir 27 units 10/22/17 17:59 10/24/17 06:20 Levemir Vial SQ 27 units AM [facility] Administration Lactobacillus Acidophilus 1 tab 10/21/17 10:00 10/23/17 11:02 Bacid - PO 1 tab DAILY [facility] Administration Levetiracetam 500 mg 10/19/17 22:00 10/23/17 23:01 Keppra - PO 500 mg BID [facility] Administration Metoprolol Succinate 50 mg 10/23/17 10:00 10/23/17 11:04 Toprol Xl - PO 50 mg DAILY [facility] Administration Nystatin 1 applic 10/23/17 18:34 10/23/17 23:08 Nystop Powder - TP 1 applic Q8H PRN Administration ITCHINESS Pantoprazole Sodium 40 mg 10/19/17 10:00 10/23/17 11:03 Protonix - PO 40 mg DAILY [facility] Administration Trazodone HCl 50 mg 10/19/17 03:25 10/23/17 23:01 Desyrel - PO 50 mg HS PRN Administration INSOMNIA Vancomycin HCl 125 mg 10/19/17 00:00 10/24/17 06:21 Vancomycin Oral Solution PO 125 mg Q6HPO [facility] Administration Zinc Oxide/Panthenol/Vitamin E 1 applic 10/23/17 18:31 10/23/17 23:09 Balmex Cream - TP 1 applic Q8H PRN Administration ITCHY SKIN Home Medications Medication Instructions Recorded Metformin HCl 1,000 mg PO BIDAC 01/15/14 Pravastatin Sodium 10 mg PO HS 07/18/17 Donepezil HCl 10 mg PO HS 07/19/17 Insulin Glargine,Hum.rec.anlog 30 unit SQ DAILY 07/19/17 [Lantus Solostar] Pantoprazole Sodium [Protonix] 40 mg PO DAILY 07/19/17 traZODone HCL [Desyrel -] 50 mg PO HS tablet 08/24/17 Aspirin [ASA -] 325 mg PO Q48H 10/19/17 Zolpidem Tartrate [Ambien] 5 mg PO HS 10/19/17 levETIRAcetam [Keppra -] 500 mg PO BID 10/19/17 Ertapenem Sodium - 1 Gram [Invanz 1 gm IVPB DAILY #4 bag 10/22/17 (Pre-Docked)] Metoprolol Succinate 50 mg PO 10/22/17 Amlodipine Besylate [Norvasc -] 10 mg PO DAILY #30 tablet 10/23/17 Vancomycin HCl 125 mg PO Q6H #28 capsule 10/23/17 ASSESSMENT AND PLAN: Patient is a 67 y/o lady with hx of dementia , non verbal, treated Non Hodgkin' s lymphhoma , DM , HTN, recent hospitalization for ESBL klebsiella UTI, recent seizures who presented with fever . # S/p Sepsis due to UTI: cx with Klebsiella ESBL. on ertapenam day 10/30 ,no mechanical obstruction , and no intervention , f/u with ID and urology as out pt # T2DM: cont SSI and levemir # H/o recent seizures. Cont keppra. # HTN: cont BB and increased norvasc DVt Px: Heparin
--- NOTE | 2017-10-24 10:37 | PN ---
Physical Exam: SUBJECTIVE: Patient is a 67 y/o female with c. diff, klebsiella UTI, dementia, DM, CAD, HLD , HTN and NHL s/p chemo who is admitted for sepsis. Patient had no acute events overnight. Daughter said patient is doing well, had soft bowel movement this morning. No complaints. OBJECTIVE: Vital Signs Period Temp Pulse Resp BP Sys/Lopez Pulse Ox Last 24 Hr 97.7 F-98.2 F 66-78 16-18 130-156/80-89 98 GENERAL: The patient is awake, alert, patient is non verbal at baseline HEAD: Normal with no signs of trauma. LUNGS: Breath sounds equal, clear to auscultation bilaterally HEART: Regular rate and rhythm ABDOMEN: Soft, nontender, nondistended Laboratory Results - last 24 hr 10/23/17 10/23/17 10/23/17 11:15 16:27 16:32 POC Glucometer 323 401 413 10/23/17 10/24/17 21:17 06:16 POC Glucometer 259 185 Active Medications Generic Name Dose Route Start Last Admin Trade Name Freq PRN Reason Stop Dose Admin Acetaminophen 650 mg 10/19/17 03:21 10/23/17 20:04 Tylenol - PO 650 mg Q4H PRN Administration FEVER Amlodipine Besylate 10 mg 10/22/17 10:00 10/23/17 11:03 Norvasc - PO 10 mg DAILY [facility] Administration Aspirin 325 mg 10/20/17 10:00 10/22/17 10:37 Asa - PO 325 mg Q48H [facility] Administration Atorvastatin Calcium 10 mg 10/19/17 22:00 10/23/17 23:01 Lipitor - PO 10 mg HS [facility] Administration Donepezil HCl 10 mg 10/19/17 22:00 10/23/17 23:01 Aricept - PO 10 mg HS [facility] Administration Heparin Sodium (Porcine) 5,000 unit 10/19/17 14:00 10/24/17 06:21 Heparin - SQ 5,000 unit TID [facility] Administration IV Flush 8 ml 10/21/17 16:26 Picc Line Flush IVPUSH PRN PRN Protocol IV Flush 8 ml 10/23/17 10:13 Picc Line Flush IVPUSH PRN PRN Protocol Ertapenem 1 gm/ Sodium 50 mls @ 100 mls/hr 10/20/17 13:15 10/23/17 11:03 Chloride IVPB 100 mls/hr DAILY [facility] Administration Insulin Aspart 1 vial 10/19/17 22:00 10/24/17 06:21 Novolog Vial Sliding Scale - SQ Not Given ACHS [facility] Protocol Insulin Detemir 27 units 10/22/17 17:59 10/24/17 06:20 Levemir Vial SQ 27 units AM [facility] Administration Lactobacillus Acidophilus 1 tab 10/21/17 10:00 10/23/17 11:02 Bacid - PO 1 tab DAILY [facility] Administration Levetiracetam 500 mg 10/19/17 22:00 10/23/17 23:01 Keppra - PO 500 mg BID [facility] Administration Metoprolol Succinate 50 mg 10/23/17 10:00 10/23/17 11:04 Toprol Xl - PO 50 mg DAILY [facility] Administration Nystatin 1 applic 10/23/17 18:34 10/23/17 23:08 Nystop Powder - TP 1 applic Q8H PRN Administration ITCHINESS Pantoprazole Sodium 40 mg 10/19/17 10:00 10/23/17 11:03 Protonix - PO 40 mg DAILY [facility] Administration Trazodone HCl 50 mg 10/19/17 03:25 10/23/17 23:01 Desyrel - PO 50 mg HS PRN Administration INSOMNIA Vancomycin HCl 125 mg 10/19/17 00:00 10/24/17 06:21 Vancomycin Oral Solution PO 125 mg Q6HPO [facility] Administration Zinc Oxide/Panthenol/Vitamin E 1 applic 10/23/17 18:31 10/23/17 23:09 Balmex Cream - TP 1 applic Q8H PRN Administration ITCHY SKIN ASSESSMENT/PLAN: Patient is a 67 y/o female with c. diff and klebsiella UTI who is admitted for sepsis 2/2 to UTI of lactose fermenting gram negative bacilli. #Sepsis -Ucx found to have lactose fermenting gram negative bacilli -Ertapenem day (5 of 10 days), discuss with ID treatment duration (change from 7 days to 10) -patient afebrile -f/u ID and nephrology outpatient #C.diff -Continue PO Vanco for C. diff treatment (day 814) #DM -Continue levemir and SSI #Seizure -Continue home medications #DVT PPX: -Continue Heparin Dispo: Discuss peripheral line vs PICC for outpatient Ertapenem (10 days in total, per Dr. Coe ID), discuss home nurse to administer medication Visit type - Emergency Visit Emergency Visit: No - New Patient This patient is new to me today: No - Critical Care Critical Care patient: No
[2017-10-24] MEDS: LACTOBACILLUS ACIDOPHILUS 1 TABLET PO SCH (11:54)
[2017-10-24] MEDS: amLODIPine BESYLATE 10 MG TABLET (FP) PO SCH (11:54)
[2017-10-24] MEDS: PANTOPRAZOLE 40 MG TABLET (FP) PO SCH (11:55)
[2017-10-24] MEDS: ERTAPENEM SODIUM 1 GM in SODIUM CHLORIDE 50 ML IVPB SCH (11:55)
[2017-10-24] MEDS: levETIRAcetam 500 MG TABLET (FP) PO SCH ×2 (11:55→22:54)
[2017-10-24] MEDS: ASPIRIN 325 MG TABLET PO SCH (11:55)
[2017-10-24] MEDS: NYSTATIN POWDER 100,000 UNITS/GM - 15 GM TOPICAL POWDER TP PRN (17:37)
[2017-10-24] MEDS: ACETAMINOPHEN 325 MG TABLET (FP) PO PRN (17:37)
[2017-10-24] MEDS ORDERED: ZOLPIDEM TARTRATE 5 MG TABLET PO ONE ×2 (19:00→22:00)
--- NOTE | 2017-10-24 20:24 | HOSP ---
Subjective - Review of Symptoms Events since last encounter: Pt is non verbal, family notes that pt is experiencing itching discomfort in vaginal/labia area. Pt currently receiving nystatin powder for fungal infx, which has been improving Genitourinary: Yes: Other Other Systems: skin: itching in perineum and labia Physical Examination Vital Signs: Vital Signs Temperature 98.2 F 10/24/17 15:11 Pulse Rate 70 10/24/17 15:11 Respiratory Rate 18 10/24/17 15:11 Blood Pressure 120/78 10/24/17 15:11 O2 Sat by Pulse Oximetry (%) 98 10/24/17 09:00 Integumentary: Yes: Rash (rash in perineum/labial folds) Labs: CBC, BMP 10/21/17 07:30 10/21/17 07:30 Hospitalist Encounter Assessment: Pt currently receiving nystatin powder for fungal infx, which has been improving experiencing itching in perineum/labial folds. Rash noted -will give topical Benadryl cream 2% Visit type - Emergency Visit Emergency Visit: No - New Patient This patient is new to me today: No - Critical Care Critical Care patient: No
[2017-10-24] MEDS: ATORVASTATIN CA 10 MG TABLET (FP) PO SCH (22:55)
[2017-10-24] MEDS: DONEPEZIL HCL 10 MG TABLET (FP) PO SCH (22:55)
[2017-10-25] MEDS: VANCOMYCIN 250 MG/5 ML ORAL SOLUTION PO SCH ×4 (06:51→23:05)
[2017-10-25] MEDS: HEPARIN NA (PORCINE) 5,000 UNITS/ML 1ML VIAL SQ SCH ×3 (06:51→21:49)
[2017-10-25] MEDS: INSULIN (LEVEMIR) 100 UNITS/ML UNITS SQ SCH (06:51)
[2017-10-25] MEDS: INSULIN SLIDING SCALE (NOVOLOG) 1 VIAL SQ SCH ×4 (06:52→21:49)
--- NOTE | 2017-10-25 09:23 | PN ---
Physical Exam: SUBJECTIVE: Patient is a 67 y/o female with c. diff, klebsiella UTI, dementia, DM, CAD, HLD , HTN and NHL s/p chemo who is admitted for sepsis. Patient had no acute events overnight. Daughter said patient is doing well, had soft bowel movement this morning. No complaints. OBJECTIVE: Vital Signs Period Temp Pulse Resp BP Sys/Lopez Pulse Ox Last 24 Hr 96.7 F-98.2 F 55-70 18-20 120-154/67-90 98-98 GENERAL: The patient is awake, alert, patient is non verbal at baseline HEAD: Normal with no signs of trauma. LUNGS: Breath sounds equal, clear to auscultation bilaterally HEART: Regular rate and rhythm ABDOMEN: Soft, nontender, nondistended Laboratory Results - last 24 hr 10/24/17 10/24/17 10/24/17 12:02 17:36 23:04 POC Glucometer 326 306 288 10/25/17 05:54 POC Glucometer 170 Active Medications Generic Name Dose Route Start Last Admin Trade Name Freq PRN Reason Stop Dose Admin Acetaminophen 650 mg 10/19/17 03:21 10/24/17 17:37 Tylenol - PO 650 mg Q4H PRN Administration FEVER Amlodipine Besylate 10 mg 10/22/17 10:00 10/24/17 11:54 Norvasc - PO 10 mg DAILY [facility] Administration Aspirin 325 mg 10/20/17 10:00 10/24/17 11:55 Asa - PO 325 mg Q48H [facility] Administration Atorvastatin Calcium 10 mg 10/19/17 22:00 10/24/17 22:55 Lipitor - PO 10 mg HS [facility] Administration Donepezil HCl 10 mg 10/19/17 22:00 10/24/17 22:55 Aricept - PO 10 mg HS [facility] Administration Heparin Sodium (Porcine) 5,000 unit 10/19/17 14:00 10/25/17 06:51 Heparin - SQ 5,000 unit TID [facility] Administration IV Flush 8 ml 10/21/17 16:26 Picc Line Flush IVPUSH PRN PRN Protocol IV Flush 8 ml 10/23/17 10:13 Picc Line Flush IVPUSH PRN PRN Protocol Ertapenem 1 gm/ Sodium 50 mls @ 100 mls/hr 10/20/17 13:15 10/24/17 11:55 Chloride IVPB 100 mls/hr DAILY [facility] Administration Insulin Aspart 1 vial 10/19/17 22:00 10/25/17 06:52 Novolog Vial Sliding Scale - SQ Not Given ACHS [facility] Protocol Insulin Detemir 27 units 10/22/17 17:59 10/25/17 06:51 Levemir Vial SQ 27 units AM [facility] Administration Lactobacillus Acidophilus 1 tab 10/21/17 10:00 10/24/17 11:54 Bacid - PO 1 tab DAILY [facility] Administration Levetiracetam 500 mg 10/19/17 22:00 10/24/17 22:54 Keppra - PO 500 mg BID [facility] Administration Metoprolol Succinate 50 mg 10/23/17 10:00 10/24/17 11:54 Toprol Xl - PO 50 mg DAILY [facility] Administration Nystatin 1 applic 10/23/17 18:34 10/24/17 17:37 Nystop Powder - TP 1 applic Q8H PRN Administration ITCHINESS Pantoprazole Sodium 40 mg 10/19/17 10:00 10/24/17 11:55 Protonix - PO 40 mg DAILY [facility] Administration Trazodone HCl 50 mg 10/19/17 03:25 10/23/17 23:01 Desyrel - PO 50 mg HS PRN Administration INSOMNIA Vancomycin HCl 125 mg 10/19/17 00:00 10/25/17 06:51 Vancomycin Oral Solution PO 125 mg Q6HPO [facility] Administration Zinc Oxide/Panthenol/Vitamin E 1 applic 10/23/17 18:31 10/23/17 23:09 Balmex Cream - TP 1 applic Q8H PRN Administration ITCHY SKIN ASSESSMENT/PLAN: Patient is a 67 y/o female with c. diff and klebsiella UTI who is admitted for sepsis 2/2 to UTI of lactose fermenting gram negative bacilli. #Sepsis -Ucx found to have lactose fermenting gram negative bacilli -Ertapenem day 6/ per Dr. Coe -patient afebrile -f/u ID and nephrology outpatient #C.diff -Continue PO Vanco for C. diff treatment #DM -Continue levemir and SSI #Seizure -Continue home medications #DVT PPX: -Continue Heparin Dispo: Day 6 for Ertapenem, plan to DC tomorrow following last dose of antibiotic Visit type - Emergency Visit Emergency Visit: No - New Patient This patient is new to me today: No - Critical Care Critical Care patient: No
[2017-10-25] MEDS: LACTOBACILLUS ACIDOPHILUS 1 TABLET PO SCH (10:56)
[2017-10-25] MEDS: levETIRAcetam 500 MG TABLET (FP) PO SCH ×2 (10:56→21:49)
[2017-10-25] MEDS: PANTOPRAZOLE 40 MG TABLET (FP) PO SCH (10:56)
[2017-10-25] MEDS: amLODIPine BESYLATE 10 MG TABLET (FP) PO SCH (10:56)
[2017-10-25] MEDS: ERTAPENEM SODIUM 1 GM in SODIUM CHLORIDE 50 ML IVPB SCH (11:01)
--- NOTE | 2017-10-25 11:26 | EKG ---
Test Reason : Blood Pressure : / mmHG Vent. Rate : 064 BPM Atrial Rate : 064 BPM P-R Int : 188 ms QRS Dur : 096 ms QT Int : 468 ms P-R-T Axes : 049 -49 081 degrees QTc Int : 482 ms NORMAL SINUS RHYTHM LEFT AXIS DEVIATION MODERATE VOLTAGE CRITERIA FOR LVH, MAY BE NORMAL VARIANT CANNOT RULE OUT SEPTAL INFARCT (CITED ON OR BEFORE 26-JUL-2017) ABNORMAL ECG WHEN COMPARED WITH ECG OF 18-OCT-2017 21:44, T WAVE INVERSION MORE EVIDENT IN LATERAL LEADS Confirmed by OPAL MOHAN MD ([id number]) on 10/25/2017 11:26:00 AM Referred By: Confirmed By:OPAL MOHAN MD
[2017-10-25 15:19] VITALS: BMI 23.3
[2017-10-25] MEDS ORDERED: INSULIN (NOVOLOG) ASPART 100 UNITS/ML 10ML VIAL ONE ×2 (18:34→21:21)
--- NOTE | 2017-10-25 21:09 | PN ---
Teaching Attending Note Name of Resident: Sally Dorado ATTENDING PHYSICIAN STATEMENT I saw and evaluated the patient. I reviewed the resident's note and discussed the case with the resident. I agree with the resident's findings and plan as documented. SUBJECTIVE: OBJECTIVE: Vital Signs Temperature 97.6 F 10/25/17 17:52 Pulse Rate 66 10/25/17 17:52 Respiratory Rate 20 10/25/17 17:52 Blood Pressure 182/69 10/25/17 17:52 O2 Sat by Pulse Oximetry (%) 98 10/25/17 09:00 CBCD WBC 5.3 K/mm3 (4.0-10.0) 10/21/17 07:30 RBC 4.36 M/mm3 (3.60-5.2) 10/21/17 07:30 Hgb 12.1 GM/dL (10.7-15.3) 10/21/17 07:30 Hct 35.5 % (32.4-45.2) 10/21/17 07:30 MCV 81.4 fl (80-96) 10/21/17 07:30 MCHC 34.0 g/dl (32.0-36.0) 10/21/17 07:30 RDW 14.6 % (11.6-15.6) 10/21/17 07:30 Plt Count 160 K/MM3 (134-434) 10/21/17 07:30 MPV 8.5 fl (7.5-11.1) 10/21/17 07:30 CMP Sodium 142 mmol/L (136-145) 10/21/17 07:30 Potassium 3.8 mmol/L (3.5-5.1) 10/21/17 07:30 Chloride 108 mmol/L (98-107) H 10/21/17 07:30 Carbon Dioxide 24 mmol/L (21-32) 10/21/17 07:30 Anion Gap 10 (8-16) 10/21/17 07:30 BUN 11 mg/dL (7-18) 10/21/17 07:30 Creatinine 0.6 mg/dL (0.55-1.02) 10/21/17 07:30 Creat Clearance w eGFR > 60 (>60) 10/21/17 07:30 Random Glucose 176 mg/dL (74-106) H 10/21/17 07:30 Calcium 7.9 mg/dL (8.5-10.1) L 10/21/17 07:30 Total Bilirubin 0.3 mg/dL (0.2-1.0) 10/21/17 07:30 AST 16 U/L (15-37) 10/21/17 07:30 ALT 24 U/L (12-78) 10/21/17 07:30 Alkaline Phosphatase 67 U/L (45-117) 10/21/17 07:30 Total Protein 6.3 g/dl (6.4-8.2) L 10/21/17 07:30 Albumin 2.8 g/dl (3.4-5.0) L 10/21/17 07:30 CARDIAC ENZYMES Creatine Kinase 62 IU/L (26-192) 10/18/17 20:23 Troponin I < 0.02 ng/ml (0.00-0.05) 10/18/17 20:23 Current Medications Generic Name Dose Route Start Last Admin Trade Name Freq PRN Reason Stop Dose Admin Acetaminophen 650 mg 10/19/17 03:21 10/24/17 17:37 Tylenol - PO 650 mg Q4H PRN Administration FEVER Amlodipine Besylate 10 mg 10/22/17 10:00 10/25/17 10:56 Norvasc - PO 10 mg DAILY [facility] Administration Aspirin 325 mg 10/20/17 10:00 10/24/17 11:55 Asa - PO 325 mg Q48H [facility] Administration Atorvastatin Calcium 10 mg 10/19/17 22:00 10/24/17 22:55 Lipitor - PO 10 mg HS [facility] Administration Donepezil HCl 10 mg 10/19/17 22:00 10/24/17 22:55 Aricept - PO 10 mg HS [facility] Administration Heparin Sodium (Porcine) 5,000 unit 10/19/17 14:00 10/25/17 14:45 Heparin - SQ 5,000 unit TID [facility] Administration IV Flush 8 ml 10/21/17 16:26 Picc Line Flush IVPUSH PRN PRN Protocol IV Flush 8 ml 10/23/17 10:13 Picc Line Flush IVPUSH PRN PRN Protocol Ertapenem 1 gm/ Sodium 50 mls @ 100 mls/hr 10/20/17 13:15 10/25/17 11:01 Chloride IVPB 100 mls/hr DAILY [facility] Administration Insulin Aspart 1 vial 10/19/17 22:00 10/25/17 18:47 Novolog Vial Sliding Scale - SQ Not Given ACHS [facility] Protocol Insulin Detemir 27 units 10/22/17 17:59 10/25/17 06:51 Levemir Vial SQ 27 units AM [facility] Administration Lactobacillus Acidophilus 1 tab 10/21/17 10:00 10/25/17 10:56 Bacid - PO 1 tab DAILY [facility] Administration Levetiracetam 500 mg 10/19/17 22:00 10/25/17 10:56 Keppra - PO 500 mg BID [facility] Administration Metoprolol Succinate 50 mg 10/23/17 10:00 10/25/17 10:56 Toprol Xl - PO 50 mg DAILY [facility] Administration Nystatin 1 applic 10/23/17 18:34 10/24/17 17:37 Nystop Powder - TP 1 applic Q8H PRN Administration ITCHINESS Pantoprazole Sodium 40 mg 10/19/17 10:00 10/25/17 10:56 Protonix - PO 40 mg DAILY [facility] Administration Trazodone HCl 50 mg 10/19/17 03:25 10/23/17 23:01 Desyrel - PO 50 mg HS PRN Administration INSOMNIA Vancomycin HCl 125 mg 10/19/17 00:00 10/25/17 18:48 Vancomycin Oral Solution PO 125 mg Q6HPO [facility] Administration Zinc Oxide/Panthenol/Vitamin E 1 applic 10/23/17 18:31 10/23/17 23:09 Balmex Cream - TP 1 applic Q8H PRN Administration ITCHY SKIN Home Medications Medication Instructions Recorded Metformin HCl 1,000 mg PO BIDAC 01/15/14 Pravastatin Sodium 10 mg PO HS 07/18/17 Donepezil HCl 10 mg PO HS 07/19/17 Insulin Glargine,Hum.rec.anlog 30 unit SQ DAILY 07/19/17 [Lantus Solostar] Pantoprazole Sodium [Protonix] 40 mg PO DAILY 07/19/17 traZODone HCL [Desyrel -] 50 mg PO HS tablet 08/24/17 Aspirin [ASA -] 325 mg PO Q48H 10/19/17 Zolpidem Tartrate [Ambien] 5 mg PO HS 10/19/17 levETIRAcetam [Keppra -] 500 mg PO BID 10/19/17 Metoprolol Succinate 50 mg PO 10/22/17 Amlodipine Besylate [Norvasc -] 10 mg PO DAILY #30 tablet 10/23/17 ASSESSMENT AND PLAN: Patient is a 67 y/o lady with hx of dementia , non verbal, treated Non Hodgkin' s lymphhoma , DM , HTN, recent hospitalization for ESBL klebsiella UTI, recent seizures who presented with fever . # S/p Sepsis due to UTI: cx with Klebsiella ESBL. on ertapenam day 12/31 , no mechanical obstruction , and no intervention - f/u with ID and ,urology as out pt # DM: cont SSI and levemir # H/o recent seizures. Cont keppra. # HTN: cont BB and increased norvasc DVT Px: heparin
[2017-10-25] MEDS: DONEPEZIL HCL 10 MG TABLET (FP) PO SCH (21:48)
[2017-10-25] MEDS: ATORVASTATIN CA 10 MG TABLET (FP) PO SCH (21:49)
[2017-10-25] MEDS: traZODone HCL 50 MG TABLET (FP) PO PRN (23:06)
[2017-10-26] MEDS: INSULIN SLIDING SCALE (NOVOLOG) 1 VIAL SQ SCH (06:21)
[2017-10-26] MEDS: VANCOMYCIN 250 MG/5 ML ORAL SOLUTION PO SCH (06:22)
[2017-10-26] MEDS: INSULIN (LEVEMIR) 100 UNITS/ML UNITS SQ SCH (06:22)
[2017-10-26] MEDS: HEPARIN NA (PORCINE) 5,000 UNITS/ML 1ML VIAL SQ SCH (06:22)
[2017-10-26] MEDS: ASPIRIN 325 MG TABLET PO SCH (09:26)
[2017-10-26] MEDS: amLODIPine BESYLATE 10 MG TABLET (FP) PO SCH (09:26)
[2017-10-26] MEDS: PANTOPRAZOLE 40 MG TABLET (FP) PO SCH (09:26)
[2017-10-26] MEDS: levETIRAcetam 500 MG TABLET (FP) PO SCH (09:26)
[2017-10-26] MEDS: ERTAPENEM SODIUM 1 GM in SODIUM CHLORIDE 50 ML IVPB SCH (09:26)
[2017-10-26] MEDS: LACTOBACILLUS ACIDOPHILUS 1 TABLET PO SCH (09:26)
[2017-10-26 11:19] VITALS: BP 138/78; PULSE 70; TEMP 97.8
--- NOTE | 2017-10-26 16:00 | DS ---
Physical Exam: SUBJECTIVE: Patient is a 67 y/o female with c. diff, klebsiella UTI, dementia, DM, CAD, HLD , HTN and NHL s/p chemo who is admitted for sepsis. Patient had no acute events overnight. No complaints. Family is ready to take her home today. OBJECTIVE: Vital Signs Period Temp Pulse Resp BP Sys/Lopez Pulse Ox Last 24 Hr 97.2 F-97.8 F 66-70 20-20 138-182/69-89 98-98 PHYSICAL EXAM GENERAL: The patient is awake, alert, patient is non verbal at baseline HEAD: Normal with no signs of trauma. LUNGS: Breath sounds equal, clear to auscultation bilaterally HEART: Regular rate and rhythm ABDOMEN: Soft, nontender, nondistended LABS Laboratory Results - last 24 hr 10/25/17 10/25/17 10/26/17 17:50 21:47 06:20 POC Glucometer 176 306 197 HOSPITAL COURSE: Date of Admission:10/19/17 Patient is a 67 y/o female with a past medical history of c. diff, klebsiella UTI, dementia, IDDM, CAD, HLD, HTN and NHL s/p chemo 2012 who was admitted for severe sepsis 2/2 to UTI. She presented in the ED with fever and tremors. She was also found to have leukocytosis and lactic acidosis. She was given Zosyn, Flagyl and Oral Vancomycin for her continued C. diff treatment. UCX was found to be lactose fermenting gram negative bacilli and patient was began on Ertapenem. Patient completed 7 days of IV antibiotics. Patients Levemir was increased to 25 units and she was placed on a sliding scale to properly manage her diabetes. Patient referred to Dr. Maurice. Date of Discharge: 10/26/17 Minutes to complete discharge: 42 Discharge Summary Reason For Visit: CDIFF DIARRHEA/UTI/HYDROURETERONEPHROSIS Condition: Guarded - Instructions Diet, Activity, Other Instructions: You were admitted to the hospital due to an infection in your urine. The infection was the cause of your fever and shaking. The antibiotics helped to bring down the fever and clear the infection. You will continue to take Vancomycin by mouth to treat the C. diff diarrhea. Take one pill every 6 hours, for one week by mouth. A imaging study of your kidney showed you have an abnormal urinary tract, which leads to the the repeated infections. You will follow up with a urologist outpatient to discuss management. Please follow with the urologist Dr. Sanchez within 1 week of discharge. Norvasc was increased to 10 mg daily instead of 5 mg . prescription sent . Levemir dose was increased . please check sugar three times a day before meals and report to MD You should follow up with Dr. Coe in one week, who is your infectious disease doctor. You should follow up with your primary care physician in one week. You should resume your home medications as prescribed. If you experience worsening fevers, chills, chest pain, shortness of breath, nausea, vomiting , diarrhea, please return to the emergency department for evaluation. Referrals: Reji Coe MD [Staff Physician] - Sally Lugo [Primary Care Provider] - 1 Week Kenrick Sanchez MD [Staff Physician] - 1 Week Disposition: HOME - Home Medications Comprehensive Discharge Medication List: Ambulatory Orders Metformin HCl 1,000 mg PO BIDAC 01/15/14 Pravastatin Sodium 10 mg PO HS 07/18/17 Donepezil HCl 10 mg PO HS 07/19/17 Insulin Glargine,Hum.rec.anlog [Lantus Solostar] 30 unit SQ DAILY 07/19/17 Pantoprazole Sodium [Protonix] 40 mg PO DAILY 07/19/17 traZODone HCL [Desyrel -] 50 mg PO HS tablet 08/24/17 Aspirin [ASA -] 325 mg PO Q48H 10/19/17 Zolpidem Tartrate [Ambien] 5 mg PO HS 10/19/17 levETIRAcetam [Keppra -] 500 mg PO BID 10/19/17 Metoprolol Succinate 50 mg PO 10/22/17 Amlodipine Besylate [Norvasc -] 10 mg PO DAILY #30 tablet 10/23/17 Vancomycin HCl 125 mg PO Q6H #28 capsule 10/26/17 This patient is new to me today: No Emergency Visit: No Critical Care patient: No - Discharge Referral Referred to [facility] No
--- NOTE | 2017-10-26 17:04 | PN ---
Teaching Attending Note Name of Resident: Sally Dorado ATTENDING PHYSICIAN STATEMENT I saw and evaluated the patient. I reviewed the resident's note and discussed the case with the resident. I agree with the resident's findings and plan as documented. SUBJECTIVE: OBJECTIVE: Vital Signs Temperature 97.8 F 10/26/17 10:00 Pulse Rate 70 10/26/17 10:00 Respiratory Rate 20 10/26/17 10:00 Blood Pressure 138/78 10/26/17 10:00 O2 Sat by Pulse Oximetry (%) 98 10/26/17 09:00 CBCD WBC 5.3 K/mm3 (4.0-10.0) 10/21/17 07:30 RBC 4.36 M/mm3 (3.60-5.2) 10/21/17 07:30 Hgb 12.1 GM/dL (10.7-15.3) 10/21/17 07:30 Hct 35.5 % (32.4-45.2) 10/21/17 07:30 MCV 81.4 fl (80-96) 10/21/17 07:30 MCHC 34.0 g/dl (32.0-36.0) 10/21/17 07:30 RDW 14.6 % (11.6-15.6) 10/21/17 07:30 Plt Count 160 K/MM3 (134-434) 10/21/17 07:30 MPV 8.5 fl (7.5-11.1) 10/21/17 07:30 CMP Sodium 142 mmol/L (136-145) 10/21/17 07:30 Potassium 3.8 mmol/L (3.5-5.1) 10/21/17 07:30 Chloride 108 mmol/L (98-107) H 10/21/17 07:30 Carbon Dioxide 24 mmol/L (21-32) 10/21/17 07:30 Anion Gap 10 (8-16) 10/21/17 07:30 BUN 11 mg/dL (7-18) 10/21/17 07:30 Creatinine 0.6 mg/dL (0.55-1.02) 10/21/17 07:30 Creat Clearance w eGFR > 60 (>60) 10/21/17 07:30 Random Glucose 176 mg/dL (74-106) H 10/21/17 07:30 Calcium 7.9 mg/dL (8.5-10.1) L 10/21/17 07:30 Total Bilirubin 0.3 mg/dL (0.2-1.0) 10/21/17 07:30 AST 16 U/L (15-37) 10/21/17 07:30 ALT 24 U/L (12-78) 10/21/17 07:30 Alkaline Phosphatase 67 U/L (45-117) 10/21/17 07:30 Total Protein 6.3 g/dl (6.4-8.2) L 10/21/17 07:30 Albumin 2.8 g/dl (3.4-5.0) L 10/21/17 07:30 CARDIAC ENZYMES Creatine Kinase 62 IU/L (26-192) 10/18/17 20:23 Troponin I < 0.02 ng/ml (0.00-0.05) 10/18/17 20:23 Home Medications Medication Instructions Recorded Metformin HCl 1,000 mg PO BIDAC 01/15/14 Pravastatin Sodium 10 mg PO HS 07/18/17 Donepezil HCl 10 mg PO HS 07/19/17 Insulin Glargine,Hum.rec.anlog 30 unit SQ DAILY 07/19/17 [Lantus Solostar] Pantoprazole Sodium [Protonix] 40 mg PO DAILY 07/19/17 traZODone HCL [Desyrel -] 50 mg PO HS tablet 08/24/17 Aspirin [ASA -] 325 mg PO Q48H 10/19/17 Zolpidem Tartrate [Ambien] 5 mg PO HS 10/19/17 levETIRAcetam [Keppra -] 500 mg PO BID 10/19/17 Metoprolol Succinate 50 mg PO 10/22/17 Amlodipine Besylate [Norvasc -] 10 mg PO DAILY #30 tablet 10/23/17 Vancomycin HCl 125 mg PO Q6H #28 capsule 10/26/17 ASSESSMENT AND PLAN: Patient is a 67 y/o lady with hx of dementia , non verbal, treated Non Hodgkin' s lymphhoma , DM , HTN, recent hospitalization for ESBL klebsiella UTI, recent seizures who presented with fever . # S/p Sepsis due to UTI: cx with Klebsiella ESBL. on ertapenam day 01/30 , no mechanical obstruction , and no intervention - f/u with ID and ,urology as out pt. cOMPLETED THE TREATMENT. Will follow with urologist and id as an outpatient. # DM: cont SSI and levemir # H/o recent seizures. Cont keppra. # HTN: cont BB and increased norvasc DVT Px: heparin
== END 2017-10-26 11:05 | disposition home or self-care (01) | DRG 872 ==
LOC: JER 19:17 → JERBED 10-19 01:51 → UNDOADMIN 10-19 02:24 → J8W 10-19 18:58
PROVIDERS: ADMIT Internal Medicine; ATTEND Internal Medicine
DX: A41.9 Sepsis, unspecified organism (principal); N39.0 Urinary tract infection, site not specified; E87.2 Acidosis; A04.72 Enterocolitis due to Clostridium difficile, not specified as recurrent; E87.1 Hypo-osmolality and hyponatremia; N13.39 Other hydronephrosis; N20.1 Calculus of ureter; R65.20 Severe sepsis without septic shock; B96.1 Klebsiella pneumoniae [K. pneumoniae] as the cause of diseases classified elsewhere; Z79.4 Long term (current) use of insulin; Z79.84 Long term (current) use of oral hypoglycemic drugs; R56.9 Unspecified convulsions; E11.9 Type 2 diabetes mellitus without complications; I25.10 Atherosclerotic heart disease of native coronary artery without angina pectoris; F03.90 Unspecified dementia, unspecified severity, without behavioral disturbance, psychotic disturbance, mood disturbance, and anxiety; I10 Essential (primary) hypertension; E78.5 Hyperlipidemia, unspecified; Z85.71 Personal history of Hodgkin lymphoma; Z87.891 Personal history of nicotine dependence; K21.9 Gastro-esophageal reflux disease without esophagitis; G47.00 Insomnia, unspecified
CPT/HCPCS: 36415; 71045-TC-FY; 74177-TC; 80053; 81003; 81015; 82550; 82553; 82803; 82962; 83605; 83735; 84100; 84484; 85025; 85027; 85610; 85730; 87040; 87086; 87186; 93005; 93010; 97116-GP; 97161-GP; 99285-25; J0131; J1644; J7030

== ENCOUNTER 2018-01-24 19:16 | Inpatient (IN) | payer OTHER ==
--- NOTE | 2018-01-24 19:38 | PDOC ---
History of Present Illness - General Stated Complaint: NEAR SYNCOPE Time Seen by Provider: 01/24/18 19:32 - History of Present Illness Initial Comments: 01/24/18 19:32 67 yo F with h/o HTN, DM, Alzheimers Dementia Patient denies N/V, F,C, CP, SOB, urinary complaints, abdominal pain, diarrhea, constipation, lightheadedness, weakness, sensory changes. PMHx: as noted above ROS: as noted SHx: Allergies: NKDA Past History - Past Medical History Allergies/Adverse Reactions: Allergies Allergy/AdvReac Type Severity Reaction Status Date / Time Penicillins Allergy Verified 10/19/17 08:31 Home Medications: Ambulatory Orders Metformin HCl 1,000 mg PO BIDAC 01/15/14 Pravastatin Sodium 10 mg PO HS 07/18/17 Donepezil HCl 10 mg PO HS 07/19/17 Insulin Glargine,Hum.rec.anlog [Lantus Solostar] 30 unit SQ DAILY 07/19/17 Pantoprazole Sodium [Protonix] 40 mg PO DAILY 07/19/17 traZODone HCL [Desyrel -] 50 mg PO HS tablet 08/24/17 Aspirin [ASA -] 325 mg PO Q48H 10/19/17 Zolpidem Tartrate [Ambien] 5 mg PO HS 10/19/17 levETIRAcetam [Keppra -] 500 mg PO BID 10/19/17 Metoprolol Succinate 50 mg PO 10/22/17 Amlodipine Besylate [Norvasc -] 10 mg PO DAILY #30 tablet 10/23/17 Vancomycin HCl 125 mg PO Q6H #28 capsule 10/26/17 Cancer: Yes (NON-HODGKINS) Cardiac Disorders: Yes (CAD,) Dementia: Yes (severe dementia (non-verbal at baseline)) Diabetes: Yes HTN: Yes Hypercholesterolemia: Yes Psychiatric Problems: Yes (dementia) Seizures: Yes - Surgical History Abdominal Surgery: Yes (Kidney stent) - Immunization History Immunization Up to Date: Yes - Suicide/Smoking/Psychosocial Hx Smoking History: Never smoked Have you smoked in the past 12 months: No Number of Cigarettes Smoked Daily: 0 If you are a former smoker, when did you quit?: 6 months ago 'Breaking Loose' booklet given: 07/19/17 Hx Alcohol Use: No Drug/Substance Use Hx: No Substance Use Type: None
[2018-01-24] MEDS ORDERED: VANCOMYCIN 1 GRAM (PRE-DOCKED) 1,000 MG/250 ML BAG IVPB ONE ×3 (20:08→21:17)
[2018-01-24] MEDS ORDERED: ACETAMINOPHEN 1000 MG/100 ML VIAL (NON FORMULARY) IVPB ONE (20:16)
--- NOTE | 2018-01-24 20:22 | PDOC ---
History of Present Illness - General History Source: Family Exam Limitations: Clinical Condition - History of Present Illness Initial Comments: 01/24/18 20:23 The patient is a 67 year old female, with a significant past medical history of nonverbal (baseline), diabetes, htn, dementia, chronic C.Diff, and lymphoma who presents to the emergency department with family after reportedly observing a sudden onset of weakness, chills and fever around 5PM this evening. The family reports noticing the patient shaking slightly leaving the doctors office today which she attributed to low blood sugar and states she gave the patient juice. The family at bedside states they witnessed the patient become weak and sweaty at home and took a rectal temperature which was 102F. As per family, Dr. Edwards sent her urine 3 days ago for culture which was positive for Klebsiella today. She has been taking Abx since August 2017. She completed a 7 day course of levaquin PO 2 weeks ago. As per family, the patients urine is foul smelling after they sat her on the toilet to make urine. Allergies: Penicillins PCP - Dr. Coe <Enma Pro - Last Filed: 01/24/18 22:39> - General Exam Limitations: Clinical Condition (nonverbal at baseline) <Saul Aranda - Last Filed: 01/25/18 00:30> - General Stated Complaint: NEAR SYNCOPE Time Seen by Provider: 01/24/18 19:32 Past History <Enma Pro - Last Filed: 01/24/18 22:39> - Past Medical History Cancer: Yes (NON-HODGKINS) Cardiac Disorders: Yes (CAD,) Dementia: Yes (severe dementia (non-verbal at baseline)) Diabetes: Yes HTN: Yes Hypercholesterolemia: Yes Psychiatric Problems: Yes (dementia) Seizures: Yes - Surgical History Abdominal Surgery: Yes (Kidney stent) - Immunization History Immunization Up to Date: Yes - Suicide/Smoking/Psychosocial Hx Smoking History: Never smoked Have you smoked in the past 12 months: No Number of Cigarettes Smoked Daily: 0 If you are a former smoker, when did you quit?: 6 months ago 'Breaking Loose' booklet given: 07/19/17 Hx Alcohol Use: No Drug/Substance Use Hx: No Substance Use Type: None <Saul Aranda - Last Filed: 01/25/18 00:30> - Past Medical History Allergies/Adverse Reactions: Allergies Allergy/AdvReac Type Severity Reaction Status Date / Time Penicillins Allergy Verified 01/24/18 23:13 Home Medications: Ambulatory Orders Metformin HCl 1,000 mg PO BIDAC 01/15/14 Pravastatin Sodium 10 mg PO HS 07/18/17 Donepezil HCl 10 mg PO HS 07/19/17 Insulin Glargine,Hum.rec.anlog [Lantus Solostar] 30 unit SQ DAILY 07/19/17 Pantoprazole Sodium [Protonix] 40 mg PO DAILY 07/19/17 traZODone HCL [Desyrel -] 50 mg PO HS tablet 08/24/17 Aspirin [ASA -] 325 mg PO Q48H 10/19/17 Zolpidem Tartrate [Ambien] 5 mg PO HS 10/19/17 levETIRAcetam [Keppra -] 500 mg PO BID 10/19/17 Metoprolol Succinate 50 mg PO 10/22/17 Amlodipine Besylate [Norvasc -] 10 mg PO DAILY #30 tablet 10/23/17 Vancomycin HCl 125 mg PO Q6H #28 capsule 10/26/17 Review of Systems - Review of Systems Constitutional: Yes: Chills, Fever Respiratory: No: Cough, Shortness of Breath Cardiac (ROS): Yes: Lightheadedness. No: Chest Pain, Edema, Syncope ABD/GI: No: Diarrhea, Nausea, Vomiting : No: Dysuria, Frequency, Hematuria All Other Systems: Reviewed and Negative <Saul Aranda - Last Filed: 01/25/18 00:30> *Physical Exam - Physical Exam Comments: 01/24/18 20:23 GENERAL: The patient is +Febrile (103F), awake, alert, nonverbal at baseline, in no acute distress. HEAD: Normal with no signs of trauma. EYES: Pupils equal, round and reactive to light, extraocular movements intact, sclera anicteric, conjunctiva clear with no pallor. ENT: Ears normal, nares patent, oropharynx clear without exudates. Moist mucous membranes. NECK: Normal range of motion, supple without lymphadenopathy, JVD, or masses. LUNGS: Breath sounds equal, clear to auscultation bilaterally. No wheeze/ crackles. HEART: +Slight tachycardia. Regular rhythm. normal S1 and S2 without murmur or rub. ABDOMEN: Soft/nontender/nondistended. BS wnl. No guarding or rebound. No palpable masses. No hepatosplenomegaly. EXTREMITIES: Normal range of motion, no edema. No clubbing or cyanosis. No cords, erythema, or tenderness. NEUROLOGICAL: Cranial nerves II through XII grossly intact. Nonverbal at baseline. Gait not assessed. SKIN: Warm, Dry, normal turgor, no rashes or lesions noted. <Enma Pro - Last Filed: 01/24/18 22:39> Heart Score/ECG Review #1 ECG reviewed & interpreted by me at: 23:34 General ECG Interpretation: Sinus Rhythm, Normal Rate (84), Normal Intervals ( qtc 484), No acute ischemic changes (TWI AVL, q waves V1V2, LAFB) Compared to previous ECG there are: No significant change (05/10) <Saul Aranda - Last Filed: 01/25/18 00:30> ED Treatment Course - LABORATORY CBC & Chemistry Diagram: 01/24/18 20:50 01/24/18 20:50 <Enma Pro - Last Filed: 01/24/18 22:39> - LABORATORY CBC & Chemistry Diagram: 01/24/18 20:50 01/24/18 20:50 - RADIOLOGY Radiology Studies Ordered: Category Date Time Status CHEST X-RAY PORTABLE* [RAD] Stat Radiology 01/24/18 19:31 Ordered <Saul Aranda - Last Filed: 01/25/18 00:30> Medical Decision Making - Medical Decision Making 01/24/18 22:39 Dr. Milligan was paged at this time for admission of this patient. <Enma Pro - Last Filed: 01/24/18 22:39> - Medical Decision Making 01/24/18 20:18 A portion of this note was documented by scribe services under my direction. I have reviewed the details of the note, within reason, and agree with the documentation with the following case summary and management plan written by me. 67-year-old female with history of recurring UTI, hypertension, diabetes, chronic C. difficile on oral vancomycin presents after noted to have chills today with fever of 102 rectally at home, seen by Dr. Coe her PCP over the last few days, urine culture from 3 days ago showed positive Klebsiella. The patient was recently treated with a oral course of Levaquin for one week 2 weeks ago, presents now secondary to fever in the setting of positive urine culture. febrile 103 rectally, heart rate 95 on my examination Alert, nonverbal at baseline, but no acute distress Heart regular with slight tachycardia, lungs are clear Abdomen is soft/nondistended/nontender, no CVA tenderness No edema, moving all extremities equally 67-year-old female presents with sepsis, likely secondary to acute on chronic UTI. On review of cultures, the Klebsiella was sensitive to the penems and Levaquin in September. Sepsis protocol initiated EKG, chest x-ray Tylenol, antibiotics Admission 01/24/18 22:34 wbc 12.8 with left shift, chem wnl including negative trop. Lactate resulted at 4.4, meeting criteria for septic shock. IVF resuscitation initiated, otherwise clinically unchanged. Proceed with admission, Dr. Milligan covering Dr. Coe. 01/24/18 22:58 Accepted for inpatient med/surg by Dr. Milligan. Agrees with management. Receiving fluids, will repeat lactate. <Saul Aranda - Last Filed: 01/25/18 00:30> *DC/Admit/Observation/Transfer - Attestations Scribe Attestion: 01/24/18 20:23 Documentation prepared by Enma Pro, acting as medical billing service for Saul Aranda MD <Enma Pro - Last Filed: 01/24/18 22:39> - Discharge Dispostion Decision to Admit order: Yes <Saul Aranda - Last Filed: 01/25/18 00:30> Diagnosis at time of Disposition: Sepsis Qualifiers: Sepsis type: sepsis due to unspecified organism Qualified Code(s): A41.9 - Sepsis, unspecified organism - Discharge Dispostion Condition at time of disposition: Fair
[2018-01-24] MEDS ORDERED: ACETAMINOPHEN INJECTION 100 ML IVPB ONE (20:47)
[2018-01-24 21:18] LABS: BASO % 0.4 % (0-2.0); HEMATOCRIT 36.2 % (32.4-45.2); HEMOGLOBIN 12.1 GM/dL (10.7-15.3); LYMPH % 7.6 % (8-40); MCH 27.1 pg (25.7-33.7); MCHC 33.3 g/dl (32.0-36.0); MEAN CELL VOLUME 81.4 fl (80-96); MEAN PLT VOLUME 8.2 fl (7.5-11.1); MONO % 4.9 % (3.8-10.2); NEUT % 87.1 % (42.8-82.8); PLATELET COUNT 243 K/MM3 (134-434); RBC 4.45 M/mm3 (3.60-5.2); RDW 14.6 % (11.6-15.6); WHITE BLOOD COUNT 12.8 K/mm3 (4.0-10.0)
[2018-01-24 21:27] LABS: VENOUS PH 7.46 (7.32-7.42)
[2018-01-24 21:28] LABS: VENOUS PC02 39.5 mmHg (38-52); VENOUS PO2 36.9 mmHg (28-48)
[2018-01-24 21:31] LABS: INR 1.03 (0.83-1.09); PROTHROMBIN TIME (PATIENT) 12.2 SEC (9.7-13.0)
[2018-01-24 21:56] LABS: ALBUMIN 3.4 g/dl (3.4-5.0); ALK PHOS 86 U/L (45-117); ANION GAP 8 MMOL/L (8-16); BILIRUBIN,TOTAL 0.5 mg/dL (0.2-1); BLOOD UREA NITROGEN 13 mg/dL (7-18); CALCIUM 9.4 mg/dL (8.5-10.1); CHLORIDE 104 mmol/L (98-107); CO2 28 mmol/L (21-32); CREATININE 0.8 mg/dL (0.55-1.3); GLUCOSE,RANDOM 166 mg/dL (74-106); MAGNESIUM 1.7 mg/dL (1.8-2.4); SGOT/AST 9 U/L (15-37); SGPT/ALT 21 U/L (13-61); SODIUM 140 mmol/L (136-145); TOT PROT 7.4 g/dl (6.4-8.2)
[2018-01-24] MEDS ORDERED: NYSTATIN POWDER 100,000 UNITS/GM - 15 GM TOPICAL POWDER TP ONE (22:07)
[2018-01-24] MEDS ORDERED: SODIUM CHLORIDE 0.9% 1000 ML INFUS.BAG IV STA (22:27)
[2018-01-24] MEDS ORDERED: ACETAMINOPHEN 325 MG TABLET (FP) PO PRN (23:06)
[2018-01-24 23:34] LABS: URINE APPEARANCE CLEAR; URINE BILIRUBIN NEGATIVE (<2.0 mg/dL); URINE COLOR LTYELLOW; URINE GLUCOSE (UA) 1+ (NEGATIVE); URINE KETONE NEGATIVE (NEGATIVE); URINE LEUK ESTERASE 1+ (NEGATIVE); URINE NITRITE POSITIVE (NEGATIVE); URINE PROTEIN NEGATIVE (NEGATIVE); URINE UROBILINOGEN NEGATIVE mg/dL (0.2-1.0)
--- NOTE | 2018-01-24 23:37 | HP ---
Admitting History and Physical - Admission History of Present Illness: The patient is a 67 year old female, with a significant past medical history of nonverbal (baseline), diabetes, htn, dementia, chronic C.Diff, and lymphoma who presents to the emergency department with family after reportedly observing a sudden onset of weakness, chills and fever around 5PM this evening. The family reports noticing the patient shaking slightly leaving the doctors office today which she attributed to low blood sugar and states she gave the patient juice. The family at bedside states they witnessed the patient become weak and sweaty at home and took a rectal temperature which was 102F. As per family, Dr. Edwards sent her urine 3 days ago for culture which was positive for Klebsiella today. She has been taking Abx since August 2017. She completed a 7 day course of levaquin PO 2 weeks ago. As per family, the patients urine is foul smelling after they sat her on the toilet to make urine. 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 Cardiovascular: Yes: HTN, Hyperlipdemia Renal/: Yes: UTI, Other (UPJ obstruction) Heme/Onc: Yes: Other (Non-hodgkins lymphoma s/p chemo last 06/2013) - Smoking History Smoking history: Never smoked Have you smoked in the past 12 months: No Aproximately how many cigarettes per day: 0 If you are a former smoker, when did you quit?: 6 months ago - Alcohol/Substance Use Hx Alcohol Use: No History of Substance Use: reports: None - Social History ADL: Independent History of Recent Travel: No Home Medications - Allergies Allergies/Adverse Reactions: Allergies Allergy/AdvReac Type Severity Reaction Status Date / Time Penicillins Allergy Verified 01/24/18 23:13 - Home Medications Home Medications: Ambulatory Orders Metformin HCl 1,000 mg PO BIDAC 01/15/14 Pravastatin Sodium 10 mg PO HS 07/18/17 Donepezil HCl 10 mg PO HS 07/19/17 Insulin Glargine,Hum.rec.anlog [Lantus Solostar] 30 unit SQ DAILY 07/19/17 Pantoprazole Sodium [Protonix] 40 mg PO DAILY 07/19/17 traZODone HCL [Desyrel -] 50 mg PO HS tablet 08/24/17 Aspirin [ASA -] 325 mg PO Q48H 10/19/17 Zolpidem Tartrate [Ambien] 5 mg PO HS 10/19/17 levETIRAcetam [Keppra -] 500 mg PO BID 10/19/17 Metoprolol Succinate 50 mg PO 10/22/17 Amlodipine Besylate [Norvasc -] 10 mg PO DAILY #30 tablet 10/23/17 Vancomycin HCl 125 mg PO Q6H #28 capsule 10/26/17 Physical Examination Vital Signs: Vital Signs Temperature 103.5 F H 01/24/18 22:00 Pulse Rate 86 01/24/18 22:00 Respiratory Rate 18 01/24/18 22:00 Blood Pressure 131/84 01/24/18 22:00 O2 Sat by Pulse Oximetry (%) 96 01/24/18 22:00 Labs: CBC, BMP 01/24/18 20:50 01/24/18 20:50
[2018-01-24 23:40] LABS: EPI CELLS RARE /HPF (FEW); URINE MUCUS RARE
[2018-01-24] MEDS ORDERED: ASPIRIN 325 MG TABLET ONE (23:41)
[2018-01-24] MEDS: ASPIRIN 325 MG TABLET PO SCH (23:42)
[2018-01-24] MEDS: DEXTROSE 5%-NORMAL SALINE 1,000 ML IV SCH (23:53)
[2018-01-24] MEDS ORDERED: ATORVASTATIN CA 10 MG TABLET (FP) ONE (23:59)
[2018-01-25] MEDS: traZODone HCL 50 MG TABLET (FP) PO SCH ×2 (02:20→22:58)
[2018-01-25] MEDS: ZOLPIDEM TARTRATE 5 MG TABLET PO PRN (02:20)
[2018-01-25 02:52] VITALS: BMI 22.6
[2018-01-25] MEDS: metFORMIN HCL 500 MG TABLET (FP) PO SCH ×2 (06:09→17:35)
[2018-01-25] MEDS: INSULIN SLIDING SCALE (NOVOLOG) 1 VIAL SQ SCH ×2 (06:09→17:36)
[2018-01-25 08:12] LABS: HEMOGLOBIN 10.2 GM/dL (10.7-15.3); MCHC 32.9 g/dl (32.0-36.0); MEAN CELL VOLUME 81.9 fl (80-96); MEAN PLT VOLUME 7.7 fl (7.5-11.1); PLATELET COUNT 170 K/MM3 (134-434); RBC 3.78 M/mm3 (3.60-5.2); RDW 14.4 % (11.6-15.6); WHITE BLOOD COUNT 9.1 K/mm3 (4.0-10.0)
[2018-01-25 08:38] LABS: ANION GAP 11 MMOL/L (8-16); BLOOD UREA NITROGEN 9 mg/dL (7-18); CALCIUM 7.7 mg/dL (8.5-10.1); CHLORIDE 108 mmol/L (98-107); CO2 25 mmol/L (21-32); CREATININE 0.8 mg/dL (0.55-1.3); GLUCOSE,RANDOM 279 mg/dL (74-106); POTASSIUM 3.1 mmol/L (3.5-5.1); SODIUM 145 mmol/L (136-145)
--- NOTE | 2018-01-25 09:15 | EKG ---
Test Reason : Blood Pressure : / mmHG Vent. Rate : 084 BPM Atrial Rate : 084 BPM P-R Int : 178 ms QRS Dur : 098 ms QT Int : 410 ms P-R-T Axes : 051 -48 079 degrees QTc Int : 484 ms POOR DATA QUALITY, INTERPRETATION MAY BE ADVERSELY AFFECTED NORMAL SINUS RHYTHM INCOMPLETE RIGHT BUNDLE BRANCH BLOCK LEFT ANTERIOR FASCICULAR BLOCK MODERATE VOLTAGE CRITERIA FOR LVH, MAY BE NORMAL VARIANT CANNOT RULE OUT SEPTAL INFARCT (CITED ON OR BEFORE 26-JUL-2017) ABNORMAL ECG WHEN COMPARED WITH ECG OF 25-OCT-2017 10:13, T WAVE INVERSION LESS EVIDENT IN LATERAL LEADS Confirmed by HI MA MD ([id number]) on 01/25/2018 9:15:47 AM Referred By: Confirmed By:HI MA MD
--- NOTE | 2018-01-25 09:36 | CON.ID ---
Consult Consult Specialty:: Infectious Diseases Referred by:: Dr. Milligan Reason for Consultation:: Fever - History of Present Illness Chief Complaint: Fever History of Present Illness: Mrs. Platt is a 67 year old female, with a significant past medical history of Dementia, DM, HTN, CDI. She was recently Rx with PO Levaquin a few weeks ago ( C /s grew Klebsiella). Her daughter had submitted a urine sample last Sunday, which again was (+) for UTI with significant pyuria and cultures again (+) Klebsiella. She had seen her PMD yesterday and when she got home developed sudden onset fever, rigors and sweats. Her daughter had called me and I advised in=patient admission. In the ED, she received IV Levaquin and VAnco and was started on IV Fluids. - History Source History Provided By: Family Member - Past Medical History HOUSING RELOCATION: Yes: Dementia Cardio/Vascular: Yes: HTN, Hyperlipdemia Renal/: Yes: UTI, Other (UPJ obstruction) - Alcohol/Substance Use Hx Alcohol Use: No History of Substance Use: reports: None - Smoking History Smoking history: Former smoker Have you smoked in the past 12 months: No Aproximately how many cigarettes per day: 0 If you are a former smoker, when did you quit?: 6 months ago - Social History Usual Living Arrangement: With Child ADL: Independent History of Recent Travel: No Home Medications - Allergies Allergies/Adverse Reactions: Allergies Allergy/AdvReac Type Severity Reaction Status Date / Time Penicillins Allergy Verified 01/24/18 23:13 - Home Medications Home Medications: Ambulatory Orders Metformin HCl 1,000 mg PO BIDAC 01/15/14 Pravastatin Sodium 10 mg PO HS 07/18/17 Donepezil HCl 10 mg PO HS 07/19/17 Insulin Glargine,Hum.rec.anlog [Lantus Solostar] 30 unit SQ DAILY 07/19/17 Pantoprazole Sodium [Protonix] 40 mg PO DAILY 07/19/17 traZODone HCL [Desyrel -] 50 mg PO HS tablet 08/24/17 Aspirin [ASA -] 325 mg PO Q48H 10/19/17 Zolpidem Tartrate [Ambien] 5 mg PO HS 10/19/17 levETIRAcetam [Keppra -] 500 mg PO BID 10/19/17 Metoprolol Succinate 50 mg PO 10/22/17 Amlodipine Besylate [Norvasc -] 10 mg PO DAILY #30 tablet 10/23/17 Vancomycin HCl 125 mg PO Q6H #28 capsule 10/26/17 Family Disease History - Family Disease History Family History: Unable to Obtain Review of Systems - Review of Systems Constitutional: reports: Chills, Fever Physical Exam Vital Signs: Vital Signs Temperature 100.9 F H 01/25/18 07:01 Pulse Rate 89 01/25/18 07:01 Respiratory Rate 20 01/25/18 07:01 Blood Pressure 128/69 01/25/18 07:01 O2 Sat by Pulse Oximetry (%) 97 01/25/18 02:30 Constitutional: Yes: Well Nourished Neck: Yes: Supple Cardiovascular: Yes: Regular Rate and Rhythm Respiratory: Yes: CTA Bilaterally Gastrointestinal: Yes: Normal Bowel Sounds, Soft Edema: No Labs: CBC, BMP 01/25/18 07:45 01/25/18 07:45 Imaging - Results Chest X-ray: Report Reviewed Problem List - Problems (1) Sepsis Code(s): A41.9 - SEPSIS, UNSPECIFIED ORGANISM Qualifiers: Sepsis type: sepsis due to unspecified organism Qualified Code(s): A41.9 - Sepsis, unspecified organism (2) C. difficile diarrhea Code(s): A04.72 - ENTEROCOLITIS D/T CLOSTRIDIUM DIFFICILE, NOT SPCF RECUR Assessment/Plan Fever and UTI in a 67 yr old female with dementia Sepsis Syndrome Await final c/s Will likely be Klebsiella again Can give [id number] mg IV Q 24.
[2018-01-25] MEDS: amLODIPine BESYLATE 10 MG TABLET (FP) PO SCH (10:00)
[2018-01-25] MEDS: DEXTROSE 5%-NORMAL SALINE 1,000 ML IV SCH ×2 (10:01→20:50)
[2018-01-25] MEDS: levETIRAcetam 500 MG TABLET (FP) PO SCH ×2 (10:01→22:58)
[2018-01-25] MEDS: PANTOPRAZOLE 40 MG TABLET (FP) PO SCH (10:01)
[2018-01-25] MEDS ORDERED: DEXTROSE 5%-NORMAL SALINE 1,000 ML IV SCH (11:00)
--- NOTE | 2018-01-25 11:08 | PN ---
Progress Note (short form) - Note Progress Note: 67 y/o female found lying in bed, asleep. Family present. Pt nonverbal with Dementia. Admitted for weakness/ fever. Vital Signs Period Temp Pulse Resp BP Sys/Lopez Pulse Ox Last 24 Hr 97.8 F-103.5 F 81-95 18-22 128-173/64-84 96-100 CBC, BMP 01/25/18 07:45 01/25/18 07:45 HEENT- NL Neck- Supple Lungs- CTAB Heart- S1/S2 Abd- Soft, NT Ext- No LE edema Active Medications Acetaminophen (Tylenol -) 650 mg PO Q4H PRN PRN Reason: FEVER Last Admin: 01/25/18 06:08 Dose: 650 mg Amlodipine Besylate (Norvasc -) 10 mg PO DAILY [facility] Last Admin: 01/25/18 10:00 Dose: 10 mg Aspirin (Asa -) 325 mg PO Q48H [facility] Last Admin: 01/24/18 23:42 Dose: 325 mg Atorvastatin Calcium (Lipitor -) 10 mg PO HS [facility] Donepezil HCl (Aricept -) 10 mg PO HS [facility] Dextrose/Sodium Chloride (D5-Ns -) 1,000 mls @ 100 mls/hr IV ASDIR [facility] Last Admin: 01/25/18 10:01 Dose: 100 mls/hr Levofloxacin (Levaquin 500 Mg Premixed Ivpb -) 500 mg in 100 mls @ 100 mls/hr IVPB DAILY [facility]; Protocol Stop: 01/25/18 11:59 Dextrose/Sodium Chloride (D5-Ns -) 1,000 mls @ 100 mls/hr IV ASDIR [facility] Stop: 01/25/18 23:59 Insulin Aspart (Novolog Vial Sliding Scale -) 1 vial SQ BIDAC [facility]; Protocol Last Admin: 01/25/18 06:09 Dose: 4 units Levetiracetam (Keppra -) 500 mg PO BID [facility] Last Admin: 01/25/18 10:01 Dose: 500 mg Metformin HCl (Glucophage -) 1,000 mg PO BIDAC [facility] Last Admin: 01/25/18 06:09 Dose: 1,000 mg Metoprolol Succinate (Toprol Xl -) 50 mg PO DAILY [facility] Last Admin: 01/25/18 10:01 Dose: 50 mg Pantoprazole Sodium (Protonix -) 40 mg PO DAILY [facility] Last Admin: 01/25/18 10:01 Dose: 40 mg Trazodone HCl (Desyrel -) 50 mg PO HS [facility] Last Admin: 01/25/18 02:20 Dose: 50 mg Zolpidem Tartrate (Ambien -) 5 mg PO HS PRN PRN Reason: INSOMNIA Last Admin: 01/25/18 02:20 Dose: 5 mg #Febrile Cultures pending Temp normal now ID consult appreciated IV antibiotics per ID #Elevated Lactic acid- 3.1 IV fluid increased to 200 cc for 5 hrs Repeat level #Dementia At Baseline Continue Aricept #HTN BP stable Cont Amlodipine #IDDM Novolog sliding scale Metformin BID
[2018-01-25] MEDS: DONEPEZIL HCL 10 MG TABLET (FP) PO SCH (22:59)
[2018-01-25] MEDS: ATORVASTATIN CA 10 MG TABLET (FP) PO SCH (22:59)
[2018-01-26] MEDS: metFORMIN HCL 500 MG TABLET (FP) PO SCH ×2 (06:27→16:38)
[2018-01-26] MEDS: DEXTROSE 5%-NORMAL SALINE 1,000 ML IV SCH ×3 (06:28→23:29)
[2018-01-26] MEDS: INSULIN SLIDING SCALE (NOVOLOG) 1 VIAL SQ SCH ×2 (06:37→16:38)
[2018-01-26 08:19] LABS: BASO % 0.6 % (0-2.0); EOS % 0.7 % (0-4.5); HEMATOCRIT 30.5 % (32.4-45.2); HEMOGLOBIN 10.2 GM/dL (10.7-15.3); LYMPH % 18.4 % (8-40); MCHC 33.6 g/dl (32.0-36.0); MEAN CELL VOLUME 80.5 fl (80-96); MEAN PLT VOLUME 8.4 fl (7.5-11.1); MONO % 8.5 % (3.8-10.2); NEUT % 71.8 % (42.8-82.8); PLATELET COUNT 171 K/MM3 (134-434); RBC 3.79 M/mm3 (3.60-5.2); RDW 14.3 % (11.6-15.6); WHITE BLOOD COUNT 6.3 K/mm3 (4.0-10.0)
[2018-01-26 08:59] LABS: ALBUMIN 2.5 g/dl (3.4-5.0); ALK PHOS 65 U/L (45-117); ANION GAP 9 MMOL/L (8-16); BILIRUBIN,TOTAL 0.6 mg/dL (0.2-1); BLOOD UREA NITROGEN 5 mg/dL (7-18); CALCIUM 7.4 mg/dL (8.5-10.1); CHLORIDE 103 mmol/L (98-107); CO2 27 mmol/L (21-32); CREATININE 0.6 mg/dL (0.55-1.3); GLUCOSE,RANDOM 216 mg/dL (74-106); SGOT/AST 9 U/L (15-37); SGPT/ALT 15 U/L (13-61); SODIUM 140 mmol/L (136-145); TOT PROT 5.8 g/dl (6.4-8.2)
[2018-01-26] MEDS: PANTOPRAZOLE 40 MG TABLET (FP) PO SCH (11:24)
[2018-01-26] MEDS: amLODIPine BESYLATE 10 MG TABLET (FP) PO SCH (11:24)
[2018-01-26] MEDS: levETIRAcetam 500 MG TABLET (FP) PO SCH ×2 (11:24→21:59)
--- NOTE | 2018-01-26 17:50 | PN ---
Progress Note, Physician History of Present Illness: Mrs. Platt is a 67 year old female, with a significant past medical history of Dementia, DM, HTN, CDI. She was recently Rx with PO Levaquin a few weeks ago ( C /s grew Klebsiella). Her daughter had submitted a urine sample last Sunday, which again was (+) for UTI with significant pyuria and cultures again (+) Klebsiella. She had seen her PMD yesterday and when she got home developed sudden onset fever, rigors and sweats. Her daughter had called me and I advised inpatient admission. In the ED, she received IV Levaquin and VAnco and was started on IV Fluids. - Current Medication List Current Medications: Active Medications Acetaminophen (Tylenol -) 650 mg PO Q4H PRN PRN Reason: FEVER Last Admin: 01/25/18 06:08 Dose: 650 mg Amlodipine Besylate (Norvasc -) 10 mg PO DAILY [facility] Last Admin: 01/26/18 11:24 Dose: 10 mg Aspirin (Asa -) 325 mg PO Q48H [facility] Last Admin: 01/24/18 23:42 Dose: 325 mg Atorvastatin Calcium (Lipitor -) 10 mg PO HS [facility] Last Admin: 01/25/18 22:59 Dose: 10 mg Donepezil HCl (Aricept -) 10 mg PO HS [facility] Last Admin: 01/25/18 22:59 Dose: 10 mg Dextrose/Sodium Chloride (D5-Ns -) 1,000 mls @ 100 mls/hr IV ASDIR [facility] Last Admin: 01/26/18 06:28 Dose: 100 mls/hr Insulin Aspart (Novolog Vial Sliding Scale -) 1 vial SQ BIDAC [facility]; Protocol Last Admin: 01/26/18 16:38 Dose: 6 units Levetiracetam (Keppra -) 500 mg PO BID [facility] Last Admin: 01/26/18 11:24 Dose: 500 mg Metformin HCl (Glucophage -) 1,000 mg PO BIDAC [facility] Last Admin: 01/26/18 16:38 Dose: 1,000 mg Metoprolol Succinate (Toprol Xl -) 50 mg PO DAILY [facility] Last Admin: 01/26/18 11:24 Dose: 50 mg Pantoprazole Sodium (Protonix -) 40 mg PO DAILY [facility] Last Admin: 01/26/18 11:24 Dose: 40 mg Trazodone HCl (Desyrel -) 50 mg PO HS [facility] Last Admin: 01/25/18 22:58 Dose: 50 mg Zolpidem Tartrate (Ambien -) 5 mg PO HS PRN PRN Reason: INSOMNIA Last Admin: 01/25/18 02:20 Dose: 5 mg - Objective Vital Signs: Vital Signs Temperature 97.9 F 01/26/18 14:00 Pulse Rate 79 01/26/18 14:00 Respiratory Rate 18 01/26/18 14:00 Blood Pressure 128/67 01/26/18 14:00 O2 Sat by Pulse Oximetry (%) 97 01/25/18 02:30 Constitutional: Yes: Well Nourished Cardiovascular: Yes: Regular Rate and Rhythm Respiratory: Yes: CTA Bilaterally Gastrointestinal: Yes: Normal Bowel Sounds, Soft Labs: CBC, BMP 01/26/18 07:15 01/26/18 07:15 INR, PTT INR 1.03 (0.83-1.09) 01/24/18 20:50 Problem List - Problems (1) Sepsis Code(s): A41.9 - SEPSIS, UNSPECIFIED ORGANISM Qualifiers: Sepsis type: sepsis due to unspecified organism Qualified Code(s): A41.9 - Sepsis, unspecified organism (2) C. difficile diarrhea Code(s): A04.72 - ENTEROCOLITIS D/T CLOSTRIDIUM DIFFICILE, NOT SPCF RECUR Assessment/Plan Fever and UTI in a 67 yr old female with dementia Sepsis Syndrome Continue Levaquin 500 mg Q 24. Can switch to PO in AM She has been on Rx PO VAnco 125 mg q 6.
[2018-01-26] MEDS: VANCOMYCIN 250 MG/5 ML ORAL SOLUTION PO SCH ×2 (18:38→23:30)
[2018-01-26] MEDS: ATORVASTATIN CA 10 MG TABLET (FP) PO SCH (21:59)
[2018-01-26] MEDS: DONEPEZIL HCL 10 MG TABLET (FP) PO SCH (22:00)
[2018-01-26] MEDS: ZOLPIDEM TARTRATE 5 MG TABLET PO PRN (22:00)
[2018-01-26] MEDS: traZODone HCL 50 MG TABLET (FP) PO SCH (22:00)
[2018-01-26] MEDS: ASPIRIN 325 MG TABLET PO SCH (23:02)
--- NOTE | 2018-01-26 23:28 | PN ---
Progress Note, Physician History of Present Illness: No new complaints - Current Medication List Current Medications: Active Medications Acetaminophen (Tylenol -) 650 mg PO Q4H PRN PRN Reason: FEVER Last Admin: 01/25/18 06:08 Dose: 650 mg Amlodipine Besylate (Norvasc -) 10 mg PO DAILY [facility] Last Admin: 01/26/18 11:24 Dose: 10 mg Aspirin (Asa -) 325 mg PO Q48H [facility] Last Admin: 01/26/18 23:02 Dose: 325 mg Atorvastatin Calcium (Lipitor -) 10 mg PO HS [facility] Last Admin: 01/26/18 21:59 Dose: 10 mg Donepezil HCl (Aricept -) 10 mg PO HS [facility] Last Admin: 01/26/18 22:00 Dose: 10 mg Dextrose/Sodium Chloride (D5-Ns -) 1,000 mls @ 100 mls/hr IV ASDIR [facility] Last Admin: 01/26/18 23:09 Dose: 100 mls/hr Insulin Aspart (Novolog Vial Sliding Scale -) 1 vial SQ BIDAC [facility]; Protocol Last Admin: 01/26/18 16:38 Dose: 6 units Levetiracetam (Keppra -) 500 mg PO BID [facility] Last Admin: 01/26/18 21:59 Dose: 500 mg Metformin HCl (Glucophage -) 1,000 mg PO BIDAC [facility] Last Admin: 01/26/18 16:38 Dose: 1,000 mg Metoprolol Succinate (Toprol Xl -) 50 mg PO DAILY [facility] Last Admin: 01/26/18 11:24 Dose: 50 mg Pantoprazole Sodium (Protonix -) 40 mg PO DAILY [facility] Last Admin: 01/26/18 11:24 Dose: 40 mg Trazodone HCl (Desyrel -) 50 mg PO HS [facility] Last Admin: 01/26/18 22:00 Dose: 50 mg Vancomycin HCl (Vancomycin Oral Solution) 125 mg PO Q6HPO [facility] Last Admin: 01/26/18 18:38 Dose: 125 mg Zolpidem Tartrate (Ambien -) 5 mg PO HS PRN PRN Reason: INSOMNIA Last Admin: 01/26/18 22:00 Dose: 5 mg - Objective Vital Signs: Vital Signs Temperature 97.9 F 01/26/18 14:00 Pulse Rate 79 01/26/18 14:00 Respiratory Rate 18 01/26/18 14:00 Blood Pressure 128/67 01/26/18 14:00 O2 Sat by Pulse Oximetry (%) 97 01/25/18 02:30 Neck: Yes: WNL, Supple Cardiovascular: Yes: WNL, Regular Rate and Rhythm Respiratory: Yes: WNL, Regular, CTA Bilaterally Gastrointestinal: Yes: WNL, Normal Bowel Sounds, Soft Labs: CBC, BMP 01/26/18 07:15 01/26/18 07:15 INR, PTT INR 1.03 (0.83-1.09) 01/24/18 20:50 Problem List - Problems (1) Sepsis Assessment/Plan: Repeat lactic acid level in am Cont IV antibxs Code(s): A41.9 - SEPSIS, UNSPECIFIED ORGANISM Qualifiers: Sepsis type: sepsis due to unspecified organism Qualified Code(s): A41.9 - Sepsis, unspecified organism (2) Alzheimer disease Code(s): G30.9 - ALZHEIMER'S DISEASE, UNSPECIFIED; F02.80 - DEMENTIA IN OTH DISEASES CLASSD ELSWHR W/O BEHAVRL DISTURB (3) Diabetes mellitus Code(s): E11.9 - TYPE 2 DIABETES MELLITUS WITHOUT COMPLICATIONS (4) HTN (hypertension) Code(s): I10 - ESSENTIAL (PRIMARY) HYPERTENSION
[2018-01-27] MEDS: VANCOMYCIN 250 MG/5 ML ORAL SOLUTION PO SCH ×4 (06:41→23:15)
[2018-01-27] MEDS: metFORMIN HCL 500 MG TABLET (FP) PO SCH ×2 (06:42→16:42)
[2018-01-27] MEDS: INSULIN SLIDING SCALE (NOVOLOG) 1 VIAL SQ SCH ×2 (06:42→16:43)
[2018-01-27 10:04] LABS: HEMATOCRIT 34.3 % (32.4-45.2); HEMOGLOBIN 11.4 GM/dL (10.7-15.3); MCH 26.7 pg (25.7-33.7); MCHC 33.4 g/dl (32.0-36.0); PLATELET COUNT 193 K/MM3 (134-434); RBC 4.28 M/mm3 (3.60-5.2); RDW 14.3 % (11.6-15.6); WHITE BLOOD COUNT 6.8 K/mm3 (4.0-10.0)
[2018-01-27] MEDS: PANTOPRAZOLE 40 MG TABLET (FP) PO SCH (10:59)
[2018-01-27] MEDS: amLODIPine BESYLATE 10 MG TABLET (FP) PO SCH (10:59)
[2018-01-27] MEDS: levETIRAcetam 500 MG TABLET (FP) PO SCH ×2 (10:59→23:16)
[2018-01-27 11:06] LABS: ANION GAP 10 MMOL/L (8-16); BLOOD UREA NITROGEN 9 mg/dL (7-18); CHLORIDE 102 mmol/L (98-107); CO2 27 mmol/L (21-32); CREATININE 0.7 mg/dL (0.55-1.3); GLUCOSE,RANDOM 255 mg/dL (74-106); POTASSIUM 3.2 mmol/L (3.5-5.1); SODIUM 139 mmol/L (136-145)
--- NOTE | 2018-01-27 11:24 | PN ---
Progress Note (short form) - Note Progress Note: 67 y/o female found lying in bed. Sister present at bedside. No apparent pain or distress. Pt nonverbal. Vital Signs Period Temp Pulse Resp BP Sys/Lopez Pulse Ox Last 24 Hr 97.6 F-98.9 F 68-88 18-20 122-132/63-68 CBC, BMP 01/27/18 09:34 01/27/18 09:34 HEENT- NL Neck- Supple Lungs- CTAB Heart- S1/S2 Abd- soft, NT Ext- No LE edema Active Medications Acetaminophen (Tylenol -) 650 mg PO Q4H PRN PRN Reason: FEVER Last Admin: 01/25/18 06:08 Dose: 650 mg Amlodipine Besylate (Norvasc -) 10 mg PO DAILY [facility] Last Admin: 01/27/18 10:59 Dose: 10 mg Aspirin (Asa -) 325 mg PO Q48H [facility] Last Admin: 01/26/18 23:02 Dose: 325 mg Atorvastatin Calcium (Lipitor -) 10 mg PO HS [facility] Last Admin: 01/26/18 21:59 Dose: 10 mg Donepezil HCl (Aricept -) 10 mg PO HS [facility] Last Admin: 01/26/18 22:00 Dose: 10 mg Dextrose/Sodium Chloride (D5-Ns -) 1,000 mls @ 100 mls/hr IV ASDIR [facility] Last Admin: 01/26/18 23:29 Dose: Not Given Insulin Aspart (Novolog Vial Sliding Scale -) 1 vial SQ BIDAC [facility]; Protocol Last Admin: 01/27/18 06:42 Dose: Not Given Lactobacillus Acidophilus (Bacid -) 1 tab PO BID [facility] Levetiracetam (Keppra -) 500 mg PO BID [facility] Last Admin: 01/27/18 10:59 Dose: 500 mg Metformin HCl (Glucophage -) 1,000 mg PO BIDAC [facility] Last Admin: 01/27/18 06:42 Dose: 1,000 mg Metoprolol Succinate (Toprol Xl -) 50 mg PO DAILY [facility] Last Admin: 01/27/18 10:59 Dose: 50 mg Pantoprazole Sodium (Protonix -) 40 mg PO DAILY [facility] Last Admin: 01/27/18 10:59 Dose: 40 mg Trazodone HCl (Desyrel -) 50 mg PO HS [facility] Last Admin: 01/26/18 22:00 Dose: 50 mg Vancomycin HCl (Vancomycin Oral Solution) 125 mg PO Q6HPO [facility] Last Admin: 01/27/18 06:41 Dose: 125 mg Zolpidem Tartrate (Ambien -) 5 mg PO HS PRN PRN Reason: INSOMNIA Last Admin: 01/26/18 22:00 Dose: 5 mg #Febrile Urine culture Neg Blood cultures pending Temp normal now IV antibiotics per ID #Hypopotassemia Potassium replaced #c-diff Bacid BID ordered #Elevated Lactic acid Repeat level Cont IV fluids #Dementia At Baseline Continue Aricept #HTN BP stable Cont Amlodipine #IDDM- BG 255 Cont Novolog sliding scale Metformin BID
[2018-01-27] MEDS ORDERED: POTASSIUM CITRATE/CITRIC ACID 2 MEQ/ML ML PO ONE (11:32)
[2018-01-27] MEDS ORDERED: POTASSIUM CHLORIDE TABS 20 MEQ TABLET.ER (FP) PO ONE (15:45)
[2018-01-27] MEDS: DEXTROSE 5%-NORMAL SALINE 1,000 ML IV SCH ×2 (17:45→23:17)
[2018-01-27] MEDS: DONEPEZIL HCL 10 MG TABLET (FP) PO SCH (23:16)
[2018-01-27] MEDS: ATORVASTATIN CA 10 MG TABLET (FP) PO SCH (23:16)
[2018-01-27] MEDS: ZOLPIDEM TARTRATE 5 MG TABLET PO PRN (23:16)
[2018-01-27] MEDS: LACTOBACILLUS ACIDOPHILUS 1 TABLET PO SCH (23:17)
[2018-01-27] MEDS: traZODone HCL 50 MG TABLET (FP) PO SCH (23:17)
[2018-01-28] MEDS: DEXTROSE 5%-NORMAL SALINE 1,000 ML IV SCH ×3 (00:35→23:28)
[2018-01-28] MEDS ORDERED: INSULIN (NOVOLOG) ASPART 100 UNITS/ML 10ML VIAL ONE ×2 (05:48→16:51)
[2018-01-28] MEDS: VANCOMYCIN 250 MG/5 ML ORAL SOLUTION PO SCH ×4 (05:53→23:28)
[2018-01-28] MEDS: INSULIN SLIDING SCALE (NOVOLOG) 1 VIAL SQ SCH ×2 (06:22→16:54)
[2018-01-28] MEDS: metFORMIN HCL 500 MG TABLET (FP) PO SCH ×2 (06:25→16:54)
[2018-01-28 07:25] LABS: BASO % 0.6 % (0-2.0); EOS % 0.8 % (0-4.5); HEMATOCRIT 31.9 % (32.4-45.2); HEMOGLOBIN 10.8 GM/dL (10.7-15.3); LYMPH % 24.5 % (8-40); MEAN CELL VOLUME 79.3 fl (80-96); MEAN PLT VOLUME 7.3 fl (7.5-11.1); MONO % 6.9 % (3.8-10.2); NEUT % 67.2 % (42.8-82.8); PLATELET COUNT 212 K/MM3 (134-434); RBC 4.02 M/mm3 (3.60-5.2); WHITE BLOOD COUNT 6.5 K/mm3 (4.0-10.0)
[2018-01-28 08:08] LABS: ALBUMIN 2.9 g/dl (3.4-5.0); ALK PHOS 79 U/L (45-117); ANION GAP 12 MMOL/L (8-16); BILIRUBIN,TOTAL 0.4 mg/dL (0.2-1); BLOOD UREA NITROGEN 8 mg/dL (7-18); CALCIUM 8.3 mg/dL (8.5-10.1); CHLORIDE 102 mmol/L (98-107); CO2 27 mmol/L (21-32); CREATININE 0.6 mg/dL (0.55-1.3); GLUCOSE,RANDOM 242 mg/dL (74-106); POTASSIUM 3.1 mmol/L (3.5-5.1); SGOT/AST 10 U/L (15-37); SGPT/ALT 22 U/L (13-61); SODIUM 140 mmol/L (136-145); TOT PROT 6.5 g/dl (6.4-8.2)
[2018-01-28] MEDS: LACTOBACILLUS ACIDOPHILUS 1 TABLET PO SCH ×2 (11:05→21:23)
[2018-01-28] MEDS: PANTOPRAZOLE 40 MG TABLET (FP) PO SCH (11:06)
[2018-01-28] MEDS: levETIRAcetam 500 MG TABLET (FP) PO SCH ×2 (11:06→21:23)
[2018-01-28] MEDS: amLODIPine BESYLATE 10 MG TABLET (FP) PO SCH (11:09)
[2018-01-28] MEDS: traZODone HCL 50 MG TABLET (FP) PO SCH (21:23)
[2018-01-28] MEDS: ATORVASTATIN CA 10 MG TABLET (FP) PO SCH (21:24)
[2018-01-28] MEDS: DONEPEZIL HCL 10 MG TABLET (FP) PO SCH (21:24)
--- NOTE | 2018-01-28 22:01 | PN ---
Progress Note, Physician - Current Medication List Current Medications: Active Medications Acetaminophen (Tylenol -) 650 mg PO Q4H PRN PRN Reason: FEVER Last Admin: 01/25/18 06:08 Dose: 650 mg Amlodipine Besylate (Norvasc -) 10 mg PO DAILY [facility] Last Admin: 01/28/18 11:09 Dose: Not Given Aspirin (Asa -) 325 mg PO Q48H [facility] Last Admin: 01/26/18 23:02 Dose: 325 mg Atorvastatin Calcium (Lipitor -) 10 mg PO HS [facility] Last Admin: 01/28/18 21:24 Dose: 10 mg Donepezil HCl (Aricept -) 10 mg PO HS [facility] Last Admin: 01/28/18 21:24 Dose: 10 mg Dextrose/Sodium Chloride (D5-Ns -) 1,000 mls @ 100 mls/hr IV ASDIR [facility] Last Admin: 01/28/18 17:33 Dose: 100 mls/hr Insulin Aspart (Novolog Vial Sliding Scale -) 1 vial SQ BIDAC [facility]; Protocol Last Admin: 01/28/18 16:54 Dose: 8 units Lactobacillus Acidophilus (Bacid -) 1 tab PO BID [facility] Last Admin: 01/28/18 21:23 Dose: 1 tab Levetiracetam (Keppra -) 500 mg PO BID [facility] Last Admin: 01/28/18 21:23 Dose: 500 mg Metformin HCl (Glucophage -) 1,000 mg PO BIDAC [facility] Last Admin: 01/28/18 16:54 Dose: 1,000 mg Metoprolol Succinate (Toprol Xl -) 50 mg PO DAILY [facility] Last Admin: 01/28/18 11:09 Dose: Not Given Pantoprazole Sodium (Protonix -) 40 mg PO DAILY [facility] Last Admin: 01/28/18 11:06 Dose: 40 mg Trazodone HCl (Desyrel -) 50 mg PO HS [facility] Last Admin: 01/28/18 21:23 Dose: 50 mg Vancomycin HCl (Vancomycin Oral Solution) 125 mg PO Q6HPO [facility] Last Admin: 01/28/18 17:34 Dose: 125 mg - Objective Vital Signs: Vital Signs Temperature 96.8 F L 01/28/18 14:25 Pulse Rate 75 01/28/18 14:25 Respiratory Rate 18 01/28/18 14:25 Blood Pressure 133/80 01/28/18 14:25 O2 Sat by Pulse Oximetry (%) 97 01/25/18 02:30 HENT: Yes: WNL Neck: Yes: WNL, Supple Cardiovascular: Yes: WNL, Regular Rate and Rhythm Respiratory: Yes: WNL, Regular, CTA Bilaterally Gastrointestinal: Yes: WNL, Normal Bowel Sounds, Soft Labs: CBC, BMP 01/28/18 07:00 01/28/18 07:00 INR, PTT INR 1.03 (0.83-1.09) 01/24/18 20:50 Problem List - Problems (1) Sepsis Assessment/Plan: Lactic acid still elevated Cont IV antibxs Code(s): A41.9 - SEPSIS, UNSPECIFIED ORGANISM Qualifiers: Sepsis type: sepsis due to unspecified organism Qualified Code(s): A41.9 - Sepsis, unspecified organism (2) Alzheimer disease Code(s): G30.9 - ALZHEIMER'S DISEASE, UNSPECIFIED; F02.80 - DEMENTIA IN OTH DISEASES CLASSD ELSWHR W/O BEHAVRL DISTURB (3) Diabetes mellitus Code(s): E11.9 - TYPE 2 DIABETES MELLITUS WITHOUT COMPLICATIONS (4) HTN (hypertension) Code(s): I10 - ESSENTIAL (PRIMARY) HYPERTENSION
[2018-01-28] MEDS ORDERED: POTASSIUM CHLORIDE TABS 20 MEQ TABLET.ER (FP) PO ONE (22:31)
[2018-01-28] MEDS: ASPIRIN 325 MG TABLET PO SCH (23:27)
[2018-01-29] MEDS: VANCOMYCIN 250 MG/5 ML ORAL SOLUTION PO SCH ×4 (06:32→23:15)
[2018-01-29] MEDS: INSULIN SLIDING SCALE (NOVOLOG) 1 VIAL SQ SCH ×2 (06:32→16:52)
[2018-01-29] MEDS: metFORMIN HCL 500 MG TABLET (FP) PO SCH ×2 (06:32→16:51)
[2018-01-29] MEDS ORDERED: INSULIN (NOVOLOG) ASPART 100 UNITS/ML 10ML VIAL ONE ×2 (06:52→16:49)
[2018-01-29 08:08] LABS: BASO % 0.8 % (0-2.0); EOS % 0.8 % (0-4.5); HEMATOCRIT 32.3 % (32.4-45.2); HEMOGLOBIN 10.9 GM/dL (10.7-15.3); LYMPH % 21.1 % (8-40); MCH 26.7 pg (25.7-33.7); MCHC 33.8 g/dl (32.0-36.0); MEAN PLT VOLUME 8.3 fl (7.5-11.1); MONO % 6.6 % (3.8-10.2); NEUT % 70.7 % (42.8-82.8); PLATELET COUNT 220 K/MM3 (134-434); RBC 4.09 M/mm3 (3.60-5.2); RDW 13.9 % (11.6-15.6); WHITE BLOOD COUNT 6.7 K/mm3 (4.0-10.0)
[2018-01-29 08:32] LABS: ALBUMIN 2.9 g/dl (3.4-5.0); ALK PHOS 76 U/L (45-117); ANION GAP 7 MMOL/L (8-16); BILIRUBIN,TOTAL 0.4 mg/dL (0.2-1); BLOOD UREA NITROGEN 10 mg/dL (7-18); CALCIUM 8.3 mg/dL (8.5-10.1); CHLORIDE 104 mmol/L (98-107); CO2 27 mmol/L (21-32); CREATININE 0.6 mg/dL (0.55-1.3); GLUCOSE,RANDOM 205 mg/dL (74-106); POTASSIUM 3.5 mmol/L (3.5-5.1); SGOT/AST 9 U/L (15-37); SGPT/ALT 19 U/L (13-61); SODIUM 139 mmol/L (136-145); TOT PROT 6.3 g/dl (6.4-8.2)
--- NOTE | 2018-01-29 09:39 | PN ---
Progress Note (short form) - Note Progress Note: 67 y/o female lying in bed. Dtr present. Pt appears comfortable but rubbing her stomach. Vital Signs Period Temp Pulse Resp BP Sys/Lopez Pulse Ox Last 24 Hr 96.8 F-98.2 F 70-85 18-20 102-140/43-80 CBC, BMP 01/29/18 06:45 01/29/18 06:45 HEENT- NL Neck- supple Lungs- CTAB Heart- S1/S2 Abd- Soft, nt Ext- No LE edema Active Medications Acetaminophen (Tylenol -) 650 mg PO Q4H PRN PRN Reason: FEVER Last Admin: 01/25/18 06:08 Dose: 650 mg Amlodipine Besylate (Norvasc -) 10 mg PO DAILY [facility] Last Admin: 01/28/18 11:09 Dose: Not Given Aspirin (Asa -) 325 mg PO Q48H [facility] Last Admin: 01/28/18 23:27 Dose: 325 mg Atorvastatin Calcium (Lipitor -) 10 mg PO HS [facility] Last Admin: 01/28/18 21:24 Dose: 10 mg Donepezil HCl (Aricept -) 10 mg PO HS [facility] Last Admin: 01/28/18 21:24 Dose: 10 mg Insulin Aspart (Novolog Vial Sliding Scale -) 1 vial SQ BIDAC [facility]; Protocol Last Admin: 01/29/18 06:32 Dose: 2 units Lactobacillus Acidophilus (Bacid -) 1 tab PO BID [facility] Last Admin: 01/28/18 21:23 Dose: 1 tab Levetiracetam (Keppra -) 500 mg PO BID [facility] Last Admin: 01/28/18 21:23 Dose: 500 mg Metformin HCl (Glucophage -) 1,000 mg PO BIDAC [facility] Last Admin: 01/29/18 06:32 Dose: 1,000 mg Metoprolol Succinate (Toprol Xl -) 50 mg PO DAILY [facility] Last Admin: 01/28/18 11:09 Dose: Not Given Pantoprazole Sodium (Protonix -) 40 mg PO DAILY [facility] Last Admin: 01/28/18 11:06 Dose: 40 mg Trazodone HCl (Desyrel -) 50 mg PO HS [facility] Last Admin: 01/28/18 21:23 Dose: 50 mg Vancomycin HCl (Vancomycin Oral Solution) 125 mg PO Q6HPO [facility] Last Admin: 01/29/18 06:32 Dose: 125 mg #Nausea/vomiting Zofran 4mg ordered #Afebrile- WBC ct normal Blood cultures pending IV antibiotics per ID #Hypopotassemia Potassium replaced, now normal #c-diff Continue Bacid BID #Elevated Lactic acid Repeat level- now 2.4 Replace line for IV fluids #Dementia At Baseline Continue Aricept #HTN BP stable Cont Amlodipine #IDDM- BG 205 Cont Novolog sliding scale Metformin BID
[2018-01-29] MEDS ORDERED: ONDANSETRON 4 MG TABLET PO ONE (11:00)
[2018-01-29] MEDS: LACTOBACILLUS ACIDOPHILUS 1 TABLET PO SCH ×2 (11:04→21:45)
[2018-01-29] MEDS: PANTOPRAZOLE 40 MG TABLET (FP) PO SCH (11:04)
[2018-01-29] MEDS: levETIRAcetam 500 MG TABLET (FP) PO SCH ×2 (11:05→21:45)
[2018-01-29] MEDS: amLODIPine BESYLATE 10 MG TABLET (FP) PO SCH (11:05)
[2018-01-29] MEDS: DEXTROSE 5%-NORMAL SALINE 1,000 ML IV SCH ×2 (12:20→17:58)
--- NOTE | 2018-01-29 20:20 | PN ---
Progress Note, Physician History of Present Illness: Mrs. Platt is a 67 year old female, with a significant past medical history of Dementia, DM, HTN, CDI. She was recently Rx with PO Levaquin a few weeks ago ( C /s grew Klebsiella). Her daughter had submitted a urine sample Jan which again was (+) for UTI with significant pyuria and cultures again (+) Klebsiella. She had seen her PMD several days ago, and when she got home developed sudden onset fever, rigors and sweats. Her daughter had called me and I advised inpatient admission. In the ED, she received IV Levaquin and VAnco and was started on IV Fluids. - Current Medication List Current Medications: Active Medications Acetaminophen (Tylenol -) 650 mg PO Q4H PRN PRN Reason: FEVER Last Admin: 01/25/18 06:08 Dose: 650 mg Amlodipine Besylate (Norvasc -) 10 mg PO DAILY [facility] Last Admin: 01/29/18 11:05 Dose: 10 mg Aspirin (Asa -) 325 mg PO Q48H [facility] Last Admin: 01/28/18 23:27 Dose: 325 mg Atorvastatin Calcium (Lipitor -) 10 mg PO HS [facility] Last Admin: 01/28/18 21:24 Dose: 10 mg Donepezil HCl (Aricept -) 10 mg PO HS [facility] Last Admin: 01/28/18 21:24 Dose: 10 mg Dextrose/Sodium Chloride (D5-Ns -) 1,000 mls @ 100 mls/hr IV ASDIR [facility] Last Admin: 01/29/18 17:58 Dose: 100 mls/hr Insulin Aspart (Novolog Vial Sliding Scale -) 1 vial SQ BIDAC [facility]; Protocol Last Admin: 01/29/18 16:52 Dose: 10 units Lactobacillus Acidophilus (Bacid -) 1 tab PO BID [facility] Last Admin: 01/29/18 11:04 Dose: 1 tab Levetiracetam (Keppra -) 500 mg PO BID [facility] Last Admin: 01/29/18 11:05 Dose: 500 mg Metformin HCl (Glucophage -) 1,000 mg PO BIDAC [facility] Last Admin: 01/29/18 16:51 Dose: 1,000 mg Metoprolol Succinate (Toprol Xl -) 50 mg PO DAILY [facility] Last Admin: 01/29/18 11:04 Dose: 50 mg Pantoprazole Sodium (Protonix -) 40 mg PO DAILY [facility] Last Admin: 01/29/18 11:04 Dose: 40 mg Trazodone HCl (Desyrel -) 50 mg PO HS [facility] Last Admin: 01/28/18 21:23 Dose: 50 mg Vancomycin HCl (Vancomycin Oral Solution) 125 mg PO Q6HPO [facility] Last Admin: 01/29/18 17:58 Dose: 125 mg - Objective Vital Signs: Vital Signs Temperature 97.7 F 01/29/18 05:54 Pulse Rate 72 01/29/18 09:15 Respiratory Rate 18 01/29/18 09:15 Blood Pressure 156/72 01/29/18 09:15 O2 Sat by Pulse Oximetry (%) 97 01/25/18 02:30 Constitutional: Yes: Well Nourished Neck: Yes: Supple Cardiovascular: Yes: Regular Rate and Rhythm Respiratory: Yes: CTA Bilaterally Gastrointestinal: Yes: Normal Bowel Sounds, Soft Labs: CBC, BMP 01/29/18 06:45 01/29/18 06:45 INR, PTT INR 1.03 (0.83-1.09) 01/24/18 20:50 Problem List - Problems (1) Sepsis Code(s): A41.9 - SEPSIS, UNSPECIFIED ORGANISM Qualifiers: Sepsis type: sepsis due to unspecified organism Qualified Code(s): A41.9 - Sepsis, unspecified organism (2) C. difficile diarrhea Code(s): A04.72 - ENTEROCOLITIS D/T CLOSTRIDIUM DIFFICILE, NOT SPCF RECUR Assessment/Plan Fever and UTI in a 67 yr old female with dementia Sepsis Syndrome Can DC in AM and Rx Levaquin for 3 more days.
[2018-01-29] MEDS: ATORVASTATIN CA 10 MG TABLET (FP) PO SCH (21:45)
[2018-01-29] MEDS: DONEPEZIL HCL 10 MG TABLET (FP) PO SCH (21:46)
[2018-01-29] MEDS: traZODone HCL 50 MG TABLET (FP) PO SCH (21:46)
[2018-01-29] MEDS ORDERED: ZOLPIDEM TARTRATE 5 MG TABLET PO PRN (23:53)
[2018-01-30] MEDS ORDERED: INSULIN (NOVOLOG) ASPART 100 UNITS/ML 10ML VIAL ONE ×2 (06:07→19:04)
[2018-01-30] MEDS: VANCOMYCIN 250 MG/5 ML ORAL SOLUTION PO SCH ×3 (06:32→17:21)
[2018-01-30] MEDS: metFORMIN HCL 500 MG TABLET (FP) PO SCH ×2 (06:33→17:21)
[2018-01-30] MEDS: INSULIN SLIDING SCALE (NOVOLOG) 1 VIAL SQ SCH ×2 (06:33→16:29)
[2018-01-30] MEDS: DEXTROSE 5%-NORMAL SALINE 1,000 ML IV SCH ×2 (06:38→13:21)
[2018-01-30 07:46] LABS: BASO % 0.4 % (0-2.0); EOS % 0.7 % (0-4.5); HEMATOCRIT 31.5 % (32.4-45.2); HEMOGLOBIN 10.8 GM/dL (10.7-15.3); LYMPH % 15.1 % (8-40); MCHC 34.2 g/dl (32.0-36.0); MEAN CELL VOLUME 79.2 fl (80-96); MEAN PLT VOLUME 6.9 fl (7.5-11.1); MONO % 5.9 % (3.8-10.2); NEUT % 77.9 % (42.8-82.8); PLATELET COUNT 218 K/MM3 (134-434); RBC 3.98 M/mm3 (3.60-5.2); RDW 14.2 % (11.6-15.6)
[2018-01-30 08:35] LABS: ALBUMIN 2.9 g/dl (3.4-5.0); ALK PHOS 77 U/L (45-117); ANION GAP 13 MMOL/L (8-16); BILIRUBIN,TOTAL 0.4 mg/dL (0.2-1); BLOOD UREA NITROGEN 8 mg/dL (7-18); CALCIUM 8.2 mg/dL (8.5-10.1); CHLORIDE 101 mmol/L (98-107); CO2 27 mmol/L (21-32); CREATININE 0.7 mg/dL (0.55-1.3); GLUCOSE,RANDOM 253 mg/dL (74-106); SGOT/AST 7 U/L (15-37); SGPT/ALT 20 U/L (13-61); SODIUM 140 mmol/L (136-145); TOT PROT 6.4 g/dl (6.4-8.2)
[2018-01-30] MEDS ORDERED: POTASSIUM CHLORIDE TABS 20 MEQ TABLET.ER (FP) PO ONE (09:00)
[2018-01-30] MEDS ORDERED: SODIUM CHLORIDE 1,000 ML IV ONE (09:45)
[2018-01-30] MEDS: LACTOBACILLUS ACIDOPHILUS 1 TABLET PO SCH ×2 (10:56→22:42)
[2018-01-30] MEDS: amLODIPine BESYLATE 10 MG TABLET (FP) PO SCH (10:57)
[2018-01-30] MEDS: levETIRAcetam 500 MG TABLET (FP) PO SCH ×2 (10:57→22:42)
[2018-01-30] MEDS: PANTOPRAZOLE 40 MG TABLET (FP) PO SCH (10:58)
[2018-01-30] MEDS: SODIUM CHLORIDE 1,000 ML IV SCH (16:29)
--- NOTE | 2018-01-30 21:36 | PN ---
Progress Note (short form) - Note Progress Note: 67 y/o female found lying in bed. Family present. Vital Signs Period Temp Pulse Resp BP Sys/Lopez Pulse Ox Last 24 Hr 98.9 F 68 20 154/78 CBC, BMP 01/30/18 07:30 01/30/18 07:30 HEENT- NL Neck- supple Lungs- CTAB Heart- S1/S2 Abd-soft, nt Ext- No LE edema Active Medications Acetaminophen (Tylenol -) 650 mg PO Q4H PRN PRN Reason: FEVER Last Admin: 01/25/18 06:08 Dose: 650 mg Amlodipine Besylate (Norvasc -) 10 mg PO DAILY [facility] Last Admin: 01/30/18 10:57 Dose: 10 mg Aspirin (Asa -) 325 mg PO Q48H [facility] Last Admin: 01/28/18 23:27 Dose: 325 mg Atorvastatin Calcium (Lipitor -) 10 mg PO HS [facility] Last Admin: 01/29/18 21:45 Dose: 10 mg Donepezil HCl (Aricept -) 10 mg PO HS [facility] Last Admin: 01/29/18 21:46 Dose: 10 mg Dextrose/Sodium Chloride (D5-Ns -) 1,000 mls @ 100 mls/hr IV ASDIR [facility] Last Admin: 01/30/18 13:21 Dose: Not Given Sodium Chloride (Normal Saline -) 1,000 mls @ 100 mls/hr IV ASDIR [facility] Last Admin: 01/30/18 16:29 Dose: 100 mls/hr Insulin Aspart (Novolog Vial Sliding Scale -) 1 vial SQ BIDAC [facility]; Protocol Last Admin: 01/30/18 16:29 Dose: 4 units Lactobacillus Acidophilus (Bacid -) 1 tab PO BID [facility] Last Admin: 01/30/18 10:56 Dose: 1 tab Levetiracetam (Keppra -) 500 mg PO BID [facility] Last Admin: 01/30/18 10:57 Dose: 500 mg Metformin HCl (Glucophage -) 1,000 mg PO BIDAC [facility] Last Admin: 01/30/18 17:21 Dose: 1,000 mg Metoprolol Succinate (Toprol Xl -) 50 mg PO DAILY [facility] Last Admin: 01/30/18 10:58 Dose: 50 mg Pantoprazole Sodium (Protonix -) 40 mg PO DAILY [facility] Last Admin: 01/30/18 10:58 Dose: 40 mg Trazodone HCl (Desyrel -) 50 mg PO HS [facility] Last Admin: 01/29/18 21:46 Dose: 50 mg Vancomycin HCl (Vancomycin Oral Solution) 125 mg PO Q6HPO [facility] Last Admin: 01/30/18 17:21 Dose: 125 mg Zolpidem Tartrate (Ambien -) 5 mg PO HS PRN PRN Reason: INSOMNIA #Afebrile- WBC ct normal Blood cultures neg antibiotics per ID #c-diff Continue Bacid BID #Elevated Lactic acid Repeat level- now 4.8 #Dementia At Baseline Continue Aricept #HTN BP stable Cont Amlodipine #IDDM- BG 253 Cont Novolog sliding scale Metformin BID Plan- DC home tomorrow.
[2018-01-30] MEDS: ATORVASTATIN CA 10 MG TABLET (FP) PO SCH (22:43)
[2018-01-30] MEDS: DONEPEZIL HCL 10 MG TABLET (FP) PO SCH (22:43)
[2018-01-30] MEDS: traZODone HCL 50 MG TABLET (FP) PO SCH (22:43)
[2018-01-30] MEDS: ASPIRIN 325 MG TABLET PO SCH (22:43)
[2018-01-31] MEDS: SODIUM CHLORIDE 1,000 ML IV SCH (00:09)
[2018-01-31] MEDS: VANCOMYCIN 250 MG/5 ML ORAL SOLUTION PO SCH ×2 (00:09→06:16)
[2018-01-31] MEDS: INSULIN SLIDING SCALE (NOVOLOG) 1 VIAL SQ SCH (06:17)
[2018-01-31 07:17] VITALS: PULSE 73
[2018-01-31] MEDS ORDERED: PT OWN MED DRAWER 7, Y5N ONE (09:42)
[2018-01-31] MEDS: levETIRAcetam 500 MG TABLET (FP) PO SCH (09:44)
[2018-01-31] MEDS: PANTOPRAZOLE 40 MG TABLET (FP) PO SCH (09:45)
[2018-01-31] MEDS: LACTOBACILLUS ACIDOPHILUS 1 TABLET PO SCH (09:45)
[2018-01-31] MEDS: amLODIPine BESYLATE 10 MG TABLET (FP) PO SCH (09:45)
--- NOTE | 2018-01-31 09:52 | DS ---
Physical Examination Vital Signs: Vital Signs Temperature 97 F L 01/31/18 06:00 Pulse Rate 73 01/31/18 06:00 Respiratory Rate 20 01/31/18 06:00 Blood Pressure 142/74 01/31/18 06:00 O2 Sat by Pulse Oximetry (%) 97 01/25/18 02:30 Constitutional: Yes: Well Nourished Eyes: Yes: Conjunctiva Clear HENT: Yes: Atraumatic, Normocephalic Neck: Yes: Supple, Trachea Midline Cardiovascular: Yes: Regular Rate and Rhythm Respiratory: Yes: CTA Bilaterally Gastrointestinal: Yes: Normal Bowel Sounds, Soft ...Rectal Exam: Yes: Deferred Renal/: Yes: WNL Breast(s): Yes: WNL Musculoskeletal: Yes: WNL Extremities: Yes: WNL Edema: No Peripheral Pulses WNL: No Integumentary: Yes: WNL Neurological: Yes: Alert ...Motor Strength: WNL Psychiatric: Yes: Alert Labs: CBC, BMP 01/30/18 07:30 01/30/18 07:30 Discharge Summary Reason For Visit: SEPSIS Current Active Problems Sepsis (Acute) Hospital Course: The patient is a 67 year old female, with a past medical history of nonverbal ( baseline), diabetes, htn, dementia, chronic C.Diff, and lymphoma who presents to the emergency department with family for sudden onset weakness, chills and fever. Treated for UTI. Condition: Fair - Instructions Diet, Activity, Other Instructions: Please return to the emergency department with any new or worsening symptoms or concerns. Please follow up with your primary care physician within 72 hours. Referrals: Reji Coe MD [Primary Care Provider] - Disposition: HOME - Home Medications Comprehensive Discharge Medication List: Ambulatory Orders Metformin HCl 1,000 mg PO BIDAC 01/15/14 Pravastatin Sodium 10 mg PO HS 07/18/17 Donepezil HCl 10 mg PO HS 07/19/17 Insulin Glargine,Hum.rec.anlog [Lantus Solostar] 30 unit SQ DAILY 07/19/17 Pantoprazole Sodium [Protonix] 40 mg PO DAILY 07/19/17 traZODone HCL [Desyrel -] 50 mg PO HS tablet 08/24/17 Aspirin [ASA -] 325 mg PO Q48H 10/19/17 Zolpidem Tartrate [Ambien] 5 mg PO HS 10/19/17 levETIRAcetam [Keppra -] 500 mg PO BID 10/19/17 Metoprolol Succinate 50 mg PO 10/22/17 Amlodipine Besylate [Norvasc -] 10 mg PO DAILY #30 tablet 10/23/17 Vancomycin HCl 125 mg PO Q6H #28 capsule 10/26/17
[2018-01-31 12:46] VITALS: BP 148/76; TEMP 98.3
== END 2018-01-31 12:52 | disposition home or self-care (01) | DRG 872 ==
LOC: JER 19:16 → JERBED 23:00 → UNDOADMIN 23:46 → JERBED 01-25 01:29 → J6S 01-25 01:29
PROVIDERS: ADMIT Internal Medicine; ATTEND Family Medicine
DX: A41.9 Sepsis, unspecified organism (principal); N39.0 Urinary tract infection, site not specified; A04.72 Enterocolitis due to Clostridium difficile, not specified as recurrent; E87.2 Acidosis; B96.1 Klebsiella pneumoniae [K. pneumoniae] as the cause of diseases classified elsewhere; E87.6 Hypokalemia; Z85.72 Personal history of non-Hodgkin lymphomas; E11.9 Type 2 diabetes mellitus without complications; I10 Essential (primary) hypertension; F03.90 Unspecified dementia, unspecified severity, without behavioral disturbance, psychotic disturbance, mood disturbance, and anxiety; E78.5 Hyperlipidemia, unspecified; Z87.891 Personal history of nicotine dependence; Z79.84 Long term (current) use of oral hypoglycemic drugs; Z79.4 Long term (current) use of insulin
CPT/HCPCS: 36415; 71045-TC-FY; 80048; 80053; 80177; 81003; 81015; 82550; 82803; 82962; 83605; 83735; 84484; 85025; 85027; 85610; 85730; 87040; 87086; 93005; 93010; 97116-GP; 97161-GP; 99284-25; J0131; J7030

== ENCOUNTER 2019-01-23 19:35 | Emergency (ER) | payer OTHER ==
[2019-01-23 20:17] VITALS: BP 156/80; PULSE 74; BMI 17.2
--- NOTE | 2019-01-23 20:37 | PDOC ---
Documentation entered by Mynor Barba SCRIBE, acting as scribe for Genesis Foster DO. Genesis Foster DO: This documentation has been prepared by the Jameson mcbride Daniel, SCRIBE, under my direction and personally reviewed by me in its entirety. I confirm that the documentation accurately reflects all work, treatment, procedures, and medical decision making performed by me. Attending Attestation - Resident Resident Name: Desirae Haji - ED Attending Attestation I have performed the following: I have examined & evaluated the patient, The case was reviewed & discussed with the resident, I agree w/resident's findings & plan, Exceptions are as noted - HPI HPI: 01/23/19 20:12 The patient is a 68 year old female with a past medical history of being nonverbal (s/p seizures last seizure 1 year ago), diabetes, HTN, dementia, chronic C. Diff, and lymphoma here today for evaluation s/p fall. Patient is nonverbal and history is provided by children. Daughter reports that she found the patient on the ground after what she believes was the patient rolling off of her couch. Daughter denies any seizure activity. She notes that the patient has had a worsening cough since sunday (12/23/18) and notes a fever of 100.2 for which the patient was given advil yesterday. Daughter also notes that the patient fell one other time this week and describes it as the patient suddenly falling forward. Patients blood sugar was in the 200s prior to arrival. Allergies: penicillins PCP: Sally Lugo - Physicial Exam PE: 01/23/19 20:12 Constitutional: Awake, alert. No acute distress. Head: Normocephalic. Atraumatic Eyes: PERRL. EOMI. Conjunctivae are not pale. ENT: Mucous membranes are moist and intact. Posterior pharynx without exudates or erythema. Uvula midline. Neck: Supple. Full ROM. No lymphadenopathy. Cardiovascular: Regular rate. Regular rhythm. S1, S2 regular. Distal pulses are 2+ and symmetric. Pulmonary/Chest: No evidence of respiratory distress. Clear to auscultation bilaterally No wheezing, rales or rhonchi. Abdominal: Soft and non-distended. There is no tenderness. No rebound, guarding or rigidity. No organomegaly. No palpable masses. Good bowel sounds. Back: No CVA tenderness. Musculoskeletal: No edema. No cyanosis. No clubbing. Full range of motion in all extremities. Nocalf tenderness. Radial/pedal pulses are intact and 2+ bilaterally Skin: Skin is warm and dry. No petechiae. No purpura. Neurological: +nonverbal, at baseline mental status. +tremor. +Negative Babinski lower extremities. Alert. Cranial nerves II-XII are grossly intact. Strength is grossly symmetric. No sensory deficits. Psychiatric: Good eye contact. - Medical Decision Making 01/23/19 20:35 I, Dr. Genesis Foster, DO, attest that this document has been prepared under my direction and personally reviewed by me in its entirety. I further attest, that it accurately reflects all work, treatment, procedures and medical decision -making performed by me. a/p: 68yo demented female with a fall off the sofa at home -cared for by [facility] at home -nonverbal -rolled off the sofa -no seizure activity -has been coughing with low grade temp all week - tmax 100.2 -last motrin was yesterday -no foul smell to urine -eating and drinking normally - no n/v/d -will send for head and c spine imaging given fall and nonverbal -will obtain labs, cxr given cough and 2nd fall this week - apparently was standing, got weak this week and fell, no head injury -will monitor and reassess 01/23/19 21:52 cxr clear no elevated wbc pt with UTI 01/23/19 23:02 chronic changes to head, no acute fx on c spine will start abx resident discussed findings with the [facility] pt stable for dc to home on oral abx for uti Heart Score/ECG Review - ECG Intrepretation Comment:: 01/23/19 20:42 sinus at 74, L axis, nl interval, lvh, no acute st/t wave findings, baseline artifact
--- NOTE | 2019-01-23 20:43 | PDOC ---
History of Present Illness - General Chief Complaint: Injury Stated Complaint: FALL Time Seen by Provider: 01/23/19 19:44 History Source: Family (daughter, son) Exam Limitations: Clinical Condition (nonverbal) - History of Present Illness Initial Comments: 68 yo F PMH Alzheimer's, HTN, IDDM, hx UTI sepsis c/b seizures, now nonverbal and with dysphagia, presenting after fall. All history per son and daughter, who take care of her at home. They state that she was laying on the couch and fell onto her L side, hit her head. No apparent LOC. Reports that for the past week, she has been coughing and having low grade fevers to the 99s-100s. Patient went to see GI doctor this morning due to having blood when wiping after bowel movement. Family uncertain whether patient has been having dark stools, but reports that she has not been having any active rectal bleeding. Otherwise appears to be at her baseline. 01/23/19 20:32 Past History - Past Medical History Allergies/Adverse Reactions: Allergies Allergy/AdvReac Type Severity Reaction Status Date / Time Penicillins Allergy Verified 01/23/19 20:17 Home Medications: Ambulatory Orders Donepezil HCl 10 mg PO HS 07/19/17 traZODone HCL [Desyrel -] 50 mg PO HS tablet 08/24/17 Zolpidem Tartrate [Ambien] 5 mg PO HS 10/19/17 levETIRAcetam [Keppra -] 500 mg PO BID 10/19/17 Metoprolol Succinate [Toprol XL -] 50 mg PO DAILY tab.sr.24h 01/31/18 metFORMIN HCL [Glucophage -] 1,000 mg PO BIDAC tablet 01/31/18 Amlodipine Besylate [Norvasc -] 5 mg PO DAILY 01/23/19 Ascorbic Acid [Vitamin C] 1,500 mg PO DAILY 01/23/19 Folic Acid - 1 mg PO DAILY 01/23/19 Insulin Glargine,Hum.rec.anlog [Lantus Solostar PEN -] 10 unit SQ AC 01/23/19 Nitrofurantoin 100 mg PO BID #250 ml 01/23/19 Nitrofurantoin Macrocrystal [Macrodantin -] 100 mg PO ONCE capsule 01/23/19 Pravastatin Sodium 20 mg PO HS 01/23/19 Cancer: Yes (NON-HODGKINS) Cardiac Disorders: Yes (CAD,) COPD: No Dementia: Yes (severe dementia (non-verbal at baseline)) Diabetes: Yes Disorders: Yes (UTERUR STENT) HTN: Yes Hypercholesterolemia: Yes Psychiatric Problems: Yes (dementia) Seizures: Yes Other medical history: DYSPHAGIA - Surgical History Abdominal Surgery: Yes (Kidney stent) - Immunization History Immunization Up to Date: Yes - Psycho Social/Smoking Cessation Hx Smoking History: Former smoker Have you smoked in the past 12 months: No Number of Cigarettes Smoked Daily: 0 If you are a former smoker, when did you quit?: 6 months ago Information on smoking cessation initiated: No 'Breaking Loose' booklet given: 07/19/17 Hx Alcohol Use: No Drug/Substance Use Hx: No Substance Use Type: None Review of Systems - Review of Systems Able to Perform ROS?: No (nonverbal) *Physical Exam - Vital Signs Last Vital Signs Temp Pulse Resp BP Pulse Ox 97.9 F 74 18 156/80 97 01/23/19 20:11 01/23/19 20:11 01/23/19 20:11 01/23/19 20:11 01/23/19 20:11 - Physical Exam Comments: 01/23/19 20:55 Gen: NAD, well-appearing Neuro: does not respond, PERRLA, EOMI, moving limbs spontaneously. Unable to accurately assess cranial nerves, sensation, or strength. HEENT: normocephalic, minor contusion in upper left head Neck: trachea midline, supple CV: regular rate, regular rhythm Pulm: CTA b/l, no wheezing Abd: soft, non-distended, non-tender MSK: normal musculature, pulses intact Skin: warm, dry Extr: no edema, no deformities ED Treatment Course - LABORATORY CBC & Chemistry Diagram: 01/23/19 20:42 01/23/19 20:42 - RADIOLOGY Radiology Studies Ordered: Category Date Time Status HEAD CT WITHOUT CONTRAST [CT] Stat CT Scan 01/23/19 19:56 Ordered Medical Decision Making - Medical Decision Making 01/23/19 21:01 68 yo F nonverbal presenting after fall. - CT head non con, CT C-spine - CBC, CMP - EKG, trop - CXR port - coags, T+S - UA/UC - rectal temp 98.9 - stool for occult blood 01/23/19 21:15 EKG poor baseline, 74 bpm, normal sinus, LAD 01/23/19 21:46 CXR does not appear to have acute pathology. 01/23/19 22:54 CT head with marked periventricular and subcortical chronic microvascular ischemic changes. No acute C-spine fx. Will dc home with Macrobid suspension. Discharge - Discharge Information Problems reviewed: Yes Clinical Impression/Diagnosis: UTI (urinary tract infection) Condition: Good Disposition: HOME - Admission No - Additional Discharge Information Prescriptions: Nitrofurantoin 100 mg PO BID #250 ml - Follow up/Referral Referrals: Sally Lugo [Primary Care Provider] - - Patient Discharge Instructions Patient Printed Discharge Instructions: DI for Urinary Tract Infection (UTI) Additional Instructions: You were seen after a fall. Your CT scans did not show any acute changes. However, you were found to have a urinary tract infection (UTI). Please take your Macrobid twice a day for the next 5 days. Follow up with your primary care doctor. Return to the ED if you develop shortness of breath or have any falls. - Post Discharge Activity
[2019-01-23 20:59] LABS: BASO % 0.5 % (0-2.0); EOS % 0.4 % (0-4.5); HEMATOCRIT 40.8 % (32.4-45.2); LYMPH % 23.9 % (8-40); MCH 29.3 pg (25.7-33.7); MCHC 34.4 g/dl (32.0-36.0); MEAN CELL VOLUME 85.2 fl (80-96); MEAN PLT VOLUME 7.8 fl (7.5-11.1); MONO % 5.2 % (3.8-10.2); PLATELET COUNT 191 K/MM3 (134-434); RBC 4.79 M/mm3 (3.60-5.2); RDW 13.7 % (11.6-15.6); WHITE BLOOD COUNT 7.2 K/mm3 (4.0-10.0)
[2019-01-23 21:10] VITALS: TEMP 98.4
[2019-01-23 21:23] LABS: ALBUMIN 4.1 g/dl (3.4-5.0); BILIRUBIN,TOTAL 0.4 mg/dL (0.2-1); BLOOD UREA NITROGEN 21.6 mg/dL (7-18); CALCIUM 9.2 mg/dL (8.5-10.1); CREATININE 0.8 mg/dL (0.55-1.3); POTASSIUM 4.1 mmol/L (3.5-5.1)
[2019-01-23 21:33] LABS: INR 0.95 (0.83-1.09); PROTHROMBIN TIME (PATIENT) 11.2 SEC (9.7-13.0)
[2019-01-23 21:36] LABS: ACTIVATED PTT 33.2 SECONDS (25.2-36.5)
[2019-01-23 21:40] LABS: EPI CELLS 13.7 /HPF (0-5/HPF); HYALINE CASTS 5 /lpf (0-8); PH,URINE 7.5 (5.0-8.0); URINE APPEARANCE CLEAR; URINE BACTERIA 20.8 /hpf (NEGATIVE); URINE BILIRUBIN NEGATIVE (NEGATIVE); URINE COLOR YELLOW; URINE GLUCOSE (UA) NEGATIVE (NEGATIVE); URINE KETONE TRACE (NEGATIVE); URINE LEUK ESTERASE 1+ (NEGATIVE); URINE NITRITE NEGATIVE (NEGATIVE); URINE PROTEIN NEGATIVE (NEGATIVE); URINE RBC 0 /hpf (0-4); URINE UROBILINOGEN 0.2 mg/dL (0.2-1.0); URINE WBC 6 /hpf (0-5)
[2019-01-23] MEDS ORDERED: NITROFURANTOIN MACROCRYSTAL 50 MG CAPSULE (FP) ONE (23:12)
[2019-01-23] MEDS ORDERED: NITROFURANTOIN MACROCRYSTAL 50 MG CAPSULE (FP) PO SCH (23:15)
--- NOTE | 2019-01-24 12:18 | EKG ---
Test Reason : Blood Pressure : / mmHG Vent. Rate : 074 BPM Atrial Rate : 074 BPM P-R Int : 174 ms QRS Dur : 080 ms QT Int : 412 ms P-R-T Axes : 014 -44 066 degrees QTc Int : 457 ms POOR DATA QUALITY, INTERPRETATION MAY BE ADVERSELY AFFECTED NORMAL SINUS RHYTHM LEFT AXIS DEVIATION MODERATE VOLTAGE CRITERIA FOR LVH, MAY BE NORMAL VARIANT ABNORMAL ECG Confirmed by FRANCESCA AMATO, HI ([id number]) on 01/24/2019 12:17:58 PM Referred By: Confirmed By:HI MA MD
== END 2019-01-23 23:35 | disposition home or self-care (01) ==
LOC: JER 19:35
DX: N39.0 Urinary tract infection, site not specified (principal); B96.89 Other specified bacterial agents as the cause of diseases classified elsewhere; S09.8XXA Other specified injuries of head, initial encounter; W07.XXXA Fall from chair, initial encounter; Y93.89 Activity, other specified; Y92.018 Other place in single-family (private) house as the place of occurrence of the external cause; Y99.8 Other external cause status; I10 Essential (primary) hypertension; E11.9 Type 2 diabetes mellitus without complications; Z79.4 Long term (current) use of insulin; R13.19 Other dysphagia; Z86.69 Personal history of other diseases of the nervous system and sense organs; F03.90 Unspecified dementia, unspecified severity, without behavioral disturbance, psychotic disturbance, mood disturbance, and anxiety; C85.90 Non-Hodgkin lymphoma, unspecified, unspecified site; Z96.0 Presence of urogenital implants
CPT/HCPCS: 36415; 70450-TC; 71045-TC-FY; 72125-TC; 80053; 81003; 82272; 84484; 85025; 85610; 85730; 86850; 86900; 86901; 87086; 87186; 93005; 93010; 99283-25